=== PATIENT | female | born 1930 | race Caucasian/White ===

== ENCOUNTER 2016-07-25 21:00 | Inpatient (IN) | payer MEDICARE, OTHER ==
[~2016-07-25] VITALS: Ht 162.6 cm; Wt 75.0 kg
[2016-07-25 21:03] VITALS: BP 197/84; PULSE 87; RESP 16; TEMP 98; O2SAT 94
--- NOTE | 2016-07-25 21:21 | PD ---
Physical Exam Time Seen by Provider: 21:18 Narrative 86 y/o female here with slurred speech, R arm weakness, for two days. Symptoms seem to be coming and going. Saw Dr. Moffett today, told that she is likely suffering "mini-strokes" and sent here for further evaluation. Vital signs reviewed. seen at triage desk. Awaiting bed placement. Data Data Last Documented VS Vital Signs Date Time Temp Pulse Resp B/P Pulse Ox O2 Delivery O2 Flow Rate FiO2 07/25/16 21:03 98.0 87 16 197/84 94 MDM Medical Record Reviewed: Yes Supervised Visit with OMAR: Yes Omar Em Jul 25, 2016 21:21
[2016-07-25 23:00] VITALS: BP 173/81; PULSE 84; RESP 16; O2SAT 98
[2016-07-25] MEDS ORDERED: VALS1TAB65 PO (23:15)
[2016-07-25] MEDS ORDERED: METO50TA PO (23:15)
[2016-07-25] MEDS ORDERED: ASPI325T PO (23:15)
[2016-07-25] MEDS ORDERED: SODIUM CHLORIDE 0.9% FLUSH 10 ML FLUSH IVF PRN (23:15)
[2016-07-25] MEDS ORDERED: MECL-62 PO (23:19)
[2016-07-25 23:31] LABS: AUTOMATED NEUTROPHIL # 4.6 TH/MM3 (1.8-7.7); BASOPHIL # 0.2 TH/MM3 (0-0.2); BASOPHIL % 2.2 % (0.0-2.0); EOSINOPHIL # 0.8 TH/MM3 (0-0.4); EOSINOPHIL % 9.2 % (0.0-4.0); HEMATOCRIT 36.7 % (35.0-46.0); HEMO FLAGS DIFF FINAL; LYMPH % 23.2 % (9.0-44.0); LYMPHOCYTE # 2.1 TH/MM3 (1.0-4.8); MEAN CELL VOLUME 95.3 FL (80.0-100.0); MEAN CORPUSCULAR HEMOGLOBIN 31.8 PG (27.0-34.0); MEAN CORPUSCULAR HGB CONC 33.3 % (32.0-36.0); MONO % 14.6 % (0.0-8.0); NEUT % 50.8 % (16.0-70.0); PLATELET COUNT 177 TH/MM3 (150-450); RED BLOOD COUNT 3.85 MIL/MM3 (4.00-5.30); RED CELL DISTRIBUTION WIDTH 12.5 % (11.6-17.2)
[2016-07-25 23:45] LABS: ANION GAP 8 MEQ/L (5-15); AST (GOT) 18 U/L (15-37); BICARBONATE 25.3 MEQ/L (21.0-32.0); BLOOD UREA NITROGEN 15 MG/DL (7-18); CHLORIDE 101 MEQ/L (98-107); GLOMERULAR FILTRATION RATE 71 ML/MIN (>89); SODIUM (NA) 134 MEQ/L (136-145)
--- NOTE | 2016-07-25 23:48 | RADRPT ---
EXAM DATE/TIME: 07/25/2016 23:12 [facility] COMPARISON: No previous studies available for comparison. INDICATIONS : Right arm numbness. MEDICAL HISTORY : None. SURGICAL HISTORY : None. ENCOUNTER: Initial ACUITY: 2 days PAIN SCORE: 2/10 LOCATION: Right chest FINDINGS: A single view of the chest demonstrates cardiomegaly left basal atelectasis. Right lung is clear. The cardiomediastinal contours are unremarkable. Osseous structures are intact. CONCLUSION: Cardiomegaly left basilar atelectasis. Sergey Sage MD on July 25, 2016 at 23:46 Board Certified Radiologist. This report was verified electronically.
[2016-07-25 23:50] LABS: ALKALINE PHOSPHATASE 79 U/L (45-117); ALT (GPT) 17 U/L (10-53); TOTAL BILIRUBIN ADULT 0.3 MG/DL (0.2-1.0)
[2016-07-25 23:51] LABS: CREATINE KINASE 43 U/L (26-192)
--- NOTE | 2016-07-25 23:56 | RADRPT ---
EXAM DATE/TIME: 07/25/2016 23:39 [facility] COMPARISON: No previous studies available for comparison. INDICATIONS : Slurred speech and right arm weakness for two days. RADIATION DOSE: 49.11 CTDIvol (mGy) MEDICAL HISTORY : Hypertension. SURGICAL HISTORY : None. ENCOUNTER: Initial ACUITY: 2 days PAIN SCALE: 4/10 LOCATION: cranial TECHNIQUE: Multiple contiguous axial images were obtained of the head. Using automated exposure control and adj ustment of the mA and/or kV according to patient size, radiation dose was kept as low as reasonably a chievable to obtain optimal diagnostic quality images. FINDINGS: CEREBRUM: The ventricles are normal for age. No evidence of midline shift, mass lesion, hemorrhage or acute in farction. No extra-axial fluid collections are seen. POSTERIOR FOSSA: The cerebellum and brainstem are intact. The 4th ventricle is midline. The cerebellopontine angle i s unremarkable. EXTRACRANIAL: The visualized portion of the orbits is intact. SKULL: The calvaria is intact. No evidence of skull fracture. CONCLUSION: No acute intracranial disease. Sergey Sage MD on July 25, 2016 at 23:53 Board Certified Radiologist. This report was verified electronically.
[2016-07-26] VITALS (8 sets, daily range): BP systolic 160–199; BP diastolic 79–98; PULSE 78–103; RESP 16–20; TEMP 97.8–98.3; O2SAT 92–98
[2016-07-26 00:11] LABS: APTT (PATIENT) 26.4 SEC (24.3-30.1); PROTHROMBIN TIME - PATIENT 11.4 SEC (9.8-11.6)
--- NOTE | 2016-07-26 01:12 | PD ---
HPI Chief Complaint: Neuro Symptoms/ Deficits Time Seen by Provider: 23:38 Travel History International Travel<30 days: No Contact w/Intl Traveler<30days: No Traveled to known affect area: No History of Present Illness HPI Patient is an 86-year-old female with history of hypertension and Mnire's disease who presents to emergency room with complaints of episodes of speech difficulties. Patient reports that yesterday afternoon, she had problems with her speech, reports that "cannot get my words out." Patient reports that she decided to take a nap and when she woke up, she felt better. Patient reports that this has been intermittent since yesterday, reports that this happened again today, reports that symptoms lasted for an hour resolve on its own. Patient reports that she was concerned that today her right arm felt numb. Patient is from out of town, she did see a primary care doctor, Dr. Moffett, who was concerned as patient may be having mini strokes. Patient reports no concerns at this time. She did take an aspirin prior to coming to emergency room. PFSH Past Medical History Diminished Hearing: No Hypertension: Yes Tetanus Vaccination: Unknown Menopausal: Yes : 3 Para: 3 Miscarriage: 0 Past Surgical History Appendectomy: Yes Thoracic Surgery: Yes (LT LUNG SURG) Other Surgery: Yes Social History Alcohol Use: No Tobacco Use: No Substance Use: No Allergies-Medications (Allergen,Severity, Reaction): Coded Allergies: Codeine (Verified Allergy, Intermediate, "VIOLENTLY SICK", 07/25/16) Reported Meds & Prescriptions Reported Meds & Active Scripts Active Reported Meclizine (Meclizine HCl) 25 Mg Tab 25 Mg PO DIRECTED PRN Aspirin 325 Mg Tab 325 Mg PO DAILY Valsartan 160 Mg Tab 160 Mg PO DAILY Metoprolol Tartrate 50 Mg Tab 50 Mg PO BID Review of Systems General / Constitutional: No: Fever Eyes: No: Visual changes HENT: No: Headaches Cardiovascular: No: Chest Pain or Discomfort Respiratory: No: Shortness of Breath Gastrointestinal: No: Abdominal Pain Genitourinary: No: Dysuria Musculoskeletal: No: Pain Skin: No Rash Neurologic: Positive: Slurred Speech, Paresthesia, No: Weakness, Syncope Psychiatric: No: Depression Endocrine: No: Polydipsia Hematologic/Lymphatic: No: Easy Bruising Physical Exam Narrative GENERAL: No acute distress, nontoxic SKIN: Focused skin assessment warm/dry. HEAD: Atraumatic. Normocephalic. EYES: Pupils equal and round. No scleral icterus. No injection or drainage. ENT: No nasal bleeding or discharge. Mucous membranes pink and moist. NECK: Trachea midline. No JVD. CARDIOVASCULAR: Regular rate and rhythm. No murmur appreciated. RESPIRATORY: No accessory muscle use. Clear to auscultation. Breath sounds equal bilaterally. GASTROINTESTINAL: Abdomen soft, non-tender, nondistended. Hepatic and splenic margins not palpable. MUSCULOSKELETAL: No obvious deformities. No clubbing. No cyanosis. No edema. NEUROLOGICAL: Awake and alert. No obvious cranial nerve deficits. Motor grossly within normal limits. Normal speech. Cranial nerves 2- 12 grossly intact with no neurological deficits, NIH 0 PSYCHIATRIC: Appropriate mood and affect; insight and judgment normal. Data Data Last Documented VS Vital Signs Date Time Temp Pulse Resp B/P Pulse Ox O2 Delivery O2 Flow Rate FiO2 07/25/16 23:00 84 16 173/81 98 Room Air 07/25/16 21:03 98.0 Orders Electrocardiogram (07/25/16 23:14) Prothrombin Time / Inr (Pt) (07/25/16 23:14) Act Partial Throm Time (Ptt) (07/25/16 23:14) Complete Blood Count With Diff (07/25/16 23:14) Comprehensive Metabolic Panel (07/25/16 23:14) Creatine Kinase (Cpk) (07/25/16 23:14) Troponin I (07/25/16 23:14) Urinalysis - C+S If Indicated (07/25/16 23:14) Ct Brain W/O Iv Contrast(Rout) (07/25/16 23:14) Chest, Single Ap (07/25/16 23:14) Ecg Monitoring (07/25/16 23:14) Iv Access Insert/Monitor (07/25/16 23:14) Oximetry (07/25/16 23:14) Blood Glucose (07/25/16 23:14) Sodium Chloride 0.9% Flush (Ns Flush) (07/25/16 23:15) Place In Observation (07/26/16 ) Vital Signs (Adult) Q4H (07/26/16 01:01) Activity Bed Rest With Brp (07/26/16 01:01) Diet Npo (07/26/16 Breakfast) Sodium Chlor 0.9% 1000 Ml Inj (Ns 1000 M (07/26/16 01:01) Sodium Chloride 0.9% Flush (Ns Flush) (07/26/16 01:15) Sodium Chloride 0.9% Flush (Ns Flush) (07/26/16 09:00) Ondansetron Inj (Zofran Inj) (07/26/16 01:15) Bisacodyl Supp (Dulcolax Supp) (07/26/16 01:15) Basic Metabolic Panel (Bmp) (07/27/16 06:00) Complete Blood Count With Diff (07/27/16 06:00) Resp Oxygen Evelio C Titrat 1-4 L (07/26/16 ) Pt Request For Service (07/26/16 01:01) Ot Request For Service (07/26/16 01:01) Scd Bilateral/Knee High CLARICE.BID (07/26/16 01:01) Naloxone Inj (Narcan Inj) (07/26/16 01:15) Lipid Profile (07/26/16 06:00) Us Carotid Arteries Comp Bilat (07/26/16 ) Echo 2d Comp W/Dopp(Routine) (07/26/16 ) Aspirin (Aspirin) (07/26/16 09:00) Consult Neurology (07/26/16 ) Nursing Bedside Swallow Assess .ONCE (07/26/16 01:01) Hemoglobin (Hgb) A1c (07/26/16 06:00) Labs Laboratory Tests Test 07/25/16 23:20 White Blood Count 9.0 TH/MM3 Red Blood Count 3.85 MIL/MM3 Hemoglobin 12.2 GM/DL Hematocrit 36.7 % Mean Corpuscular Volume 95.3 FL Mean Corpuscular Hemoglobin 31.8 PG Mean Corpuscular Hemoglobin 33.3 % Concent Red Cell Distribution Width 12.5 % Platelet Count 177 TH/MM3 Mean Platelet Volume 8.9 FL Neutrophils (%) (Auto) 50.8 % Lymphocytes (%) (Auto) 23.2 % Monocytes (%) (Auto) 14.6 % Eosinophils (%) (Auto) 9.2 % Basophils (%) (Auto) 2.2 % Neutrophils # (Auto) 4.6 TH/MM3 Lymphocytes # (Auto) 2.1 TH/MM3 Monocytes # (Auto) 1.3 TH/MM3 Eosinophils # (Auto) 0.8 TH/MM3 Basophils # (Auto) 0.2 TH/MM3 CBC Comment DIFF FINAL Differential Comment Sodium Level 134 MEQ/L Potassium Level 4.0 MEQ/L Chloride Level 101 MEQ/L Carbon Dioxide Level 25.3 MEQ/L Anion Gap 8 MEQ/L Blood Urea Nitrogen 15 MG/DL Creatinine 0.77 MG/DL Estimat Glomerular Filtration 71 ML/MIN Rate Random Glucose 108 MG/DL Calcium Level 8.9 MG/DL Total Bilirubin 0.3 MG/DL Aspartate Amino Transf 18 U/L (AST/SGOT) Alanine Aminotransferase 17 U/L (ALT/SGPT) Alkaline Phosphatase 79 U/L Total Creatine Kinase 43 U/L Troponin I LESS THAN 0.02 NG/ML Total Protein 7.1 GM/DL Albumin 3.3 GM/DL Prothrombin Time 11.4 SEC Prothromb Time International 1.0 RATIO Ratio Activated Partial 26.4 SEC Thromboplast Time MDM Medical Decision Making Medical Screen Exam Complete: Yes Emergency Medical Condition: Yes Interpretation(s) EKG at 2329: NSR at 81bpm, qt/qtc: 372/409, no acute ST or T-wave changes Vital Signs Date Time Temp Pulse Resp B/P Pulse Ox O2 Delivery O2 Flow Rate FiO2 07/25/16 23:00 84 16 173/81 98 Room Air 07/25/16 22:50 82 97 Room Air 07/25/16 21:03 98.0 87 16 197/84 94 Laboratory Tests Test 07/25/16 23:20 White Blood Count 9.0 TH/MM3 (4.0-11.0) Red Blood Count 3.85 MIL/MM3 (4.00-5.30) Hemoglobin 12.2 GM/DL (11.6-15.3) Hematocrit 36.7 % (35.0-46.0) Mean Corpuscular Volume 95.3 FL (80.0-100.0) Mean Corpuscular Hemoglobin 31.8 PG (27.0-34.0) Mean Corpuscular Hemoglobin 33.3 % Concent (32.0-36.0) Red Cell Distribution Width 12.5 % (11.6-17.2) Platelet Count 177 TH/MM3 (150-450) Mean Platelet Volume 8.9 FL (7.0-11.0) Neutrophils (%) (Auto) 50.8 % (16.0-70.0) Lymphocytes (%) (Auto) 23.2 % (9.0-44.0) Monocytes (%) (Auto) 14.6 % (0.0-8.0) Eosinophils (%) (Auto) 9.2 % (0.0-4.0) Basophils (%) (Auto) 2.2 % (0.0-2.0) Neutrophils # (Auto) 4.6 TH/MM3 (1.8-7.7) Lymphocytes # (Auto) 2.1 TH/MM3 (1.0-4.8) Monocytes # (Auto) 1.3 TH/MM3 (0-0.9) Eosinophils # (Auto) 0.8 TH/MM3 (0-0.4) Basophils # (Auto) 0.2 TH/MM3 (0-0.2) CBC Comment DIFF FINAL Differential Comment Sodium Level 134 MEQ/L (136-145) Potassium Level 4.0 MEQ/L (3.5-5.1) Chloride Level 101 MEQ/L (98-107) Carbon Dioxide Level 25.3 MEQ/L (21.0-32.0) Anion Gap 8 MEQ/L (5-15) Blood Urea Nitrogen 15 MG/DL (7-18) Creatinine 0.77 MG/DL (0.50-1.00) Estimat Glomerular Filtration 71 ML/MIN (>89) Rate Random Glucose 108 MG/DL (74-106) Calcium Level 8.9 MG/DL (8.5-10.1) Total Bilirubin 0.3 MG/DL (0.2-1.0) Aspartate Amino Transf 18 U/L (15-37) (AST/SGOT) Alanine Aminotransferase 17 U/L (10-53) (ALT/SGPT) Alkaline Phosphatase 79 U/L (45-117) Total Creatine Kinase 43 U/L (26-192) Troponin I LESS THAN 0.02 NG/ML (0.02-0.05) Total Protein 7.1 GM/DL (6.4-8.2) Albumin 3.3 GM/DL (3.4-5.0) Prothrombin Time 11.4 SEC (9.8-11.6) Prothromb Time International 1.0 RATIO Ratio Activated Partial 26.4 SEC Thromboplast Time (24.3-30.1) Last Impressions Head CT 07/25/162313 Signed Impressions: Service Date/Time: Monday, July 25, 2016 23:39 - CONCLUSION: No acute intracranial disease. Sergey Sage MD Chest X-Ray 07/25/162313 Signed Impressions: Service Date/Time: Monday, July 25, 2016 23:12 - CONCLUSION: Cardiomegaly left basilar atelectasis. Sergey Sage MD Differential Diagnosis TIA, CVA, intracranial hemorrhage, arrhythmia, electrolyte abnormality Narrative Course Patient is an 86-year-old female who presents to emergency room with her daughters for evaluation of TIA. Over the past 2 days, patient has been having episodes of slurring of speech, dysarthria, weakness and numbness to her right upper extremities. She did see her primary care doctor today who informed her that she should go to the emergency room for a TIA workup. Patient reports that symptoms are intermittent in nature and lasts for hours at a time, patient currently symptomatic free at this time. NIH scale is 0 All labs and all studies reviewed with patient and her daughters in detail. Plan to obs for TIA. Case reviewed with DR. Flores who accepts pt to service Diagnosis Primary Impression: TIA (transient ischemic attack) Qualified Code: G45.9 - Transient cerebral ischemia, unspecified type Admitting Information Admitting Physician Requests: Mae Nicholson DO Jul 26, 2016 01:12
[2016-07-26] MEDS ORDERED: BISACODYL 10 MG SUPP RECTAL PRN (01:15)
[2016-07-26] MEDS ORDERED: NALOXONE HCL 0.4 MG/ML AMP IV PRN (01:15)
[2016-07-26] MEDS ORDERED: ONDANSETRON HCL 4 MG/2 ML VIAL IVP PRN (01:15)
[2016-07-26] MEDS: SODIUM CHLORIDE 0.9% FLUSH 10 ML FLUSH IV FLUSH PRN (03:23)
[2016-07-26] MEDS: SODIUM CHLOR 0.9% 1000 ML INJ 1,000 ML IV SCH ×2 (03:24→20:19)
--- NOTE | 2016-07-26 04:19 | HHI.HP ---
HPI Service [facility] Primary Care Physician Gera Yoo M.D. Admission Diagnosis TIA Diagnoses: Chief Complaint: Right upper extremity numbness tingling and weakness along with expressive aphasia Travel History International Travel<30 Days: No Contact w/Intl Traveler <30 Da: No Traveled to Known Affected Are: No History of Present Illness This 86-year-old female patient with past medical history which includes: HTN, R carotid artery stenosis. Patient recently traveled here from [place] to [place] on a train then from [place] to [place] by car. Patient reports that starting Sunday she had numbness, tingling and weakness in R arm as well as difficulty speaking. Patient reports these symptoms last most of the day Sunday, then seemed to resolve. Symptoms then presented again today therefore she proceeded to ER for further evaluation. At this time patient reports symptoms have nearly resolved. Patient has known R carotid artery disease last US 5 years ago. Patient denies chest pain shortness of breath nausea vomiting diarrhea constipation fevers or chills Review of Systems Except as stated in HPI: all other systems reviewed are Neg Past Family Social History Past Surgical History appendectomy as a child hysterectomy lung Sx secondary to fungal infection Reported Medications Meclizine (Meclizine HCl) 25 Mg Tab 25 Mg PO DIRECTED PRN Aspirin 325 Mg Tab 325 Mg PO DAILY Valsartan 160 Mg Tab 160 Mg PO DAILY Metoprolol Tartrate 50 Mg Tab 50 Mg PO BID Allergies: Coded Allergies: Codeine (Verified Allergy, Intermediate, "VIOLENTLY SICK", 07/25/16) Active Ordered Medications Current Medications Medications (Trade) Dose Ordered Sig/Ton Route Start Time Stop Time Status Last Admin (NS 1000 ml Inj) 1,000 ml @ 50 mls/hr Q20H IV 07/26/16 01:01 07/26/16 03:24 (NS Flush) 2 ml UNSCH PRN IV FLUSH 07/26/16 01:15 07/26/16 03:23 (NS Flush) 2 ml BID IV FLUSH 07/26/16 09:00 (Zofran Inj) 4 mg Q6H PRN IVP 07/26/16 01:15 (Dulcolax Supp) 10 mg DAILY PRN RECTAL 07/26/16 01:15 (Narcan Inj) 0.4 mg UNSCH PRN IV 07/26/16 01:15 (Aspirin) 325 mg DAILY PO 07/26/16 09:00 Family History Family: mother and sister both had brain aneurysm Social History Patient has remote tobacco use history reports she quit smoking 30+ years ago Reports occasional EtOH use Patient lives in [place] is here on vacation to visit her daughter Physical Exam Vital Signs Vital Signs Date Time Temp Pulse Resp B/P Pulse Ox O2 Delivery O2 Flow Rate FiO2 07/26/16 03:13 98.3 93 18 160/98 98 07/26/16 02:00 80 16 169/79 98 Room Air 07/26/16 01:07 97 07/25/16 23:00 84 16 173/81 98 Room Air 07/25/16 22:50 82 97 Room Air 07/25/16 21:03 98.0 87 16 197/84 94 Physical Exam GENERAL: This is a well-nourished, well-developed patient, in no apparent distress. SKIN: No rashes, ecchymoses or lesions. Cool and dry. HEAD: Atraumatic. Normocephalic. No temporal or scalp tenderness. EYES: Extraocular motions intact. No scleral icterus. No injection or drainage. NECK: Trachea midline. No JVD or lymphadenopathy. Supple, nontender, no meningeal signs. CARDIOVASCULAR: Regular rate and rhythm without murmurs, gallops, or rubs. Left carotid bruit audible RESPIRATORY: Clear to auscultation. Breath sounds equal bilaterally. No wheezes , rales, or rhonchi. GASTROINTESTINAL: Abdomen soft, non-tender, nondistended. No guarding. MUSCULOSKELETAL: Extremities without clubbing, cyanosis, or edema. No joint tenderness, effusion, or edema noted. No calf tenderness. Negative Homans sign bilaterally. NEUROLOGICAL: Awake and alert. Motor and sensory grossly within normal limits. Five out of 5 muscle strength in all muscle groups, with the exception of right upper extremity slightly weaker than left. slightly slow speech- dose not appear slurred. Laboratory Laboratory Tests Test 07/25/16 23:20 White Blood Count 9.0 Red Blood Count 3.85 Hemoglobin 12.2 Hematocrit 36.7 Mean Corpuscular Volume 95.3 Mean Corpuscular Hemoglobin 31.8 Mean Corpuscular Hemoglobin 33.3 Concent Red Cell Distribution Width 12.5 Platelet Count 177 Mean Platelet Volume 8.9 Neutrophils (%) (Auto) 50.8 Lymphocytes (%) (Auto) 23.2 Monocytes (%) (Auto) 14.6 Eosinophils (%) (Auto) 9.2 Basophils (%) (Auto) 2.2 Neutrophils # (Auto) 4.6 Lymphocytes # (Auto) 2.1 Monocytes # (Auto) 1.3 Eosinophils # (Auto) 0.8 Basophils # (Auto) 0.2 CBC Comment DIFF FINAL Differential Comment Sodium Level 134 Potassium Level 4.0 Chloride Level 101 Carbon Dioxide Level 25.3 Anion Gap 8 Blood Urea Nitrogen 15 Creatinine 0.77 Estimat Glomerular Filtration 71 Rate Random Glucose 108 Calcium Level 8.9 Total Bilirubin 0.3 Aspartate Amino Transf 18 (AST/SGOT) Alanine Aminotransferase 17 (ALT/SGPT) Alkaline Phosphatase 79 Total Creatine Kinase 43 Troponin I LESS THAN 0.02 Total Protein 7.1 Albumin 3.3 Prothrombin Time 11.4 Prothromb Time International 1.0 Ratio Activated Partial 26.4 Thromboplast Time Result Diagram: 07/25/16231907/25/162319 Imaging Last Impressions Head CT 07/25/162313 Signed Impressions: Service Date/Time: Monday, July 25, 2016 23:39 - CONCLUSION: No acute intracranial disease. Sergey Sage MD Chest X-Ray 07/25/162313 Signed Impressions: Service Date/Time: Monday, July 25, 2016 23:12 - CONCLUSION: Cardiomegaly left basilar atelectasis. Sergey Sage MD Assessment and Plan Assessment and Plan This 86-year-old female patient with past medical history which includes: HTN, R carotid artery stenosis. Patient recently traveled here from [place] to [place] on a train then from [place] to [place] by car. Patient reports that starting Sunday she had numbness, tingling and weakness in R arm as well as difficulty speaking. Patient reports these symptoms last most of the day Sunday, then seemed to resolve. Symptoms then presented again today therefore she proceeded to ER for further evaluation. At this time patient reports symptoms have nearly resolved. R upper extremity weakness and expressive aphagia TIS vs CVA neurology consult US carotid arteries Lipid profile echocardiogram bedrest, permissive hypertension HTN Hold BP medication at this time allow permissive HTN Left basilar atelectasis chest x-ray reviewed by myself as well as Dr. Flores reveals cardiomegaly with left basilar atelectasis IS Q1H while awake Monitor closely for signs and symptoms of infection DVT prophylaxis Lovenox Discussed with the care provider, nursing, patient and daughter at bedside Written by Conchita Haile, acting as scribe for Dr. Flores on 07/26/16 at 05: 07. This note was transcribed by scribe [Conchita Haile]. I, Dr. Keyshawn Flores personally performed the history, physical exam, and medical decision making; and confirmed the accuracy of the information in the transcribed note. Authenticated by Dr. Keyshawn Flores on 07/26/16 at 05:07. Conchita Haile Jul 26, 2016 04:19 Keyshawn Flores MD August 14, 2016 05:00
[2016-07-26] MEDS: ENOXAPARIN SODIUM 40 MG/0.4 ML SYRINGE SQ SCH (06:09)
[2016-07-26 06:16] LABS: HDL CHOLESTEROL 50.7 MG/DL (40.0-60.0); LDL CHOLESTEROL 94 MG/DL (0-99)
[2016-07-26] MEDS: SODIUM CHLORIDE 0.9% FLUSH 10 ML FLUSH IV FLUSH SCH ×2 (09:00→20:19)
[2016-07-26] MEDS ORDERED: ASPIRIN 325 MG TAB PO SCH (09:00)
[2016-07-26] MEDS: ASPIRIN 325 MG TAB PO SCH (09:16)
--- NOTE | 2016-07-26 10:08 | RADRPT ---
EXAM DATE/TIME: 07/26/2016 08:05 [facility] COMPARISON: No previous studies available for comparison. INDICATIONS : Transient ischemic attack. MEDICAL HISTORY : Hypertension. Skin cancer. SURGICAL HISTORY : Appendectomy. Left lung surgery. ENCOUNTER: Initial ACUITY: 1 day PAIN SCORE: 10 LOCATION: Bilateral neck PEAK SYSTOLIC VELOCITIES (cm/sec): ICA/CCA RATIO: Right: 1.0 Left: 1.7 ICA: Right: 106 Left: 178 CCA: Right: 107 Left: 103 ECA: Right: 124 Left: 143 VERTEBRAL: Right: 38 antegrade Left: 60 antegrade Elevated flow velocities and ICA/CCA ratios have been found to correlate with increased degrees of vessel stenosis, calculated as percentage of diameter relative to a normal segment of distal ICA/CCA FINDINGS: There is antegrade flow in the bilateral vertebral arteries. Moderate atherosclerotic plaquing of the right carotid bifurcation identified. Mild atherosclerotic plaquing of the left distal common caroti d and proximal internal carotid arteries. There is mild elevated velocity of the left internal caroti d artery, not hemodynamically significant at this time. CONCLUSION: 1. No evidence for hemodynamically significant stenosis. Aristides Auguste MD on July 26, 2016 at 10:04 Board Certified Radiologist. This report was verified electronically.
--- NOTE | 2016-07-26 11:54 | EKG ---
Date Performed: 07/25/2016 Time Performed: 23:29:30 PTAGE: 86 years EKG: Sinus rhythm WITH OCCASIONAL VENTRICULAR PREMATURE COMPLEXES PATTERN CONSISTENT WITH PULMONARY DISEASE INFERIOR M YOCARDIAL INFARCTION ABNORMAL ECG NO PREVIOUS TRACING DOCTOR: Dawit Hutchinson Interpretating Date/Time 07/26/2016 11:50:54
--- NOTE | 2016-07-26 14:31 | RADRPT ---
EXAM DATE/TIME: 07/26/2016 14:01 [facility] COMPARISON: CT BRAIN W/O CONTRAST, July 25, 2016, 23:39. INDICATIONS : Right sided weakness that started 4 days ago. MEDICAL HISTORY : Hypertension. SURGICAL HISTORY : Appendectomy. Hysterectomy. lung surgery ENCOUNTER: Subsequent ACUITY: 4-6 days PAIN SCORE: 0/10 LOCATION: cranial TECHNIQUE: Multiplanar, multisequence MRI of the brain was performed without contrast. FINDINGS: Diffusion weighted images demonstrate multiple foci of restricted diffusion involving the left fronta l, parietal, temporal and occipital regions. There is corresponding mild increased flair signal are p eriods cyst in foci of acute infarction. There is no hemorrhage. No midline shift. There is mild volu me loss. Fluid in the left maxillary sinus is noted. 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 The re is no hemorrhage or mass effect. Aristides Auguste MD on July 26, 2016 at 14:27 Board Certified Radiologist. This report was verified electronically.
[2016-07-26] MEDS ORDERED: ENALAPRILAT 1.25 MG/ML VIAL IV PRN (14:45)
[2016-07-26] MEDS ORDERED: IOHEXOL 350 MG/ML 10 ML VIAL (for RAD DIAG) IV ONE (17:32)
[2016-07-26 18:39] LABS: HEMOGLOBIN A1a 1.6 %; HEMOGLOBIN A1b 0.9 %; HEMOGLOBIN Ao 85.7 %; HEMOGLOBIN LA1C 1.7 %; HEMOGLOBIN P3 3.4 %
--- NOTE | 2016-07-26 19:10 | RADRPT ---
EXAM DATE/TIME: 07/26/2016 17:28 [facility] COMPARISON: No previous studies available for comparison. INDICATIONS : Recent TIA; evaluate for occlusion. IV CONTRAST: 99 cc Omnipaque 350 (iohexol) IV ; Cumulative dose for multiple exams. RADIATION DOSE: 26.82 CTDIvol (mGy) ; Combined studies - Thorax/Abdomen/Pelvis MEDICAL HISTORY : Cardiovascular disease. Hypertension. SURGICAL HISTORY : None. ENCOUNTER: Initial ACUITY: 1 day PAIN SCALE: 0/10 LOCATION: cranial TECHNIQUE: Volumetric scanning was performed using a multi-row detector CT scanner. The data was post processed with a variety of visualization algorithms including full volume maximum intensity projection, multi -planar sliding thin slab reformation, curved planar reformation, and surface rendering techniques. Using automated exposure control and adjustment of the mA and/or kV according to patient size, radiat ion dose was kept as low as reasonably achievable to obtain optimal diagnostic quality images. FINDINGS: There is excellent visualization of the major intracranial arteries out to the second-order branch ve ssels. There is no evidence for aneurysm, vessel truncation or stenosis, and no evidence for vascula r malformation. CONCLUSION: Intracranial arteries are within normal limits. Gagandeep Riley MD on July 26, 2016 at 19:08 Board Certified Radiologist. This report was verified electronically.
--- NOTE | 2016-07-26 19:16 | RADRPT ---
EXAM DATE/TIME: 07/26/2016 17:28 [place] COMPARISON: US CAROTID ARTERIES, July 26, 2016, 8:05. INDICATIONS : Recent TIA; evaluate for occlusion. IV CONTRAST: 99 cc Omnipaque 350 (iohexol) IV ; Cumulative dose for multiple exams. RADIATION DOSE: 26.82 CTDIvol (mGy) ; Combined studies MEDICAL HISTORY : Cardiovascular disease. Hypertension. SURGICAL HISTORY : None. ENCOUNTER: Initial ACUITY: 1 day PAIN SCALE: 0/10 LOCATION: neck Elevated flow velocities and ICA/CCA ratios have been found to correlate with increased degrees of vessel stenosis, calculated as percentage of diameter relative to a normal segment of distal ICA/CCA. TECHNIQUE: Volumetric scanning was performed using a multirow detector CT scanner. The data was post processed with a variety of visualization algorithms including full-volume maximum intensity projection, multip lanar sliding thin-slab reformation, curved-planar reformation, and surface-rendering techniques. Us ing automated exposure control and adjustment of the mA and/or kV according to patient size, radiatio n dose was kept as low as reasonably achievable to obtain optimal diagnostic quality images. FINDINGS: AORTIC ARCH: Mild atherosclerosis of the arch and origins without significant narrowing. RIGHT CAROTID: There is mild plaque of the bulb and proximal internal carotid artery with no significant stenosis. LEFT CAROTID: There is bulky plaque of the left internal carotid artery. An approximately 6 mm long greater than 70 % stenosis is seen approximately 1 cm distal to the bifurcation.VERTEBRALS: Left vertebral artery is dominant. It has a low grade narrowing at its origin and diffuse tortuosity. CONCLUSION: * Atherosclerotic plaque of both carotid bifurcations. Despite the ultrasound, the CT suggests hemody namically significant stenosis of the left internal carotid artery about 1 cm distal to the bifurcati on. No evidence of hemodynamically significant narrowing of the right carotid system. * Dominant left vertebral artery with a low grade narrowing at its origin and diffuse tortuosity. Gagandeep Riley MD on July 26, 2016 at 19:11 Board Certified Radiologist. This report was verified electronically.
--- NOTE | 2016-07-26 20:02 | EC ---
Study Study Date:07/26/2016 STUDY CONCLUSIONS SUMMARY - Left ventricle: The cavity size was normal. Systolic function was probably normal. The estimated ejection fraction was in the range of 55% to 60%. Although no diagnostic regional wall motion abnormality was identified, this possibility cannot be completely excluded on the basis of this study. The study is not technically sufficient to allow evaluation of LV diastolic function. - Mitral valve: Mildly to moderately calcified annulus. Mild regurgitation. If LV function is below 40, please consider prescribing an ACEI or ARB or document rationale for non-use. PROCEDURE DATA STUDY STATUS: Elective. Procedure: Transthoracic echocardiography. Image quality was good. Scanning was performed from the parasternal, apical, and subcostal acoustic windows. Study completion: The patient tolerated the procedure well. Transthoracic echocardiography. M-mode, complete 2D, complete spectral Doppler, and color Doppler. Patient status: Inpatient. CARDIAC ANATOMY LEFT VENTRICLE: The cavity size was normal. Systolic function was probably normal. The estimated ejection fraction was in the range of 55% to 60%. Although no diagnostic regional wall motion abnormality was identified, this possibility cannot be completely excluded on the basis of this study. The study is not technically sufficient to allow evaluation of LV diastolic function. AORTIC VALVE: Trileaflet; mildly thickened leaflets. Doppler: There was no stenosis. No significant regurgitation. MITRAL VALVE: Mildly to moderately calcified annulus. Doppler: There was no evidence for stenosis. Mild regurgitation. Valve area by pressure half-time: 2.65cm^2. Mean gradient: 3mm Hg (D). Peak gradient: 13mm Hg (D). LEFT ATRIUM: The atrium was normal in size. RIGHT VENTRICLE: The cavity size was normal. PULMONIC VALVE: Not well visualized. Doppler: There was no evidence for stenosis. No significant regurgitation. TRICUSPID VALVE: The valve appears to be grossly normal. Doppler: There was no evidence for stenosis. Trace regurgitation. PERICARDIUM: A trivial pericardial effusion was identified. BASIC MEASUREMENTS ADULT Normal Left ventricle LV internal dimension, ED, chordal level, *34.3 mm 43-52 PLAX LV internal dimension, ES, chordal level, 25.9 mm 23-38 PLAX Fractional shortening, chordal level, PLAX *24 % >29 LV posterior wall thickness, ED 7.51 mm IVS/LVPW ratio, ED *1.33 <1.3 Ventricular septum Septal thickness, ED 10 mm Aortic valve Leaflet separation 18 mm 15-26 Left atrium Anterior-posterior dimension 35 mm Right ventricle RV internal dimension, ED, PLAX 20.3 mm 19-38 BASIC MEASUREMENTS ADULT Normal Aortic valve Leaflet separation 18 mm 15-26 Aorta Root diameter, ED 31 mm 20-37 DOPPLER MEASUREMENTS ADULT Normal Main pulmonary artery Pressure, S 27 mm Hg =30 Aortic valve VTI, S 34.9 cm Mitral valve Peak E-wave velocity 80.2 cm/s Peak A-wave velocity 147 cm/s Mean velocity, D 72.5 cm/s Pressure half-time 83 ms Mean gradient, D 3 mm Hg Peak gradient, D 13 mm Hg Peak E/A ratio 0.5 Valve area, pressure half-time 2.65 cm^2 Tricuspid valve Regurgitant peak velocity 232 cm/s Peak RV-RA gradient, S 22 mm Hg Maximal regurgitant velocity 232 cm/s Systemic veins Estimated CVP 5 mm Hg Right ventricle RV pressure, S 27 mm Hg <30 LEGEND: Mean values are shown as u=mean value. Asterisk (*) ortiz values outside specified normal range. Prepared and signed by Blayne Moore [id number]
[2016-07-27] VITALS (10 sets, daily range): BP systolic 139–209; BP diastolic 69–95; PULSE 67–101; RESP 18–20; TEMP 96.1–98.8; O2SAT 93–99
[2016-07-27 04:36] LABS: AUTOMATED NEUTROPHIL # 4.7 TH/MM3 (1.8-7.7); BASOPHIL # 0.1 TH/MM3 (0-0.2); BASOPHIL % 1.3 % (0.0-2.0); EOSINOPHIL # 0.8 TH/MM3 (0-0.4); EOSINOPHIL % 9.6 % (0.0-4.0); HEMATOCRIT 32.8 % (35.0-46.0); HEMO FLAGS DIFF FINAL; LYMPH % 19.3 % (9.0-44.0); LYMPHOCYTE # 1.6 TH/MM3 (1.0-4.8); MEAN CELL VOLUME 94.3 FL (80.0-100.0); MEAN CORPUSCULAR HEMOGLOBIN 32.5 PG (27.0-34.0); MEAN CORPUSCULAR HGB CONC 34.5 % (32.0-36.0); MONO % 12.8 % (0.0-8.0); PLATELET COUNT 165 TH/MM3 (150-450); RED BLOOD COUNT 3.47 MIL/MM3 (4.00-5.30); RED CELL DISTRIBUTION WIDTH 12.5 % (11.6-17.2); WHITE BLOOD COUNT 8.3 TH/MM3 (4.0-11.0)
[2016-07-27 04:51] LABS: POTASSIUM 3.6 MEQ/L (3.5-5.1)
[2016-07-27] MEDS: ENOXAPARIN SODIUM 40 MG/0.4 ML SYRINGE SQ SCH (06:05)
--- NOTE | 2016-07-27 06:36 | MB ---
cc: KVNG ACEVEDO DATE OF CONSULTATION 07/26/2016 REASON FOR CONSULTATION Possible TIA. HISTORY OF PRESENT ILLNESS Ms. Christopher is an 86-year-old female with past medical history of hypertension. Right carotid stenosis. She reports that three days ago she started to have numbness, tingling and weakness in her right arm when she was not able to use the right arm properly and this was in association with difficulty in speaking. The patient states that these symptoms persisted, did not resolve, so she presented today for further evaluation. The patient is not on blood thinners and she was diagnosed with right carotid artery disease by an ultrasound five years ago. The patient denies any headache, double vision, weakness. No convulsions or loss of consciousness. REVIEW OF SYSTEMS A 12-point review of systems is negative except for what is stated in the HPI. PAST MEDICAL HISTORY Hypertension. Right carotid stenosis. Skin cancer. PAST SURGICAL HISTORY 1. Appendectomy. 2. Hysterectomy. 3. Lung surgery secondary to fungal infection. 4. Skin cancer removal. MEDICATIONS 1. Meclizine. 1. Valsartan. 2. Metoprolol. ALLERGIES CODEINE. FAMILY HISTORY Mother and sister both had brain aneurysms. SOCIAL HISTORY Used to smoke. Quit 30 years ago. Occasional ethanol use. No illicit drug abuse. PHYSICAL EXAMINATION GENERAL: Awake, alert, anxious. Good historian. Not in apparent distress HEENT: Normocephalic, atraumatic. Intact hearing and intact vision. Right facial droop. CARDIOVASCULAR: Regular rate and rhythm with no murmurs. RESPIRATORY: Clear to auscultation. No wheezes. ABDOMEN: Soft. No tenderness. MUSCULOSKELETAL: Extremities without clubbing, cyanosis or edema. Moves all extremities with more pronounced weakness on the right side. NEUROLOGIC: Awake, alert, oriented to time, person and place. Intact memory. Slurred speech. Abnormal speech content. Abnormal naming pen/pencil, clock/watch, tie/tie. Normal repetition. Normal comprehension. Normal calculation. No finger agnosia. Pupils are equal, reacting to light, bilateral and symmetrical. No gaze paresis. No diplopia. No nystagmus. Right facial droop. Intermittent right upper extremity tremulous movements. No visual field defect. No frontal release reflexes. Motor examination 5-/5 right shoulder abduction, 4+ right elbow extension, 5- right wrist extension. Right lower extremity 5-/5 right hip flexion, right foot extension. Left upper and lower extremity 5/5. Intact sensation bilateral and symmetrical. Plantar right Babinski, left downgoing. PSYCHOLOGICAL: Intact mood and behavior. No hallucinations, LABORATORY DATA WBC 9, hemoglobin 12.2, platelet 177. Sodium 134, potassium 4, anion gap 8, A1c 5.5, BUN 15, creatinine 0.77, albumin 3.3, triglycerides 68, cholesterol 158, LDL 94, HDL 50.7.INR 1. DIAGNOSTICS IMAGING - Head CT scan with no acute intracranial disease. - MRI brain without contrast revealed multiple infarcts involving the left frontal, parietal, temporal and occipital regions. There is no hemorrhage or mass effect. DIAGNOSTIC IMPRESSION 1. Known acute/subacute ischemic stroke. 2. Dysnomia. Right facial weakness, dysphagia, right upper and lower extremity weakness, likely a left MCA ischemic stroke. 3. Hypertension. 4. Carotid disease. PLAN 1. Neuro checks q. 4 hourly. 2. This is the fourth day post-stroke.There is no need to allow for permissive hypertension at this time. 3. Manage blood pressure, start home medications. 4. CTA neck. 5. CTA head. 6. Carotid ultrasound. 7. Telemetry. 8. cardiac echo. 9. Aspirin 325 mg daily. 10. PT/OT recommendations are appreciated. 11. Speech therapy. 12. Prophylaxis with SCDs. 13. GI prophylaxis. Thank you for the opportunity to participate in the care of your patient. MD DOUG Marquez/BOB /11:35 PM /6:16 AM ROBERT
[2016-07-27] MEDS: ASPIRIN 325 MG TAB PO SCH (08:20)
[2016-07-27] MEDS: SODIUM CHLORIDE 0.9% FLUSH 10 ML FLUSH IV FLUSH SCH ×2 (08:24→21:00)
--- NOTE | 2016-07-27 08:24 | HHI.PR ---
Subjective Remarks Follow up for CVA with RUE deficit, Left carotid stenosis. The patient reports feeling generally weak again today, mostly in the right upper extremity, although she does feel much improved compared to her arrival. Denies any other medical complaints including no headache, blurred vision, lightheadedness, dizziness, chest pain, or shortness of breath. She understands she will be going for left CEA tomorrow, multiple family members at bedside. Objective Vitals Vital Signs Date Time Temp Pulse Resp B/P Pulse Ox O2 Delivery O2 Flow Rate FiO2 07/27/16 07:15 98.8 101 20 191/95 98 07/27/16 05:34 98.2 89 20 191/81 97 07/27/16 01:25 98.6 92 18 139/69 93 07/26/16 19:43 98.0 103 20 195/90 97 07/26/16 16:20 88 07/26/16 15:50 97.8 85 18 199/88 95 07/26/16 11:12 97.9 78 18 190/79 95 07/26/16 08:55 98.3 85 16 196/79 92 Result Diagram: 07/27/16 0352 07/27/16 0352 Imaging Last Impressions Neck CTA 07/26/16 0000 Signed Impressions: Service Date/Time: Tuesday, July 26, 2016 17:28 - CONCLUSION: * Atherosclerotic plaque of both carotid bifurcations. Despite the ultrasound, the CT suggests hemodynamically significant stenosis of the left internal carotid artery about 1 cm distal to the bifurcation. No evidence of hemodynamically significant narrowing of the right carotid system. * Dominant left vertebral artery with a low grade narrowing at its origin and diffuse tortuosity. Gagandeep Riley MD Head CTA 07/26/16 0000 Signed Impressions: Service Date/Time: Tuesday, July 26, 2016 17:28 - CONCLUSION: Intracranial arteries are within normal limits. Gagandeep Riley MD Carotid Artery Ultrasound 07/26/16 0000 Signed Impressions: Service Date/Time: Tuesday, July 26, 2016 08:05 - CONCLUSION: 1. No evidence for hemodynamically significant stenosis. Aristides Auguste MD Brain MRI 07/26/16 0000 Signed Impressions: Service Date/Time: Tuesday, July 26, 2016 14:01 - CONCLUSION: Multiple infarcts are noted involving the left frontal, parietal, temporal and occipital regions. There is no hemorrhage or mass effect. Aristides Auguste MD Head CT 07/25/162313 Signed Impressions: Service Date/Time: Monday, July 25, 2016 23:39 - CONCLUSION: No acute intracranial disease. Sergey Sage MD Chest X-Ray 07/25/162313 Signed Impressions: Service Date/Time: Monday, July 25, 2016 23:12 - CONCLUSION: Cardiomegaly left basilar atelectasis. Sergey Sage MD Objective Remarks GENERAL: Well-nourished, well-developed elderly female patient in [facility]. SKIN: Warm and dry. No rash. HEENT: Normocephalic. Atraumatic.Pupils equal and round. Mucous membranes pink and moist. NECK: Supple. Trachea midline. CARDIOVASCULAR: Regular rate and rhythm. S1, S2 noted. No murmur appreciated. RESPIRATORY: No accessory muscle use. Clear to auscultation. Breath sounds equal bilaterally. GASTROINTESTINAL: Abdomen soft, non-tender, nondistended. Normoactive bowel sounds x4. MUSCULOSKELETAL: No obvious deformities. Extremities without clubbing, cyanosis , or edema. NEUROLOGICAL: Awake and alert. No obvious cranial nerve deficits. Motor grossly within normal limits. 4/5 muscle strength of RUE with some slight neglect and slightly diminished RUE sensation, 5/5 muscle strength in LUE/LLE/ RLE with sensation intact. Normal speech. No facial droop, lid lag, tongue deviation. PSYCHIATRIC: Appropriate mood and affect; insight and judgment normal. Medications and IVs Current Medications Medications (Trade) Dose Ordered Sig/Ton Route Start Time Stop Time Status Last Admin (NS 1000 ml Inj) 1,000 ml @ 50 mls/hr Q20H IV 07/26/16 01:01 07/26/16 20:19 (NS Flush) 2 ml UNSCH PRN IV FLUSH 07/26/16 01:15 07/26/16 03:23 (NS Flush) 2 ml BID IV FLUSH 07/26/16 09:00 (Zofran Inj) 4 mg Q6H PRN IVP 07/26/16 01:15 (Dulcolax Supp) 10 mg DAILY PRN RECTAL 07/26/16 01:15 (Narcan Inj) 0.4 mg UNSCH PRN IV 4/12/17 01:15 (Aspirin) 325 mg DAILY PO 07/26/16 09:00 07/26/16 09:16 (Lovenox Inj) 40 mg Q24H SQ 07/26/16 06:00 07/27/16 06:05 (Vasotec Inj) 1.25 mg Q4H PRN IV 07/26/16 14:45 A/P Assessment and Plan 86-year-old female patient with past medical history which includes: HTN, carotid artery stenosis. Patient recently traveled here from [place] to [place] on a train then from [place] to [place] by car. Patient reports that starting Sunday 07/23 she had numbness, tingling and weakness in R arm as well as difficulty speaking. Patient reports these symptoms last most of the day Sunday, then seemed to resolve. Symptoms then presented again today therefore she proceeded to ER for further evaluation. At this time patient reports symptoms have nearly resolved. Acute Ischemic CVA: presented with R upper extremity weakness and expressive aphasia. -Brain MRI images reviewed, shows multiple infarcts involving the left frontal, parietal, temporal, and occipital regions. -Head CTA intracranial arteries wnl. Neck CTA atherosclerotic plaque bilateral carotid, hemodynamically significant stenosis of left ICA; no significant stenosis on the right -Neurology consulted -Lipid profile with LDL 94, start statin -Continue aspirin 325mg daily -echocardiogram with normal systolic function, EF 55-60%, mild MR -S/p HOB flat & bedrest, allowed permissive hypertension however now 4 days post stroke, restart antihypertensives -NIHSS, neuro checks -consult stroke navigator & rehab medicine -consult PT/OT/ST Left Internal Carotid Artery Stenosis: Neck CTA images reviewed, showed hemodynamically significant stenosis of left ICA. -continue on aspirin/statin -consult vascular surgery, Dr. Kidd plans for left CEA tomorrow 07/28 -NPO after midnight HTN: S/p permissive hypertension as above with CVA. -Restarted patient's Valsartan 160mg daily and Metoprolol 50mg bid -IV Vasotec prn SBP > 180, DBP >100 -monitor BP, adjust antihypertensives as needed -BP still significantly elevated, will give Nifedipine XL 30mg x1 now, and start on 30mg qd, adjust dose as needed Left basilar atelectasis: CXR reviewed by myself, reveals cardiomegaly with left basilar atelectasis -Incentive Spirometry Q1H while awake -Monitor closely for signs and symptoms of infection DVT prophylaxis: Lovenox Discussed with the patient, multiple family members, RN. Written by Sylwia Wood, acting as scribe for Dr. Cowan on 07/27/16 at 15: 08. Discharge Planning Admitted to inpatient with acute CVA. Going for Left CEA tomorrow. Attending Statement This note was transcribed by scribe Sylwia Wood. I, Dr. Sully Cowan personally performed the history, physical exam, and medical decision making; and confirmed the accuracy of the information in the transcribed note. Authenticated by Dr. Sully Cowan on 07/27/16 at 20:14. Sylwia Wood PA-C Jul 27, 2016 08:24 Sully Cowan MD Jul 27, 2016 20:15
[2016-07-27] MEDS: METOPROLOL TARTRATE 50 MG TAB PO SCH ×2 (09:55→21:20)
[2016-07-27] MEDS: VALSARTAN 160 MG TAB PO SCH (09:55)
--- NOTE | 2016-07-27 12:47 | PD.VS.CON ---
History of Present Illness Chief Complaint: Ms. Christopher is a pleasant 86/F who recently arrived to [place] from [place] where she is currently staying with her daughter. She has reported she developed 4 days ago a new onset right arm weakness with difficulty speaking that was witnessed by her daughter. She stated this has never happened before and said she had another episode this morning where she was unable to speak lasting a few minutes. Symptoms have resolved since this last episode this am Consult Requested by: Dr. Wood History of Present Illness As written his 86-year-old female patient with past medical history which includes: HTN, R carotid artery stenosis. Patient recently traveled here from [place] to [place] on a train then from [place] to [place] by car. Patient reports that starting Sunday she had numbness, tingling and weakness in R arm as well as difficulty speaking. Patient reports these symptoms last most of the day Sunday, then seemed to resolve. Symptoms then presented again today therefore she proceeded to ER for further evaluation. At this time patient reports symptoms have nearly resolved. Patient has known R carotid artery disease last US 5 years ago. (Cleo Carney) Past/Family/Social History Past Medical History HTN Carotid artery disease Past Surgical History Appendectomy- age 1 Hysterectomy-age 25 Lung Sx secondary to fungal infection Social History Patient has remote tobacco use history reports she quit smoking 30+ years ago Reports occasional EtOH use Patient lives in [place] is here on vacation to visit her daughter Family History mother and sister both had brain aneurysm (Cleo Carney) Home Medications Reported Medications Meclizine 25 Mg Tab25 Mg PO DIRECTED PRN (VERTIGO) Ref 0 07/25/16 Aspirin 325 Mg [id number] Mg PO DAILY #30 TAB Ref 0 07/25/16 Valsartan 160 Mg Das610 Mg PO DAILY #30 TAB Ref 0 07/25/16 Metoprolol Tartrate 50 Mg Tab50 Mg PO BID #60 TAB Ref 0 07/25/16 Coded Allergies: Codeine (Verified Allergy, Intermediate, "VIOLENTLY SICK", 07/25/16) Physical Exam Vitals/I&O Date Time Temp Pulse Resp B/P Pulse Ox O2 Delivery O2 Flow Rate FiO2 07/27/16 11:10 97.9 67 20 209/79 99 07/27/16 08:47 96 07/27/16 07:15 98.8 101 20 191/95 98 07/27/16 05:34 98.2 89 20 191/81 97 07/27/16 01:25 98.6 92 18 139/69 93 07/26/16 19:43 98.0 103 20 195/90 97 07/26/16 16:20 88 07/26/16 15:50 97.8 85 18 199/88 95 Neuro: CN 2-12 intact GCS 15 HEENT: pupils equal Neck: supple Heart: RRR +S1,S2 Lungs: CTA Bilat Vascular: L carotid bruit noted palpable radial pulses strong bilat Extremities: r arm weaker than left 4/5 Left arm 5/5 Pt able to move all 4 ext (Cleo Carney) Laboratory Tests Test 07/27/16 03:52 White Blood Count 8.3 Red Blood Count 3.47 Hemoglobin 11.3 Hematocrit 32.8 Mean Corpuscular Volume 94.3 Mean Corpuscular Hemoglobin 32.5 Mean Corpuscular Hemoglobin 34.5 Concent Red Cell Distribution Width 12.5 Platelet Count 165 Mean Platelet Volume 8.7 Neutrophils (%) (Auto) 57.0 Lymphocytes (%) (Auto) 19.3 Monocytes (%) (Auto) 12.8 Eosinophils (%) (Auto) 9.6 Basophils (%) (Auto) 1.3 Neutrophils # (Auto) 4.7 Lymphocytes # (Auto) 1.6 Monocytes # (Auto) 1.1 Eosinophils # (Auto) 0.8 Basophils # (Auto) 0.1 CBC Comment DIFF FINAL Differential Comment Sodium Level 138 Potassium Level 3.6 Chloride Level 105 Carbon Dioxide Level 24.0 Anion Gap 9 Blood Urea Nitrogen 11 Creatinine 0.63 Estimat Glomerular Filtration 89 Rate Random Glucose 94 Calcium Level 8.3 Last 48 hours Impressions Neck CTA 07/26/16 0000 Signed Impressions: Service Date/Time: Tuesday, July 26, 2016 17:28 - CONCLUSION: * Atherosclerotic plaque of both carotid bifurcations. Despite the ultrasound, the CT suggests hemodynamically significant stenosis of the left internal carotid artery about 1 cm distal to the bifurcation. No evidence of hemodynamically significant narrowing of the right carotid system. * Dominant left vertebral artery with a low grade narrowing at its origin and diffuse tortuosity. Gagandeep Riley MD Head CTA 07/26/16 0000 Signed Impressions: Service Date/Time: Tuesday, July 26, 2016 17:28 - CONCLUSION: Intracranial arteries are within normal limits. Gagandeep Riley MD Carotid Artery Ultrasound 07/26/16 0000 Signed Impressions: Service Date/Time: Tuesday, July 26, 2016 08:05 - CONCLUSION: 1. No evidence for hemodynamically significant stenosis. Aristides Auguste MD Brain MRI 07/26/16 0000 Signed Impressions: Service Date/Time: Tuesday, July 26, 2016 14:01 - CONCLUSION: Multiple infarcts are noted involving the left frontal, parietal, temporal and occipital regions. There is no hemorrhage or mass effect. Aristides Auguste MD Head CT 07/25/162313 Signed Impressions: Service Date/Time: Monday, July 25, 2016 23:39 - CONCLUSION: No acute intracranial disease. Sergey Sage MD Chest X-Ray 07/25/162313 Signed Impressions: Service Date/Time: Monday, July 25, 2016 23:12 - CONCLUSION: Cardiomegaly left basilar atelectasis. Sergey Sage MD (Cleo Carney) Assessment and Plan Assessment: (1) Carotid artery disease Status: Acute Plan Plan Pt scheduled for a Left Caroid Endarterectomy tomorrow with Dr. Kidd Reviewed with patient surgical procedure, pt with no questions at this time Consent signed and placed in the chart Cleo EDWARDS [facility] [phone] (Cleo Carney) Plan Ms. Christopher is a very healthy-appearing 86 yo with symptomatic L carotid stenosis. Pt had R UE paralysis transiently and aphasia. She also had aphasia this morning. I think she has a high risk of a recurrent CVA. Despite chronological age, she is in good health. I talked with her about the NASCET data and offered a LEFT CAROTID ENDARTERECTOMY. Discussed specifically the risks of intra- and kolby-operative stroke. To OR tomorrow. Manuel Kidd MD FACS direct sales consultant [facility] at [facility] [phone] (Manuel Kidd MD) Problem Qualifiers (1) Carotid artery disease: Qualified Code: I77.9 - Left-sided carotid artery disease Cleo Carney Jul 27, 2016 12:47 Manuel Kidd MD Jul 27, 2016 13:16
[2016-07-27] MEDS: SODIUM CHLORIDE 0.9% FLUSH 10 ML FLUSH IV FLUSH PRN (13:34)
--- NOTE | 2016-07-27 16:03 | PD.CONS ---
[facility] Service Rehabilitation Medicine Consult Requested By MALKA Cary/Sully Cowan MD Reason for Consult Comprehensive rehabilitation evaluation. Primary Care Physician Gera Yoo M.D. History of Present Illness Hannah Christopher is an 86-year-old right-hand dominant female mid [facility] ER 07/26/16 with history of right arm numbness/tingling and weakness which initially occurred 07/23/16. This subsequently resolved but recurred the day of admission. Head CT was negative for acute intracranial abnormality. MRI 07/26/16 showed multiple infarcts in the left frontal, parietal, temporal and occipital areas. No hemorrhage was noted. She was seen by neurology and started on aspirin. Carotid ultrasound showed no significant stenosis. Head and neck CTA showed intracranial arteries to be within normal limits. Review of Systems ROS Limitations: Clinical Condition Constitutional: COMPLAINS OF: Fatigue Eyes: DENIES: Diplopia Ears, nose, mouth, throat: DENIES: Throat pain Respiratory: DENIES: Shortness of breath Cardiovascular: DENIES: Chest pain Gastrointestinal: DENIES: Abdominal pain Genitourinary: DENIES: Urinary incontinence Neurologic: COMPLAINS OF: Localized weakness, Speech Problems, DENIES: Headache Psychiatric: DENIES: Confusion Past Family Social History Allergies: Coded Allergies: Codeine (Verified Allergy, Intermediate, "VIOLENTLY SICK", 07/25/16) Past Medical History Hypertension Right carotid artery stenosis Skin cancer Past Surgical History Lung surgery for fungal infection Hysterectomy Appendectomy Current Medications Current Medications Medications (Trade) Dose Ordered Sig/Ton Route Start Time Stop Time Status Last Admin (NS Flush) 2 ml UNSCH PRN IV FLUSH 07/26/16 01:15 07/27/16 13:34 (NS Flush) 2 ml BID IV FLUSH 07/26/16 09:00 (Zofran Inj) 4 mg Q6H PRN IVP 07/26/16 01:15 (Dulcolax Supp) 10 mg DAILY PRN RECTAL 07/26/16 01:15 (Narcan Inj) 0.4 mg UNSCH PRN IV 07/26/16 01:15 (Aspirin) 325 mg DAILY PO 07/26/16 09:00 07/27/16 08:20 (Lovenox Inj) 40 mg Q24H SQ 07/26/16 06:00 07/27/16 06:05 (Vasotec Inj) 1.25 mg Q4H PRN IV 07/26/16 14:45 07/27/16 13:34 (Lipitor) 40 mg HS PO 07/27/16 21:00 (Lopressor) 50 mg BID PO 07/27/16 09:00 07/27/16 09:55 (Diovan) 160 mg DAILY PO 07/27/16 09:00 07/27/16 09:55 Family History Mother and sister: Brain aneurysm Social History Prior to admission patient lived in [place], [place] in an assisted living facility. She is visiting her daughter who lives here locally. Prior to admission she used a walker to ambulate. Quit tobacco 30 years ago. Occasional alcohol use Exam I&O / VS Vital Signs Date Time Temp Pulse Resp B/P Pulse Ox O2 Delivery O2 Flow Rate FiO2 07/27/16 14:00 98.0 78 18 191/78 95 07/27/16 13:21 201/93 07/27/16 11:10 97.9 67 20 209/79 99 07/27/16 08:47 96 07/27/16 07:15 98.8 101 20 191/95 98 07/27/16 05:34 98.2 89 20 191/81 97 07/27/16 01:25 98.6 92 18 139/69 93 07/26/16 19:43 98.0 103 20 195/90 97 07/26/16 16:20 88 General: No acute distress Respiratory: Lungs CTA, Non-labored respirations, BS equal Gastrointestinal: Positive Bowel Sounds, Non-Distended Cardiovascular: Regular Rhythm Musculoskeletal: ROM (within functional limits), Swelling (none in the distal lower extremities) Psychiatric: Cooperative, Appropriate mood & affect Orientation: oriented to Self, oriented to Place, oriented to Time Neurologic: Cranial Nerves (intact 2 through 12), Speech (occasional word finding difficulty) Motor: Right Upper Extremity (4/5), Left Upper Extremity (5/5), Right Lower Extremity, Left Lower Extremity (5/5) Sensory Decreased by approximately 75% in the right upper and lower extremity Babinski: Negative (equivocal right) Clonus: Negative Balance: Sitting (balance is fair plus) Assessment and Plan Diagnosis: (1) Cerebrovascular accident Assessment 1. Left frontoparietal temporal occipital multiple infarcts with right hemiparesis and mild expressive aphasia 2. Impaired mobility and ADLs 3. Hypertension 4. History of skin cancer 5. History of lung surgery for fungal infection 6. Remote history of tobacco use Plan 1. Speech therapy has evaluated swallow and tolerating regular diet with thin liquids. Communication is being addressed 2. Occupational therapy for ADLs and now moderate assistance 3. Physical therapy is mobilizing and would progress to gait with walker as medical neurological status allows 4. Anticipate that patient will require ongoing rehabilitation at discharge. Will follow in conjunction with case management for level of care. Anticipate that she should be able to return home with the assistance of her daughter and home health 5. Monitor carefully for fall prevention 6. Will follow while hospitalized and appropriate at discharge Rosy Sorenson MD Jul 27, 2016 16:03
[2016-07-27] MEDS ORDERED: NIFEdipine 30 MG SUSTAINED RELEASE TAB PO ONE (17:00)
[2016-07-27] MEDS ORDERED: ATORVASTATIN 40 MG TAB PO SCH (21:00)
--- NOTE | 2016-07-27 21:08 | HHI.PR ---
Review/Management Diagnosis - Acute/subacute ischemic stroke. - Hypertension. - Left carotid stenotic disease. Plan - Neuro checks q. 4 hourly. -Manage blood pressure, start home medications. - Telemetry. -Aspirin 325 mg daily. - PT/OT recommendations are appreciated. - Speech therapy. - Prophylaxis with SCDs. - GI prophylaxis. Diagnosis/Plan: Subjective Subjective Comments No acute events reported Improved neurologic exam, very subtle dysphasia, and better movement of the right UE Scheduled for left Carotid endarterectomy tomorrow am, given the left carotid artery stenosis/symptomatic Active Medications Current Medications Medications (Trade) Dose Ordered Sig/Ton Route Start Time Stop Time Status Last Admin (NS Flush) 2 ml UNSCH PRN IV FLUSH 07/26/16 01:15 07/27/16 13:34 (NS Flush) 2 ml BID IV FLUSH 07/26/16 09:00 (Zofran Inj) 4 mg Q6H PRN IVP 07/26/16 01:15 (Dulcolax Supp) 10 mg DAILY PRN RECTAL 07/26/16 01:15 (Narcan Inj) 0.4 mg UNSCH PRN IV 07/26/16 01:15 (Aspirin) 325 mg DAILY PO 07/26/16 09:00 07/27/16 08:20 (Lovenox Inj) 40 mg Q24H SQ 07/26/16 06:00 07/27/16 06:05 (Vasotec Inj) 1.25 mg Q4H PRN IV 07/26/16 14:45 07/27/16 13:34 (Lipitor) 40 mg HS PO 07/27/16 21:00 (Lopressor) 50 mg BID PO 07/27/16 09:00 07/27/16 09:55 (Diovan) 160 mg DAILY PO 07/27/16 09:00 07/27/16 09:55 (Procardia Xl) 30 mg DAILY PO 07/28/16 09:00 Allergies Allergies Coded Allergies Codeine (Verified Allergy, Intermediate, "VIOLENTLY SICK", 07/25/16) Exam I&O / VS Vital Signs Date Time Temp Pulse Resp B/P Pulse Ox O2 Delivery O2 Flow Rate FiO2 07/27/16 19:16 98.3 83 18 179/81 98 07/27/16 18:42 96.1 82 19 173/82 98 07/27/16 15:57 86 07/27/16 14:00 98.0 78 18 191/78 95 07/27/16 13:21 201/93 07/27/16 11:10 97.9 67 20 209/79 99 07/27/16 08:47 96 07/27/16 07:15 98.8 101 20 191/95 98 07/27/16 05:34 98.2 89 20 191/81 97 07/27/16 01:25 98.6 92 18 139/69 93 Respiratory: Lungs CTA, Non-labored respirations, BS equal Cardiology: Regular Rhythm Musculoskeletal: ROM (within functional limits), Swelling (none in the distal lower extremities) Exam Comments GENERAL: Awake, alert, anxious. Good historian. Not in apparent distress HEENT: Normocephalic, atraumatic. Intact hearing and intact vision. Right facial droop. CARDIOVASCULAR: Regular rate and rhythm with no murmurs. RESPIRATORY: Clear to auscultation. No wheezes. ABDOMEN: Soft. No tenderness. MUSCULOSKELETAL: Extremities without clubbing, cyanosis or edema. Moves all extremities with more pronounced weakness on the right side. NEUROLOGIC: Awake, alert, oriented to time, person and place. Intact memory. no slurred speech, Normal naming , as opposed to abnormal on the initial assessment yesterday, Normal repetition. Normal comprehension. Normal calculation. No finger agnosia. Pupils are equal, reacting to light, bilateral and symmetrical. No gaze paresis. No diplopia. No nystagmus. Right facial droop. Intermittent right upper extremity tremulous movements. No visual field defect. No frontal release reflexes. Motor examination 5-/5 right shoulder abduction, 5- right elbow extension, 5- right wrist extension. Right lower extremity 5-/5 right hip flexion, right foot extension. Left upper and lower extremity 5/5. Intact sensation bilateral and symmetrical. Plantar right Babinski, left downgoing. PSYCHOLOGICAL: Intact mood and behavior. No hallucinations Objective Radiology Results Last 72 hours Impressions Neck CTA 07/26/16 0000 Signed Impressions: Service Date/Time: Tuesday, July 26, 2016 17:28 - CONCLUSION: * Atherosclerotic plaque of both carotid bifurcations. Despite the ultrasound, the CT suggests hemodynamically significant stenosis of the left internal carotid artery about 1 cm distal to the bifurcation. No evidence of hemodynamically significant narrowing of the right carotid system. * Dominant left vertebral artery with a low grade narrowing at its origin and diffuse tortuosity. Gagandeep Riley MD Head CTA 07/26/16 0000 Signed Impressions: Service Date/Time: Tuesday, July 26, 2016 17:28 - CONCLUSION: Intracranial arteries are within normal limits. Gagandeep Riley MD Carotid Artery Ultrasound 07/26/16 0000 Signed Impressions: Service Date/Time: Tuesday, July 26, 2016 08:05 - CONCLUSION: 1. No evidence for hemodynamically significant stenosis. Aristides Auguste MD Brain MRI 07/26/16 Signed Impressions: Service Date/Time: Tuesday, July 26, 2016 14:01 - CONCLUSION: Multiple infarcts are noted involving the left frontal, parietal, temporal and occipital regions. There is no hemorrhage or mass effect. Aristides Auguste MD Head CT 07/25/162313 Signed Impressions: Service Date/Time: Monday, July 25, 2016 23:39 - CONCLUSION: No acute intracranial disease. Sergey Sage MD Chest X-Ray 07/25/162313 Signed Impressions: Service Date/Time: Monday, July 25, 2016 23:12 - CONCLUSION: Cardiomegaly left basilar atelectasis. Sergey Sage MD Micro and Labs Laboratory Tests Test 07/27/16 03:52 White Blood Count 8.3 Red Blood Count 3.47 Hemoglobin 11.3 Hematocrit 32.8 Mean Corpuscular Volume 94.3 Mean Corpuscular Hemoglobin 32.5 Mean Corpuscular Hemoglobin 34.5 Concent Red Cell Distribution Width 12.5 Platelet Count 165 Mean Platelet Volume 8.7 Neutrophils (%) (Auto) 57.0 Lymphocytes (%) (Auto) 19.3 Monocytes (%) (Auto) 12.8 Eosinophils (%) (Auto) 9.6 Basophils (%) (Auto) 1.3 Neutrophils # (Auto) 4.7 Lymphocytes # (Auto) 1.6 Monocytes # (Auto) 1.1 Eosinophils # (Auto) 0.8 Basophils # (Auto) 0.1 CBC Comment DIFF FINAL Differential Comment Sodium Level 138 Potassium Level 3.6 Chloride Level 105 Carbon Dioxide Level 24.0 Anion Gap 9 Blood Urea Nitrogen 11 Creatinine 0.63 Estimat Glomerular Filtration 89 Rate Random Glucose 94 Calcium Level 8.3 Ossi,Raid G. MD Jul 27, 2016 21:08
[2016-07-28] VITALS (11 sets, daily range): BP systolic 128–179; BP diastolic 57–83; PULSE 72–89; RESP 18–20; TEMP 96.1–98.6; O2SAT 92–98
[2016-07-28] MEDS: ENOXAPARIN SODIUM 40 MG/0.4 ML SYRINGE SQ SCH (05:40)
--- NOTE | 2016-07-28 08:11 | HHI.PR ---
Subjective Remarks Follow up for CVA with RUE deficit. Patient alert and oriented today. Complaint of feeling like it takes her a while to process her words and "a while to get going". Denies any fever, chills, or vomiting. Still complains of weakness in right upper arm, but is improving. Denies any dizziness, sob, lightheadedness or chest pain. Has been OOB, able to walk the halls independently with standby assist, denies weakness or difficulty. OR today with Dr. Pedraza for left CEA. Objective Vitals Vital Signs Date Time Temp Pulse Resp B/P Pulse Ox O2 Delivery O2 Flow Rate FiO2 07/28/16 05:06 98.6 75 18 149/71 92 07/28/16 00:56 72 07/28/16 00:29 98.6 72 20 179/83 95 07/27/16 19:16 98.3 83 18 179/81 98 07/27/16 18:42 96.1 82 19 173/82 98 07/27/16 15:57 86 07/27/16 14:00 98.0 78 18 191/78 95 07/27/16 13:21 201/93 07/27/16 11:10 97.9 67 20 209/79 99 07/27/16 08:47 96 Result Diagram: 07/27/16 0352 07/27/16 0352 Imaging Last Impressions Neck CTA 07/26/16 0000 Signed Impressions: Service Date/Time: Tuesday, July 26, 2016 17:28 - CONCLUSION: * Atherosclerotic plaque of both carotid bifurcations. Despite the ultrasound, the CT suggests hemodynamically significant stenosis of the left internal carotid artery about 1 cm distal to the bifurcation. No evidence of hemodynamically significant narrowing of the right carotid system. * Dominant left vertebral artery with a low grade narrowing at its origin and diffuse tortuosity. Gagandeep Riley MD Head CTA 07/26/16 0000 Signed Impressions: Service Date/Time: Tuesday, July 26, 2016 17:28 - CONCLUSION: Intracranial arteries are within normal limits. Gagandeep Riley MD Carotid Artery Ultrasound 07/26/16 0000 Signed Impressions: Service Date/Time: Tuesday, July 26, 2016 08:05 - CONCLUSION: 1. No evidence for hemodynamically significant stenosis. Aristides Auguste MD Brain MRI 07/26/16 0000 Signed Impressions: Service Date/Time: Tuesday, July 26, 2016 14:01 - CONCLUSION: Multiple infarcts are noted involving the left frontal, parietal, temporal and occipital regions. There is no hemorrhage or mass effect. Aristides Auguste MD Head CT 07/25/164 Signed Impressions: Service Date/Time: Monday, July 25, 2016 23:39 - CONCLUSION: No acute intracranial disease. Sergey Sage MD Chest X-Ray 07/25/162313 Signed Impressions: Service Date/Time: Monday, July 25, 2016 23:12 - CONCLUSION: Cardiomegaly left basilar atelectasis. Sergey Sage MD Objective Remarks GENERAL: Well-nourished, well-developed patient in NAD. SKIN: Warm and dry. No rash. HEENT: Normocephalic. Atraumatic. Pupils equal and round. No scleral icterus. No injection or drainage. Mucous membranes pink and moist. NECK: Supple. Trachea midline. CARDIOVASCULAR: Regular rate and rhythm. S1, S2 noted. No murmur appreciated. RESPIRATORY: No accessory muscle use. Clear to auscultation. Breath sounds equal bilaterally. GASTROINTESTINAL: Abdomen soft, non-tender, nondistended. Normoactive bowel sounds x4. MUSCULOSKELETAL: No obvious deformities. Extremities without clubbing, cyanosis , or edema. NEUROLOGICAL: Awake and alert. No obvious cranial nerve deficits. Motor grossly within normal limits. 4/5 muscle strength in right upper extremity, sensation intact with 5/5 in left upper and bilateral lower extremities. Normal speech. PSYCHIATRIC: Appropriate mood and affect; insight and judgment normal. Urinary Catheter: No Vascular Central Line Catheter: No A/P Assessment and Plan 86-year-old female patient with past medical history which includes: HTN, carotid artery stenosis. Patient recently traveled here from [place] to [place] on a train then from [place] to [place] by car. Patient reports that starting Sunday 07/23 she had numbness, tingling and weakness in R arm as well as difficulty speaking. Patient reports these symptoms last most of the day Sunday, then seemed to resolve. Symptoms then presented again today therefore she proceeded to ER for further evaluation. Symptoms have significantly improved, with slight residual weakness in right upper extremity. Acute Ischemic CVA: presented with R upper extremity weakness and expressive aphasia. -Brain MRI images reviewed, shows multiple infarcts involving the left frontal, parietal, temporal, and occipital regions. -Head CTA intracranial arteries wnl. Neck CTA atherosclerotic plaque bilateral carotid, hemodynamically significant stenosis of left ICA; no significant stenosis on the right -Neurology following. -Lipid profile with LDL 94. Continue Lipitor 40 mg PO daily. -Continue aspirin 325mg daily. -echocardiogram with normal systolic function, EF 55-60%, mild MR -S/p HOB flat & bedrest, allowed permissive hypertension however now 4 days post stroke, restart antihypertensives -NIHSS, neuro checks -Stroke navigator & rehab medicine following -PT/OT/ST consulted Left Internal Carotid Artery Stenosis: Neck CTA images reviewed, showed hemodynamically significant stenosis of left ICA. -continue on aspirin/statin -Vascular surgery, Dr. Kidd plans for left CEA today 07/28 -NPO until after surgery. HTN: S/p permissive hypertension as above with CVA. -Continue patient's Valsartan 160mg daily and Metoprolol 50mg bid -IV Vasotec prn SBP > 180, DBP >100 -monitor BP, adjust antihypertensives as needed -BP still elevated, appears to be trending down continue Nifedipine XL 30mg qd, adjust dose as needed Left basilar atelectasis: CXR reveals cardiomegaly with left basilar atelectasis -Incentive Spirometry Q1H while awake -Monitor closely for signs and symptoms of infection DVT prophylaxis: SCDs and Lovenox Erum Vazquez Jul 28, 2016 08:11
[2016-07-28] MEDS: VALSARTAN 160 MG TAB PO SCH (08:36)
[2016-07-28] MEDS: METOPROLOL TARTRATE 50 MG TAB PO SCH ×2 (08:36→21:15)
[2016-07-28] MEDS: NIFEdipine 30 MG SUSTAINED RELEASE TAB PO SCH (08:36)
[2016-07-28] MEDS: SODIUM CHLORIDE 0.9% FLUSH 10 ML FLUSH IV FLUSH SCH ×2 (08:36→21:15)
[2016-07-28] MEDS: ASPIRIN 325 MG TAB PO SCH (08:36)
--- NOTE | 2016-07-28 10:49 | PD.VS.PN ---
Subjective Subjective/Hospital Course Pt laying on st A&OX3 and in NAD No new events reported since previous assessment Pt has been NPO since midnight Objective Vitals/I&O Date Time Temp Pulse Resp B/P Pulse Ox O2 Delivery O2 Flow Rate FiO2 07/28/16 08:28 96.1 80 18 146/67 94 07/28/16 08:00 74 07/28/16 05:06 98.6 75 18 149/71 92 07/28/16 00:56 72 07/28/16 00:29 98.6 72 20 179/83 95 07/27/16 19:16 98.3 83 18 179/81 98 07/27/16 18:42 96.1 82 19 173/82 98 07/27/16 15:57 86 07/27/16 14:00 98.0 78 18 191/78 95 07/27/16 13:21 201/93 07/27/16 11:10 97.9 67 20 209/79 99 Physical Exam GENERAL: A&OX3, NAD, GCS15 SKIN: Warm and dry. NECK: Supple, No JVD CARDIOVASCULAR: RRR, +S1,S2 RESPIRATORY: Breath sounds equal and clear bilaterally. No accessory muscle use. GASTROINTESTINAL: Abdomen soft, non-tender, nondistended. MUSCULOSKELETAL: No cyanosis, or edema. R arm 4/5, L arm 5/5 grill attendant strength, Pt' s right arm remains slightly weaker than the left but with NO change since previous assessment. Assessment and Plan Assessment: (1) Carotid artery disease Status: Acute Plan Plan Pt scheduled for L CEA this afternoon Consent was placed in the chart Cleo EDWARDS [facility] [phone] Ms. Christopher is a very healthy-appearing 86 yo with symptomatic L carotid stenosis. Pt had R UE paralysis transiently and aphasia. She also had aphasia this morning. I think she has a high risk of a recurrent CVA. Despite chronological age, she is in good health. I talked with her about the NASCET data and offered a LEFT CAROTID ENDARTERECTOMY. Discussed specifically the risks of intra- and kolby-operative stroke. To OR tomorrow. Manuel Kidd MD FACS active directory systems administrator [facility] [phone] Problem Qualifiers (1) Carotid artery disease: Qualified Code: I77.9 - Left-sided carotid artery disease Cleo Carney Jul 28, 2016 10:49
[2016-07-28] MEDS ORDERED: ONDANSETRON HCL 4 MG/2 ML VIAL IV PUSH ONE (12:00)
[2016-07-28] MEDS ORDERED: NITROGLYCERIN 1000 MCG/5 ML VIAL IV ONE (12:00)
[2016-07-28] MEDS ORDERED: PROPOFOL 200 MG/20 ML AMP IV ONE (12:00)
[2016-07-28] MEDS ORDERED: LACTATED RINGER'S 1000 ML INJ 1,000 ML IV ONE (12:00)
[2016-07-28] MEDS ORDERED: PROTAMINE SULFATE 50 MG/5 ML VIAL IV ONE (12:00)
[2016-07-28] MEDS ORDERED: PHENYLEPH/NS 1000 MCG/10 ML SYR IV ONE (12:00)
[2016-07-28] MEDS ORDERED: SUGAMMADEX SODIUM 200 MG/2 ML VIAL IV PUSH ONE ×2 (12:09)
[2016-07-28] MEDS ORDERED: HEPARIN SODIUM - IV 10,000 UNITS/10 ML VIAL ONE (12:13)
[2016-07-28] MEDS ORDERED: BUPIVACAINE/EPINEPHRINE 0.5% PF 30 ML VIAL ONE (12:14)
[2016-07-28] MEDS ORDERED: THROMBIN (TOPICAL) 20,000 UNIT SPRAY KIT OTHER ONE (14:34)
[2016-07-28] MEDS ORDERED: LACTATED RINGER'S 1000 ML INJ 1,000 ML IV SCH (15:18)
--- NOTE | 2016-07-28 15:18 | HHI.PR ---
Immediate Post Op Note Procedure Date: Jul 28, 2016 Pre Op Diagnosis: symptomatic L carotid stenosis, crescendo TIA Post Op Diagnosis: symptomatic L carotid stenosis, crescendo TIA Surgeon: Manuel Kidd Boot And Shoe Laborer(s): none Procedure: L CEA Findings: high grade stenosis just above carotid bifurcation Complications: none - awoke neuro intact Specimen(s) removed: plaque - not for pathology Estimated blood loss: 150 mL Anesthesia: General Drains: None Fluids: 1200 mL x'oid; 375 mL UOP IVF Patient to: Other ([facility]ICU) Patient Condition: Good Implant/Devices: SEE IMPLANT LOG (if applicable) Date/Time of Procedure: SEE SURGICAL CARE RECORD Manuel Kidd MD Jul 28, 2016 15:18
[2016-07-28] MEDS ORDERED: hydrALAZINE HCL 20 MG/ML VIAL IV PUSH PRN (15:30)
[2016-07-28] MEDS ORDERED: HYDROmorphone HCL 2 MG TAB PO PRN (15:30)
[2016-07-28] MEDS ORDERED: MECLIZINE HCL 25 MG TAB PO PRN (15:30)
--- NOTE | 2016-07-28 16:04 | MP ---
cc: MANUEL KIDD MD DATE OF SURGERY: 07/28/2016 PREOPERATIVE DIAGNOSIS: Symptomatic left carotid stenosis. POSTOPERATIVE DIAGNOSIS: Symptomatic left carotid stenosis. OPERATION: Left carotid endarterectomy with intraoperative shunting. ATTENDING SURGEON Manuel Kidd MD ANESTHESIA General. INDICATIONS Ms. Christopher is an 86 lady with symptomatic transient ischemic attacks. She had a transient ischemic attack Sunday and then another one on and so because these are potentially escalating, they are crescendo TIA's and she was taken urgently for carotid endarterectomy. DESCRIPTION OF PROCEDURE Informed consent was obtained from the patient and she was taken to the operating room, placed supine on the operating room table and appropriate time-out was taken to insure the patient's identity, operative site and the planned procedure. 2 grams of Ancef was administered prior to the skin incision and will be discontinued after a single preoperative dose. The patient was placed on general anesthesia, Her left neck was prepped and draped. An incision was made along the anterior border of the sternocleidomastoid, was carried down in the subcutaneous tissue with electrocautery. The facial vein as divided with 3-0 silk and the carotid artery was identified. The carotid bulb and superior thyroid artery were dissected free. The internal carotid artery was dissected free, quite high, the hypoglossal nerve was easily identified and protected, the gastric muscles were divided. The <<1:31>> dissected distal ICA, ECA and common carotid arteries. The patient was heparinized throughout the remainder of the case. The Aspartate aminotransferase is greater than 250, distal and then proximal control of the internal ad common carotid arteries, they were obtained with profunda clamps and a external artery was controlled with a Profunda clamp as well. The superior thyroid artery was temporarily clipped with a large hemoclip. A longitudinal arteriotomy was made with an 11 blade and extended with Dante scissors. The shunt was then attempted to be passed but the proximal aspect did not go smoothly and so the shunt pressures appeared adequate and the neuromonitoring has no changes, may need to proceed without a shunt. The carotid artery was then endarterectomized without difficulty a nice end point was obtained. A bovine pericardial patch was brought up on the field and used, sewn on using running 5-0 Prolene suture. At the conclusion it was flushed and was hemostatic. The clamps were then released in sequence, there was no neurological changes. Hemostasis was achieved, heparin reversed with protamine. The wound was irrigated, made hemostatic and closed with 2-0 Polysorb, 3-0 Polysorb, and 4-0 Monocryl. Sponge and needle counts were correct at the end of the case. There was no neurological change at the end of the case and the patient was awoken, neurologically normal and taken to the Intensive Care Unit in stable condition. MD RAVINDER Dawson/souleymane /3:28 PM /3:40 PM MTDD
--- NOTE | 2016-07-28 16:52 | PD.CONS ---
HPI Service Critical Care Medicine Consult Requested By Marti You Reason for Consult TIA S/P left CEA Primary Care Physician Gera Yoo M.D. History of Present Illness This 86-year-old female patient that is S/P a left CEA.Her PMH is significant for HTN. The patient had recently traveled from [place] to [place] by car.and reported that approximately on Sunday she had experienced parathesias and weakness in R arm as well as difficulty speaking. She presented to the ED and underwent imaging studies, US of carotids which revealed atherosclerotic plaque. Critical care medicine is consulted. Upon entering the patient is lethargic but appropriately answering questions, vital signs are stable. She currently complains of pain 10/23 the surgical site. Review of Systems ROS Limitations: Clinical Condition Past Family Social History Allergies: Coded Allergies: Codeine (Verified Allergy, Intermediate, "VIOLENTLY SICK", 07/25/16) Reported Medications see MAR Active Ordered Medications see MAR Social History Occasional ETOH use, denies smoking or illicit drug use. Physical Exam Vital Signs Vital Signs Date Time Temp Pulse Resp B/P Pulse Ox O2 Delivery O2 Flow Rate FiO2 07/28/16 15:54 97 Nasal Cannula 2.00 07/28/16 11:57 96.8 76 18 148/71 94 07/28/16 08:28 96.1 80 18 146/67 94 07/28/16 08:00 74 07/28/16 05:06 98.6 75 18 149/71 92 07/28/16 00:56 72 07/28/16 00:29 98.6 72 20 179/83 95 07/27/16 19:16 98.3 83 18 179/81 98 07/27/16 18:42 96.1 82 19 173/82 98 Physical Exam GENERAL: Well-developed well-nourished elderly female sleeping, but easily arousable with complaints of pain. SKIN: Warm and dry. HEAD: Atraumatic. Normocephalic. EYES: Pupils equal and round, 3mm and reactive. No scleral icterus. No injection or drainage. ENT: No nasal bleeding or discharge. Mucous membranes pink and moist. NECK: Trachea midline. No JVD. Left surgical site without erythema or bleeding , Dermabond intact. CARDIOVASCULAR: Normal rate, regular rhythm. RESPIRATORY: No accessory muscle use. Clear to auscultation. Breath sounds equal bilaterally. O2 at 2 L via nasal cannula GASTROINTESTINAL: Abdomen soft, non-tender, nondistended. No guarding. MUSCULOSKELETAL: Extremities without clubbing, cyanosis, or edema. No obvious deformities.Right leg Cuauhtemoc wrap secondary to neuromonitoring apparatus ,small skin tear right lower leg. NEUROLOGICAL: Awake and alert. RASS 0. No gross focal/sensory deficits. Follows commands in all 4 extremities. Motor strength 5/5 bilateral upper extremities and RLE.LLE 3/5. Laboratory Last Impressions Neck CTA 07/26/16 0000 Signed Impressions: Service Date/Time: Tuesday, July 26, 2016 17:28 - CONCLUSION: * Atherosclerotic plaque of both carotid bifurcations. Despite the ultrasound, the CT suggests hemodynamically significant stenosis of the left internal carotid artery about 1 cm distal to the bifurcation. No evidence of hemodynamically significant narrowing of the right carotid system. * Dominant left vertebral artery with a low grade narrowing at its origin and diffuse tortuosity. Gagandeep Riley MD Head CTA 07/26/16 Signed Impressions: Service Date/Time: Tuesday, July 26, 2016 17:28 - CONCLUSION: Intracranial arteries are within normal limits. Gagandeep Riley MD Carotid Artery Ultrasound 07/26/16 Signed Impressions: Service Date/Time: Tuesday, July 26, 2016 08:05 - CONCLUSION: 1. No evidence for hemodynamically significant stenosis. Aristides Auguste MD Brain MRI 07/26/16 Signed Impressions: Service Date/Time: Tuesday, July 26, 2016 14:01 - CONCLUSION: Multiple infarcts are noted involving the left frontal, parietal, temporal and occipital regions. There is no hemorrhage or mass effect. Aristides Auguste MD Head CT 07/25/162313 Signed Impressions: Service Date/Time: Monday, July 25, 2016 23:39 - CONCLUSION: No acute intracranial disease. Sergey Sgae MD Chest X-Ray 07/25/162313 Signed Impressions: Service Date/Time: Monday, July 25, 2016 23:12 - CONCLUSION: Cardiomegaly left basilar atelectasis. Sergey Sage MD Result Diagram: 07/27/16 0352 07/27/16 035 Assessment and Plan Assessment and Plan Neurologic: TIA Carotid stenosis right carotid bifurcation Postoperative pain Neurochecks per ICU protocol Pain scale currently 7/10 on VAS Utilize Multimodal pain regimen-Ofirmev 1 g every 6 hours 24 hours, in addition to Dilaudid. Fentanyl 25 mcgs IV now may repeat 1 07/26 CT brain multiple infarcts left frontal, parietal, temporal and occipital regions Respiratory: Maintain O2 sat greater than 92%. Patient currently on O2 2 L wean as tolerated Encourage incentive spirometry Cardiovascular: HTN Resume antihypertensive meds as scheduled Renal: Monitor BMP -- Strict I/Os FEN/GI: Obtain formal swallow before initiating diet Begin with clear liquids advance to heart healthy diet Bowel regimen Heme/ID: Monitor CBC Endocrine: Glucose monitoring per ICU protocol -- SSI Prophylaxis: GI Prophylaxis Protonix DVT Prophylaxis -- SCDs Lovenox to be reinitiated per Vasc. surgery 07/29. Lines: Peripheral IV's. Left radial A-line (07/28) Dispo: This patient remains critically ill with one or more organ systems which are or may become a threat to life. I have spent in excess of 45 minutes discontinuously in the care and management of this patient. This time is exclusive of procedures, and includes, but is not limited to, evaluation of the patient, review of the medical record, discussions with family, consultants, nursing staff, or respiratory therapy, and documentation in the medical record. Code Status Full Discussed Condition With Dr. Kidd, JAVA APPLICATION DEVELOPER and daughters at bedside. Yessenia Esparza MD Jul 28, 2016 16:52
--- NOTE | 2016-07-28 16:56 | PD.VS.PN ---
Subjective POD #: 0 Procedure(s): L CEA Subjective/Hospital Course Looks good, neuro intact. No pain. Objective Vitals/I&O Date Time Temp Pulse Resp B/P Pulse Ox O2 Delivery O2 Flow Rate FiO2 07/28/16 15:54 97 Nasal Cannula 2.00 07/28/16 15:30 89 07/28/16 11:57 96.8 76 18 148/71 94 07/28/16 08:28 96.1 80 18 146/67 94 07/28/16 08:00 74 07/28/16 05:06 98.6 75 18 149/71 92 07/28/16 00:56 72 07/28/16 00:29 98.6 72 20 179/83 95 07/27/16 19:16 98.3 83 18 179/81 98 07/27/16 18:42 96.1 82 19 173/82 98 Exam: Neuro intact. incision ok. good strength x 4 extremities Incisions: intact Assessment and Plan Assessment: (1) Carotid artery disease Status: Acute Plan doing well s/p L CEA goal SBP 140-160 May have clears and ADAT when more awake Antiplatelet therapy (ASA) Manuel Kidd MD FACS savings counselor [facility] - Heart and Vascular Surgery at [facility] [phone] Problem Qualifiers (1) Carotid artery disease: Qualified Code: I77.9 - Left-sided carotid artery disease Manuel Kidd MD Jul 28, 2016 16:56
[2016-07-28] MEDS: ATORVASTATIN 40 MG TAB PO SCH (21:14)
[2016-07-28] MEDS: ACETAMINOPHEN 1000 MG/100 ML VIAL IV SCH (23:41)
[2016-07-29] VITALS (16 sets, daily range): BP systolic 116–159; BP diastolic 52–86; PULSE 66–90; RESP 16–18; TEMP 97.6–98.2; O2SAT 95–98
[2016-07-29] MEDS: ACETAMINOPHEN 1000 MG/100 ML VIAL IV SCH ×2 (04:35→12:12)
[2016-07-29] MEDS: ENOXAPARIN SODIUM 30 MG/0.3 ML SYRINGE SQ SCH (06:02)
[2016-07-29] MEDS: VALSARTAN 160 MG TAB PO SCH (09:00)
[2016-07-29] MEDS: NIFEdipine 30 MG SUSTAINED RELEASE TAB PO SCH (09:00)
[2016-07-29] MEDS ORDERED: PANTOPRAZOLE SOD 40 MG DELAYED RELEASE TAB PO SCH (09:00)
[2016-07-29] MEDS: SODIUM CHLORIDE 0.9% FLUSH 10 ML FLUSH IV FLUSH SCH ×2 (09:00→20:23)
--- NOTE | 2016-07-29 09:38 | PD.VS.PN ---
Subjective POD #: 1 Procedure(s): L CEA Subjective/Hospital Course Looks good, neuro intact. No pain except "sore throat" Objective Vitals/I&O Date Time Temp Pulse Resp B/P Pulse Ox O2 Delivery O2 Flow Rate FiO2 07/29/16 08:00 97 Nasal Cannula 2.00 07/29/16 07:51 97.7 83 18 98 138/52 07/29/16 07:00 66 07/29/16 05:05 16 07/29/16 04:00 98.2 70 16 96 131/68 07/29/16 04:00 97 Nasal Cannula 2.00 07/29/16 04:00 70 07/29/16 00:00 90 07/29/16 00:00 96 Nasal Cannula 2.00 07/29/16 00:00 97.6 85 16 96 139/73 07/28/16 20:00 98 Nasal Cannula 2.00 07/28/16 20:00 97.7 83 18 98 152/64 07/28/16 19:35 83 07/28/16 16:00 97 Nasal Cannula 2.00 07/28/16 16:00 97.3 78 18 128/71 94 139/60 07/28/16 15:54 97 Nasal Cannula 2.00 07/28/16 15:30 89 07/28/16 15:30 97 Nasal Cannula 2.00 07/28/16 15:30 97.3 81 18 128/71 97 141/57 07/28/16 11:57 96.8 76 18 148/71 94 Exam: Neuro intact L neck incison ok no CN deficit Assessment and Plan Assessment: (1) Carotid artery disease Status: Acute Plan doing well s/p L CEA goal SBP 140-160 cardiac diet only needs ASA and statin for medical regiment Ok to transfer from ICU and could be d/c later today/tomorrow from vascular surgical standpoint. Manuel Kidd MD FACS fuel cell engineer [facility] - Heart and Vascular Surgery at [facility] [phone] Problem Qualifiers (1) Carotid artery disease: Qualified Code: I77.9 - Left-sided carotid artery disease Manuel Kidd MD Jul 29, 2016 09:38
[2016-07-29] MEDS: METOPROLOL TARTRATE 50 MG TAB PO SCH ×2 (09:46→20:23)
[2016-07-29] MEDS: ASPIRIN 325 MG TAB PO SCH (09:46)
[2016-07-29 10:38] LABS: HEMATOCRIT 38.7 % (35.0-46.0); MEAN CELL VOLUME 95.2 FL (80.0-100.0); MEAN CORPUSCULAR HEMOGLOBIN 32.1 PG (27.0-34.0); MEAN CORPUSCULAR HGB CONC 33.7 % (32.0-36.0); PLATELET COUNT 184 TH/MM3 (150-450); RED BLOOD COUNT 4.06 MIL/MM3 (4.00-5.30); RED CELL DISTRIBUTION WIDTH 12.4 % (11.6-17.2); REVIEW FLAG FINAL; WHITE BLOOD COUNT 11.2 TH/MM3 (4.0-11.0)
--- NOTE | 2016-07-29 10:53 | HHI.CCPN ---
Subjective Remarks/Hospital Course This 86-year-old female patient that is S/P a left CEA.Her PMH is significant for HTN. The patient had recently traveled from [place] to [place] by car.and reported that approximately on Sunday she had experienced parathesias and weakness in R arm as well as difficulty speaking. She presented to the ED and underwent imaging studies, US of carotids which revealed atherosclerotic plaque. Critical care medicine is consulted. Upon entering the patient is lethargic but appropriately answering questions, vital signs are stable. She currently complains of pain 10/23 the surgical site. Subjective 07/29 Afebrile. The patient complains of sore throat from endotracheal tube will provide Chloraseptic lozenges. Patient alert and orientedx 3 tolerating liquid diet will advance to heart healthy diet. The patient is up out of bed into a chair O2 has been weaned from nasal cannula. Surgical site clean dry and intact. Objective Vital Signs Date Time Temp Pulse Resp B/P Pulse Ox O2 Delivery O2 Flow Rate FiO2 07/29/16 08:00 97 Nasal Cannula 2.00 07/29/16 07:51 97.7 83 18 138/52 Intake and Output 07/28/16 07/28/16 07/29/16 08:00 16:00 00:00 Intake Total 150 ml Output Total 250 ml Balance -100 ml Result Diagram: 07/29/16 1021 07/27/16 0352 Imaging Last Impressions Neck CTA 07/26/16 0000 Signed Impressions: Service Date/Time: Tuesday, July 26, 2016 17:28 - CONCLUSION: * Atherosclerotic plaque of both carotid bifurcations. Despite the ultrasound, the CT suggests hemodynamically significant stenosis of the left internal carotid artery about 1 cm distal to the bifurcation. No evidence of hemodynamically significant narrowing of the right carotid system. * Dominant left vertebral artery with a low grade narrowing at its origin and diffuse tortuosity. Gagandeep Riley MD Head CTA 07/26/16 0000 Signed Impressions: Service Date/Time: Tuesday, July 26, 2016 17:28 - CONCLUSION: Intracranial arteries are within normal limits. Gagandeep Riley MD Carotid Artery Ultrasound 07/26/16 0000 Signed Impressions: Service Date/Time: Tuesday, July 26, 2016 08:05 - CONCLUSION: 1. No evidence for hemodynamically significant stenosis. Aristides Auguste MD Brain MRI 07/26/16 0000 Signed Impressions: Service Date/Time: Tuesday, July 26, 2016 14:01 - CONCLUSION: Multiple infarcts are noted involving the left frontal, parietal, temporal and occipital regions. There is no hemorrhage or mass effect. Aristides Auguste MD Head CT 07/25/164 Signed Impressions: Service Date/Time: Monday, July 25, 2016 23:39 - CONCLUSION: No acute intracranial disease. Sergey Sage MD Chest X-Ray 07/25/162313 Signed Impressions: Service Date/Time: Monday, July 25, 2016 23:12 - CONCLUSION: Cardiomegaly left basilar atelectasis. Sergey Sage MD Objective Remarks GENERAL: Well-developed well-nourished elderly female sitting up in chair pleasantly conversant SKIN: Warm and dry. HEAD: Atraumatic. Normocephalic. EYES: Pupils equal and round, 3mm and reactive. No scleral icterus. No injection or drainage. ENT: No nasal bleeding or discharge. Mucous membranes pink and moist. NECK: Trachea midline. No JVD. Left surgical site without erythema or bleeding , Dermabond intact. CARDIOVASCULAR: Normal rate, regular rhythm. RESPIRATORY: No accessory muscle use. Clear to auscultation. Breath sounds equal bilaterally. O2 at 2 L via nasal cannula GASTROINTESTINAL: Abdomen soft, non-tender, nondistended. No guarding. MUSCULOSKELETAL: Extremities without clubbing, cyanosis, or edema. No obvious deformities.Right leg Cuauhtemoc wrap secondary to neuromonitoring apparatus ,small skin tear right lower leg. NEUROLOGICAL: Awake and alert. RASS 0. No gross focal/sensory deficits. Follows commands in all 4 extremities. Motor strength 5/5 bilateral upper extremities. Urinary Catheter: Yes Assessment to: Remove Date of Insertion: Jul 28, 2016 Date of Removal: Jul 29, 2016 A/P Assessment and Plan Neurologic: TIA Carotid stenosis right carotid bifurcation Postoperative pain Neurochecks per ICU protocol Pain scale currently 4/10 on VAS Multimodal pain regimen 07/26 CT brain multiple infarcts left frontal, parietal, temporal and occipital regions Respiratory: Maintain O2 sat greater than 97% on room air Encourage incentive spirometry Cardiovascular: HTN Resume antihypertensive meds as scheduled Renal: Monitor BMP -- Strict I/Os FEN/GI: Heart healthy diet Bowel regimen Heme/ID: Monitor CBC Endocrine: Glucose monitoring per ICU protocol -- SSI Prophylaxis: GI Prophylaxis Protonix DVT Prophylaxis -- SCDs Lovenox to be reinitiated per Vasc. surgery 07/29. Lines: Peripheral IV's. Left radial A-line (07/28) discontinued Dispo: Patient out of bed to chair, tolerating diet doing well. Plan for transfer from CVICU. Local care management will sign off. Thank you for the consult Level 3. Physician Yessenia Jain MD Jul 29, 2016 10:53
[2016-07-29 10:58] LABS: BICARBONATE 23.4 MEQ/L (21.0-32.0); POTASSIUM 3.7 MEQ/L (3.5-5.1)
[2016-07-29] MEDS ORDERED: BENZOCAINE 6 MG/MENTHOL 10 MG LOZENGE BUCCAL PRN (11:15)
--- NOTE | 2016-07-29 14:10 | HHI.PR ---
Review/Management Diagnosis - Acute/subacute ischemic stroke. doing well s/p left cea Plan ok for floor -Aspirin 325 mg daily. - PT iv zofran for nausea Diagnosis/Plan: Subjective Subjective Comments No acute events reported c/o nausea, poor appetite No headache No chest pain No dyspnea Active Medications Current Medications Medications (Trade) Dose Ordered Sig/Ton Route Start Time Stop Time Status Last Admin (NS Flush) 2 ml UNSCH PRN IV FLUSH 07/26/16 01:15 07/27/16 13:34 (NS Flush) 2 ml BID IV FLUSH 07/26/16 09:00 07/29/16 09:00 (Zofran Inj) 4 mg Q6H PRN IVP 07/26/16 01:15 07/29/16 14:03 (Dulcolax Supp) 10 mg DAILY PRN RECTAL 07/26/16 01:15 (Narcan Inj) 0.4 mg UNSCH PRN IV 07/26/16 01:15 (Vasotec Inj) 1.25 mg Q4H PRN IV 07/26/16 14:45 07/27/16 13:34 (Lopressor) 50 mg BID PO 07/27/16 09:00 07/29/16 09:46 (Diovan) 160 mg DAILY PO 07/27/16 09:00 07/28/16 08:36 (Procardia Xl) 30 mg DAILY PO 07/28/16 09:00 07/28/16 08:36 (Aspirin) 325 mg DAILY PO 07/29/16 09:00 07/29/16 09:46 (Lipitor) 40 mg HS PO 07/28/16 21:00 07/28/16 21:14 (Dilaudid) 1 mg Q4H PRN PO 07/28/16 15:30 (Lovenox Inj) 30 mg Q24H SQ 07/29/16 06:00 07/29/16 06:02 (Apresoline Inj) 10 mg Q2H PRN IV PUSH 07/28/16 15:30 (Antivert) 25 mg DAILY PRN PO 07/28/16 15:30 (Chloraseptic [place]) 1 lozenge UNSCH PRN BUCCAL 07/29/16 11:15 07/30/16 11:15 Allergies Allergies Coded Allergies Codeine (Verified Allergy, Intermediate, "VIOLENTLY SICK", 07/25/16) Review of Systems All other ROS: ROS reviewed as documented in chart Exam I&O / VS 07/28/16 07/28/16 07/29/16 15:00 23:00 07:00 Intake Total 150 ml 898 ml Output Total 250 ml 1025 ml Balance -100 ml -127 ml Intake Oral 240 ml IV Total 150 ml 658 ml Output Urine Total 250 ml 1025 ml # Bowel Movements 0 0 Vital Signs Date Time Temp Pulse Resp B/P Pulse Ox O2 Delivery O2 Flow Rate FiO2 07/29/16 12:02 95 21 07/29/16 11:42 95 Room Air 07/29/16 11:40 98.0 83 18 118/65 98 Arterial Line 07/29/16 11:00 79 07/29/16 08:00 97 Nasal Cannula 2.00 07/29/16 07:51 97.7 83 18 98 138/52 07/29/16 07:30 97 2.00 07/29/16 07:00 66 07/29/16 05:05 16 07/29/16 04:00 98.2 70 16 96 131/68 07/29/16 04:00 97 Nasal Cannula 2.00 07/29/16 04:00 70 07/29/16 00:00 90 07/29/16 00:00 96 Nasal Cannula 2.00 07/29/16 00:00 97.6 85 16 96 139/73 07/28/16 20:00 98 Nasal Cannula 2.00 07/28/16 20:00 97.7 83 18 98 152/64 07/28/16 19:35 83 07/28/16 16:00 97 Nasal Cannula 2.00 07/28/16 16:00 97.3 78 18 128/71 94 139/60 07/28/16 15:54 97 Nasal Cannula 2.00 07/28/16 15:30 89 07/28/16 15:30 97 Nasal Cannula 2.00 07/28/16 15:30 97.3 81 18 128/71 97 141/57 General: Alert and Oriented, No acute distress Eye: EOMI Respiratory: Non-labored respirations Cardiology: Regular Rhythm Musculoskeletal: ROM (within functional limits) Neurologic: Alert, Oriented Psychiatric: Cooperative, Appropriate mood & affect, Normal judgement Exam Comments ox 3, dysphonic speech, follows, mild rt side paresis u>l 4+/5 Objective Micro and Labs Laboratory Tests Test 07/29/16 10:21 White Blood Count 11.2 Red Blood Count 4.06 Hemoglobin 13.0 Hematocrit 38.7 Mean Corpuscular Volume 95.2 Mean Corpuscular Hemoglobin 32.1 Mean Corpuscular Hemoglobin 33.7 Concent Red Cell Distribution Width 12.4 Platelet Count 184 Mean Platelet Volume 8.6 Sodium Level 131 Potassium Level 3.7 Chloride Level 96 Carbon Dioxide Level 23.4 Anion Gap 12 Blood Urea Nitrogen 9 Creatinine 0.88 Estimat Glomerular Filtration 61 Rate Random Glucose 136 Calcium Level 8.3 Kasi Leyva MD Jul 29, 2016 14:10
--- NOTE | 2016-07-29 16:12 | HM ---
Date Performed: 07/26/2016 Time Performed: 22:30:00 HOOKUP DATE: 07/26/16 10:30:00 PM Wed ANALYSIS START TIME: 07/26/2016 10:35:00 PM ANALYSIS END TIME: 07/27/2016 10:38:59 PM PATIENT AGE: 86 PATIENT HEIGHT PATIENT WEIGHT DRUG LIST PATIENT DIAGNOSIS: TIA TEST NARRATIVE: The patient's average heart rate was 85 BPM. Heart rates greater than 120 B PM were noted 1% of the time. No episodes of bradycardia were noted. No pauses exceeding 2.0 sec onds were noted. 256 ventricular ectopics, which represented < 1% of the total beat count, were n oted. The highest ventricular ectopic frequency occurred from 08:00 AM to 09:00 AM [place]. During this time 93 VE(s) occurred. Ventricular ectopics were observed as 256 isolated beat(s) only. No couple ts or runs were noted. 943 supraventricular ectopics, which represented 1% of the total beat coun t, were noted. The highest supraventricular ectopic frequency occurred from 08:00 AM to 09:00 AM [place]a . During this time 173 SVE(s) occurred. No episodes of ST depression (defined as -1.0 mm or more ) were noted in channel 1. No episodes of ST depression (defined as -1.0 mm or more) were noted in c hannel 2. No episodes of ST depression (defined as -1.0 mm or more) were noted in channel 3. No diary entries were made by the patient. TEST INTERPRETATION: Patient has rare episodes where there are 3 PACs in a row, followed by a no rmal beat, followed by a ventricular ectopic beat, followed by a PAC. None of these seem to lead to r uns of atrial fibrillation. There are no episodes where there is longer runs of PACs. No coupling of ventricular ectopy is seen. There is no patient diary included. The occasional atrial ectopy is abnor mal, but no atrial fibrillation or heart block, or other atrial arrythmias are present. The PACs coul d be a harbinger of atrial fibrillation, but no atrial fibrillation is present. Clinical correlation recommended. Signed by : Scott tineo
[2016-07-29] MEDS: ATORVASTATIN 40 MG TAB PO SCH (20:23)
[2016-07-30] VITALS (23 sets, daily range): BP systolic 132–156; BP diastolic 70–83; PULSE 72–90; RESP 16–18; TEMP 98–98.8; O2SAT 92–96
[2016-07-30] MEDS: ENOXAPARIN SODIUM 30 MG/0.3 ML SYRINGE SQ SCH (05:25)
[2016-07-30] MEDS: NIFEdipine 30 MG SUSTAINED RELEASE TAB PO SCH (08:38)
[2016-07-30] MEDS: VALSARTAN 160 MG TAB PO SCH (08:38)
[2016-07-30] MEDS: ASPIRIN 325 MG TAB PO SCH (08:38)
[2016-07-30] MEDS: SODIUM CHLORIDE 0.9% FLUSH 10 ML FLUSH IV FLUSH SCH ×2 (08:39→20:16)
[2016-07-30] MEDS: METOPROLOL TARTRATE 50 MG TAB PO SCH ×2 (08:39→20:13)
[2016-07-30 09:06] LABS: HEMATOCRIT 34.5 % (35.0-46.0); MEAN CELL VOLUME 95.4 FL (80.0-100.0); MEAN CORPUSCULAR HEMOGLOBIN 32.5 PG (27.0-34.0); MEAN CORPUSCULAR HGB CONC 34.1 % (32.0-36.0); PLATELET COUNT 189 TH/MM3 (150-450); RED BLOOD COUNT 3.62 MIL/MM3 (4.00-5.30); RED CELL DISTRIBUTION WIDTH 12.8 % (11.6-17.2); REVIEW FLAG FINAL; WHITE BLOOD COUNT 12.6 TH/MM3 (4.0-11.0)
[2016-07-30 09:20] LABS: BICARBONATE 23.8 MEQ/L (21.0-32.0); POTASSIUM 3.9 MEQ/L (3.5-5.1)
--- NOTE | 2016-07-30 10:57 | PD.VS.PN ---
Subjective POD #: 2 Procedure(s): L CEA Subjective/Hospital Course Looks good, neuro intact. No pain except "sore throat" and incisional pain Objective Vitals/I&O Date Time Temp Pulse Resp B/P Pulse Ox O2 Delivery O2 Flow Rate FiO2 07/30/16 08:00 Room Air 07/30/16 08:00 98.6 84 16 156/83 95 07/30/16 08:00 80 07/30/16 06:36 72 07/30/16 05:14 80 07/30/16 04:38 75 07/30/16 04:37 98.6 82 142/78 92 07/30/16 03:44 Room Air 07/30/16 03:00 74 07/30/16 02:00 72 07/30/16 01:00 74 07/30/16 00:43 98.0 79 156/79 95 07/30/16 00:43 Room Air 07/30/16 00:00 78 07/29/16 23:00 76 07/29/16 22:00 80 07/29/16 21:00 84 07/29/16 20:00 80 07/29/16 19:00 Room Air 2.00 21 07/29/16 19:00 84 07/29/16 19:00 98.1 88 159/86 95 07/29/16 15:51 95 Room Air 07/29/16 15:49 98.1 76 18 116/64 98 07/29/16 15:00 77 07/29/16 12:42 18 07/29/16 12:02 95 21 07/29/16 11:42 95 Room Air 07/29/16 11:40 98.0 83 18 118/65 98 Arterial Line 07/29/16 11:00 79 07/30/16 07/30/16 07/30/16 07:00 15:00 23:00 Intake Total 240 ml Output Total 100 ml Balance 140 ml Exam: L neck with soft fullness CN intact Neuro intact voice ok Incisions: c/d/i Laboratory Laboratory Tests Test 07/30/16 07:30 White Blood Count 12.6 Red Blood Count 3.62 Hemoglobin 11.8 Hematocrit 34.5 Mean Corpuscular Volume 95.4 Mean Corpuscular Hemoglobin 32.5 Mean Corpuscular Hemoglobin 34.1 Concent Red Cell Distribution Width 12.8 Platelet Count 189 Mean Platelet Volume 9.0 Sodium Level 126 Potassium Level 3.9 Chloride Level 94 Carbon Dioxide Level 23.8 Anion Gap 8 Blood Urea Nitrogen 11 Creatinine 0.67 Estimat Glomerular Filtration 83 Rate Random Glucose 95 Calcium Level 8.3 Assessment and Plan Assessment: (1) Carotid artery disease Status: Acute Plan Warm compresses to neck for comfort po pain meds Reg diet D/C anytime Manuel Kidd MD FACS insulation manager [facility] - Heart and Vascular Surgery at [facility] [phone] Discharge Planning when cleared from medical service Problem Qualifiers (1) Carotid artery disease: Qualified Code: I77.9 - Left-sided carotid artery disease Manuel Kidd MD Jul 30, 2016 10:57
[2016-07-30] MEDS ORDERED: HYDROmorphone HCL 2 MG TAB PO PRN (11:30)
--- NOTE | 2016-07-30 11:41 | HHI.PR ---
Review/Management Diagnosis - Acute/subacute ischemic stroke. doing well s/p left cea Plan ok for floor -Aspirin 325 mg daily. - PT bp control doing well d/c planning Diagnosis/Plan: (1) Acute ischemic left MCA stroke Plan: doing well on aspirin (2) Left carotid artery stenosis Plan: s/p cea (3) HTN (hypertension) Plan: goal <140/90 Subjective Subjective Comments No acute events reported No headache No chest pain No dyspnea Active Medications Current Medications Medications (Trade) Dose Ordered Sig/Ton Route Start Time Stop Time Status Last Admin (NS Flush) 2 ml UNSCH PRN IV FLUSH 07/26/16 01:15 07/27/16 13:34 (NS Flush) 2 ml BID IV FLUSH 07/26/16 09:00 07/30/16 08:39 (Zofran Inj) 4 mg Q6H PRN IVP 07/26/16 01:15 07/29/16 14:03 (Dulcolax Supp) 10 mg DAILY PRN RECTAL 07/26/16 01:15 (Narcan Inj) 0.4 mg UNSCH PRN IV 07/26/16 01:15 (Vasotec Inj) 1.25 mg Q4H PRN IV 07/26/16 14:45 07/27/16 13:34 (Lopressor) 50 mg BID PO 07/27/16 09:00 07/30/16 08:39 (Diovan) 160 mg DAILY PO 07/27/16 09:00 07/30/16 08:38 (Procardia Xl) 30 mg DAILY PO 07/28/16 09:00 07/30/16 08:38 (Aspirin) 325 mg DAILY PO 07/29/16 09:00 07/30/16 08:38 (Lipitor) 40 mg HS PO 07/28/16 21:00 07/29/16 20:23 (Lovenox Inj) 30 mg Q24H SQ 07/29/16 06:00 07/30/16 05:25 (Apresoline Inj) 10 mg Q2H PRN IV PUSH 07/28/16 15:30 (Antivert) 25 mg DAILY PRN PO 07/28/16 15:30 07/29/16 16:10 (Dilaudid) 0.5 mg Q4H PRN PO 07/30/16 11:30 Allergies Allergies Coded Allergies Codeine (Verified Allergy, Intermediate, "VIOLENTLY SICK", 07/25/16) Review of Systems All other ROS: ROS reviewed as documented in chart Exam I&O / VS 07/29/16 07/29/16 07/30/16 15:00 23:00 07:00 Intake Total 1024 ml 240 ml Output Total 525 ml 100 ml Balance 499 ml 140 ml Intake Oral 840 ml 240 ml IV Total 184 ml Output Urine Total 525 ml 100 ml Stool Total 0 ml # Voids 2 Vital Signs Date Time Temp Pulse Resp B/P Pulse Ox O2 Delivery O2 Flow Rate FiO2 07/30/16 08:00 Room Air 07/30/16 08:00 98.6 84 16 156/83 95 07/30/16 08:00 80 07/30/16 06:36 72 07/30/16 05:14 80 07/30/16 04:38 75 07/30/16 04:37 98.6 82 142/78 92 07/30/16 03:44 Room Air 07/30/16 03:00 74 07/30/16 02:00 72 07/30/16 01:00 74 07/30/16 00:43 98.0 79 156/79 95 07/30/16 00:43 Room Air 07/30/16 00:00 78 07/29/16 23:00 76 07/29/16 22:00 80 07/29/16 21:00 84 07/29/16 20:00 80 07/29/16 19:00 Room Air 2.00 21 07/29/16 19:00 84 07/29/16 19:00 98.1 88 159/86 95 07/29/16 15:51 95 Room Air 07/29/16 15:49 98.1 76 18 116/64 98 07/29/16 15:00 77 07/29/16 12:42 18 07/29/16 12:02 95 21 07/29/16 11:42 95 Room Air 07/29/16 11:40 98.0 83 18 118/65 98 Arterial Line General: Alert and Oriented, No acute distress Eye: EOMI Respiratory: Non-labored respirations Cardiology: Regular Rhythm Musculoskeletal: ROM (within functional limits) Neurologic: Alert, Oriented Psychiatric: Cooperative, Appropriate mood & affect, Normal judgement Exam Comments ox 3, mild dysphonic speech, sitting up eating breakfast, follows, mild rt side paresis u>l 5-/5 Objective Micro and Labs Laboratory Tests Test 07/30/16 07:30 White Blood Count 12.6 Red Blood Count 3.62 Hemoglobin 11.8 Hematocrit 34.5 Mean Corpuscular Volume 95.4 Mean Corpuscular Hemoglobin 32.5 Mean Corpuscular Hemoglobin 34.1 Concent Red Cell Distribution Width 12.8 Platelet Count 189 Mean Platelet Volume 9.0 Sodium Level 126 Potassium Level 3.9 Chloride Level 94 Carbon Dioxide Level 23.8 Anion Gap 8 Blood Urea Nitrogen 11 Creatinine 0.67 Estimat Glomerular Filtration 83 Rate Random Glucose 95 Calcium Level 8.3 Problem Qualifiers (1) HTN (hypertension): Qualified Code: I10 - Essential hypertension Kasi Leyva MD Jul 30, 2016 11:41
--- NOTE | 2016-07-30 17:49 | HHI.PR ---
Subjective Remarks patient awake and alert states voice is not at her baseline tolerating current diet consistency up and ambulated with a walker no neck pain voiding spontaneously Objective Vitals Vital Signs Date Time Temp Pulse Resp B/P Pulse Ox O2 Delivery O2 Flow Rate FiO2 07/30/16 16:00 80 07/30/16 16:00 Room Air 07/30/16 16:00 98.2 84 16 140/70 94 07/30/16 15:00 80 07/30/16 14:00 80 07/30/16 13:00 80 07/30/16 12:00 Room Air 07/30/16 12:00 98.6 73 18 132/72 95 07/30/16 12:00 76 07/30/16 11:00 76 07/30/16 10:00 74 07/30/16 09:00 82 07/30/16 08:00 Room Air 07/30/16 08:00 98.6 84 16 156/83 95 07/30/16 08:00 80 07/30/16 07:00 72 07/30/16 06:36 72 07/30/16 05:14 80 07/30/16 04:38 75 07/30/16 04:37 98.6 82 142/78 92 07/30/16 03:44 Room Air 07/30/16 03:00 74 07/30/16 02:00 72 07/30/16 01:00 74 07/30/16 00:43 98.0 79 156/79 95 07/30/16 00:43 Room Air 07/30/16 00:00 78 07/29/16 23:00 76 07/29/16 22:00 80 07/29/16 21:00 84 07/29/16 20:00 80 07/29/16 19:00 Room Air 2.00 21 07/29/16 19:00 84 07/29/16 19:00 98.1 88 159/86 95 I/O 07/29/16 07/29/16 07/29/16 07/30/16 07/30/16 07/30/16 07:00 15:00 23:00 07:00 15:00 23:00 Intake Total 898 ml 1024 ml 240 ml 600 ml Output Total 1025 ml 525 ml 100 ml Balance -127 ml 499 ml 140 ml 600 ml Intake Oral 240 ml 840 ml 240 ml 600 ml IV Total 658 ml 184 ml Output Urine Total 1025 ml 525 ml 100 ml Stool Total 0 ml # Voids 2 4 # Bowel Movements 0 1 Result Diagram: 07/30/16 0730 07/30/16 0730 Imaging Last Impressions Neck CTA 07/26/16 0000 Signed Impressions: Service Date/Time: Tuesday, July 26, 2016 17:28 - CONCLUSION: * Atherosclerotic plaque of both carotid bifurcations. Despite the ultrasound, the CT suggests hemodynamically significant stenosis of the left internal carotid artery about 1 cm distal to the bifurcation. No evidence of hemodynamically significant narrowing of the right carotid system. * Dominant left vertebral artery with a low grade narrowing at its origin and diffuse tortuosity. Gagandeep Riley MD Head CTA 07/26/16 0000 Signed Impressions: Service Date/Time: Tuesday, July 26, 2016 17:28 - CONCLUSION: Intracranial arteries are within normal limits. Gagandeep Riley MD Carotid Artery Ultrasound 07/26/16 0000 Signed Impressions: Service Date/Time: Tuesday, July 26, 2016 08:05 - CONCLUSION: 1. No evidence for hemodynamically significant stenosis. Aristides Auguste MD Brain MRI 07/26/16 0000 Signed Impressions: Service Date/Time: Tuesday, July 26, 2016 14:01 - CONCLUSION: Multiple infarcts are noted involving the left frontal, parietal, temporal and occipital regions. There is no hemorrhage or mass effect. Aristides Auguste MD Head CT 07/25/162313 Signed Impressions: Service Date/Time: Monday, July 25, 2016 23:39 - CONCLUSION: No acute intracranial disease. Sergey Sage MD Chest X-Ray 07/25/162313 Signed Impressions: Service Date/Time: Monday, July 25, 2016 23:12 - CONCLUSION: Cardiomegaly left basilar atelectasis. Sergey Sage MD Objective Remarks awake and alert,oriented x 3 anicteric, pupils equally RTL no facial asymmetry neck =- left side- incision dry, no erythema lungs clear regular rhythm abdomen soft, nontender good bowel sounds extremities no edema motor- equal 5/5 both upper and lower extremities grossly no sensory deficits Procedures left CEA 07/28 Date of Insertion: Jul 28, 2016 Date of Removal: Jul 29, 2016 A/P Assessment and Plan Acute multiple infarcts left MCA CVA infarction Left carotid stenosis S/P Left CEA neuro check stable. PT/OT/speech tehrapy ASA daily prn pain meds Multimodal pain regimen 07/26 CT brain multiple infarcts left frontal, parietal, temporal and occipital regions Encourage incentive spirometry HTN Resume antihypertensive meds as scheduled good readings on Cozaar 160 mg daily, Procardia 30 mg XL daily, Lopressor 50 mg bid FEN/GI: Hyponatremia- asymptomatic in today s lab. recheck in am Heart healthy diet Bowel regimen Lovenox Patient out of bed to chair, tolerating diet doing well. PT daily CM for DC planning Jul 29, 2016 10:53 Natasha Pemberton MD Jul 30, 2016 17:49
[2016-07-30] MEDS: ATORVASTATIN 40 MG TAB PO SCH (20:13)
[2016-07-31] VITALS (22 sets, daily range): BP systolic 103–129; BP diastolic 49–65; PULSE 66–95; RESP 16–18; TEMP 97.8–98.5; O2SAT 84–98
[2016-07-31] MEDS: ENOXAPARIN SODIUM 30 MG/0.3 ML SYRINGE SQ SCH (06:20)
[2016-07-31] MEDS: SODIUM CHLORIDE 0.9% FLUSH 10 ML FLUSH IV FLUSH SCH ×2 (08:26→21:00)
[2016-07-31] MEDS: VALSARTAN 160 MG TAB PO SCH (08:26)
[2016-07-31] MEDS: NIFEdipine 30 MG SUSTAINED RELEASE TAB PO SCH (08:26)
[2016-07-31] MEDS: ASPIRIN 325 MG TAB PO SCH (08:26)
[2016-07-31] MEDS: METOPROLOL TARTRATE 50 MG TAB PO SCH ×2 (08:26→21:00)
--- NOTE | 2016-07-31 10:19 | PD.VS.PN ---
Subjective POD #: 3 Procedure(s): L CEA Subjective/Hospital Course Pt sitting in a chair eating breakfast without difficulty Pt reported she feels well with the exception of having some discomfort while swallowing Neuro intact Objective Vitals/I&O Date Time Temp Pulse Resp B/P Pulse Ox O2 Delivery O2 Flow Rate FiO2 07/31/16 10:03 69 07/31/16 09:09 77 07/31/16 08:15 97.9 84 18 129/65 84 07/31/16 08:15 74 07/31/16 08:15 93 Room Air 07/31/16 06:00 79 07/31/16 05:00 79 07/31/16 04:00 98.0 69 16 109/55 94 07/31/16 04:00 72 07/31/16 03:10 96 Room Air 07/31/16 03:00 72 07/31/16 02:00 80 07/31/16 01:00 72 07/31/16 00:00 98.0 85 16 114/60 94 07/31/16 00:00 72 07/30/16 23:35 96 Room Air 07/30/16 23:35 78 07/30/16 20:00 98.8 87 16 143/78 96 07/30/16 20:00 96 Room Air 07/30/16 20:00 87 07/30/16 18:00 90 07/30/16 17:00 82 07/30/16 16:00 80 07/30/16 16:00 Room Air 07/30/16 16:00 98.2 84 16 140/70 94 07/30/16 15:00 80 07/30/16 14:00 80 07/30/16 13:00 80 07/30/16 12:00 Room Air 07/30/16 12:00 98.6 73 18 132/72 95 07/30/16 12:00 76 07/30/16 11:00 76 Exam: GENERAL: A&OX3, GCS15, NAD SKIN: Warm and dry. NECK: Supple,No JVD CARDIOVASCULAR: Regular rate and rhythm without murmurs, gallops, or rubs. RESPIRATORY: Breath sounds equal bilaterally. No accessory muscle use. MUSCULOSKELETAL: No cyanosis, or edema. Pulses: Bilat Radial pulses palpable No carotid bruits noted Incisions: Left sided incision intact with surgical glue NO R/D/S C/D Assessment and Plan Assessment: (1) Carotid artery disease Status: Acute Plan Plan Pt doing well post operatively Will have pt follow up in our OPC in 3W Appointment time given to pt Cleo EDWARDS [facility] [phone] Discharge Planning Pt ok for D/C from a vascular standpoint Problem Qualifiers (1) Carotid artery disease: Qualified Code: I77.9 - Left-sided carotid artery disease Cleo Carney Jul 31, 2016 10:18
--- NOTE | 2016-07-31 11:57 | HHI.FF ---
Face to Face Verification Diagnosis: (1) Carotid artery disease (2) Left carotid artery stenosis Physical Therapy Order: Evaluate and Treat, Improve ambulation, Strength and gait training Occupational Therapy Order: Evaluate and Treat, Improve ADL Speech Therapy Order: To Improve: Speech and communication skills Home Health Nursing Order: Medical education Signs/symptoms of disease process Medication education-adverse effect Wound care and dressing changes Nursing assessment with vital signs I have seen patient Hannah Christopher on 07/31/16. My clinical findings support the need for the requested home health care services because: Patient has SOB Deconditioned w/ increased weakness Need for psychosocial assistance I certify that my clinical findings support that this patient is homebound because: Need for psychosocial assistance Natasha Pemberton MD Jul 31, 2016 11:57
--- NOTE | 2016-07-31 12:00 | HHI.PR ---
Subjective Remarks awake and alert, oriented x 3 no dizziness or shortness of breath no leg pain or neck pain Objective Vitals Vital Signs Date Time Temp Pulse Resp B/P Pulse Ox O2 Delivery O2 Flow Rate FiO2 07/31/16 11:06 67 07/31/16 11:06 97 Room Air 07/31/16 11:06 97.8 71 16 103/49 97 07/31/16 10:03 69 07/31/16 09:09 77 07/31/16 08:15 97.9 84 18 129/65 93 07/31/16 08:15 74 07/31/16 08:15 93 Room Air 07/31/16 06:00 79 07/31/16 05:00 79 07/31/16 04:00 98.0 69 16 109/55 94 07/31/16 04:00 72 07/31/16 03:10 96 Room Air 07/31/16 03:00 72 07/31/16 02:00 80 07/31/16 01:00 72 07/31/16 00:00 98.0 85 16 114/60 94 07/31/16 00:00 72 07/30/16 23:35 96 Room Air 07/30/16 23:35 78 07/30/16 20:00 98.8 87 16 143/78 96 07/30/16 20:00 96 Room Air 07/30/16 20:00 87 07/30/16 18:00 90 07/30/16 17:00 82 07/30/16 16:00 80 07/30/16 16:00 Room Air 07/30/16 16:00 98.2 84 16 140/70 94 07/30/16 15:00 80 07/30/16 14:00 80 07/30/16 13:00 80 07/30/16 12:00 Room Air 07/30/16 12:00 98.6 73 18 132/72 95 07/30/16 12:00 76 I/O 07/30/16 07/30/16 07/30/16 07/31/16 07/31/16 07/31/16 07:00 15:00 23:00 07:00 15:00 23:00 Intake Total 240 ml 600 ml 240 ml Output Total 100 ml 250 ml Balance 140 ml 600 ml -10 ml Intake Oral 240 ml 600 ml 240 ml Output Urine Total 100 ml 250 ml # Voids 2 4 # Bowel Movements 1 Result Diagram: 07/30/16 0730 07/30/16 0730 Imaging Last Impressions Neck CTA 07/26/16 Signed Impressions: Service Date/Time: Tuesday, July 26, 2016 17:28 - CONCLUSION: * Atherosclerotic plaque of both carotid bifurcations. Despite the ultrasound, the CT suggests hemodynamically significant stenosis of the left internal carotid artery about 1 cm distal to the bifurcation. No evidence of hemodynamically significant narrowing of the right carotid system. * Dominant left vertebral artery with a low grade narrowing at its origin and diffuse tortuosity. Gagandeep Riley MD Head CTA 07/26/16 Signed Impressions: Service Date/Time: Tuesday, July 26, 2016 17:28 - CONCLUSION: Intracranial arteries are within normal limits. Gagandeep Riley MD Carotid Artery Ultrasound 07/26/16 Signed Impressions: Service Date/Time: Tuesday, July 26, 2016 08:05 - CONCLUSION: 1. No evidence for hemodynamically significant stenosis. Aristides Auguste MD Brain MRI 07/26/16 Signed Impressions: Service Date/Time: Tuesday, July 26, 2016 14:01 - CONCLUSION: Multiple infarcts are noted involving the left frontal, parietal, temporal and occipital regions. There is no hemorrhage or mass effect. Aristides Auguste MD Head CT 07/25/162313 Signed Impressions: Service Date/Time: Monday, July 25, 2016 23:39 - CONCLUSION: No acute intracranial disease. Sergey Sage MD Chest X-Ray 07/25/162313 Signed Impressions: Service Date/Time: Monday, July 25, 2016 23:12 - CONCLUSION: Cardiomegaly left basilar atelectasis. Sergey Sage MD Objective Remarks awake and alert,oriented x 3 anicteric, pupils equally RTL no facial asymmetry neck =- left side- incision dry, no erythema lungs clear regular rhythm abdomen soft, nontender good bowel sounds extremities no edema motor- equal 5/5 both upper and lower extremities, superficial skin tear left lower leg, good peripheral pulses grossly no sensory deficits Procedures left CEA 07/28 Date of Insertion: Jul 28, 2016 Date of Removal: Jul 29, 2016 A/P Assessment and Plan Acute multiple infarcts left MCA CVA infarction Left carotid stenosis S/P Left CEA neuro check stable. PT/OT/speech therapy daily ASA daily 07/26 CT brain multiple infarcts left frontal, parietal, temporal and occipital regions Encourage incentive spirometry HTN Resume antihypertensive meds as scheduled good readings on Cozaar 160 mg daily, Procardia 30 mg XL daily, Lopressor 50 mg bid FEN/GI: Hyponatremia- asymptomatic irecheck pending Heart healthy diet Bowel regimen Lovenox Patient out of bed to chair, tolerating diet doing well. PT daily DC today with home health xcare PT/OT/nursing FF up with PCP in2 days OP ff up with vascular surgery in 3 weeks Jul 29, 2016 10:53 Natasha Pemberton MD Jul 31, 2016 12:00
[2016-07-31] MEDS ORDERED: NIFE30TA8 PO (12:07)
[2016-07-31] MEDS ORDERED: ATOR40TA16 PO (12:07)
[2016-07-31 12:19] LABS: BICARBONATE 26.6 MEQ/L (21.0-32.0); POTASSIUM 3.5 MEQ/L (3.5-5.1)
[2016-07-31] MEDS ORDERED: SODIUM CHLOR 0.9% 1000 ML INJ 1,000 ML IV SCH (12:45)
[2016-07-31] MEDS: ATORVASTATIN 40 MG TAB PO SCH (21:00)
[2016-08-01] VITALS (14 sets, daily range): BP systolic 109–141; BP diastolic 54–69; PULSE 68–91; RESP 16–17; TEMP 97.9–98.2; O2SAT 94–98
[2016-08-01] MEDS: ENOXAPARIN SODIUM 30 MG/0.3 ML SYRINGE SQ SCH (06:00)
[2016-08-01] MEDS: SODIUM CHLORIDE 0.9% FLUSH 10 ML FLUSH IV FLUSH SCH (08:22)
[2016-08-01] MEDS: METOPROLOL TARTRATE 50 MG TAB PO SCH (08:23)
[2016-08-01] MEDS: ASPIRIN 325 MG TAB PO SCH (08:23)
[2016-08-01] MEDS: NIFEdipine 30 MG SUSTAINED RELEASE TAB PO SCH (08:23)
[2016-08-01] MEDS: VALSARTAN 160 MG TAB PO SCH (08:24)
[2016-08-01 10:05] LABS: BICARBONATE 24.1 MEQ/L (21.0-32.0); POTASSIUM 3.9 MEQ/L (3.5-5.1)
--- NOTE | 2016-08-01 10:28 | HHI.PR ---
Subjective Remarks no complains of headache, nausea or vomiting or dizziness Objective Vitals Vital Signs Date Time Temp Pulse Resp B/P Pulse Ox O2 Delivery O2 Flow Rate FiO2 08/01/16 10:00 74 08/01/16 09:00 80 08/01/16 08:00 72 08/01/16 07:25 79 08/01/16 07:00 97.9 91 17 141/69 97 08/01/16 07:00 97 Room Air 08/01/16 06:00 72 08/01/16 05:00 68 08/01/16 04:00 72 08/01/16 03:00 74 08/01/16 03:00 94 Room Air 08/01/16 03:00 98.2 74 16 113/54 94 08/01/16 02:00 70 08/01/16 01:00 69 08/01/16 00:00 74 07/31/16 23:00 77 07/31/16 23:00 98 Room Air 07/31/16 23:00 98.5 77 18 127/64 98 07/31/16 22:00 78 07/31/16 21:00 85 07/31/16 19:00 98.4 88 18 125/60 96 07/31/16 19:00 96 Room Air 07/31/16 19:00 88 07/31/16 18:02 85 07/31/16 17:09 95 07/31/16 16:02 86 07/31/16 15:15 78 07/31/16 15:15 98.0 80 16 123/60 95 07/31/16 15:15 95 Room Air 07/31/16 14:14 79 07/31/16 13:03 66 07/31/16 12:01 76 07/31/16 11:06 67 07/31/16 11:06 97 Room Air 07/31/16 11:06 97.8 71 16 103/49 97 I/O 07/31/16 07/31/16 07/31/16 08/01/16 08/01/16 08/01/16 07:00 15:00 23:00 07:00 15:00 23:00 Intake Total 240 ml 616 ml 1180 ml Output Total 250 ml 750 ml Balance -10 ml 616 ml 430 ml Intake Oral 240 ml 476 ml 480 ml IV Total 140 ml 700 ml Output Urine Total 250 ml 750 ml # Voids 1 # Bowel Movements 0 Result Diagram: 07/30/16 0730 08/01/16 0846 Imaging Last Impressions Neck CTA 07/26/16 Signed Impressions: Service Date/Time: Tuesday, July 26, 2016 17:28 - CONCLUSION: * Atherosclerotic plaque of both carotid bifurcations. Despite the ultrasound, the CT suggests hemodynamically significant stenosis of the left internal carotid artery about 1 cm distal to the bifurcation. No evidence of hemodynamically significant narrowing of the right carotid system. * Dominant left vertebral artery with a low grade narrowing at its origin and diffuse tortuosity. Gagandeep Riley MD Head CTA 07/26/16 Signed Impressions: Service Date/Time: Tuesday, July 26, 2016 17:28 - CONCLUSION: Intracranial arteries are within normal limits. Gagandeep Riley MD Carotid Artery Ultrasound 07/26/16 Signed Impressions: Service Date/Time: Tuesday, July 26, 2016 08:05 - CONCLUSION: 1. No evidence for hemodynamically significant stenosis. Aristides Auguste MD Brain MRI 07/26/16 Signed Impressions: Service Date/Time: Tuesday, July 26, 2016 14:01 - CONCLUSION: Multiple infarcts are noted involving the left frontal, parietal, temporal and occipital regions. There is no hemorrhage or mass effect. Aristides Auguste MD Head CT 07/25/162313 Signed Impressions: Service Date/Time: Monday, July 25, 2016 23:39 - CONCLUSION: No acute intracranial disease. Sergey Sage MD Chest X-Ray 07/25/162313 Signed Impressions: Service Date/Time: Monday, July 25, 2016 23:12 - CONCLUSION: Cardiomegaly left basilar atelectasis. Sergey Sage MD Objective Remarks awake and alert,oriented x 3 anicteric, pupils equally RTL no facial asymmetry neck =- left side- incision dry, no erythema lungs clear regular rhythm abdomen soft, nontender good bowel sounds extremities no edema motor- equal 5/5 both upper and lower extremities, superficial skin tear left lower leg, minimal bleeding good peripheral pulses grossly no sensory deficits Procedures left CEA 07/28 Date of Insertion: Jul 28, 2016 Date of Removal: Jul 29, 2016 A/P Assessment and Plan Acute multiple infarcts left MCA CVA infarction Left carotid stenosis S/P Left CEA neuro check stable. PT/OT/speech therapy daily ASA daily 07/26 CT brain multiple infarcts left frontal, parietal, temporal and occipital regions Encourage incentive spirometry HTN good readings on Cozaar 160 mg daily, Procardia 30 mg XL daily, Lopressor 50 mg bid FEN/GI: Hyponatremia- asymptomatic improved LEft LE skin tear- wound care team consult Heart healthy diet Bowel regimen CM assisting with DC planning- home health care nursing- wound, PT Patient out of bed to chair, tolerating diet doing well. PT daily DC today with home health nursing care PT/OT/nursing/wound FF up with PCP in2 days OP ff up with vascular surgery in 3 weeks Jul 29, 2016 10:53 Natasha Pemberton MD Aug 01, 2016 10:28
--- NOTE | 2016-08-29 15:18 | HHI.DS ---
Discharge Summary Admission Date Jul 26, 2016 at 16:36 Discharge Date: Aug 01, 2016 Admitting Diagnosis TIA (1) Acute ischemic left MCA stroke ICD Code: I63.512 Procedures left CEA 07/28 Brief History - From Admission This 86-year-old female patient with past medical history which includes: HTN, R carotid artery stenosis. Patient recently traveled here from [place] to [place] on a train then from [place] to [place] by car. Patient reports that starting Sunday she had numbness, tingling and weakness in R arm as well as difficulty speaking. Patient reports these symptoms last most of the day Sunday, then seemed to resolve. Symptoms then presented again today therefore she proceeded to ER for further evaluation. At this time patient reports symptoms have nearly resolved. Patient has known R carotid artery disease last US 5 years ago. Patient denies chest pain shortness of breath nausea vomiting diarrhea constipation fevers or chills Imaging Last Impressions Neck CTA 07/26/16 0000 Signed Impressions: Service Date/Time: Tuesday, July 26, 2016 17:28 - CONCLUSION: * Atherosclerotic plaque of both carotid bifurcations. Despite the ultrasound, the CT suggests hemodynamically significant stenosis of the left internal carotid artery about 1 cm distal to the bifurcation. No evidence of hemodynamically significant narrowing of the right carotid system. * Dominant left vertebral artery with a low grade narrowing at its origin and diffuse tortuosity. Gagandeep Riley MD Head CTA 07/26/16 0000 Signed Impressions: Service Date/Time: Tuesday, July 26, 2016 17:28 - CONCLUSION: Intracranial arteries are within normal limits. Gagandeep Riley MD Carotid Artery Ultrasound 07/26/16 0000 Signed Impressions: Service Date/Time: Tuesday, July 26, 2016 08:05 - CONCLUSION: 1. No evidence for hemodynamically significant stenosis. Aristides Auguste MD Brain MRI 07/26/16 0000 Signed Impressions: Service Date/Time: Tuesday, July 26, 2016 14:01 - CONCLUSION: Multiple infarcts are noted involving the left frontal, parietal, temporal and occipital regions. There is no hemorrhage or mass effect. Aristides Auguste MD Head CT 07/25/162313 Signed Impressions: Service Date/Time: Monday, July 25, 2016 23:39 - CONCLUSION: No acute intracranial disease. Sergey Sage MD Chest X-Ray 07/25/162313 Signed Impressions: Service Date/Time: Monday, July 25, 2016 23:12 - CONCLUSION: Cardiomegaly left basilar atelectasis. Sergey Sage MD PE at Discharge awake and alert,oriented x 3 anicteric, pupils equally RTL no facial asymmetry neck =- left side- incision dry, no erythema lungs clear regular rhythm abdomen soft, nontender good bowel sounds extremities no edema motor- equal 5/5 both upper and lower extremities, superficial skin tear left lower leg, minimal bleeding good peripheral pulses grossly no sensory deficits Hospital Course Acute multiple infarcts left MCA CVA infarction Left carotid stenosis S/P Left CEA neuro check stable. PT/OT/speech therapy daily ASA daily 07/26 CT brain multiple infarcts left frontal, parietal, temporal and occipital regions Encourage incentive spirometry HTN good readings on Cozaar 160 mg daily, Procardia 30 mg XL daily, Lopressor 50 mg bid FEN/GI: Hyponatremia- asymptomatic improved LEft LE skin tear- wound care team consult Heart healthy diet Bowel regimen CM assisting with DC planning- home health care nursing- wound, PT Patient out of bed to chair, tolerating diet doing well. PT daily DC today with home health nursing care PT/OT/nursing/wound FF up with PCP in2 days OP ff up with vascular surgery in 3 weeks Pt Condition on Discharge: Stable Discharge Disposition: Disch w/ Home Health Serv Discharge Time: > 30 minutes Discharge Instructions DIET: Follow Instructions for: Heart Healthy Diet Speech Therapy-Diet Recommends: Regular Activities you can perform: Weight Bearing as Hue Follow up Referrals: Neurology - 1 Week with Kasi Leyva MD PCP Follow-up - 3-5 Days with ladonna Physical Medicine & Rehab - 2 Weeks with Rosy Sorenson MD SNF/[facility]/ with [facility] [place] Vascular Surgery - 3 Weeks with Manuel Kidd MD New Orders: BASIC METABOLIC PROF - 08/02/16 New Medications: Atorvastatin (Atorvastatin) 40 Mg Tab 40 MG PO HS CEA Days 30 TAB Nifedipine ER 24 HR (Nifedipine ER 24 HR) 30 Mg Tab 30 MG PO DAILY HTN Days 30 TAB Continued Medications: Aspirin (Aspirin) 325 Mg Tab 325 MG PO DAILY #30 Ref 0 TAB Metoprolol Tartrate (Metoprolol Tartrate) 50 Mg Tab 50 MG PO BID #60 Ref 0 TAB Valsartan (Valsartan) 160 Mg Tab 160 MG PO DAILY #30 Ref 0 TAB Discontinued Medications: Meclizine (Meclizine) 25 Mg Tab 25 MG PO DIRECTED PRN VERTIGO Ref 0 TAB Natasha Pemberton MD August 29, 2016 15:18
[2016-08-31] MEDS ORDERED: WHEEMIS3 (11:57)
[2016-09-04] MEDS ORDERED: IBUP-232 PO (10:06)
[2016-09-18] MEDS ORDERED: ULTR50TA5 PO (15:50)
== END 2016-08-01 14:20 | disposition home health service (06) | DRG 38 ==
LOC: NEPC 21:00 → NEDA 07-26 01:13 → NEPFCDU 07-26 02:46 → OBSVTOIN 07-26 16:36 → HCVR 07-28 15:33 → HCIN 07-29 18:10 → HCIS 07-31 15:25 → HCIN 07-31 15:26
PROVIDERS: ADMIT Internal Medicine; ATTEND Internal Medicine
PROC: 03UL0KZ Supplement Left Internal Carotid Artery with Nonautologous Tissue Substitute, Open Approach (ICD-10-PCS; 2016-07-28)
PROC: 03CL0ZZ Extirpation of Matter from Left Internal Carotid Artery, Open Approach (ICD-10-PCS; principal; 2016-07-28 13:01)
DX: I63.512 Cerebral infarction due to unspecified occlusion or stenosis of left middle cerebral artery (principal); E87.1 Hypo-osmolality and hyponatremia; G81.91 Hemiplegia, unspecified affecting right dominant side; I11.9 Hypertensive heart disease without heart failure; R47.01 Aphasia; R13.10 Dysphagia, unspecified; J98.11 Atelectasis; I65.23 Occlusion and stenosis of bilateral carotid arteries; Z79.82 Long term (current) use of aspirin; Z79.899 Other long term (current) drug therapy; Z85.828 Personal history of other malignant neoplasm of skin; Z87.891 Personal history of nicotine dependence
CPT/HCPCS: 70450; 70496; 70498; 70551; 71010; 80048; 80053; 80061; 82550; 83036; 84443; 84484; 85025; 85027; 85610; 85730; 93005; 93225; 93226; 93306; 93880; 94150; C1768; G8987-GO; G8987-GP; G8988-GO; G8988-GP; J0131; J1644; J1650; J2370; J2405; J2720; J3010; J7030; J7120; Q9967

== ENCOUNTER 2017-07-08 16:30 | Inpatient (IN) | payer MEDICARE, OTHER ==
[~2017-07-08] VITALS: Ht 162.6 cm; Wt 69.0 kg
[~2017-07-08 16:30] MED LIST: ASPI-183 PO; ATOR40TA16 PO; IBUP-232 PO; METO50TA PO; NIFE30TA8 PO; TRAM50 PO; VALS1TAB65 PO; WHEEMIS3
[2017-07-08] MEDS ORDERED: ONDANSETRON HCL 4 MG/2 ML VIAL IV PUSH ONE (17:00)
--- NOTE | 2017-07-08 17:12 | PD ---
HPI Chief Complaint: General Weakness Time Seen by Provider: 16:42 Travel History International Travel<30 days: No Contact w/Intl Traveler<30days: No History of Present Illness HPI 87 YO F presents to the ED via EMS for evaluation of dizziness, weakness, N/V, diarrhea x 2 days. Gradual onset. Patient states that she was treated at an outside hospital for UTI last week, discharged to rehabilitation. She states that she left AMA from rehabilitation because " those people were horrible." She denies headache, vision changes, chest pain, palpitations, shortness of breath, abdominal pain, melena, hematochezia, dysuria, hematuria, back pain. She endorses compliance with her daily medications. She endorses history of panendoscopy "so long ago, I don't remember." PFSH Past Medical History Blood Disorders: No Heart Rhythm Problems: No Cancer: Yes (Skin CA R-forehead.) Cardiovascular Problems: Yes High Cholesterol: No Chemotherapy: No Chest Pain: No Congestive Heart Failure: No Diminished Hearing: No Endocrine: No Genitourinary: No Hypertension: Yes Immune Disorder: No Musculoskeletal: No Neurologic: No Psychiatric: No Respiratory: No Radiation Therapy: No Menopausal: Yes : 3 Para: 3 Miscarriage: 0 Past Surgical History Appendectomy: Yes Thoracic Surgery: Yes (LT LUNG SURG) Other Surgery: Yes Social History Alcohol Use: No Tobacco Use: No Substance Use: No Allergies-Medications (Allergen,Severity, Reaction): Coded Allergies: codeine (Unverified Allergy, Intermediate, "VIOLENTLY SICK", 11/28/16) Reported Meds & Prescriptions Reported Meds & Active Scripts Active Wheelchair (Device) 1 Mis Mis 1 Ea .ROUTE DIRECTED Nifedipine ER 24 HR (Nifedipine) 30 Mg Tab 30 Mg PO DAILY 30 Days Atorvastatin (Atorvastatin Calcium) 40 Mg Tab 40 Mg PO HS 30 Days Reported Gabapentin 300 Mg Cap 300 Mg PO HS Diclofenac Topical 1% Gel 1 Applic TOPICAL QID Carbidopa-Levodopa 25-100 Mg Tab 1 Tab PO Q8HR Ibuprofen 600 Mg Tab 600 Mg PO Q8HR PRN Aspirin 325 Mg Tab 325 Mg PO DAILY Metoprolol Tartrate 50 Mg Tab 50 Mg PO BID Review of Systems Except as stated in HPI: all other systems reviewed are Neg Physical Exam Narrative GENERAL: Well-nourished, well-developed white female in NAD. SKIN: Focused skin assessment warm/dry. HEAD: Normocephalic. EYES: No scleral icterus. No injection or drainage. NECK: Supple, trachea midline. No JVD or lymphadenopathy. CARDIOVASCULAR: Regular rate and rhythm without murmurs, gallops, or rubs. RESPIRATORY: Breath sounds clear and equal bilaterally. No accessory muscle use. GASTROINTESTINAL: Abdomen soft, non-tender, nondistended. Active bowel sounds. RECTAL EXAM: No masses or tenderness, stool is brown. Guaiac positive. MUSCULOSKELETAL: No cyanosis, or edema. Moves extremities spontaneously. NEUROLOGICAL: Awake and alert. Cranial nerves II through XII intact. Motor and sensory grossly within normal limits. Five out of 5 muscle strength in all muscle groups. Normal speech. BACK: Nontender without obvious deformity. No CVA tenderness. Data Data Last Documented VS Vital Signs Date Time Temp Pulse Resp B/P (MAP) Pulse Ox O2 Delivery O2 Flow Rate FiO2 07/08/17 17:26 17 95 Room Air 07/08/17 17:23 98.1 98 125/60 (81) Orders Orders Complete Blood Count With Diff (07/08/17 16:42) Comprehensive Metabolic Panel (07/08/17 16:42) Prothrombin Time / Inr (Pt) (07/08/17 16:42) Act Partial Throm Time (Ptt) (07/08/17 16:42) Urinalysis - C+S If Indicated (07/08/17 16:42) Blood Glucose (07/08/17 16:42) Ecg Monitoring (07/08/17 16:42) Iv Access Insert/Monitor (07/08/17 16:42) Oximetry (07/08/17 16:42) Ct Brain W/O Iv Contrast(Rout) (07/08/17 ) ^ Straight Catheter (07/08/17 16:57) Chest, Single Ap (07/08/17 ) Type And Screen (07/08/17 16:57) Ondansetron Inj (Zofran Inj) (07/08/17 17:00) Electrocardiogram (07/08/17 ) Troponin I (07/08/17 16:55) Calcium Carbonate Chew (Tums Chew) (07/08/17 19:15) Sodium Chlorid 0.9% 500 Ml Inj (Ns 500 M (07/08/17 19:15) Meclizine (Antivert) (07/08/17 19:15) Admit Order (Ed Use Only) (07/08/17 19:15) Labs Laboratory Tests Test 07/08/17 16:55 07/08/17 17:00 White Blood Count 10.4 TH/MM3 Red Blood Count 3.51 MIL/MM3 Hemoglobin 11.3 GM/DL Hematocrit 33.8 % Mean Corpuscular Volume 96.4 FL Mean Corpuscular Hemoglobin 32.1 PG Mean Corpuscular Hemoglobin Concent 33.3 % Red Cell Distribution Width 13.6 % Platelet Count 399 TH/MM3 Mean Platelet Volume 8.7 FL Neutrophils (%) (Auto) 66.6 % Lymphocytes (%) (Auto) 13.2 % Monocytes (%) (Auto) 18.4 % Eosinophils (%) (Auto) 1.2 % Basophils (%) (Auto) 0.6 % Neutrophils # (Auto) 6.9 TH/MM3 Lymphocytes # (Auto) 1.4 TH/MM3 Monocytes # (Auto) 1.9 TH/MM3 Eosinophils # (Auto) 0.1 TH/MM3 Basophils # (Auto) 0.1 TH/MM3 CBC Comment DIFF FINAL Differential Comment Prothrombin Time 11.4 SEC Prothromb Time International Ratio 1.1 RATIO Activated Partial Thromboplast Time 22.6 SEC Blood Urea Nitrogen 9 MG/DL Creatinine 0.92 MG/DL Random Glucose 90 MG/DL Total Protein 6.9 GM/DL Albumin 2.5 GM/DL Calcium Level 7.9 MG/DL Alkaline Phosphatase 105 U/L Aspartate Amino Transf (AST/SGOT) 15 U/L Alanine Aminotransferase (ALT/SGPT) LESS THAN 6 U/L Total Bilirubin 0.3 MG/DL Sodium Level 129 MEQ/L Potassium Level 4.5 MEQ/L Chloride Level 95 MEQ/L Carbon Dioxide Level 25.4 MEQ/L Anion Gap 9 MEQ/L Estimat Glomerular Filtration Rate 58 ML/MIN Troponin I LESS THAN 0.02 NG/ML Urine Color YELLOW Urine Turbidity CLEAR Urine pH 7.0 Urine Specific [place] 1.008 Urine Protein NEG mg/dL Urine Glucose (UA) NEG mg/dL Urine Ketones TRACE mg/dL Urine Occult Blood NEG Urine Nitrite NEG Urine Bilirubin NEG Urine Urobilinogen LESS THAN 2.0 MG/DL Urine Leukocyte Esterase NEG Urine RBC LESS THAN 1 /hpf Urine WBC LESS THAN 1 /hpf Microscopic Urinalysis Comment CATH-CULT NOT IND MDM Medical Decision Making Medical Screen Exam Complete: Yes Emergency Medical Condition: Yes Differential Diagnosis UTI versus PNA versus GI bleed versus anemia versus dehydration versus metabolic derangement versus deconditioning versus other Narrative Course 87 YO F presents to the ED via EMS for evaluation of dizziness, weakness, N/V, diarrhea x 2 days. Patient states that she was treated at an outside hospital for UTI last week, discharged to rehabilitation. She states that she left AMA from rehabilitation because " those people were horrible." The patient is afebrile, pulse 98, BP 125/60, O2 2 sats 95% on room air and presentation. On exam this is a pleasant white female in no acute distress. No focal neuro deficits. Chest CTA B. Abdomen soft and nontender. No lower extremity edema. Guaiac positive on rectal exam. IV was established. She was administered 4 mg Zofran. EKG rate 76, sinus rhythm. NM interval 191, QRS 77, QTC [address] Hoffmann CXR: No acute disease. Troponin: Negative 1. CT brain no acute disease per radiology read. CBC: WBC 10.4, hemoglobin 11.3. Coags: INR 1.1. CMP: Sodium 129, chloride 95. BUN 9., Creatinine 0.92. Calcium 7.9. Albumin 2.5. UA: No culture indicated. Patient was administered 1 g calcium chew, 500 mg normal saline IV. I discussed the patient with Dr. Arreaga. She recommends observation with GI consult. Patient will likely need home health/ PT. I spoke with Dr. Chawla who agrees to accept the patient to the medicine service. Please see medicine notes for disposition. [facility] Point of Care Internal Pos. & Neg. Controls: Passed Fecal Specimen Occult Blood: Positive Ana Rosa Jul 08, 2017 17:12
--- NOTE | 2017-07-08 17:20 | RADRPT ---
EXAM DATE/TIME: 07/08/2017 17:05 [facility] COMPARISON: CHEST SINGLE AP, July 25, 2016, 23:12. INDICATIONS : General weakness. Light headed. MEDICAL HISTORY : Cardiovascular disease. Hypertension. SURGICAL HISTORY : None. ENCOUNTER: Initial ACUITY: 1 day PAIN SCORE: 0/10 LOCATION: Bilateral chest FINDINGS: The patient is mildly rotated towards the left. The heart size is normal. The lungs are grossly clear . Lung ant are seen over the left upper lung. CONCLUSION: No acute disease. Gagandeep Kennedy MD on July 08, 2017 at 17:15 Board Certified Radiologist. This report was verified electronically.
[2017-07-08 17:23] VITALS: BP 125/60; PULSE 98; RESP 17; TEMP 98.1; O2SAT 95
[2017-07-08 17:26] VITALS: RESP 17; O2SAT 95
[2017-07-08 17:42] LABS: AUTOMATED NEUTROPHIL # 6.9 TH/MM3 (1.8-7.7); BASOPHIL # 0.1 TH/MM3 (0-0.2); BASOPHIL % 0.6 % (0.0-2.0); EOSINOPHIL # 0.1 TH/MM3 (0-0.4); EOSINOPHIL % 1.2 % (0.0-4.0); HEMATOCRIT 33.8 % (35.0-46.0); HEMOGLOBIN 11.3 GM/DL (11.6-15.3); LYMPH % 13.2 % (9.0-44.0); LYMPHOCYTE # 1.4 TH/MM3 (1.0-4.8); MEAN CELL VOLUME 96.4 FL (80.0-100.0); MEAN CORPUSCULAR HEMOGLOBIN 32.1 PG (27.0-34.0); MEAN CORPUSCULAR HGB CONC 33.3 % (32.0-36.0); MEAN PLATELET VOLUME 8.7 FL (7.0-11.0); MONO % 18.4 % (0.0-8.0); MONOCYTE # 1.9 TH/MM3 (0-0.9); NEUT % 66.6 % (16.0-70.0); PLATELET COUNT 399 TH/MM3 (150-450); RED BLOOD COUNT 3.51 MIL/MM3 (4.00-5.30); RED CELL DISTRIBUTION WIDTH 13.6 % (11.6-17.2); WHITE BLOOD COUNT 10.4 TH/MM3 (4.0-11.0)
[2017-07-08 17:46] LABS: BILIRUBIN, URINE NEG (NEG); BLOOD, URINE NEG (NEG); GLUCOSE,URINE NEG (NEG); KETONE, URINE TRACE mg/dL (NEG); NITRITE,URINE NEG (NEG); URINE COLOR YELLOW (YELLW/STRAW); URINE LEUKOCYTE ESTERASE NEG (NEG)
[2017-07-08 17:53] LABS: ALBUMIN 2.5 GM/DL (3.4-5.0); ALT (GPT) LESS THAN 6 U/L (10-53); AST (GOT) 15 U/L (15-37); BICARBONATE 25.4 MEQ/L (21.0-32.0); BLOOD UREA NITROGEN 9 MG/DL (7-18); CALCIUM 7.9 MG/DL (8.5-10.1); CHLORIDE 95 MEQ/L (98-107); CREATININE 0.92 MG/DL (0.50-1.00); GLOMERULAR FILTRATION RATE 58 ML/MIN (>89); GLUCOSE,RANDOM 90 MG/DL (74-106); SODIUM (NA) 129 MEQ/L (136-145)
[2017-07-08 17:55] LABS: ALKALINE PHOSPHATASE 105 U/L (45-117); TOTAL BILIRUBIN ADULT 0.3 MG/DL (0.2-1.0); TOTAL PROTEIN 6.9 GM/DL (6.4-8.2)
[2017-07-08 17:58] LABS: INTERNATIONAL NORMALIZED RATIO 1.1 RATIO; PROTHROMBIN TIME - PATIENT 11.4 SEC (9.8-11.6)
--- NOTE | 2017-07-08 18:23 | RADRPT ---
EXAM DATE/TIME: 07/08/2017 18:13 [facility] COMPARISON: CT BRAIN W/O CONTRAST, July 25, 2016, 23:39. INDICATIONS : Weakness, nausea,vomiting for 2 days.Dizziness. RADIATION DOSE: 34.69 CTDIvol (mGy) MEDICAL HISTORY : Cerebrovascular disease. Cardiovascular disease Hypertension.Skin ca , maniers, shingles SURGICAL HISTORY : Hysterectomy. Appendectomy.L Lung surgery ENCOUNTER: Initial ACUITY: 2 days PAIN SCALE: 0/10 LOCATION: cranial TECHNIQUE: Multiple contiguous axial images were obtained of the head. Using automated exposure control and adj ustment of the mA and/or kV according to patient size, radiation dose was kept as low as reasonably a chievable to obtain optimal diagnostic quality images. DICOM format image data is available electro nically for review and comparison. FINDINGS: CEREBRUM: The ventricles are normal for age. No evidence of midline shift, mass lesion, hemorrhage or acute in farction. No extra-axial fluid collections are seen. POSTERIOR FOSSA: The cerebellum and brainstem are intact. The 4th ventricle is midline. The cerebellopontine angle i s unremarkable. EXTRACRANIAL: The visualized portion of the orbits is intact. SKULL: The calvaria is intact. No evidence of skull fracture. CONCLUSION: No acute disease. Aldo Kearney MD FACR on July 08, 2017 at 18:19 Board Certified Radiologist. This report was verified electronically.
[2017-07-08 18:35] LABS: TROPONIN I LESS THAN 0.02 NG/ML (0.02-0.05)
[2017-07-08] MEDS ORDERED: GABA300C5 PO (18:35)
[2017-07-08] MEDS ORDERED: DICL1GEL7 TOPICAL (18:35)
[2017-07-08] MEDS ORDERED: CARB25TA9 PO (18:35)
[2017-07-08] MEDS ORDERED: CALCIUM CARBONATE 500 MG CHEWABLE TAB CHEW ONE (19:15)
[2017-07-08] MEDS ORDERED: SODIUM CHLORID 0.9% 500 ML INJ 500 ML IV ONE (19:15)
[2017-07-08] MEDS ORDERED: MECLIZINE HCL 25 MG TAB PO ONE (19:15)
--- NOTE | 2017-07-08 19:24 | HHI.HP ---
[facility] Unknown Admission Diagnosis hyponatremia, GI bleed Diagnoses: Travel History International Travel<30 Days: No Contact w/Intl Traveler <30 Da: No Traveled to Known Affected Are: No Past Family Social History Allergies: Coded Allergies: codeine (Unverified Allergy, Intermediate, "VIOLENTLY SICK", 11/28/16) Physical Exam Vital Signs Vital Signs Date Time Temp Pulse Resp B/P (MAP) Pulse Ox O2 Delivery O2 Flow Rate FiO2 07/08/17 17:26 17 95 Room Air 07/08/17 17:23 98.1 98 17 125/60 (81) 95 Physical Exam GENERAL: This is a well-nourished, well-developed patient, in no apparent distress. SKIN: No rashes, ecchymoses or lesions. Cool and dry. HEAD: Atraumatic. Normocephalic. No temporal or scalp tenderness. EYES: Pupils equal round and reactive. Extraocular motions intact. No scleral icterus. No injection or drainage. ENT: Nose without bleeding, purulent drainage or septal hematoma. Throat without erythema, tonsillar hypertrophy or exudate. Uvula midline. Airway patent. NECK: Trachea midline. No JVD or lymphadenopathy. Supple, nontender, no meningeal signs. CARDIOVASCULAR: Regular rate and rhythm without murmurs, gallops, or rubs. RESPIRATORY: Clear to auscultation. Breath sounds equal bilaterally. No wheezes , rales, or rhonchi. GASTROINTESTINAL: Abdomen soft, non-tender, nondistended. No hepato-splenomegaly , or palpable masses. No guarding. MUSCULOSKELETAL: Extremities without clubbing, cyanosis, or edema. No joint tenderness, effusion, or edema noted. No calf tenderness. Negative Homans sign bilaterally. NEUROLOGICAL: Awake and alert. Cranial nerves II through XII intact. Motor and sensory grossly within normal limits. Five out of 5 muscle strength in all muscle groups. Normal speech. Laboratory Laboratory Tests Test 07/08/17 16:55 07/08/17 17:00 White Blood Count 10.4 Red Blood Count 3.51 Hemoglobin 11.3 Hematocrit 33.8 Mean Corpuscular Volume 96.4 Mean Corpuscular Hemoglobin 32.1 Mean Corpuscular Hemoglobin Concent 33.3 Red Cell Distribution Width 13.6 Platelet Count 399 Mean Platelet Volume 8.7 Neutrophils (%) (Auto) 66.6 Lymphocytes (%) (Auto) 13.2 Monocytes (%) (Auto) 18.4 Eosinophils (%) (Auto) 1.2 Basophils (%) (Auto) 0.6 Neutrophils # (Auto) 6.9 Lymphocytes # (Auto) 1.4 Monocytes # (Auto) 1.9 Eosinophils # (Auto) 0.1 Basophils # (Auto) 0.1 CBC Comment DIFF FINAL Differential Comment Prothrombin Time 11.4 Prothromb Time International Ratio 1.1 Activated Partial Thromboplast Time 22.6 Blood Urea Nitrogen 9 Creatinine 0.92 Random Glucose 90 Total Protein 6.9 Albumin 2.5 Calcium Level 7.9 Alkaline Phosphatase 105 Aspartate Amino Transf (AST/SGOT) 15 Alanine Aminotransferase (ALT/SGPT) LESS THAN 6 Total Bilirubin 0.3 Sodium Level 129 Potassium Level 4.5 Chloride Level 95 Carbon Dioxide Level 25.4 Anion Gap 9 Estimat Glomerular Filtration Rate 58 Troponin I LESS THAN 0.02 Urine Color YELLOW Urine Turbidity CLEAR Urine pH 7.0 Urine Specific [place] 1.008 Urine Protein NEG Urine Glucose (UA) NEG Urine Ketones TRACE Urine Occult Blood NEG Urine Nitrite NEG Urine Bilirubin NEG Urine Urobilinogen LESS THAN 2.0 Urine Leukocyte Esterase NEG Urine RBC LESS THAN 1 Urine WBC LESS THAN 1 Microscopic Urinalysis Comment CATH-CULT NOT IND Result Diagram: 07/08/17 1655 07/08/17 165 Caprini VTE Risk Assessment Caprini Risk Assessment Model Point Value = 1 Point Value = 2 Point Value = 3 Point Value = 5 Age 41-60 Minor surgery BMI > 25 kg/m2 Swollen legs Varicose veins or History of unexplained or recurrent spontaneous Oral contraceptives or hormone replacement Sepsis (< 1 month) Serious lung disease, including pneumonia (< 1 month) Abnormal pulmonary function Acute myocardial infarction Congestive heart failure (< 1 month) History of inflammatory bowel disease Medical patient at bed rest Age 61-74 Arthroscopic surgery Major open surgery (> 45 min) Laparoscopic surgery (> 45 min) Malignancy Confined to bed (> 72 hours) Immobilizing plaster cast Central venous access Age >= 75 History of VTE Family history of VTE Factor V Leiden Prothrombin [id number] Lupus anticoagulant Anticardiolipin antibodies Elevated serum homocysteine Heparin-induced thrombocytopenia Other congenital or acquired thrombophilia Stroke (< 1 month) Elective arthroplasty Hip, pelvis, or leg fracture Acute spinal cord injury (< 1 month) Prophylaxis Regimen Total Risk Factor Score Risk Level Prophylaxis Regimen 0-1 Low Early ambulation 2 Moderate Order ONE of the following: *Sequential Compression Device (SCD) *Heparin 5000 units SQ BID 3-4 Higher Order ONE of the following medications: *Heparin 5000 units SQ TID *Enoxaparin/Lovenox 40 mg SQ daily (WT < 150 kg, CrCl > 30 mL/min) *Enoxaparin/Lovenox 30 mg SQ daily (WT < 150 kg, CrCl > 10-29 mL/min) *Enoxaparin/Lovenox 30 mg SQ BID (WT < 150 kg, CrCl > 30 mL/min) AND/OR *Sequential Compression Device (SCD) 5 or more Highest Order ONE of the following medications: *Heparin 5000 units SQ TID (Preferred with Epidurals) *Enoxaparin/Lovenox 40 mg SQ daily (WT < 150 kg, CrCl > 30 mL/min) *Enoxaparin/Lovenox 30 mg SQ daily (WT < 150 kg, CrCl > 10-29 mL/min) *Enoxaparin/Lovenox 30 mg SQ BID (WT < 150 kg, CrCl > 30 mL/min) AND *Sequential Compression Device (SCD) Mis Chawla MD Jul 08, 2017 19:24
--- NOTE | 2017-07-08 19:25 | PD ---
Physical Exam Date Seen by Provider: Jul 08, 2017 Time Seen by Provider: 18:00 Narrative I, Dr. Muhammad, have reviewed the advance practice practitioner's documentation and am in agreement, met with the patient face to face, made the diagnosis, and the medical decision making was done by me. *My assessment and Findings: Patient seen and evaluated with PA, please see PA notes for further details. She came in for because worsening weakness after getting out of the rehab facility. EKG shows NSR, no ST elevation or depression, and no arrhythmias. No significant T-wave inversions. Laboratory Tests Test 07/08/17 16:55 07/08/17 17:00 Red Blood Count 3.51 MIL/MM3 (4.00-5.30) Hemoglobin 11.3 GM/DL (11.6-15.3) Hematocrit 33.8 % (35.0-46.0) Monocytes (%) (Auto) 18.4 % (0.0-8.0) Monocytes # (Auto) 1.9 TH/MM3 (0-0.9) Activated Partial Thromboplast Time 22.6 SEC (24.3-30.1) Albumin 2.5 GM/DL (3.4-5.0) Calcium Level 7.9 MG/DL (8.5-10.1) Alanine Aminotransferase (ALT/SGPT) LESS THAN 6 U/L (10-53) Sodium Level 129 MEQ/L (136-145) Chloride Level 95 MEQ/L (98-107) Estimat Glomerular Filtration Rate 58 ML/MIN (>89) Troponin I LESS THAN 0.02 NG/ML Urine Ketones TRACE mg/dL (NEG) CAT scans and x-rays did not show any signs of acute processes. She does have low sodium and IV fluids were given in the ER. Patient also has a positive Hemoccult test. She has a stable H&H currently. Plan would be to admit her for further observation and evaluation. Case is discussed with hospitalist service for admission. Data Data Last Documented VS Vital Signs Date Time Temp Pulse Resp B/P (MAP) Pulse Ox O2 Delivery O2 Flow Rate FiO2 07/08/17 17:26 17 95 Room Air 07/08/17 17:23 98.1 98 125/60 (81) Orders Orders Complete Blood Count With Diff (07/08/17 16:42) Comprehensive Metabolic Panel (07/08/17 16:42) Prothrombin Time / Inr (Pt) (07/08/17 16:42) Act Partial Throm Time (Ptt) (07/08/17 16:42) Urinalysis - C+S If Indicated (07/08/17 16:42) Blood Glucose (07/08/17 16:42) Ecg Monitoring (07/08/17 16:42) Iv Access Insert/Monitor (07/08/17 16:42) Oximetry (07/08/17 16:42) Ct Brain W/O Iv Contrast(Rout) (07/08/17 ) ^ Straight Catheter (07/08/17 16:57) Chest, Single Ap (07/08/17 ) Type And Screen (07/08/17 16:57) Ondansetron Inj (Zofran Inj) (07/08/17 17:00) Electrocardiogram (07/08/17 ) Troponin I (07/08/17 16:55) Calcium Carbonate Chew (Tums Chew) (07/08/17 19:15) Sodium Chlorid 0.9% 500 Ml Inj (Ns 500 M (07/08/17 19:15) Meclizine (Antivert) (07/08/17 19:15) Admit Order (Ed Use Only) (07/08/17 19:15) Labs Laboratory Tests Test 07/08/17 16:55 07/08/17 17:00 White Blood Count 10.4 TH/MM3 Red Blood Count 3.51 MIL/MM3 Hemoglobin 11.3 GM/DL Hematocrit 33.8 % Mean Corpuscular Volume 96.4 FL Mean Corpuscular Hemoglobin 32.1 PG Mean Corpuscular Hemoglobin Concent 33.3 % Red Cell Distribution Width 13.6 % Platelet Count 399 TH/MM3 Mean Platelet Volume 8.7 FL Neutrophils (%) (Auto) 66.6 % Lymphocytes (%) (Auto) 13.2 % Monocytes (%) (Auto) 18.4 % Eosinophils (%) (Auto) 1.2 % Basophils (%) (Auto) 0.6 % Neutrophils # (Auto) 6.9 TH/MM3 Lymphocytes # (Auto) 1.4 TH/MM3 Monocytes # (Auto) 1.9 TH/MM3 Eosinophils # (Auto) 0.1 TH/MM3 Basophils # (Auto) 0.1 TH/MM3 CBC Comment DIFF FINAL Differential Comment Prothrombin Time 11.4 SEC Prothromb Time International Ratio 1.1 RATIO Activated Partial Thromboplast Time 22.6 SEC Blood Urea Nitrogen 9 MG/DL Creatinine 0.92 MG/DL Random Glucose 90 MG/DL Total Protein 6.9 GM/DL Albumin 2.5 GM/DL Calcium Level 7.9 MG/DL Alkaline Phosphatase 105 U/L Aspartate Amino Transf (AST/SGOT) 15 U/L Alanine Aminotransferase (ALT/SGPT) LESS THAN 6 U/L Total Bilirubin 0.3 MG/DL Sodium Level 129 MEQ/L Potassium Level 4.5 MEQ/L Chloride Level 95 MEQ/L Carbon Dioxide Level 25.4 MEQ/L Anion Gap 9 MEQ/L Estimat Glomerular Filtration Rate 58 ML/MIN Troponin I LESS THAN 0.02 NG/ML Urine Color YELLOW Urine Turbidity CLEAR Urine pH 7.0 Urine Specific [place] 1.008 Urine Protein NEG mg/dL Urine Glucose (UA) NEG mg/dL Urine Ketones TRACE mg/dL Urine Occult Blood NEG Urine Nitrite NEG Urine Bilirubin NEG Urine Urobilinogen LESS THAN 2.0 MG/DL Urine Leukocyte Esterase NEG Urine RBC LESS THAN 1 /hpf Urine WBC LESS THAN 1 /hpf Microscopic Urinalysis Comment CATH-CULT NOT IND MDM Medical Record Reviewed: Yes Supervised Visit with OMAR: Yes Diagnosis Primary Impression: Hyponatremia Additional Impression: Impaired mobility and activities of daily living Admitting Information Admitting Physician Requests: Admit Maxwell Muhammad MD Jul 08, 2017 19:25
[2017-07-08] MEDS ORDERED: BISACODYL 10 MG SUPP RECTAL PRN (19:30)
[2017-07-08] MEDS ORDERED: SODIUM CHLORIDE 0.9% FLUSH 10 ML FLUSH IV FLUSH PRN (19:30)
[2017-07-08] MEDS ORDERED: ONDANSETRON HCL 4 MG/2 ML VIAL IVP PRN (19:30)
[2017-07-08] MEDS ORDERED: MORPHINE SULFATE 2 MG/ML INJ IV PUSH PRN (19:30)
[2017-07-08] MEDS ORDERED: ACETAMINOPHEN 325 MG TAB PO PRN (19:30)
[2017-07-08] MEDS ORDERED: MAGNESIUM HYDROXIDE SUSP 30 ML CUP PO PRN (19:30)
[2017-07-08] MEDS ORDERED: LACTULOSE SYRUP 20 GM/30 ML CUP PO PRN (19:30)
[2017-07-08] MEDS ORDERED: SENNOSIDES 8.6 MG TAB PO PRN (19:30)
[2017-07-08] MEDS: SODIUM CHLOR 0.9% 1000 ML INJ 1,000 ML IV SCH ×2 (19:43→21:30)
--- NOTE | 2017-07-08 20:04 | HHI.HP ---
[facility] Primary [facility] Physician Unknown Admission Diagnosis hyponatremia, GI bleed Diagnoses: (1) Generalized weakness Diagnosis: Principal (2) Gastroenteritis Diagnosis: Principal (3) GI bleed Diagnosis: Principal (4) Hyponatremia Diagnosis: Principal Travel History International Travel<30 Days: No Contact w/Intl Traveler <30 Da: No Traveled to Known Affected Are: No History of Present Illness This is an 87-year-old female with a PMH of HTN and Parkinson's who presented to the ER with complaints of generalized weakness addition to nausea, vomiting and diarrhea x2 days. Denies abdominal pain or fever/chills. Reports several episodes of watery diarrhea w/ intermittent black stools. Does admit to taking Pepto Bismol, but states dark stool started prior to that. Recently on antibiotics as outpatient for UTI, now off. Denies dysuria or frequency. On arrival, BP 125/60, HR 98, O2 sat 95% on RA, Afebrile. CBC unremarkable. Hemoglobin 11.3, previously 11.8 on 07/30/2016. Chemistry unremarkable except for Na 129. GFR 58. Troponin negative. INR 1.1. UA negative for UTI. CXR with no acute findings. CT Head negative. Hemoccult + on exam. Review of Systems Except as stated in HPI: all other systems reviewed are Neg ROS: 14 point review of systems otherwise negative. Past Family Social History Past Medical History PMH: HTN and Parkinson's Past Surgical History PAST SURGICAL HISTORY: Appendectomy, Lung Surgery Allergies: Coded Allergies: codeine (Unverified Allergy, Intermediate, "VIOLENTLY SICK", 11/28/16) Family History PAST FAMILY HISTORY: Reviewed. No h/o DM or CAD Social History PAST SOCIAL HISTORY: Negative for alcohol, tobacco or drugs Physical Exam Vital Signs Vital Signs Date Time Temp Pulse Resp B/P (MAP) Pulse Ox O2 Delivery O2 Flow Rate FiO2 07/08/17 17:26 17 95 Room Air 07/08/17 17:23 98.1 98 17 125/60 (81) 95 Physical Exam PE: GENERAL: Pleasant elderly white female in no acute distress. Mild parkinsonian tremor. HEENT: PERRLA, EOMI. No scleral icterus or conjunctival pallor. No lid lag or facial droop. CARDIOVASCULAR: Regular rate and rhythm. No obvious murmurs to auscultation. No chest tenderness to palpation. RESPIRATORY: No obvious rhonchi or wheezing. Clear to auscultation. Breath sounds equal bilaterally. GASTROINTESTINAL: Abdomen soft, non-tender, nondistended. BS normal. MUSCULOSKELETAL: Extremities without clubbing, cyanosis, or edema. No obvious deformities. NEUROLOGICAL: Awake, alert and oriented x4. No focal neurologic deficits. Moving both upper and lower extremities spontaneously. Laboratory Laboratory Tests Test 07/08/17 16:55 07/08/17 17:00 White Blood Count 10.4 Red Blood Count 3.51 Hemoglobin 11.3 Hematocrit 33.8 Mean Corpuscular Volume 96.4 Mean Corpuscular Hemoglobin 32.1 Mean Corpuscular Hemoglobin Concent 33.3 Red Cell Distribution Width 13.6 Platelet Count 399 Mean Platelet Volume 8.7 Neutrophils (%) (Auto) 66.6 Lymphocytes (%) (Auto) 13.2 Monocytes (%) (Auto) 18.4 Eosinophils (%) (Auto) 1.2 Basophils (%) (Auto) 0.6 Neutrophils # (Auto) 6.9 Lymphocytes # (Auto) 1.4 Monocytes # (Auto) 1.9 Eosinophils # (Auto) 0.1 Basophils # (Auto) 0.1 CBC Comment DIFF FINAL Differential Comment Prothrombin Time 11.4 Prothromb Time International Ratio 1.1 Activated Partial Thromboplast Time 22.6 Blood Urea Nitrogen 9 Creatinine 0.92 Random Glucose 90 Total Protein 6.9 Albumin 2.5 Calcium Level 7.9 Alkaline Phosphatase 105 Aspartate Amino Transf (AST/SGOT) 15 Alanine Aminotransferase (ALT/SGPT) LESS THAN 6 Total Bilirubin 0.3 Sodium Level 129 Potassium Level 4.5 Chloride Level 95 Carbon Dioxide Level 25.4 Anion Gap 9 Estimat Glomerular Filtration Rate 58 Troponin I LESS THAN 0.02 Urine Color YELLOW Urine Turbidity CLEAR Urine pH 7.0 Urine Specific [place] 1.008 Urine Protein NEG Urine Glucose (UA) NEG Urine Ketones TRACE Urine Occult Blood NEG Urine Nitrite NEG Urine Bilirubin NEG Urine Urobilinogen LESS THAN 2.0 Urine Leukocyte Esterase NEG Urine RBC LESS THAN 1 Urine WBC LESS THAN 1 Microscopic Urinalysis Comment CATH-CULT NOT IND Result Diagram: 07/08/17165407/08/171654 Caprini VTE Risk Assessment Caprini VTE Risk Assessment: No/Low Risk (score <= 1) VTE Pharm Contraindication: Active bleeding Caprini Risk Assessment Model Point Value = 1 Point Value = 2 Point Value = 3 Point Value = 5 Age 41-60 Minor surgery BMI > 25 kg/m2 Swollen legs Varicose veins or History of unexplained or recurrent spontaneous Oral contraceptives or hormone replacement Sepsis (< 1 month) Serious lung disease, including pneumonia (< 1 month) Abnormal pulmonary function Acute myocardial infarction Congestive heart failure (< 1 month) History of inflammatory bowel disease Medical patient at bed rest Age 61-74 Arthroscopic surgery Major open surgery (> 45 min) Laparoscopic surgery (> 45 min) Malignancy Confined to bed (> 72 hours) Immobilizing plaster cast Central venous access Age >= 75 History of VTE Family history of VTE Factor V Leiden Prothrombin [id number] Lupus anticoagulant Anticardiolipin antibodies Elevated serum homocysteine Heparin-induced thrombocytopenia Other congenital or acquired thrombophilia Stroke (< 1 month) Elective arthroplasty Hip, pelvis, or leg fracture Acute spinal cord injury (< 1 month) Prophylaxis Regimen Total Risk Factor Score Risk Level Prophylaxis Regimen 0-1 Low Early ambulation 2 Moderate Order ONE of the following: *Sequential Compression Device (SCD) *Heparin 5000 units SQ BID 3-4 Higher Order ONE of the following medications: *Heparin 5000 units SQ TID *Enoxaparin/Lovenox 40 mg SQ daily (WT < 150 kg, CrCl > 30 mL/min) *Enoxaparin/Lovenox 30 mg SQ daily (WT < 150 kg, CrCl > 10-29 mL/min) *Enoxaparin/Lovenox 30 mg SQ BID (WT < 150 kg, CrCl > 30 mL/min) AND/OR *Sequential Compression Device (SCD) 5 or more Highest Order ONE of the following medications: *Heparin 5000 units SQ TID (Preferred with Epidurals) *Enoxaparin/Lovenox 40 mg SQ daily (WT < 150 kg, CrCl > 30 mL/min) *Enoxaparin/Lovenox 30 mg SQ daily (WT < 150 kg, CrCl > 10-29 mL/min) *Enoxaparin/Lovenox 30 mg SQ BID (WT < 150 kg, CrCl > 30 mL/min) AND *Sequential Compression Device (SCD) Assessment and Plan Problem List: (1) Generalized weakness ICD Code: R53.1 - Weakness (2) Gastroenteritis ICD Code: K52.9 - Noninfective gastroenteritis and colitis, unspecified (3) GI bleed ICD Code: K92.2 - Gastrointestinal hemorrhage, unspecified (4) Hyponatremia ICD Code: E87.1 - Hypo-osmolality and hyponatremia Status: Acute Assessment and Plan A/P: 1. Generalized Weakness: progressive over several weeks, likely combination of physical deconditioning w/ acute gastroenteritis/GI bleed. PT for eval/tx. Case Management for assistance w/ possible placement, recently LEFT AMA from Rehab bc she was unhappy w/ facility. Family local. 2. Gastroenteritis: c/o nausea, vomiting, diarrhea x2 days, likely viral gastroenteritis. Afebrile, no leukocytosis. IVF, monitor I/O. Check stool for C diff and culture. 3. GI Bleed: c/o intermittent melena, took Pepto Bismol however reports melena started prior. Hemoccult + in ER. Hgb stable at 11.3. Protonix IV, Consult GI for further evaluation, likely intervention. Hold ASA. 4. Hyponatremia: Na 129, likely secondary to dehydration from nausea/vomiting/ diarrhea. U/a negative for UTI. IVF for hydration, repeat labs in am. 5. DVT Prophylaxis: SCDs/teds. 6. Social work for DC planning as needed. 7. Case discussed at length with the ER physician. Physician Certification 2 Midnight Certification Type: Admission for Inpatient Services Order for Inpatient Services The services are ordered in accordance with Medicare regulations or non- Medicare payer requirements, as applicable. In the case of services not specified as inpatient-only, they are appropriately provided as inpatient services in accordance with the 2-midnight benchmark. Estimated LOS (days): 2 days is the estimated time the patient will need to remain in the hospital, assuming treatment plan goals are met and no additional complications. Post-Hospital Plan: Not yet determined Mis Chawla MD Jul 08, 2017 20:04
[2017-07-08 20:55] VITALS: BP 163/72; PULSE 82; RESP 17; TEMP 98.1; O2SAT 97
[2017-07-08] MEDS: DOCUSATE SODIUM 50 MG/SENNA 8.6 MG TAB PO SCH ×2 (21:00→21:39)
[2017-07-08] MEDS: SODIUM CHLORIDE 0.9% FLUSH 10 ML FLUSH IV FLUSH SCH (21:31)
[2017-07-08] MEDS: CARBIDOPA/LEVODOPA 25 MG/100 MG TAB PO SCH (21:39)
[2017-07-08] MEDS: METOPROLOL TARTRATE 50 MG TAB PO SCH (21:39)
[2017-07-08] MEDS: PANTOPRAZOLE SODIUM 40 MG VIAL IV PUSH SCH (21:39)
[2017-07-08] MEDS: ATORVASTATIN 40 MG TAB PO SCH (21:39)
[2017-07-08] MEDS: GABAPENTIN 300 MG CAP PO SCH (21:39)
[2017-07-09] VITALS: BP 111/56; PULSE 66; RESP 16; TEMP 96.3; O2SAT 94
[2017-07-09 04:00] VITALS: BP 140/63; PULSE 79; RESP 16; TEMP 96.3; TEMP 98.3; O2SAT 94; O2SAT 98
[2017-07-09] MEDS: CARBIDOPA/LEVODOPA 25 MG/100 MG TAB PO SCH ×3 (05:38→21:40)
[2017-07-09] MEDS: DOCUSATE SODIUM 50 MG/SENNA 8.6 MG TAB PO SCH ×2 (07:33→20:02)
[2017-07-09 08:00] VITALS: BP 119/52; PULSE 81; RESP 20; TEMP 96.8; O2SAT 95
[2017-07-09] MEDS: PANTOPRAZOLE SODIUM 40 MG VIAL IV PUSH SCH ×2 (08:24→21:40)
[2017-07-09] MEDS: SODIUM CHLORIDE 0.9% FLUSH 10 ML FLUSH IV FLUSH SCH ×2 (08:25→21:00)
[2017-07-09] MEDS: METOPROLOL TARTRATE 50 MG TAB PO SCH ×2 (08:25→21:40)
[2017-07-09] MEDS: SODIUM CHLOR 0.9% 1000 ML INJ 1,000 ML IV SCH ×2 (08:25→17:58)
[2017-07-09 08:32] LABS: ALT (GPT) LESS THAN 6 U/L (10-53); AST (GOT) 14 U/L (15-37); BICARBONATE 21.1 MEQ/L (21.0-32.0); BLOOD UREA NITROGEN 10 MG/DL (7-18); CALCIUM 7.7 MG/DL (8.5-10.1); CHLORIDE 100 MEQ/L (98-107); CREATININE 0.85 MG/DL (0.50-1.00); GLOMERULAR FILTRATION RATE 63 ML/MIN (>89); GLUCOSE,RANDOM 64 MG/DL (74-106); SODIUM (NA) 130 MEQ/L (136-145)
[2017-07-09 08:33] LABS: ALKALINE PHOSPHATASE 89 U/L (45-117); TOTAL BILIRUBIN ADULT 0.3 MG/DL (0.2-1.0); TOTAL PROTEIN 5.9 GM/DL (6.4-8.2)
--- NOTE | 2017-07-09 08:53 | PD.CONS ---
HPI History of Present Illness This is a 87 year old F with PMH significant for HTN, Parkinsons, and previous CVA in 2017 S/P left carotid endarterectomy. History obtained from pt is different than H&P from admitting, pt is poor historian. Pt presented to [place] after leaving rehab AMA yesterday with complaints of increasing weakness over the past month. States this month was seen by her PCP who did labs which were reported to be normal. Pt was also seen at [facility] approx 3 weeks ago and started on multiple antibiotics for what she states was an intestinal infection. Denies diverticulitis. Pt reports she has been having diarrhea for the past two weeks, approx 2 episodes a day. States also been having incontinence which she has never had in the past, woke up in the middle of the night last night and had to have a BM so bad she was unable to make it to the toilet. Denies hematochezia. Reports black stool, she is unsure how long she has been having it for. Also complaining of an isolated event of nausea and vomiting, in the ambulance on the way to the hospital. Denies hematemesis and coffee ground emesis. Complaining of acid reflux which has been very bad for the past couple days, normally takes Papaya enzymes at home but has not taken this for the past couple days. States has been having intermittent epigastric pain described as a burning sensation. States an 8 lb weight loss during her admission earlier this month at [facility], has also not been able to eat since being home so thinks she has probably lost more weight. Last EGD was when she was 39 years old and states normal exam. Last colonoscopy she thinks was around 20 years ago and also believes this to be normal. Denies ETOH, smoking. Denies history of GIB. Does not think she is on blood thinners, home medication has not been documented. Reports Ibuprofen use daily for generalized pain. (Nica Potter) PFSH Past Medical History HTN Parkinsons CVA Past Surgical History Appendectomy Lung Surgery Left carotid endarterectomy (Nica Potter) Coded Allergies: codeine (Unverified Allergy, Intermediate, "VIOLENTLY SICK", 11/28/16) Family History PAST FAMILY HISTORY: Reviewed. No h/o DM or CAD Social History PAST SOCIAL HISTORY: Negative for alcohol, tobacco or drugs (Nica Potter) Review of Systems Gastrointestinal: COMPLAINS OF: Black stools, Diarrhea, Nausea, Vomiting, Heartburn, DENIES: Abdominal pain, Bloody stools, Constipation, Difficulty Swallowing, Odynophagia, Swelling of Abdomen, Hematemesis (Nica Potter) GI Exam Vitals I&O Vital Signs Date Time Temp Pulse Resp B/P (MAP) Pulse Ox O2 Delivery O2 Flow Rate FiO2 07/09/17 08:00 96.8 81 20 119/52 (74) 95 07/09/17 04:00 96.3 79 16 140/63 (88) 94 07/09/17 04:00 98.3 79 16 140/63 (88) 98 07/09/17 00:00 96.3 66 16 111/56 (74) 94 07/08/17 20:55 98.1 82 17 163/72 (102) 97 07/08/17 17:26 17 95 Room Air 07/08/17 17:23 98.1 98 17 125/60 (81) 95 I/O 07/08/17 07/08/17 07/08/17 07/09/17 07/09/17 07/09/17 07:00 15:00 23:00 07:00 15:00 23:00 Intake Total 500 ml 120 ml Balance 500 ml 120 ml Intake Oral 120 ml IV Total 500 ml # Voids 1 # Bowel Movements 2 Laboratory Test 07/08/17 16:55 07/08/17 17:00 07/09/17 06:55 07/09/17 07:19 White Blood Count 10.4 TH/MM3 Red Blood Count 3.51 MIL/MM3 Hemoglobin 11.3 GM/DL Hematocrit 33.8 % Mean Corpuscular Volume 96.4 FL Mean Corpuscular Hemoglobin 32.1 PG Mean Corpuscular Hemoglobin Concent 33.3 % Red Cell Distribution Width 13.6 % Platelet Count 399 TH/MM3 Mean Platelet Volume 8.7 FL Neutrophils (%) (Auto) 66.6 % Lymphocytes (%) (Auto) 13.2 % Monocytes (%) (Auto) 18.4 % Eosinophils (%) (Auto) 1.2 % Basophils (%) (Auto) 0.6 % Neutrophils # (Auto) 6.9 TH/MM3 Lymphocytes # (Auto) 1.4 TH/MM3 Monocytes # (Auto) 1.9 TH/MM3 Eosinophils # (Auto) 0.1 TH/MM3 Basophils # (Auto) 0.1 TH/MM3 CBC Comment DIFF FINAL Differential Comment Prothrombin Time 11.4 SEC Prothromb Time International Ratio 1.1 RATIO Activated Partial Thromboplast Time 22.6 SEC Blood Urea Nitrogen 9 MG/DL 10 MG/DL Creatinine 0.92 MG/DL 0.85 MG/DL Random Glucose 90 MG/DL 64 MG/DL Total Protein 6.9 GM/DL 5.9 GM/DL Albumin 2.5 GM/DL 2.0 GM/DL Calcium Level 7.9 MG/DL 7.7 MG/DL Alkaline Phosphatase 105 U/L 89 U/L Aspartate Amino Transf (AST/SGOT) 15 U/L 14 U/L Alanine Aminotransferase (ALT/SGPT) LESS THAN 6 U/L LESS THAN 6 U/L Total Bilirubin 0.3 MG/DL 0.3 MG/DL Sodium Level 129 MEQ/L 130 MEQ/L Potassium Level 4.5 MEQ/L 4.2 MEQ/L Chloride Level 95 MEQ/L 100 MEQ/L Carbon Dioxide Level 25.4 MEQ/L 21.1 MEQ/L Anion Gap 9 MEQ/L 9 MEQ/L Estimat Glomerular Filtration Rate 58 ML/MIN 63 ML/MIN Troponin I LESS THAN 0.02 NG/ML Urine Color YELLOW Urine Turbidity CLEAR Urine pH 7.0 Urine Specific [place] 1.008 Urine Protein NEG mg/dL Urine Glucose (UA) NEG mg/dL Urine Ketones TRACE mg/dL Urine Occult Blood NEG Urine Nitrite NEG Urine Bilirubin NEG Urine Urobilinogen LESS THAN 2.0 MG/DL Urine Leukocyte Esterase NEG Urine RBC LESS THAN 1 /hpf Urine WBC LESS THAN 1 /hpf Microscopic Urinalysis Comment CATH-CULT NOT IND Stool C. difficile Toxin (PCR) NEGATIVE Stl C. difficile Toxin Epiderm 027 PRESUMPTIVE NEGATIVE Date/Time Source Procedure Growth Status 07/09/17 06:55 Stool Stool Pending Received Physical Examination HEENT: Normocephalic; atraumatic CHEST: Even/unlabored CARDIAC: RRR ABDOMEN: Soft, nondistended, nontender; bowel sounds active EXTREMITIES: No clubbing, cyanosis, or edema. SKIN: Normal; no rash; no jaundice. HIV PREVENTION SPECIALIST: No focal deficits; alert and oriented times three. (Nica Potter) Assessment and Plan Plan Assessment: - Possible GIB- pt reports black stools, unsure of how long. According to attending HPI pt has been taking Pepto Bismol and that black stool began prior to this, pt denies taking Pepto Bismol to me. She is unsure if she is on blood thinners at home, no home meds have been documented INR 1.1. Denies history of GIB. Of note reports frequent Ibuprofen use for generalized pain. Associated acid reflux and epigastric pain. H/H stable, repeat from today pending. - Diarrhea- began two weeks ago, approx 2 episodes a day, reports has also been having incontinence which is a new symptoms for her. Associate fecal urgency- Woke up in the middle of the night and had the urgency to have BM and was unable to make it to the toilet States recent admission at [facility] were she was diagnosed with "intestinal infection" and placed on abx. She is unsure which abx, Denies being told she had diverticulitis. Denies hematochezia. C. Diff negative. - Nausea and vomiting- states only on the way to the hospital in the ambulance. Denies nausea or emesis since, although has not eaten - Weight loss- States 8 lbs while at rehab- likely multifactorial - Weakness- also multifactorial, pt does have Parkinsons - History of CVA and left carotid endarterectomy in 2017 Last EGD- states at 39 years old, normal exam Last colonoscopy approx 20 years ago states normal Plan: EGD/colonoscopy tomorrow Obtain consent Clear liquids today Magnesium Citrate prep NPO after MN Protonix Monitor H/H Notify GI if actively bleeding CT abdomen/pelvis to evaluate weight loss Stool studies (ova and parasites and enteric pathogens) pending Further recommendations based on findings of above Pt has been seen and examined by myself and Dr. Delgadillo and this note is written on his behalf (Nica Potter) Physician Comments Patient seen and examined Agree with above Continue with current supportive care Monitor labs Plan for an EGD and a colonoscopy tomorrow (Zhou Delgadillo MD) Nica Potter Jul 09, 2017 08:53 Zhou Delgadillo MD Jul 09, 2017 20:42
[2017-07-09] MEDS: NIFEdipine 30 MG SUSTAINED RELEASE TAB PO SCH (10:34)
[2017-07-09 10:54] LABS: AUTOMATED NEUTROPHIL # 6.1 TH/MM3 (1.8-7.7); BASOPHIL % 0.4 % (0.0-2.0); EOSINOPHIL # 0.2 TH/MM3 (0-0.4); EOSINOPHIL % 1.7 % (0.0-4.0); HEMATOCRIT 31.9 % (35.0-46.0); HEMOGLOBIN 10.7 GM/DL (11.6-15.3); LYMPH % 15.5 % (9.0-44.0); LYMPHOCYTE # 1.5 TH/MM3 (1.0-4.8); MEAN CELL VOLUME 97.7 FL (80.0-100.0); MEAN CORPUSCULAR HEMOGLOBIN 32.8 PG (27.0-34.0); MEAN CORPUSCULAR HGB CONC 33.6 % (32.0-36.0); MEAN PLATELET VOLUME 8.5 FL (7.0-11.0); MONOCYTE # 1.8 TH/MM3 (0-0.9); NEUT % 63.4 % (16.0-70.0); PLATELET COUNT 363 TH/MM3 (150-450); RED BLOOD COUNT 3.26 MIL/MM3 (4.00-5.30); RED CELL DISTRIBUTION WIDTH 14.1 % (11.6-17.2); WHITE BLOOD COUNT 9.7 TH/MM3 (4.0-11.0)
[2017-07-09 12:00] VITALS: BP 141/57; PULSE 88; RESP 17; TEMP 97.3; O2SAT 97
[2017-07-09] MEDS ORDERED: DIATRIZOATE MEGLUM/DIATRIZOATE SOD 9 ML CUP PO ONE (12:45)
--- NOTE | 2017-07-09 13:35 | HHI.PR ---
Subjective Remarks Nursing denies any deterioration since last night. Patient herself says that her energy level is somewhat improved since yesterday but her abdominal pain is unchanged since admission. Says that she feels sick to her stomach when she tries to eat. Objective Vital Signs Date Time Temp Pulse Resp B/P (MAP) Pulse Ox O2 Delivery O2 Flow Rate FiO2 07/09/17 12:00 97.3 88 17 141/57 (85) 97 07/09/17 08:00 96.8 81 20 119/52 (74) 95 07/09/17 08:00 96.8 81 20 119/52 (74) 95 07/09/17 04:00 96.3 79 16 140/63 (88) 94 07/09/17 04:00 98.3 79 16 140/63 (88) 98 07/09/17 00:00 96.3 66 16 111/56 (74) 94 07/08/17 20:55 98.1 82 17 163/72 (102) 97 07/08/17 17:26 17 95 Room Air 07/08/17 17:23 98.1 98 17 125/60 (81) 95 I/O 07/08/17 07/08/17 07/08/17 07/09/17 07/09/17 07/09/17 07:00 15:00 23:00 07:00 15:00 23:00 Intake Total 500 ml 120 ml Balance 500 ml 120 ml Intake Oral 120 ml IV Total 500 ml # Voids 1 # Bowel Movements 2 Result Diagram: 07/09/17 0952 07/09/17 0719 Objective Remarks Abdomen is mildly tender to palpation in the epigastrium area, otherwise is soft , nondistended Sitting up, awake, alert, no acute distress A/P Assessment and Plan 1. Generalized Weakness: Ordering CK, magnesium, phosphorus levels. Likely combination of physical deconditioning w/ acute gastroenteritis/GI bleed. PT for eval/tx. Case Management for assistance w/ possible placement, recently LEFT AMA from Rehab bc she was unhappy w/ facility. Family local. 2. Gastroenteritis: c/o nausea, vomiting, diarrhea x2 days, likely viral gastroenteritis. Afebrile, no leukocytosis. IVF, monitor I/O. C. difficile is negative 3. GI Bleed: On Protonix, pending EGD and colonoscopy in a.m. 4. Hyponatremia: Stabilized at 130 with IV fluids 5. DVT Prophylaxis: SCDs/teds. 6. Social work for DC planning as needed. 7. Case discussed at length with the ER physician. Rigoberto Dubois MD Jul 09, 2017 13:34
[2017-07-09 16:00] VITALS: BP 130/70; PULSE 94; RESP 18; TEMP 97.9; O2SAT 96
[2017-07-09] MEDS ORDERED: MAGNESIUM CITRATE SOLN 300 ML BTL PO ONE ×2 (16:00→18:00)
--- NOTE | 2017-07-09 17:59 | RADRPT ---
EXAM DATE/TIME: 07/09/2017 17:15 [place] COMPARISON: No previous studies available for comparison. INDICATIONS : Weight loss. ORAL CONTRAST: Prescribed oral contrast ingested. RADIATION DOSE: 7.81 CTDIvol (mGy) MEDICAL HISTORY : Cerebrovascular disease. Hypertension. SURGICAL HISTORY : Appendectomy. Hysterectomy.Carotid endarterectomy.Left lung surgery. ENCOUNTER: Initial ACUITY: 3 weeks PAIN SCALE: 0/10 LOCATION: Abdomen. TECHNIQUE: Volumetric scanning of the abdomen and pelvis was performed. Using automated exposure control and ad justment of the mA and/or kV according to patient size, radiation dose was kept as low as reasonably achievable to obtain optimal diagnostic quality images. DICOM format image data is available electro nically for review and comparison. FINDINGS: LOWER LUNGS: Tiny bilateral pleural effusions and mild lung base atelectasis. LIVER: Homogeneous density without lesion. There is no dilation of the biliary tree. No calcified gallston es. SPLEEN: Normal size without lesion. PANCREAS: Within normal limits. KIDNEYS: Normal in size and shape. There is no mass, stone, or hydronephrosis. ADRENAL GLANDS: Within normal limits. VASCULAR: There is no aortic aneurysm. BOWEL/MESENTERY: Possible mild subjective concentric colonic wall thickening. Slight prominence of mesenteric root lym ph nodes which is nonspecific. The appearance may reflect colitis. No evidence of abnormal dilatation of small bowel. ABDOMINAL WALL: Within normal limits. RETROPERITONEUM: There is no lymphadenopathy. BLADDER: No wall thickening or mass. REPRODUCTIVE: Uterus is surgically absent. No evidence of pelvic mass or free fluid. INGUINAL: There is no lymphadenopathy or hernia. MUSCULOSKELETAL: Within normal limits for patient age. CONCLUSION: Possible mild diffuse colonic wall thickening and slight prominence of mesenteric lymph nodes which i s nonspecific. Gagandeep James MD on July 09, 2017 at 17:54 Board Certified Radiologist. This report was verified electronically.
[2017-07-09 21:32] VITALS: BP 109/58; PULSE 101; RESP 17; TEMP 97.5; O2SAT 97
[2017-07-09] MEDS: ATORVASTATIN 40 MG TAB PO SCH (21:40)
[2017-07-09] MEDS: GABAPENTIN 300 MG CAP PO SCH (21:40)
--- NOTE | 2017-07-10 00:26 | EKG ---
Date Performed: 07/08/2017 Time Performed: 17:47:03 PTAGE: 87 years EKG: Sinus rhythm MARKED ST ELEVATION, CONSIDER INFERIOR INJURY ACUTE [place] PREVIOUS TRACING : 07/25/2016 23.29 DOCTOR: Arlyn Brown Interpretating Date/Time 07/10/2017 00:13:01
[2017-07-10 00:27] VITALS: BP 109/53; PULSE 86; RESP 17; TEMP 98.4; O2SAT 97
[2017-07-10] MEDS: SODIUM CHLOR 0.9% 1000 ML INJ 1,000 ML IV SCH ×2 (04:26→12:00)
[2017-07-10 05:42] VITALS: BP 96/44; PULSE 78; RESP 17; TEMP 98.4; O2SAT 97
[2017-07-10] MEDS: CARBIDOPA/LEVODOPA 25 MG/100 MG TAB PO SCH ×2 (05:52→14:00)
[2017-07-10 08:00] VITALS: BP 116/58; PULSE 83; RESP 16; TEMP 96.8; O2SAT 92
[2017-07-10] MEDS: PANTOPRAZOLE SODIUM 40 MG VIAL IV PUSH SCH (09:00)
[2017-07-10] MEDS: METOPROLOL TARTRATE 50 MG TAB PO SCH (09:00)
[2017-07-10] MEDS: SODIUM CHLORIDE 0.9% FLUSH 10 ML FLUSH IV FLUSH SCH (09:00)
[2017-07-10] MEDS: DOCUSATE SODIUM 50 MG/SENNA 8.6 MG TAB PO SCH (09:00)
[2017-07-10] MEDS: NIFEdipine 30 MG SUSTAINED RELEASE TAB PO SCH (09:00)
[2017-07-10 09:54] LABS: MAGNESIUM 2.8 MG/DL (1.5-2.5)
[2017-07-10] MEDS ORDERED: PROPOFOL 200 MG/20 ML AMP IV ONE (12:00)
[2017-07-10] MEDS ORDERED: LIDOCAINE HCL 1% PF 5 ML SYRINGE OTHER ONE (12:00)
--- NOTE | 2017-07-10 12:12 | PD.PROCEDR ---
GI Procedure PROCEDURE PERFORMED EGD with biopsy followed by colonoscopy with biopsy INDICATION FOR PROCEDURE Melena, diarrhea, nausea vomiting, weight loss PROCEDURE: The procedure, risks and benefits were discussed with Ms. Barber and informed consent was obtained. Anesthesia sedated her with Diprivan. She was placed in the left lateral decubitus position. EGD: The Pentax videoscope was introduced through the oropharynx and advanced to the second portion of the duodenum under direct visualization. Retroflexion was performed in the stomach. FINDINGS: The esophagus this appeared to be unremarkable and within normal limits The stomach there were some patchy erythema with superficial erosions noted in the antrum no blood or bleeding the antrum was biopsied the rest of the gastric mucosa was unremarkable The duodenum there were 2 ulcers in the duodenal bulb and the duodenal sweep one was small in size the other was medium in size both had clean base no visible vessel these were biopsied in addition to biopsies from the descending duodenum to further evaluate for the diarrhea Colonoscopy: The Pentax videoscope was introduced through the rectum and advanced to cecum where the ileocecal valve and appendiceal orifice were identified. Retroflexion was performed in the rectum. Colonic prep was good FINDINGS: Colonic withdrawal time greater than 6 minutes. As the scope was slowly withdrawn colonic mucosa was carefully inspected the mucosa of the colon was erythemic and friable throughout suggestive of pancolitis multiple biopsies were taken from the ascending transverse descending and rectal region no obvious erosions or ulcerations were seen and no other lesions or changes were noted retroflexion was unremarkable so his rectal examination ESTIMATED BLOOD LOSS: None SPECIMENS REMOVED: Gastric, duodenal, colonic biopsies COMPLICATIONS: None IMPRESSION: Erosive gastritis Duodenal ulcers Pancolitis PLAN: Await biopsies Avoid NSAIDs and aspirin Recommend PPI Protonix 40 mg twice daily EGD in 2 months Monitor labs Continue with current supportive care Follow-up with GI post discharge Zhou Delgadillo MD Jul 10, 2017 12:12 pm
[2017-07-10 12:20] VITALS: BP 145/65; PULSE 90; RESP 18; TEMP 96.6; O2SAT 93
[2017-07-10 14:02] LABS: HEMATOCRIT 33.1 % (35.0-46.0); HEMOGLOBIN 10.9 GM/DL (11.6-15.3); MEAN CELL VOLUME 95.6 FL (80.0-100.0); MEAN CORPUSCULAR HEMOGLOBIN 31.6 PG (27.0-34.0); PLATELET COUNT 362 TH/MM3 (150-450); RED BLOOD COUNT 3.46 MIL/MM3 (4.00-5.30); RED CELL DISTRIBUTION WIDTH 14.2 % (11.6-17.2); WHITE BLOOD COUNT 11.1 TH/MM3 (4.0-11.0)
--- NOTE | 2017-07-10 14:12 | HHI.DCPOC ---
Discharge Care Plan Diagnosis: (1) Duodenal ulcer (2) Gastritis (3) Acute colitis Additional Problems Stay away from NSAIDs including but not limited to aspirin, Advil, ibuprofen, naproxen, Aleve, diclofenac, Voltaren gel, Goody powders, BC powders. Goals to Promote Your Health * To prevent worsening of your condition and complications * To maintain your health at the optimal level Directions to Meet Your Goals Take your medications as prescribed Follow your dietary instruction Follow activity as directed Keep your appointments as scheduled Take your immunizations and boosters as scheduled If your symptoms worsen call your PCP, if no PCP go to Urgent Care Center or Emergency Room Smoking is Dangerous to Your Health. Avoid second hand smoke Call the 24-hour hour crisis hotline for domestic abuse at Rigoberto Dubois MD Jul 10, 2017 14:12
[2017-07-10] MEDS ORDERED: PANT40TA3 PO (14:14)
--- NOTE | 2017-07-10 14:17 | HHI.FF ---
Face to Face Verification Diagnosis: (1) Right hip pain (2) Duodenal ulcer (3) Gastritis Physical Therapy Order: Evaluate and Treat Home Health Nursing Order: Medical education Signs/symptoms of disease process Nursing assessment with vital signs I have seen patient Hannah Christopher on 07/10/17. My clinical findings support the need for the requested home health care services because: Deconditioned w/ increased weakness Med compliance is questionable Limited ability to care for self I certify that my clinical findings support that this patient is homebound because: Unsafe to leave home unassisted Rigoberto Dubois MD Jul 10, 2017 14:17
--- NOTE | 2017-07-10 14:22 | HHI.PR ---
Subjective Remarks Nursing denies any deterioration since last night. Patient herself says that her energy level is somewhat improved since yesterday but her abdominal pain is unchanged since admission. Says that she feels sick to her stomach when she tries to eat. Objective Vital Signs Date Time Temp Pulse Resp B/P (MAP) Pulse Ox O2 Delivery O2 Flow Rate FiO2 07/10/17 12:20 96.6 90 18 145/65 (91) 93 07/10/17 12:00 97.3 83 18 125/55 (78) 94 07/10/17 11:45 97.3 84 18 123/60 (81) 94 07/10/17 08:00 96.8 83 16 116/58 (77) 92 07/10/17 05:42 98.4 78 17 96/44 (61) 97 07/10/17 00:27 98.4 86 17 109/53 (71) 97 07/09/17 21:32 97.5 101 17 109/58 (75) 97 07/09/17 16:00 97.9 94 18 130/70 (90) 96 I/O 07/09/17 07/09/17 07/09/17 07/10/17 07/10/17 07/10/17 07:00 15:00 23:00 07:00 15:00 23:00 Intake Total 120 ml 1360 ml 250 ml Output Total 300 ml Balance 120 ml 1060 ml 250 ml Intake Oral 120 ml 1360 ml Other 250 ml Output Urine Total 300 ml # Voids 1 2 5 # Bowel Movements 2 4 4 Result Diagram: 07/10/17 1328 07/09/17 0719 Objective Remarks Abdomen is mildly tender to palpation in the epigastrium area, otherwise is soft , nondistended Sitting up, awake, alert, no acute distress A/P Assessment and Plan The patient's generalized weakness had significantly improved. Her GI symptoms including her abdominal pain with no further nausea vomiting or diarrhea. EGD showed a duodenal ulcer whereas colonoscopy showed pancolitis. Patient was counseled to avoid NSAIDs and aspirin and to take Protonix daily as prescribed by GI. Her hyponatremia remained stable. Patient was tolerating p.o. intake well and is clinically stable for discharge. Rigoberto Dubois MD Jul 10, 2017 14:21
[2017-07-10 16:00] VITALS: BP 120/58; PULSE 95; RESP 18; TEMP 98.2; O2SAT 96
== END 2017-07-10 17:05 | disposition home or self-care (01) | DRG 391 ==
LOC: NEPE 16:30 → NEDA 19:16 → OBSVTOIN 20:04 → HOCA 21:15
PROVIDERS: ADMIT Hospitalist; ATTEND Hospitalist
PROC: 0DBK8ZX Excision of Ascending Colon, Via Natural or Artificial Opening Endoscopic, Diagnostic (ICD-10-PCS; 2017-07-10)
PROC: 0DBL8ZX Excision of Transverse Colon, Via Natural or Artificial Opening Endoscopic, Diagnostic (ICD-10-PCS; 2017-07-10)
PROC: 0DBP8ZX Excision of Rectum, Via Natural or Artificial Opening Endoscopic, Diagnostic (ICD-10-PCS; 2017-07-10)
PROC: 0DBM8ZX Excision of Descending Colon, Via Natural or Artificial Opening Endoscopic, Diagnostic (ICD-10-PCS; 2017-07-10)
PROC: 0DB98ZX Excision of Duodenum, Via Natural or Artificial Opening Endoscopic, Diagnostic (ICD-10-PCS; principal; 2017-07-10 10:45)
PROC: 0DB78ZX Excision of Stomach, Pylorus, Via Natural or Artificial Opening Endoscopic, Diagnostic (ICD-10-PCS; 2017-07-10 10:45)
DX: K52.9 Noninfective gastroenteritis and colitis, unspecified (principal); K29.01 Acute gastritis with bleeding; G20 Parkinson's disease; K26.4 Chronic or unspecified duodenal ulcer with hemorrhage; E87.1 Hypo-osmolality and hyponatremia; E86.0 Dehydration; I10 Essential (primary) hypertension; A08.4 Viral intestinal infection, unspecified; K21.9 Gastro-esophageal reflux disease without esophagitis; R63.4 Abnormal weight loss; Z85.828 Personal history of other malignant neoplasm of skin; Z86.73 Personal history of transient ischemic attack (TIA), and cerebral infarction without residual deficits; Z88.5 Allergy status to narcotic agent
CPT/HCPCS: 70450; 71045; 74176; 80053; 81001; 82550; 83735; 84100; 84484; 85025; 85027; 85610; 85730; 86850; 86900; 86901; 87328; 87329; 87493; 87506; 88305; 88312; 93005; 96374; C9113; J2405; J7030; J7040; Q9963

== ENCOUNTER 2017-07-18 13:18 | Inpatient (IN) | payer OTHER, MEDICARE ==
[~2017-07-18] VITALS: Ht 154.9 cm; Wt 53.0 kg
[~2017-07-18 13:18] MED LIST changes: -ASPI-183 PO; +CARB25TA9 PO; +GABA300C5 PO; -IBUP-232 PO; +PANT40TA3 PO; -TRAM50 PO; -VALS1TAB65 PO
[2017-07-18 13:26] VITALS: BP 186/111; PULSE 122; RESP 17; TEMP 97.6; O2SAT 98
[2017-07-18 13:51] VITALS: BP 160/100; PULSE 124; RESP 13; O2SAT 98
[2017-07-18] MEDS ORDERED: ONDANSETRON HCL 4 MG/2 ML VIAL IV PUSH ONE (14:00)
[2017-07-18] MEDS ORDERED: SODIUM CHLOR 0.9% 1000 ML INJ 1,000 ML IV ONE (14:00)
[2017-07-18] MEDS ORDERED: SODIUM CHLORIDE 0.9% FLUSH 10 ML FLUSH IVF PRN (14:00)
--- NOTE | 2017-07-18 14:00 | PD ---
HPI Chief Complaint: GI Complaint Time Seen by Provider: 13:36 Travel History International Travel<30 days: No Contact w/Intl Traveler<30days: No Traveled to known affect area: No History of Present Illness HPI The patient was seen and examined in the presence of the nurse. This patient complains of having nausea vomiting diarrhea for 6 weeks. She was hospitalized 6 weeks ago for the same thing. She had CT of abdomen and pelvis as well as multiple colonic biopsies revealing nonspecific colitis. She has not followed up with any physician in the last 6 weeks. She saw her primary physician today who just told her to come here. She complains of generalized weakness. Symptoms are moderate to severe. Denies fever. Occasionally has abdominal cramps. Appetite is diminished. No exacerbating factors. no Alleviating factors. PFSH Past Medical History Hx Anticoagulant Therapy: No Autoimmune Disease: Yes (RA) Blood Disorders: No Heart Rhythm Problems: No Cancer: Yes (Skin CA R-forehead.) Cardiovascular Problems: Yes High Cholesterol: No Chemotherapy: No Chest Pain: No Congestive Heart Failure: No Cerebrovascular Accident: Yes Diminished Hearing: No Endocrine: No Genitourinary: No Hypertension: Yes Immune Disorder: Yes Musculoskeletal: Yes Neurologic: Yes Psychiatric: No Respiratory: No Radiation Therapy: No Menopausal: Yes : 3 Para: 3 Miscarriage: 0 Past Surgical History Abdominal Surgery: Yes (appendectomy) Appendectomy: Yes Cardiac Surgery: Yes (carotidectomy) Gynecologic Surgery: Yes (hysterectomy) Thoracic Surgery: Yes (LT LUNG SURG) Other Surgery: Yes Social History Alcohol Use: No Tobacco Use: No Substance Use: No Allergies-Medications (Allergen,Severity, Reaction): Coded Allergies: codeine (Unverified Allergy, Intermediate, "VIOLENTLY SICK", 07/18/17) Reported Meds & Prescriptions Reported Meds & Active Scripts Active Pantoprazole (Pantoprazole Sodium) 40 Mg Tab 40 Mg PO BID Nifedipine ER 24 HR (Nifedipine) 30 Mg Tab 30 Mg PO DAILY 30 Days Atorvastatin (Atorvastatin Calcium) 40 Mg Tab 40 Mg PO HS 30 Days Reported Ibuprofen 800 Mg Tab 800 Mg PO Q8H Vitamin D3 (Cholecalciferol) Unknown Strength Tab 1 Tab PO DAILY Meclizine (Meclizine HCl) 25 Mg Tab 25 Mg PO DAILY PRN Gabapentin 300 Mg Cap 300 Mg PO HS Carbidopa-Levodopa 25-100 Mg Tab 1 Tab PO Q8HR Metoprolol Tartrate 50 Mg Tab 50 Mg PO DAILY Review of Systems General / Constitutional: No: Fever Eyes: No: Visual changes HENT: No: Headaches Cardiovascular: No: Chest Pain or Discomfort Respiratory: No: Shortness of Breath Gastrointestinal: Positive: Nausea, Vomiting, Diarrhea, Abdominal Pain Genitourinary: No: Dysuria Musculoskeletal: Positive: Weakness, No: Pain Skin: No Rash Neurologic: Positive: Weakness Psychiatric: No: Depression Endocrine: No: Polydipsia Hematologic/Lymphatic: No: Easy Bruising Physical Exam Narrative GENERAL: Thin elderly well-developed patient with nausea and diarrhea and weakness SKIN: Focused skin assessment reveals no rash and nodules. Skin is Warm and dry. HEAD: Atraumatic. Normocephalic. EYES: Pupils equal and round. No scleral icterus. No injection or drainage. ENT: No nasal bleeding or discharge. Mucous membranes pink and moist. NECK: Trachea midline. No JVD. CARDIOVASCULAR: Regular rate and rhythm. No murmur appreciated. RESPIRATORY: No accessory muscle use. Clear to auscultation. Breath sounds equal bilaterally. GASTROINTESTINAL: Abdomen soft, mild diffuse tenderness without rebound or guarding , nondistended. Hepatic and splenic margins not palpable. MUSCULOSKELETAL: No obvious deformities. No clubbing. No cyanosis. No edema. NEUROLOGICAL: Awake and alert. No obvious cranial nerve deficits. Motor grossly within normal limits. Normal speech. PSYCHIATRIC: Appropriate mood and affect; insight and judgment normal. Data Data Last Documented VS Vital Signs Date Time Temp Pulse Resp B/P (MAP) Pulse Ox O2 Delivery O2 Flow Rate FiO2 07/18/17 17:35 118 16 141/70 (93) 98 Room Air 07/18/17 13:26 97.6 Orders Orders Complete Blood Count With Diff (07/18/17 13:54) Comprehensive Metabolic Panel (07/18/17 13:54) Lipase (07/18/17 13:54) Iv Access Insert/Monitor (07/18/17 13:54) Ecg Monitoring (07/18/17 13:54) Oximetry (07/18/17 13:54) Ondansetron Inj (Zofran Inj) (07/18/17 14:00) Sodium Chloride 0.9% Flush (Ns Flush) (07/18/17 14:00) Sodium Chlor 0.9% 1000 Ml Inj (Ns 1000 M (07/18/17 14:00) Place In Observation (07/18/17 ) Vital Signs (Adult) Q4H (07/18/17 17:36) Activity Oob With Assistance (07/18/17 17:36) Senior Mechanical Design Engineer / Telemetry .CONTINUOUS (07/18/17 17:36) Diet Clear Liquid (07/18/17 Dinner) Sodium Chloride 0.9% Flush (Ns Flush) (07/18/17 17:45) Sodium Chloride 0.9% Flush (Ns Flush) (07/18/17 21:00) Basic Metabolic Panel (Bmp) (07/19/17 06:00) Complete Blood Count With Diff (07/19/17 06:00) Pt Request For Service (07/18/17 17:36) Case Management Consult (07/18/17 17:36) Naloxone Inj (Narcan Inj) (07/18/17 17:45) Ciprofloxacin 400 Mg Premix (Cipro 400 M (07/18/17 17:45) Metronidazole 500 Mg Inj (Flagyl 500 Mg (07/18/17 18:00) Lactobacillus Acidophilus (Lactinex) (07/18/17 18:00) Enteric Path (Stool) (07/18/17 17:44) Stool Ova And Parasite Screen (07/18/17 17:44) Occult Blood (Hemoccult) Stool (07/18/17 17:44) C Diff Toxin Pcr (07/18/17 17:45) Physician Name Changes (07/18/17 ) Admit To Inpatient (07/18/17 ) Inpatient Certification (07/18/17 ) Consult Gastroenterology (07/18/17 ) Lactic Acid (07/18/17 18:10) Blood Culture (07/18/17 18:10) Occult Blood (Hemoccult) Stool (07/18/17 18:10) Ns + Kcl 20 Meq Inj (Ns + Kcl 20 Meq Inj (07/18/17 18:30) Ct Abdomen W/O Iv Contrast (07/18/17 ) Atorvastatin (Lipitor) (07/18/17 21:00) Carbidopa-Levodopa 25-100 Mg (Sinemet 25 (07/18/17 22:00) Gabapentin (Neurontin) (07/18/17 21:00) Ibuprofen (Motrin) (07/18/17 19:00) Meclizine (Antivert) (07/18/17 18:30) Metoprolol Tartrate (Lopressor) (07/19/17 09:00) Nifedipine Sr (Procardia Xl) (07/19/17 09:00) Pantoprazole (Protonix) (07/18/17 21:00) (Nf) Cholecalciferol (Vitamin D3) (07/19/17 09:00) (Hub Use Only)Inp Phy Cons/Ref (07/18/17 ) Admit Order (Ed Use Only) (07/18/17 18:42) Labs Laboratory Tests Test 07/18/17 13:52 White Blood Count 15.1 TH/MM3 Red Blood Count 4.08 MIL/MM3 Hemoglobin 12.9 GM/DL Hematocrit 39.2 % Mean Corpuscular Volume 96.0 FL Mean Corpuscular Hemoglobin 31.5 PG Mean Corpuscular Hemoglobin Concent 32.9 % Red Cell Distribution Width 14.6 % Platelet Count 275 TH/MM3 Mean Platelet Volume 8.5 FL Neutrophils (%) (Auto) 77.9 % Lymphocytes (%) (Auto) 10.5 % Monocytes (%) (Auto) 8.4 % Eosinophils (%) (Auto) 2.9 % Basophils (%) (Auto) 0.3 % Neutrophils # (Auto) 11.8 TH/MM3 Lymphocytes # (Auto) 1.6 TH/MM3 Monocytes # (Auto) 1.3 TH/MM3 Eosinophils # (Auto) 0.4 TH/MM3 Basophils # (Auto) 0.0 TH/MM3 CBC Comment DIFF FINAL Differential Comment Blood Urea Nitrogen 13 MG/DL Creatinine 0.71 MG/DL Random Glucose 77 MG/DL Total Protein 7.6 GM/DL Albumin 2.7 GM/DL Calcium Level 8.3 MG/DL Alkaline Phosphatase 152 U/L Aspartate Amino Transf (AST/SGOT) 23 U/L Alanine Aminotransferase (ALT/SGPT) 12 U/L Total Bilirubin 0.5 MG/DL Sodium Level 132 MEQ/L Potassium Level 3.9 MEQ/L Chloride Level 98 MEQ/L Carbon Dioxide Level 22.6 MEQ/L Anion Gap 11 MEQ/L Estimat Glomerular Filtration Rate 78 ML/MIN Lipase 360 U/L MDM Medical Decision Making Medical Screen Exam Complete: Yes Emergency Medical Condition: Yes Medical Record Reviewed: Yes Differential Diagnosis Colitis, dehydration, electrolyte abnormality, ileus Narrative Course I have reviewed the patient's electronic medical record. Reviewed her pathology from biopsies and CT scan from her last admission in June 2017 IV placed. I gave her a liter of normal saline IV bolus and IV Zofran Labs sent CBC and metabolic's are reviewed. After liter of saline she is still tachycardic at 125 She has not recovered from her colitis and likely still having that. She had CT imaging within the last week and I do not feel that would be helpful emergently Discussed with hospitalist who will admit She has generalized weakness and persistent tachycardia and colitis and dehydration Diagnosis Primary Impression: Acute colitis Additional Impressions: Generalized weakness Dehydration Sinus tachycardia Admitting Information Admitting Physician Requests: Admit Jorge Dos Santos MD Jul 18, 2017 14:00
[2017-07-18 14:33] VITALS: O2SAT 99
[2017-07-18 15:05] LABS: AUTOMATED NEUTROPHIL # 11.8 TH/MM3 (1.8-7.7); BASOPHIL % 0.3 % (0.0-2.0); EOSINOPHIL # 0.4 TH/MM3 (0-0.4); EOSINOPHIL % 2.9 % (0.0-4.0); HEMATOCRIT 39.2 % (35.0-46.0); HEMOGLOBIN 12.9 GM/DL (11.6-15.3); LYMPH % 10.5 % (9.0-44.0); LYMPHOCYTE # 1.6 TH/MM3 (1.0-4.8); MEAN CORPUSCULAR HEMOGLOBIN 31.5 PG (27.0-34.0); MEAN CORPUSCULAR HGB CONC 32.9 % (32.0-36.0); MEAN PLATELET VOLUME 8.5 FL (7.0-11.0); MONO % 8.4 % (0.0-8.0); MONOCYTE # 1.3 TH/MM3 (0-0.9); NEUT % 77.9 % (16.0-70.0); PLATELET COUNT 275 TH/MM3 (150-450); RED BLOOD COUNT 4.08 MIL/MM3 (4.00-5.30); RED CELL DISTRIBUTION WIDTH 14.6 % (11.6-17.2); WHITE BLOOD COUNT 15.1 TH/MM3 (4.0-11.0)
[2017-07-18] MEDS ORDERED: MECL-62 PO (15:11)
[2017-07-18] MEDS ORDERED: VITA100064 PO (15:11)
[2017-07-18] MEDS ORDERED: IBUP1TAB7 PO (15:12)
[2017-07-18 15:37] LABS: CALCIUM 8.3 MG/DL (8.5-10.1); CHLORIDE 98 MEQ/L (98-107); SODIUM (NA) 132 MEQ/L (136-145)
[2017-07-18 15:54] LABS: ALBUMIN 2.7 GM/DL (3.4-5.0); ALKALINE PHOSPHATASE 152 U/L (45-117); ALT (GPT) 12 U/L (10-53); AST (GOT) 23 U/L (15-37); BICARBONATE 22.6 MEQ/L (21.0-32.0); BLOOD UREA NITROGEN 13 MG/DL (7-18); CREATININE 0.71 MG/DL (0.50-1.00); GLOMERULAR FILTRATION RATE 78 ML/MIN (>89); GLUCOSE,RANDOM 77 MG/DL (74-106); TOTAL PROTEIN 7.6 GM/DL (6.4-8.2)
[2017-07-18 16:32] LABS: TOTAL BILIRUBIN ADULT 0.5 MG/DL (0.2-1.0)
[2017-07-18 17:35] VITALS: BP 141/70; PULSE 118; RESP 16; O2SAT 98
[2017-07-18] MEDS ORDERED: NALOXONE HCL 0.4 MG/ML AMP IV PUSH PRN (17:45)
[2017-07-18] MEDS ORDERED: SODIUM CHLORIDE 0.9% FLUSH 10 ML FLUSH IV FLUSH PRN (17:45)
[2017-07-18] MEDS ORDERED: MECLIZINE HCL 25 MG TAB PO PRN (18:30)
--- NOTE | 2017-07-18 18:31 | HHI.HP ---
[facility] Service [facility] Primary Care Physician Unknown Admission Diagnosis Sepsis, colitis Diagnoses: (1) Dehydration (2) Sepsis (3) Hypertension Chief Complaint: Abdominal pain, nausea, vomiting, diarrhea Travel History International Travel<30 Days: No Contact w/Intl Traveler <30 Da: No Traveled to Known Affected Are: No Sepsis Criteria SIRS Criteria (2 or more): Heart rate over 90, WBC > 31933, < 4000 or > 10% bands Sepsis Criteria (SIRS+source): Infect source susp/known Criteria Outcome: Meets sepsis criteria History of Present Illness The patient is an 87-year-old female who presented to the emergency department with complaint of nausea, vomiting, and diarrhea for the past few days. She was discharged from the hospital on 07/10/17 with a diagnosis of colitis. Biopsies taken during colonoscopy at that time showed nonspecific colitis. Patient states that she has not been able to keep any food or drink down in the last 4 days. She reports decreased appetite as well. She states that her stool is dark, but has not seen any bright red blood. She was seen by her PCP today and referred to the ER. She has not followed up with GI since her last hospitalization. She states that she was on "a lot of antibiotics" in the weeks preceding her prior hospitalization. Review of Systems Constitutional: DENIES: Fever, Chills, Night Sweats Eyes: DENIES: Blurred vision, Vision loss Ears, nose, mouth, throat: DENIES: Hearing loss Respiratory: DENIES: Cough, Wheezing, Sputum production, Shortness of breath Cardiovascular: DENIES: Chest pain, Palpitations, Dyspnea on Exertion, Lower Extremity Edema Gastrointestinal: COMPLAINS OF: Abdominal pain, Diarrhea, Nausea, Vomiting, DENIES: Constipation Genitourinary: DENIES: Urinary frequency, Urinary incontinence, Urgency, Hematuria, Dysuria, Nocturia Musculoskeletal: DENIES: Joint pain, Muscle aches Integumentary: DENIES: Pruritus, Rash Hematologic/lymphatic: DENIES: Bruising Neurologic: DENIES: Headache Past Family Social History Past Medical History Rheumatoid arthritis Hypertension History of CVA Past Surgical History Appendectomy Hysterectomy Left lung surgery Carotid surgery Reported Medications Pantoprazole (Pantoprazole Sodium) 40 Mg Tab 40 Mg PO BID Nifedipine ER 24 HR (Nifedipine) 30 Mg Tab 30 Mg PO DAILY 30 Days Atorvastatin (Atorvastatin Calcium) 40 Mg Tab 40 Mg PO HS 30 Days Gabapentin 300 Mg Cap 300 Mg PO HS Carbidopa-Levodopa 25-100 Mg Tab 1 Tab PO Q8HR Metoprolol Tartrate 50 Mg Tab 50 Mg PO BID Allergies: Coded Allergies: codeine (Unverified Allergy, Intermediate, "VIOLENTLY SICK", 07/18/17) Family History Cancer Social History Quit smoking 50 years ago. Denies alcohol or illicit drug use. Physical Exam Vital Signs Vital Signs Date Time Temp Pulse Resp B/P (MAP) Pulse Ox O2 Delivery O2 Flow Rate FiO2 07/18/17 17:35 118 16 141/70 (93) 98 Room Air 07/18/17 14:33 99 Room Air 07/18/17 13:51 124 13 160/100 (120) 98 07/18/17 13:26 97.6 122 17 186/111 (136) 98 Physical Exam GENERAL: Elderly female in no acute distress. HEENT: Normocephalic, atraumatic. Pupils equal, round and reactive. Extraocular movements intact. No scleral icterus. No injection or drainage. Oropharynx is clear. Mucous membranes are dry. CARDIOVASCULAR: Tachycardic. RESPIRATORY: Clear to auscultation. No wheezes, rales, or rhonchi. Breathing is non-labored. GASTROINTESTINAL: Abdomen soft, mild diffuse tenderness to palpation without rebound or guarding, nondistended. EXTREMITIES: No lower extremity edema. No calf tenderness. PSYCH: Alert and oriented x 3. Laboratory Laboratory Tests Test 07/18/17 13:52 White Blood Count 15.1 Red Blood Count 4.08 Hemoglobin 12.9 Hematocrit 39.2 Mean Corpuscular Volume 96.0 Mean Corpuscular Hemoglobin 31.5 Mean Corpuscular Hemoglobin Concent 32.9 Red Cell Distribution Width 14.6 Platelet Count 275 Mean Platelet Volume 8.5 Neutrophils (%) (Auto) 77.9 Lymphocytes (%) (Auto) 10.5 Monocytes (%) (Auto) 8.4 Eosinophils (%) (Auto) 2.9 Basophils (%) (Auto) 0.3 Neutrophils # (Auto) 11.8 Lymphocytes # (Auto) 1.6 Monocytes # (Auto) 1.3 Eosinophils # (Auto) 0.4 Basophils # (Auto) 0.0 CBC Comment DIFF FINAL Differential Comment Blood Urea Nitrogen 13 Creatinine 0.71 Random Glucose 77 Total Protein 7.6 Albumin 2.7 Calcium Level 8.3 Alkaline Phosphatase 152 Aspartate Amino Transf (AST/SGOT) 23 Alanine Aminotransferase (ALT/SGPT) 12 Total Bilirubin 0.5 Sodium Level 132 Potassium Level 3.9 Chloride Level 98 Carbon Dioxide Level 22.6 Anion Gap 11 Estimat Glomerular Filtration Rate 78 Lipase 360 Result Diagram: 07/18/17 1352 07/18/17 1352 Caprini VTE Risk Assessment Caprini VTE Risk Assessment: Mod/High Risk (score >= 2) Caprini Risk Assessment Model Point Value = 1 Point Value = 2 Point Value = 3 Point Value = 5 Age 41-60 Minor surgery BMI > 25 kg/m2 Swollen legs Varicose veins or History of unexplained or recurrent spontaneous Oral contraceptives or hormone replacement Sepsis (< 1 month) Serious lung disease, including pneumonia (< 1 month) Abnormal pulmonary function Acute myocardial infarction Congestive heart failure (< 1 month) History of inflammatory bowel disease Medical patient at bed rest Age 61-74 Arthroscopic surgery Major open surgery (> 45 min) Laparoscopic surgery (> 45 min) Malignancy Confined to bed (> 72 hours) Immobilizing plaster cast Central venous access Age >= 75 History of VTE Family history of VTE Factor V Leiden Prothrombin [id number] Lupus anticoagulant Anticardiolipin antibodies Elevated serum homocysteine Heparin-induced thrombocytopenia Other congenital or acquired thrombophilia Stroke (< 1 month) Elective arthroplasty Hip, pelvis, or leg fracture Acute spinal cord injury (< 1 month) Prophylaxis Regimen Total Risk Factor Score Risk Level Prophylaxis Regimen 0-1 Low Early ambulation 2 Moderate Order ONE of the following: *Sequential Compression Device (SCD) *Heparin 5000 units SQ BID 3-4 Higher Order ONE of the following medications: *Heparin 5000 units SQ TID *Enoxaparin/Lovenox 40 mg SQ daily (WT < 150 kg, CrCl > 30 mL/min) *Enoxaparin/Lovenox 30 mg SQ daily (WT < 150 kg, CrCl > 10-29 mL/min) *Enoxaparin/Lovenox 30 mg SQ BID (WT < 150 kg, CrCl > 30 mL/min) AND/OR *Sequential Compression Device (SCD) 5 or more Highest Order ONE of the following medications: *Heparin 5000 units SQ TID (Preferred with Epidurals) *Enoxaparin/Lovenox 40 mg SQ daily (WT < 150 kg, CrCl > 30 mL/min) *Enoxaparin/Lovenox 30 mg SQ daily (WT < 150 kg, CrCl > 10-29 mL/min) *Enoxaparin/Lovenox 30 mg SQ BID (WT < 150 kg, CrCl > 30 mL/min) AND *Sequential Compression Device (SCD) Assessment and Plan Assessment and Plan 1. Abdominal pain, nausea, vomiting, diarrhea: Patient recently diagnosed with colitis. Uncertain what type of colitis patient has. Consult gastroenterology. Continue IV fluids. Continue Cipro and Flagyl. Continue PPI. 2. Hypertension: Continue nifedipine, metoprolol. 3. Dehydration, hyponatremia: Continue IV fluids. 4. Sepsis: Secondary to colitis. Patient presented with tachycardia, leukocytosis. Continue antibiotics. Check blood cultures. Check serum lactic acid level. 5. Questionable GI bleed: Patient reports dark stools. Check stool Hemoccult. Hemoglobin is stable, although may be falsely elevated secondary to hemoconcentration. 6. DVT prophylaxis: KIN Payne. Avoid chemical prophylaxis due to possible GI bleed. Jorge Joseph MD Jul 18, 2017 18:31
[2017-07-18] MEDS: IBUPROFEN 800 MG TAB PO SCH (19:00)
[2017-07-18] MEDS: metroNIDAZOLE 500 MG INJ 100 ML IV SCH ×2 (19:07→23:53)
[2017-07-18 19:28] VITALS: BP 142/87; PULSE 114; RESP 16; TEMP 98; O2SAT 95
[2017-07-18] MEDS: CIPROFLOXACIN 400 MG PREMIX 200 ML IV SCH (19:30)
[2017-07-18] MEDS: NS + KCL 20 MEQ INJ 1,000 ML IV SCH (19:30)
[2017-07-18] MEDS ORDERED: diphenhydrAMINE HCL 50 MG/ML VIAL IV PUSH PRN (20:30)
[2017-07-18] MEDS: LACTOBACILLUS ACIDOPHILUS TAB PO SCH (20:46)
[2017-07-18] MEDS: PANTOPRAZOLE SOD 40 MG DELAYED RELEASE TAB PO SCH (21:06)
[2017-07-18] MEDS: GABAPENTIN 300 MG CAP PO SCH (21:06)
[2017-07-18] MEDS: SODIUM CHLORIDE 0.9% FLUSH 10 ML FLUSH IV FLUSH SCH (21:06)
[2017-07-18] MEDS: ATORVASTATIN 40 MG TAB PO SCH (21:06)
[2017-07-18] MEDS: CARBIDOPA/LEVODOPA 25 MG/100 MG TAB PO SCH (22:00)
--- NOTE | 2017-07-18 23:43 | RADRPT ---
EXAM DATE/TIME: 07/18/2017 22:58 [facility] COMPARISON: No previous studies available for comparison. INDICATIONS : Abdomen pain. ORAL CONTRAST: Prescribed oral contrast ingested. RADIATION DOSE: 5.1 CTDIvol (mGy) MEDICAL HISTORY : Stroke. Cardiovascular disease Hypertension. SURGICAL HISTORY : Appendectomy. Hysterectomy. ENCOUNTER: Initial ACUITY: 1 day PAIN SCALE: 5/10 LOCATION: Bilateral abdomen TECHNIQUE: Volumetric scanning of the abdomen and pelvis was performed. Using automated exposure control and ad justment of the mA and/or kV according to patient size, radiation dose was kept as low as reasonably achievable to obtain optimal diagnostic quality images. DICOM format image data is available electro nically for review and comparison. FINDINGS: LOWER LUNGS: Slight scarring or atelectasis in the left lung base. Minimal effusion. LIVER: Homogeneous density without lesion. There is no dilation of the biliary tree. Gallbladder mild diste nded.. SPLEEN: Normal size without lesion. PANCREAS: Within normal limits. KIDNEYS: Normal in size and shape. There is no mass, stone, or hydronephrosis. ADRENAL GLANDS: Within normal limits. VASCULAR: There is no aortic aneurysm. BOWEL/MESENTERY: Appears to be mild concentric wall thickening involving portions of the proximal colon. There is slig ht prominence of mesenteric lymph nodes in the ileocolic region and mesenteric root. The small bowel is normal in caliber and appearance throughout. There is no evidence of extraluminal gas or fluid. ABDOMINAL WALL: Within normal limits. RETROPERITONEUM: There is no lymphadenopathy. BLADDER: No wall thickening or mass. REPRODUCTIVE: Uterus surgically absent. No evidence of pelvic mass or free fluid. INGUINAL: There is no lymphadenopathy or hernia. MUSCULOSKELETAL: Within normal limits for patient age. CONCLUSION: The concentric wall thickening involving portions of the proximal colon and mild prominence of mesent kristopher lymph nodes. The appearance may reflect regional colitis. Followup would be recommended. Gagandeep James MD on July 18, 2017 at 23:31 Board Certified Radiologist. This report was verified electronically.
[2017-07-18 23:47] VITALS: BP 158/82; PULSE 111; RESP 18; TEMP 98.1; O2SAT 95
[2017-07-19] VITALS (11 sets, daily range): BP systolic 112–148; BP diastolic 52–74; PULSE 77–113; RESP 16–20; TEMP 97.4–98.2; O2SAT 95–98
[2017-07-19] MEDS: IBUPROFEN 800 MG TAB PO SCH ×3 (02:14→18:21)
[2017-07-19] MEDS: CARBIDOPA/LEVODOPA 25 MG/100 MG TAB PO SCH ×3 (05:55→21:20)
[2017-07-19] MEDS: metroNIDAZOLE 500 MG INJ 100 ML IV SCH (05:55)
[2017-07-19] MEDS: CIPROFLOXACIN 400 MG PREMIX 200 ML IV SCH (07:14)
[2017-07-19 07:30] LABS: AUTOMATED NEUTROPHIL # 14.1 TH/MM3 (1.8-7.7); BASOPHIL # 0.1 TH/MM3 (0-0.2); BASOPHIL % 0.3 % (0.0-2.0); EOSINOPHIL # 0.5 TH/MM3 (0-0.4); EOSINOPHIL % 2.8 % (0.0-4.0); HEMATOCRIT 30.2 % (35.0-46.0); HEMOGLOBIN 10.2 GM/DL (11.6-15.3); LYMPH % 9.4 % (9.0-44.0); LYMPHOCYTE # 1.7 TH/MM3 (1.0-4.8); MEAN CELL VOLUME 95.5 FL (80.0-100.0); MEAN CORPUSCULAR HEMOGLOBIN 32.2 PG (27.0-34.0); MEAN CORPUSCULAR HGB CONC 33.8 % (32.0-36.0); MEAN PLATELET VOLUME 7.9 FL (7.0-11.0); MONOCYTE # 1.4 TH/MM3 (0-0.9); NEUT % 79.5 % (16.0-70.0); PLATELET COUNT 226 TH/MM3 (150-450); RED BLOOD COUNT 3.17 MIL/MM3 (4.00-5.30); RED CELL DISTRIBUTION WIDTH 14.3 % (11.6-17.2); WHITE BLOOD COUNT 17.7 TH/MM3 (4.0-11.0)
[2017-07-19 07:31] LABS: BICARBONATE 20.2 MEQ/L (21.0-32.0); CALCIUM 7.3 MG/DL (8.5-10.1); CREATININE 0.56 MG/DL (0.50-1.00)
[2017-07-19 08:10] LABS: TOTAL PROTEIN 5.8 GM/DL (6.4-8.2)
[2017-07-19] MEDS: METOPROLOL TARTRATE 50 MG TAB PO SCH (08:26)
[2017-07-19] MEDS: PANTOPRAZOLE SOD 40 MG DELAYED RELEASE TAB PO SCH ×2 (08:26→21:20)
[2017-07-19] MEDS: NIFEdipine 30 MG SUSTAINED RELEASE TAB PO SCH (08:26)
[2017-07-19] MEDS: LACTOBACILLUS ACIDOPHILUS TAB PO SCH ×3 (08:26→18:10)
--- NOTE | 2017-07-19 08:26 | HHI.PR ---
Subjective Remarks Follow-up abdominal pain, diarrhea. Patient still having loose stools. She reports itching in her arm where the ciprofloxacin is being infused. She also reports some shortness of breath. Objective Vitals Vital Signs Date Time Temp Pulse Resp B/P (MAP) Pulse Ox O2 Delivery O2 Flow Rate FiO2 07/19/17 07:39 Room Air 07/19/17 07:39 97.7 110 18 147/67 (93) 95 07/19/17 04:53 109 07/19/17 03:52 98.2 113 16 132/74 (93) 97 07/19/17 03:16 97 07/18/17 23:47 98.1 111 18 158/82 (107) 95 07/18/17 23:33 07/18/17 19:28 98.0 114 16 142/87 (105) 95 Room Air 07/18/17 17:35 118 16 141/70 (93) 98 Room Air 07/18/17 14:33 99 Room Air 07/18/17 13:51 124 13 160/100 (120) 98 07/18/17 13:26 97.6 122 17 186/111 (136) 98 I/O 07/18/17 07/18/17 07/18/17 07/19/17 07/19/17 07/19/17 07:00 15:00 23:00 07:00 15:00 23:00 Intake Total 1076.9 ml Balance 1076.9 ml Intake IV Total 1076.9 ml Result Diagram: 07/19/17 0624 07/19/17 0624 Imaging Last Impressions Abdomen/Pelvis CT 07/18/17 0000 Signed Impressions: Service Date/Time: Tuesday, July 18, 2017 22:58 - CONCLUSION: The concentric wall thickening involving portions of the proximal colon and mild prominence of mesenteric lymph nodes. The appearance may reflect regional colitis. Followup would be recommended. Gagandeep James MD Objective Remarks General: Elderly female in no acute distress. Heart: Tachycardic. No murmur. Lungs: Clear to auscultation bilaterally. No wheezes noted. Breathing is nonlabored. Abdomen: Soft, moderately tender to palpation diffusely without rebound or guarding, nondistended. Extremities: No lower extremity edema. Psych: Alert and oriented. Procedures None Urinary Catheter: No Vascular Central Line Catheter: No A/P Problem List: (1) Dehydration ICD Code: E86.0 - Dehydration (2) Sepsis ICD Code: A41.9 - Sepsis, unspecified organism (3) Hypertension ICD Code: I10 - Essential (primary) hypertension (4) C. difficile colitis ICD Code: A04.72 - Enterocolitis due to Clostridium difficile, not specified as recurrent Assessment and Plan 1. C. difficile colitis: Add oral vancomycin. Discontinue IV antibiotics. GI consultation is pending. Continue IV fluids. 2. Hypertension: Continue nifedipine, metoprolol. 3. Dehydration, hyponatremia: Continue IV fluids. Sodium slightly improved today. 4. Sepsis: Secondary to C. difficile colitis. Patient presented with tachycardia, leukocytosis. WBCs are trending up. Blood cultures are pending. 5. Questionable GI bleed: Patient reports dark stools. Stool Hemoccult is negative. Hemoglobin is trending down, although this may be secondary to dilutional effect and initial hemoconcentration at presentation. Monitor H&H. 6. DVT prophylaxis: SCDs, KIN watkins. Avoid chemical prophylaxis due to possible GI bleed. Discussed with GI. Jorge Joseph MD Jul 19, 2017 08:26
[2017-07-19] MEDS: SODIUM CHLORIDE 0.9% FLUSH 10 ML FLUSH IV FLUSH SCH ×2 (08:27→21:00)
[2017-07-19] MEDS: NS + KCL 20 MEQ INJ 1,000 ML IV SCH ×2 (08:27→21:19)
[2017-07-19] MEDS ORDERED: diphenhydrAMINE HCL 50 MG/ML VIAL IV PUSH ONE (08:30)
[2017-07-19] MEDS ORDERED: diphenhydrAMINE HCL 50 MG/ML VIAL IV PUSH PRN (08:30)
[2017-07-19] MEDS ORDERED: CHOLECALCIFEROL PO SCH (09:00)
--- NOTE | 2017-07-19 09:12 | PD.CONS ---
HPI History of Present Illness This is a 87 year old female with Parkinson's and hx colitis who presented to ER for n/v, diarrhea after being advised to come in by her PCP. ONset 1 month ago. Admits dark stools but denies floresita blood. Admits abd discomfort just prior to BM. NO blood in vomit. SHe was at [facility] 1 month ago for diarrhea and received multiple antibiotics. She is pos for c diff, on PO vanc. She was evaluated by our service on a prior admission 1 week ago and found to have colitis. She had EGD and colonoscopy 07/10/[address] Delgadillo with findings duodenal ulcers, erosive gastritis, pancolitis; pathology was acute severe non specific colitis, peptic duodenitis, and gastritis. (Yesenia Mejia) PFSH Past Medical History Rheumatoid arthritis Hypertension History of CVA Past Surgical History Appendectomy Hysterectomy Left lung surgery Carotid surgery (Yesenia Mejia) Coded Allergies: ciprofloxacin (Verified Allergy, Intermediate, RASH, ITCHING, 07/19/17) codeine (Unverified Allergy, Intermediate, "VIOLENTLY SICK", 07/18/17) Family History Cancer Social History Quit smoking 50 years ago. Denies alcohol or illicit drug use. (Yesenia Mejia) Review of Systems Constitutional: COMPLAINS OF: Weight loss, DENIES: Fever Endocrine: DENIES: Polydipsia Eyes: DENIES: Blurred vision Ears, nose, mouth, throat: DENIES: Hearing loss Respiratory: DENIES: Cough Cardiovascular: DENIES: Chest pain Gastrointestinal: COMPLAINS OF: Diarrhea, Nausea, Vomiting, DENIES: Abdominal pain, Black stools, Bloody stools, Hematemesis Genitourinary: DENIES: Hematuria Musculoskeletal: DENIES: Joint Swelling Integumentary: DENIES: Abnormal pigmentation Hematologic/lymphatic: DENIES: Bruising Immunologic/allergic: DENIES: Eczema Neurologic: DENIES: Headache Psychiatric: DENIES: Confusion (Yesenia Mejia) GI Exam Vitals I&O Vital Signs Date Time Temp Pulse Resp B/P (MAP) Pulse Ox O2 Delivery O2 Flow Rate FiO2 07/19/17 07:39 Room Air 07/19/17 07:39 97.7 110 18 147/67 (93) 95 07/19/17 04:53 109 07/19/17 03:52 98.2 113 16 132/74 (93) 97 07/19/17 03:16 97 07/18/17 23:47 98.1 111 18 158/82 (107) 95 07/18/17 23:33 07/18/17 19:28 98.0 114 16 142/87 (105) 95 Room Air 07/18/17 17:35 118 16 141/70 (93) 98 Room Air 07/18/17 14:33 99 Room Air 07/18/17 13:51 124 13 160/100 (120) 98 07/18/17 13:26 97.6 122 17 186/111 (136) 98 I/O 07/18/17 07/18/17 07/18/17 07/19/17 07/19/17 07/19/17 07:00 15:00 23:00 07:00 15:00 23:00 Intake Total 1076.9 ml Balance 1076.9 ml Intake IV Total 1076.9 ml Imaging Last Impressions Abdomen/Pelvis CT 07/18/17 0000 Signed Impressions: Service Date/Time: Tuesday, July 18, 2017 22:58 - CONCLUSION: The concentric wall thickening involving portions of the proximal colon and mild prominence of mesenteric lymph nodes. The appearance may reflect regional colitis. Followup would be recommended. Gagandeep James MD Laboratory Test 07/18/17 13:52 07/18/17 19:05 07/19/17 00:13 07/19/17 06:24 White Blood Count 15.1 TH/MM3 17.7 TH/MM3 Red Blood Count 4.08 MIL/MM3 3.17 MIL/MM3 Hemoglobin 12.9 GM/DL 10.2 GM/DL Hematocrit 39.2 % 30.2 % Mean Corpuscular Volume 96.0 FL 95.5 FL Mean Corpuscular Hemoglobin 31.5 PG 32.2 PG Mean Corpuscular Hemoglobin Concent 32.9 % 33.8 % Red Cell Distribution Width 14.6 % 14.3 % Platelet Count 275 TH/MM3 226 TH/MM3 Mean Platelet Volume 8.5 FL 7.9 FL Neutrophils (%) (Auto) 77.9 % 79.5 % Lymphocytes (%) (Auto) 10.5 % 9.4 % Monocytes (%) (Auto) 8.4 % 8.0 % Eosinophils (%) (Auto) 2.9 % 2.8 % Basophils (%) (Auto) 0.3 % 0.3 % Neutrophils # (Auto) 11.8 TH/MM3 14.1 TH/MM3 Lymphocytes # (Auto) 1.6 TH/MM3 1.7 TH/MM3 Monocytes # (Auto) 1.3 TH/MM3 1.4 TH/MM3 Eosinophils # (Auto) 0.4 TH/MM3 0.5 TH/MM3 Basophils # (Auto) 0.0 TH/MM3 0.1 TH/MM3 CBC Comment DIFF FINAL DIFF FINAL Differential Comment Blood Urea Nitrogen 13 MG/DL 11 MG/DL Creatinine 0.71 MG/DL 0.56 MG/DL Random Glucose 77 MG/DL 74 MG/DL Total Protein 7.6 GM/DL 5.8 GM/DL Albumin 2.7 GM/DL Calcium Level 8.3 MG/DL 7.3 MG/DL Alkaline Phosphatase 152 U/L Aspartate Amino Transf (AST/SGOT) 23 U/L Alanine Aminotransferase (ALT/SGPT) 12 U/L Total Bilirubin 0.5 MG/DL Sodium Level 132 MEQ/L 134 MEQ/L Potassium Level 3.9 MEQ/L 3.7 MEQ/L Chloride Level 98 MEQ/L 103 MEQ/L Carbon Dioxide Level 22.6 MEQ/L 20.2 MEQ/L Anion Gap 11 MEQ/L 11 MEQ/L Estimat Glomerular Filtration Rate 78 ML/MIN 102 ML/MIN Lipase 360 U/L Lactic Acid Level 0.8 mmol/L Stool C. difficile Toxin (PCR) POSITIVE Stl C. difficile Toxin Epiderm 027 PRESUMPTIVE NEGATIVE Hematology Comments Protein Corrected Calcium 8.0 MG/DL Date/Time Source Procedure Growth Status 07/18/17 19:05 Blood Peripheral Aerobic Blood Culture Pending Received 07/18/17 19:05 Blood Peripheral Anaerobic Blood Culture Pending Received 07/19/17 00:13 Stool Stool Cryptosporidium Exam Pending Resulted 07/19/17 00:13 Stool Stool Giardia Antigen (ANUPAMA) Pending Resulted 07/19/17 00:13 Stool Stool Stool Occult Blood (ANUPAMA) - Final HEMOCCULT NEGATIVE Resulted Physical Examination HEENT: PERRL; normocephalic; atraumatic; no jaundice. CHEST: CTA CARDIAC: RRR ABDOMEN: Soft, nondistended, nontender; no hepatosplenomegaly; bowel sounds are present in all four quadrants. EXTREMITIES: No clubbing, cyanosis, or edema. SKIN: Normal; no rash; no jaundice. FOOD SCIENCE TECHNICIAN: No focal deficits; alert and oriented times three. weak. (Yesenia Mejia) Assessment and Plan Plan ASSESSMENT - nausea, vomiting, diarrhea - 2/2 c diff. stool heme neg. on PO vanc She had EGD and colonoscopy 07/10/17 with findings duodenal ulcers, erosive gastritis, pancolitis; pathology was acute severe non specific colitis, peptic duodenitis, and gastritis. - anemia - could be 2/2 dilution, ALEKSANDRA stool heme neg - leukocytosis - 2/2 c diff PLAN - PO vanc - consider ensure - supportive care pt seen by myself and Dr Wyatt and this note is on his behalf (Yesenia Mejia) Physician Comments Seen and examined with JERRY, C. Diff +ve. Recent egd/colonoscopy findings noted. Started on vancomicin po. Advance diet as tolerated. Thank you (Bertha Wyatt MD) Yesenia Mejia Jul 19, 2017 09:12 Bertha Wyatt MD Jul 19, 2017 13:09
[2017-07-19] MEDS: VANCOMYCIN 500 MG VIAL (FOR ORAL USE ONLY) PO SCH ×3 (13:06→21:19)
[2017-07-19] MEDS: GABAPENTIN 300 MG CAP PO SCH (21:19)
[2017-07-19] MEDS: ATORVASTATIN 40 MG TAB PO SCH (21:20)
[2017-07-20] VITALS (10 sets, daily range): BP systolic 116–136; BP diastolic 56–71; PULSE 77–89; RESP 15–18; TEMP 97.1–98; O2SAT 94–98
[2017-07-20] MEDS: IBUPROFEN 800 MG TAB PO SCH ×3 (02:44→16:47)
[2017-07-20 04:53] LABS: AUTOMATED NEUTROPHIL # 9.7 TH/MM3 (1.8-7.7); BASOPHIL # 0.1 TH/MM3 (0-0.2); BASOPHIL % 0.4 % (0.0-2.0); EOSINOPHIL # 0.5 TH/MM3 (0-0.4); HEMATOCRIT 30.1 % (35.0-46.0); HEMOGLOBIN 10.1 GM/DL (11.6-15.3); LYMPH % 12.8 % (9.0-44.0); LYMPHOCYTE # 1.7 TH/MM3 (1.0-4.8); MEAN CELL VOLUME 96.2 FL (80.0-100.0); MEAN CORPUSCULAR HEMOGLOBIN 32.1 PG (27.0-34.0); MEAN CORPUSCULAR HGB CONC 33.3 % (32.0-36.0); MONOCYTE # 1.2 TH/MM3 (0-0.9); NEUT % 73.8 % (16.0-70.0); PLATELET COUNT 220 TH/MM3 (150-450); RED BLOOD COUNT 3.13 MIL/MM3 (4.00-5.30); RED CELL DISTRIBUTION WIDTH 14.4 % (11.6-17.2); WHITE BLOOD COUNT 13.2 TH/MM3 (4.0-11.0)
[2017-07-20 05:01] LABS: BICARBONATE 20.6 MEQ/L (21.0-32.0); CALCIUM 7.4 MG/DL (8.5-10.1); CREATININE 0.55 MG/DL (0.50-1.00)
[2017-07-20 05:21] LABS: CALCIUM-PROTEIN CORRECTED 8.2 MG/DL (8.5-10.1); TOTAL PROTEIN 5.6 GM/DL (6.4-8.2)
[2017-07-20] MEDS: CARBIDOPA/LEVODOPA 25 MG/100 MG TAB PO SCH ×3 (05:59→22:46)
[2017-07-20] MEDS: VANCOMYCIN 500 MG VIAL (FOR ORAL USE ONLY) PO SCH ×4 (08:17→22:42)
[2017-07-20] MEDS: SODIUM CHLORIDE 0.9% FLUSH 10 ML FLUSH IV FLUSH SCH ×2 (08:18→22:50)
[2017-07-20] MEDS: LACTOBACILLUS ACIDOPHILUS TAB PO SCH ×3 (08:18→16:10)
[2017-07-20] MEDS: PANTOPRAZOLE SOD 40 MG DELAYED RELEASE TAB PO SCH ×2 (08:18→22:47)
[2017-07-20] MEDS: CHOLECALCIFEROL (VIT D3) 400 UNIT TAB PO SCH (08:18)
[2017-07-20] MEDS: NIFEdipine 30 MG SUSTAINED RELEASE TAB PO SCH (08:53)
[2017-07-20] MEDS: METOPROLOL TARTRATE 50 MG TAB PO SCH (08:53)
--- NOTE | 2017-07-20 12:46 | HHI.GIFU ---
Subjective Remarks Pt resting in bed Reports improvement in abdominal pain today, now mild Continued diarrhea, no longer black stools Was able eat half her dinner last night and keep it down States she feels weak Objective Vitals I&O Vital Signs Date Time Temp Pulse Resp B/P (MAP) Pulse Ox O2 Delivery O2 Flow Rate FiO2 07/20/17 12:00 97.4 83 17 124/60 (81) 98 07/20/17 10:00 97.7 77 17 126/60 (82) 96 07/20/17 08:53 136/71 (92) 07/20/17 08:16 97.9 89 18 116/56 (76) 96 07/20/17 08:16 Room Air 07/20/17 07:11 87 07/20/17 05:06 98.0 86 15 119/59 (79) 96 07/20/17 04:35 77 07/20/17 00:53 97.5 89 17 117/57 (77) 96 07/19/17 23:16 78 07/19/17 21:33 97.9 91 16 130/62 (84) 97 07/19/17 20:24 Room Air 07/19/17 17:20 97.6 79 20 112/52 (72) 98 07/19/17 16:15 79 07/19/17 13:05 77 I/O 07/19/17 07/19/17 07/19/17 07/20/17 07/20/17 07/20/17 07:00 15:00 23:00 07:00 15:00 23:00 # Bowel Movements 2 Laboratory Laboratory Tests Test 07/20/17 04:22 White Blood Count 13.2 Red Blood Count 3.13 Hemoglobin 10.1 Hematocrit 30.1 Mean Corpuscular Volume 96.2 Mean Corpuscular Hemoglobin 32.1 Mean Corpuscular Hemoglobin Concent 33.3 Red Cell Distribution Width 14.4 Platelet Count 220 Mean Platelet Volume 8.0 Neutrophils (%) (Auto) 73.8 Lymphocytes (%) (Auto) 12.8 Monocytes (%) (Auto) 9.0 Eosinophils (%) (Auto) 4.0 Basophils (%) (Auto) 0.4 Neutrophils # (Auto) 9.7 Lymphocytes # (Auto) 1.7 Monocytes # (Auto) 1.2 Eosinophils # (Auto) 0.5 Basophils # (Auto) 0.1 CBC Comment DIFF FINAL Differential Comment Blood Urea Nitrogen 7 Creatinine 0.55 Random Glucose 66 Total Protein 5.6 Calcium Level 7.4 Sodium Level 135 Potassium Level 4.3 Chloride Level 104 Carbon Dioxide Level 20.6 Anion Gap 10 Estimat Glomerular Filtration Rate 104 Protein Corrected Calcium 8.2 Date/Time Source Procedure Growth Status 07/18/17 19:05 Blood Peripheral Aerobic Blood Culture - Preliminary NO GROWTH IN 2 DAYS Resulted 07/18/17 19:05 Blood Peripheral Anaerobic Blood Culture - Preliminary NO GROWTH IN 2 DAYS Resulted 07/19/17 00:13 Stool Stool Cryptosporidium Exam - Final NEGATIVE - NO CRYPTOSPORIDIUM ANTIGEN... Complete 07/19/17 00:13 Stool Stool Giardia Antigen (ANUPAMA) - Final NEGATIVE - NO GIARDIA ANTIGEN DETECTE... Complete 07/19/17 00:13 Stool Stool Stool Occult Blood (ANUPAMA) - Final HEMOCCULT NEGATIVE Complete Imaging Last Impressions Abdomen/Pelvis CT 07/18/17 0000 Signed Impressions: Service Date/Time: Tuesday, July 18, 2017 22:58 - CONCLUSION: The concentric wall thickening involving portions of the proximal colon and mild prominence of mesenteric lymph nodes. The appearance may reflect regional colitis. Followup would be recommended. Gagandeep James MD Physical Exam HEENT: Normocephalic; atraumatic CHEST: Even/unlabored CARDIAC: RRR ABDOMEN: Soft, nondistended, mild diffuse abdominal TTP, bowel sounds active SKIN: Pale VEGETABLE PACKER: No focal deficits; alert and oriented times three. Assessment and Plan Plan ASSESSMENT - Nausea, vomiting, diarrhea- C. Diff stool positive. Epid negative. Denies history of C. Diff. Previously seen by our service on July 09 for complaints of black stools, diarrhea, nausea, vomiting, and weight loss. At that time stool was negative for C. Diff. Stool cultures were also done which were negative for enteric pathogens and ova and parasites. EGD (07/10) --> Erosive gastritis. 2 ulcers in the duodenal bulb, no visible vessel. Pathology (duodenum) Duodenal mucosal biopsies with telangiectasia and vascular congestions negative for duodenitis, villus atrophy, and parasitic infestation, small intestinal mucosal biopsy with acute suppurative inflammatory changes consistent with peptic duodenitis , (gastric antrum) moderate to severe acute and chronic non-specific gastritis Colonoscopy (07/10) Pancolitis. Pathology Ulcerated colonic mucosal biopsies with severe acute non-specific colitis. - Anemia - Hemoccult stool negative. H/H stable from previous visit in June. - Leukocytosis - Secondary to C. Diff CT abdomen and pelvis W/O IV contrast (07/18) --> The concentric wall thickening involving portions of the proximal colon and mild prominence of mesenteric lymph nodes. The appearance may reflect regional colitis. (07/20) Pt reports improvement in her abdominal pain today. Continued diarrhea but states no longer black. Nausea seems to be improving she was able to eat half her dinner and keep it down last night. Leukocytosis improving. Afebrile. Abdomen is nondistended and soft. H/H stable over night. PLAN - Heart healthy diet - PO Vanco - Cholestyramine - Monitor H/H - Monitor for worsening infection (Distended abdomen, febrile, leukocytosis) - Further recommendations based on clinical course Pt has been seen and examined by myself and Dr. Wyatt and this note is written on his behalf Nica Potter Jul 20, 2017 12:46
[2017-07-20] MEDS: NS + KCL 20 MEQ INJ 1,000 ML IV SCH ×2 (13:24→22:53)
--- NOTE | 2017-07-20 15:32 | HHI.PR ---
Subjective Remarks Follow up C difficile colitis. The patient states that she is still having significant diarrhea, but overall feels much better today. She states that she feels stronger today. She has an appetite again. No nausea or vomiting. Objective Vitals Vital Signs Date Time Temp Pulse Resp B/P (MAP) Pulse Ox O2 Delivery O2 Flow Rate FiO2 07/20/17 12:00 97.4 83 17 124/60 (81) 98 07/20/17 10:00 97.7 77 17 126/60 (82) 96 07/20/17 08:53 136/71 (92) 07/20/17 08:16 97.9 89 18 116/56 (76) 96 07/20/17 08:16 Room Air 07/20/17 07:11 87 07/20/17 05:06 98.0 86 15 119/59 (79) 96 07/20/17 04:35 77 07/20/17 00:53 97.5 89 17 117/57 (77) 96 07/19/17 23:16 78 07/19/17 21:33 97.9 91 16 130/62 (84) 97 07/19/17 20:24 Room Air 07/19/17 17:20 97.6 79 20 112/52 (72) 98 07/19/17 16:15 79 I/O 07/19/17 07/19/17 07/19/17 07/20/17 07/20/17 07/20/17 07:00 15:00 23:00 07:00 15:00 23:00 # Bowel Movements 2 Result Diagram: 07/20/17 0422 07/20/17 0422 Imaging Last Impressions Abdomen/Pelvis CT 07/18/17 0000 Signed Impressions: Service Date/Time: Tuesday, July 18, 2017 22:58 - CONCLUSION: The concentric wall thickening involving portions of the proximal colon and mild prominence of mesenteric lymph nodes. The appearance may reflect regional colitis. Followup would be recommended. Gagandeep James MD Objective Remarks General: Elderly female in no acute distress. Heart: Regular rate and rhythm. No murmur. Lungs: Clear to auscultation bilaterally. No wheezes noted. Breathing is nonlabored. Abdomen: Soft, mild diffuse tenderness to palpation, nondistended. Extremities: No lower extremity edema. Psych: Alert and oriented. Procedures None Urinary Catheter: No Vascular Central Line Catheter: No A/P Problem List: (1) Dehydration ICD Code: E86.0 - Dehydration (2) Sepsis ICD Code: A41.9 - Sepsis, unspecified organism (3) Hypertension ICD Code: I10 - Essential (primary) hypertension (4) C. difficile colitis ICD Code: A04.72 - Enterocolitis due to Clostridium difficile, not specified as recurrent Assessment and Plan 1. C. difficile colitis: Improving clinically. Continue oral vancomycin. Appreciate GI recommendations. Continue IV fluids. 2. Hypertension: Continue nifedipine, metoprolol. 3. Dehydration, hyponatremia: Continue IV fluids. Sodium improving. 4. Sepsis: Secondary to C. difficile colitis. Patient presented with tachycardia, leukocytosis. WBCs are improved today. Blood cultures are negative so far. 5. Questionable GI bleed: Patient reports dark stools. Stool Hemoccult is negative. Hemoglobin is stable. 6. DVT prophylaxis: SCDs, KIN hose. Avoid chemical prophylaxis due to possible GI bleed. Discharge Planning Pending further clinical improvement. Jorge Joseph MD Jul 20, 2017 15:32
[2017-07-20] MEDS: CHOLESTYRAMINE 4 GM PACKET PO SCH (22:45)
[2017-07-20] MEDS: ATORVASTATIN 40 MG TAB PO SCH (22:46)
[2017-07-20] MEDS: GABAPENTIN 300 MG CAP PO SCH (22:46)
[2017-07-21] VITALS (10 sets, daily range): BP systolic 113–158; BP diastolic 56–82; PULSE 76–99; RESP 15–18; TEMP 97.3–97.9; O2SAT 92–99
--- NOTE | 2017-07-21 01:26 | RADRPT ---
EXAM DATE/TIME: 07/21/2017 00:44 [facility] COMPARISON: CHEST SINGLE AP, July 08, 2017, 17:05. INDICATIONS : Trauma due to fall. MEDICAL HISTORY : Stroke. Cardiovascular disease Hypertension. SURGICAL HISTORY : Appendectomy. Hysterectomy. ENCOUNTER: Initial ACUITY: 1 day PAIN SCORE: 10/10 LOCATION: Left chest FINDINGS: Single AP view of the chest. Scarring at lateral left lung base unchanged. Postsurgical findings left upper lung unchanged. The lungs are otherwise clear. Cardiomediastinal silhouette within normal limi ts. No evidence of pleural effusion or pneumothorax. CONCLUSION: No acute cardiopulmonary disease identified. Dewayne Franks MD on July 21, 2017 at 1:24 Board Certified Radiologist. This report was verified electronically.
--- NOTE | 2017-07-21 02:01 | RADRPT ---
EXAM DATE/TIME: 07/21/2017 01:35 [facility] COMPARISON: MRI BRAIN W/O CONTRAST, July 26, 2016, 14:01. CT BRAIN W/O CONTRAST, July 08, 2017, 18:13. INDICATIONS : Trauma, fall. RADIATION DOSE: 56.35 CTDIvol (mGy) MEDICAL HISTORY : Stroke. Cardiovascular disease Hypertension. SURGICAL HISTORY : Appendectomy. Hysterectomy. ENCOUNTER: Initial ACUITY: 1 day PAIN SCALE: 6/10 LOCATION: cranial TECHNIQUE: Multiple contiguous axial images were obtained of the head. Using automated exposure control and adj ustment of the mA and/or kV according to patient size, radiation dose was kept as low as reasonably a chievable to obtain optimal diagnostic quality images. DICOM format image data is available electro nically for review and comparison. FINDINGS: CEREBRUM: Focal encephalomalacia of the posterior left occipital lobe an area of known prior infarct. The ventr icles are normal for age. No evidence of midline shift, mass lesion, hemorrhage or acute infarction. No extra-axial fluid collections are seen. POSTERIOR FOSSA: The cerebellum and brainstem are intact. The 4th ventricle is midline. The cerebellopontine angle i s unremarkable. EXTRACRANIAL: The visualized portion of the orbits is intact. SKULL: The calvaria is intact. No evidence of skull fracture. CONCLUSION: Old left occipital infarct. No acute intracranial findings. Dewayne Franks MD on July 21, 2017 at 1:57 Board Certified Radiologist. This report was verified electronically.
[2017-07-21 06:50] LABS: AUTOMATED NEUTROPHIL # 8.3 TH/MM3 (1.8-7.7); BASOPHIL % 0.4 % (0.0-2.0); EOSINOPHIL # 0.4 TH/MM3 (0-0.4); EOSINOPHIL % 3.3 % (0.0-4.0); HEMATOCRIT 31.5 % (35.0-46.0); HEMOGLOBIN 10.6 GM/DL (11.6-15.3); LYMPH % 12.6 % (9.0-44.0); LYMPHOCYTE # 1.4 TH/MM3 (1.0-4.8); MEAN CELL VOLUME 94.9 FL (80.0-100.0); MEAN CORPUSCULAR HEMOGLOBIN 31.9 PG (27.0-34.0); MEAN CORPUSCULAR HGB CONC 33.7 % (32.0-36.0); MONO % 10.5 % (0.0-8.0); MONOCYTE # 1.2 TH/MM3 (0-0.9); NEUT % 73.2 % (16.0-70.0); PLATELET COUNT 268 TH/MM3 (150-450); RED BLOOD COUNT 3.32 MIL/MM3 (4.00-5.30); RED CELL DISTRIBUTION WIDTH 14.4 % (11.6-17.2); WHITE BLOOD COUNT 11.4 TH/MM3 (4.0-11.0)
[2017-07-21] MEDS: CARBIDOPA/LEVODOPA 25 MG/100 MG TAB PO SCH ×3 (06:53→21:04)
[2017-07-21] MEDS: IBUPROFEN 800 MG TAB PO SCH ×3 (06:54→17:56)
[2017-07-21 07:10] LABS: BICARBONATE 22.9 MEQ/L (21.0-32.0); CALCIUM 7.4 MG/DL (8.5-10.1); CREATININE 0.48 MG/DL (0.50-1.00)
[2017-07-21 07:54] LABS: CALCIUM-PROTEIN CORRECTED 7.8 MG/DL (8.5-10.1); TOTAL PROTEIN 6.3 GM/DL (6.4-8.2)
[2017-07-21] MEDS: LACTOBACILLUS ACIDOPHILUS TAB PO SCH ×3 (09:17→17:55)
[2017-07-21] MEDS: VANCOMYCIN 500 MG VIAL (FOR ORAL USE ONLY) PO SCH ×4 (09:18→21:04)
[2017-07-21] MEDS: METOPROLOL TARTRATE 50 MG TAB PO SCH (09:18)
[2017-07-21] MEDS: PANTOPRAZOLE SOD 40 MG DELAYED RELEASE TAB PO SCH ×2 (09:18→21:04)
[2017-07-21] MEDS: NIFEdipine 30 MG SUSTAINED RELEASE TAB PO SCH (09:18)
[2017-07-21] MEDS: SODIUM CHLORIDE 0.9% FLUSH 10 ML FLUSH IV FLUSH SCH ×2 (09:18→21:00)
[2017-07-21] MEDS: CHOLESTYRAMINE 4 GM PACKET PO SCH ×2 (09:18→21:04)
[2017-07-21] MEDS: CHOLECALCIFEROL (VIT D3) 400 UNIT TAB PO SCH (09:27)
[2017-07-21] MEDS: NS + KCL 20 MEQ INJ 1,000 ML IV SCH (17:56)
[2017-07-21] MEDS: GABAPENTIN 300 MG CAP PO SCH (21:04)
[2017-07-21] MEDS: ATORVASTATIN 40 MG TAB PO SCH (21:04)
[2017-07-22] VITALS: BP 118/62; PULSE 76; RESP 17; TEMP 97; O2SAT 95
[2017-07-22] MEDS: IBUPROFEN 800 MG TAB PO SCH ×2 (03:00→08:04)
[2017-07-22] MEDS: CARBIDOPA/LEVODOPA 25 MG/100 MG TAB PO SCH ×2 (05:08→11:52)
[2017-07-22 08:00] VITALS: BP 111/54; PULSE 84; RESP 18; TEMP 97.9; O2SAT 93
[2017-07-22] MEDS: NIFEdipine 30 MG SUSTAINED RELEASE TAB PO SCH (08:02)
[2017-07-22] MEDS: PANTOPRAZOLE SOD 40 MG DELAYED RELEASE TAB PO SCH (08:02)
[2017-07-22] MEDS: METOPROLOL TARTRATE 50 MG TAB PO SCH (08:02)
[2017-07-22] MEDS: CHOLECALCIFEROL (VIT D3) 400 UNIT TAB PO SCH (08:02)
[2017-07-22] MEDS: CHOLESTYRAMINE 4 GM PACKET PO SCH (08:02)
[2017-07-22] MEDS: LACTOBACILLUS ACIDOPHILUS TAB PO SCH ×2 (08:02→11:52)
[2017-07-22] MEDS: VANCOMYCIN 500 MG VIAL (FOR ORAL USE ONLY) PO SCH ×2 (08:02→11:52)
[2017-07-22] MEDS: NS + KCL 20 MEQ INJ 1,000 ML IV SCH (08:04)
[2017-07-22] MEDS: SODIUM CHLORIDE 0.9% FLUSH 10 ML FLUSH IV FLUSH SCH (08:04)
--- NOTE | 2017-07-22 08:19 | HHI.PR ---
Subjective Remarks Late entry for 07/21/2017 Follow up for C. Diff colitis. Patient is sitting in her chair. No acute concerns. No fever, chills. Her stool is still very watery and diarrhea 3 times a day or so. Objective Vitals Vital Signs Date Time Temp Pulse Resp B/P (MAP) Pulse Ox O2 Delivery O2 Flow Rate FiO2 07/22/17 00:00 97.0 76 17 118/62 (80) 95 07/21/17 20:00 97.3 87 17 113/56 (75) 95 07/21/17 16:00 97.8 78 18 158/72 (100) 96 07/21/17 12:00 97.3 76 18 141/60 (87) 98 I/O 07/21/17 07/21/17 07/21/17 07/22/17 07/22/17 07/22/17 07:00 15:00 23:00 07:00 15:00 23:00 Intake Total 240 ml 1720 ml 800 ml Output Total 600 ml Balance 240 ml 1720 ml 200 ml Intake Oral 240 ml 720 ml 240 ml IV Total 1000 ml 560 ml Output Urine Total 600 ml # Voids 5 3 # Bowel Movements 2 1 Result Diagram: 07/21/17 0535 07/21/17 0535 Imaging Last Impressions Head CT 07/21/17 0000 Signed Impressions: Service Date/Time: Friday, July 21, 2017 01:35 - CONCLUSION: Old left occipital infarct. No acute intracranial findings. Dewayne Franks MD Chest X-Ray 07/21/17 0000 Signed Impressions: Service Date/Time: Friday, July 21, 2017 00:44 - CONCLUSION: No acute cardiopulmonary disease identified. Dewayne Franks MD Abdomen/Pelvis CT 07/18/17 0000 Signed Impressions: Service Date/Time: Tuesday, July 18, 2017 22:58 - CONCLUSION: The concentric wall thickening involving portions of the proximal colon and mild prominence of mesenteric lymph nodes. The appearance may reflect regional colitis. Followup would be recommended. Gagandeep James MD Objective Remarks GENERAL: AOX3, NAD. SKIN: Warm and dry. HEAD: Normocephalic. EYES: No scleral icterus. No injection or drainage. NECK: Supple, trachea midline. No JVD or lymphadenopathy. CARDIOVASCULAR: Regular rate and rhythm without murmurs, gallops, or rubs. RESPIRATORY: Breath sounds equal bilaterally. No accessory muscle use. GASTROINTESTINAL: Abdomen soft, non-tender, nondistended. MUSCULOSKELETAL: No cyanosis, or edema. BACK: Nontender without obvious deformity. No CVA tenderness. Procedures None A/P Problem List: (1) Dehydration ICD Code: E86.0 - Dehydration (2) Sepsis ICD Code: A41.9 - Sepsis, unspecified organism (3) Hypertension ICD Code: I10 - Essential (primary) hypertension (4) C. difficile colitis ICD Code: A04.72 - Enterocolitis due to Clostridium difficile, not specified as recurrent Assessment and Plan 1. C. difficile colitis: Improving clinically. Continue oral vancomycin. Appreciate GI recommendations. Continue IV fluids. If bowel movement improves and stool becomes more formed, patient should be able to go home. 2. Hypertension: Continue nifedipine, metoprolol. 3. Dehydration, hyponatremia: Continue IV fluids. Sodium improving. 4. Sepsis: Secondary to C. difficile colitis. Patient presented with tachycardia, leukocytosis. WBCs are improved. Blood cultures are negative so far. 5. Questionable GI bleed: Patient reports dark stools. Stool Hemoccult is negative. Hemoglobin is stable. 6. DVT prophylaxis: SCDs, KIN hose. Avoid chemical prophylaxis due to possible GI bleed. Discharge plan: Potential discharge on 07/22/2017. Demi Handy DO Jul 22, 2017 8:19 am
--- NOTE | 2017-07-22 08:20 | HHI.FF ---
Face to Face Verification Diagnosis: (1) C. difficile colitis Physical Therapy Order: Evaluate and Treat, Improve ambulation, Strength and gait training Home Health Nursing Order: Medical education Signs/symptoms of disease process Nursing assessment with vital signs I have seen patient Hannah Christopher on 07/22/17. My clinical findings support the need for the requested home health care services because: Ltd mobility - disease progression Deconditioned w/ increased weakness Limited ability to care for self Need for psychosocial assistance Impaired cognition/judgement High risk of falls Infection w/ risk of complications I certify that my clinical findings support that this patient is homebound because: Unsteady gait/balance Unsafe to leave home unassisted Need for psychosocial assistance Unable to use public transportation Demi Handy DO Jul 22, 2017 8:20 am
[2017-07-22] MEDS ORDERED: VANC125C3 PO (11:07)
--- NOTE | 2017-07-22 11:09 | HHI.DS ---
Discharge Summary Admission Date Jul 18, 2017 at 18:44 Discharge Date: Jul 22, 2017 Admitting Diagnosis Sepsis, colitis (1) Dehydration ICD Code: E86.0 - Dehydration (2) Sepsis ICD Code: A41.9 - Sepsis, unspecified organism (3) Hypertension ICD Code: I10 - Essential (primary) hypertension (4) C. difficile colitis ICD Code: A04.72 - Enterocolitis due to Clostridium difficile, not specified as recurrent Procedures None Brief History - From Admission The patient is an 87-year-old female who presented to the emergency department with complaint of nausea, vomiting, and diarrhea for the past few days. She was discharged from the hospital on 07/10/17 with a diagnosis of colitis. Biopsies taken during colonoscopy at that time showed nonspecific colitis. Patient states that she has not been able to keep any food or drink down in the last 4 days. She reports decreased appetite as well. She states that her stool is dark, but has not seen any bright red blood. She was seen by her PCP today and referred to the ER. She has not followed up with GI since her last hospitalization. She states that she was on "a lot of antibiotics" in the weeks preceding her prior hospitalization. CBC/BMP: 07/21/17 0535 07/21/17 0535 Significant Findings Laboratory Tests Test 07/20/17 04:22 07/21/17 05:35 White Blood Count 13.2 TH/MM3 (4.0-11.0) 11.4 TH/MM3 (4.0-11.0) Red Blood Count 3.13 MIL/MM3 (4.00-5.30) 3.32 MIL/MM3 (4.00-5.30) Hemoglobin 10.1 GM/DL (11.6-15.3) 10.6 GM/DL (11.6-15.3) Hematocrit 30.1 % (35.0-46.0) 31.5 % (35.0-46.0) Neutrophils (%) (Auto) 73.8 % (16.0-70.0) 73.2 % (16.0-70.0) Monocytes (%) (Auto) 9.0 % (0.0-8.0) 10.5 % (0.0-8.0) Neutrophils # (Auto) 9.7 TH/MM3 (1.8-7.7) 8.3 TH/MM3 (1.8-7.7) Monocytes # (Auto) 1.2 TH/MM3 (0-0.9) 1.2 TH/MM3 (0-0.9) Eosinophils # (Auto) 0.5 TH/MM3 (0-0.4) Random Glucose 66 MG/DL (74-106) Total Protein 5.6 GM/DL (6.4-8.2) 6.3 GM/DL (6.4-8.2) Calcium Level 7.4 MG/DL (8.5-10.1) 7.4 MG/DL (8.5-10.1) Sodium Level 135 MEQ/L (136-145) Carbon Dioxide Level 20.6 MEQ/L (21.0-32.0) Protein Corrected Calcium 8.2 MG/DL (8.5-10.1) 7.8 MG/DL (8.5-10.1) Blood Urea Nitrogen 3 MG/DL (7-18) Creatinine 0.48 MG/DL (0.50-1.00) Imaging Last Impressions Head CT 07/21/17 Signed Impressions: Service Date/Time: Friday, July 21, 2017 01:35 - CONCLUSION: Old left occipital infarct. No acute intracranial findings. Dewayne Franks MD Chest X-Ray 07/21/17 Signed Impressions: Service Date/Time: Friday, July 21, 2017 00:44 - CONCLUSION: No acute cardiopulmonary disease identified. Dewayne Franks MD Abdomen/Pelvis CT 07/18/17 Signed Impressions: Service Date/Time: Tuesday, July 18, 2017 22:58 - CONCLUSION: The concentric wall thickening involving portions of the proximal colon and mild prominence of mesenteric lymph nodes. The appearance may reflect regional colitis. Followup would be recommended. Gagandeep aJmes MD PE at Discharge GENERAL: AOX3, NAD. SKIN: Warm and dry. HEAD: Normocephalic. EYES: No scleral icterus. No injection or drainage. NECK: Supple, trachea midline. No JVD or lymphadenopathy. CARDIOVASCULAR: Regular rate and rhythm without murmurs, gallops, or rubs. RESPIRATORY: Breath sounds equal bilaterally. No accessory muscle use. GASTROINTESTINAL: Abdomen soft, non-tender, nondistended. MUSCULOSKELETAL: No cyanosis, or edema. BACK: Nontender without obvious deformity. No CVA tenderness. Pt update on day of discharge Patient is doing well. no acute concerns. Still having loose stools but diarrheal episodes have decreased. No fever, chills. Hospital Course Ms. Christopher is a pleasant 87 year old female who was admitted to the hospital due to nausea, vomiting, diarrhea on 07/18/2017. She recently has taken multiple antibiotics. Her C. Diff PCR was positive and patient was started on Vancomycin. Patient was also evaluated by GI. She continued to improve on Vancomycin. Her diarrhea improved. She was able to tolerate oral diet. Remained afebrile. Pt was subsequently discharged home with home health. Pt Condition on Discharge: Good Discharge Disposition: Disch w/ Home Health Serv Discharge Time: <= 30 minutes Discharge Instructions DIET: Follow Instructions for: Heart Healthy Diet Activities you can perform: Regular-No Restrictions Follow up Referrals: PCP Follow-up - 1 Week New Medications: Vancomycin (Vancomycin) 125 Mg Cap 125 MG PO QID for Infection, #40 CAP 0 Refills Continued Medications: Atorvastatin (Atorvastatin) 40 Mg Tab 40 MG PO HS for CEA for 30 Days, TAB Carbidopa-Levodopa (Carbidopa-Levodopa) 25-100 Mg Tab 1 TAB PO Q8HR for Parkinson Disease Mgmt, #90 TAB 0 Refills Cholecalciferol (Vitamin D3) Unknown Strength Tab 1 TAB PO DAILY for Nutritional Supplement, #1 BOTTLE 0 Refills Gabapentin (Gabapentin) 300 Mg Cap 300 MG PO HS, #30 CAP 0 Refills Ibuprofen (Ibuprofen) 800 Mg Tab 800 MG PO Q8H for Pain, #60 TAB 0 Refills Meclizine (Meclizine) 25 Mg Tab 25 MG PO DAILY PRN for DIZZINESS, TAB 0 Refills Metoprolol Tartrate (Metoprolol Tartrate) 50 Mg Tab 50 MG PO DAILY, #60 TAB 0 Refills Nifedipine ER 24 HR (Nifedipine ER 24 HR) 30 Mg Tab 30 MG PO DAILY for HTN for 30 Days, TAB Pantoprazole (Pantoprazole) 40 Mg Tab 40 MG PO BID for Reflux, #60 TAB 0 Refills Demi Handy DO Jul 22, 2017 11:09
[2017-07-22 12:00] VITALS: BP 132/92; PULSE 78; RESP 18; TEMP 97.9; O2SAT 98
== END 2017-07-22 13:25 | disposition home health service (06) | DRG 872 ==
LOC: NEPC 13:18 → NEDA 18:44 → OBSVTOIN 18:44 → NEDA 18:50 → UNDOADMIN 18:50 → NEPGCP 23:35 → N07B 07-20 08:58
PROVIDERS: ADMIT Hospitalist; ATTEND Hospitalist
DX: A41.9 Sepsis, unspecified organism (principal); A04.72 Enterocolitis due to Clostridium difficile, not specified as recurrent; G20 Parkinson's disease; E87.1 Hypo-osmolality and hyponatremia; E86.0 Dehydration; M06.9 Rheumatoid arthritis, unspecified; I10 Essential (primary) hypertension; L27.1 Localized skin eruption due to drugs and medicaments taken internally; T36.8X5A Adverse effect of other systemic antibiotics, initial encounter; Y92.239 Unspecified place in hospital as the place of occurrence of the external cause; D64.9 Anemia, unspecified; Z87.891 Personal history of nicotine dependence; Z86.73 Personal history of transient ischemic attack (TIA), and cerebral infarction without residual deficits
CPT/HCPCS: 70450; 71045; 74176; 80048; 80053; 82272; 83605; 83690; 84155; 85025; 87040; 87328; 87329; 87493; 87506; J0744; J1200; J2405; J3480; J7030

== ENCOUNTER 2017-08-13 17:13 | Inpatient (IN) | payer OTHER, MEDICARE ==
[~2017-08-13] VITALS: Ht 160 cm; Wt 55.7 kg
[~2017-08-13 17:13] MED LIST changes: +IBUP1TAB7 PO; +MECL-62 PO; +VANC125C3 PO; +VITA100064 PO; -WHEEMIS3
[2017-08-13] MEDS ORDERED: IOHEXOL 350 MG/ML 10 ML VIAL (for RAD DIAG) IVCONTRAST ONE (17:14)
[2017-08-13 17:26] VITALS: BP 130/62; PULSE 92; RESP 17; TEMP 98.5; O2SAT 99
[2017-08-13] MEDS ORDERED: SODIUM CHLOR 0.9% 1000 ML INJ 1,000 ML IV SCH (17:34)
[2017-08-13] MEDS ORDERED: DICYCLOMINE HCL 20 MG/2 ML VIAL IM ONE (17:45)
[2017-08-13] MEDS ORDERED: SODIUM CHLORIDE 0.9% FLUSH 10 ML FLUSH IV FLUSH PRN (17:45)
--- NOTE | 2017-08-13 17:59 | PD ---
HPI Chief Complaint: GI Complaint Time Seen by Provider: 17:34 Travel History International Travel<30 days: No Contact w/Intl Traveler<30days: No Traveled to known affect area: No History of Present Illness HPI 87-year-old female who was diagnosed with C. difficile colitis earlier this month, presents today with persistent diarrhea. The patient states that since she has been discharged, she still has a watery bowel movement every time she eats or drinks anything. She denies any fevers, chills. She reports worsening weakness because of all the diarrhea. There is no vomiting. She reports her urine is darker than normal. When she was here, she was discharged with oral vancomycin. She reports that PFSH Past Medical History Hx Anticoagulant Therapy: No Arthritis: Yes Autoimmune Disease: Yes (RA) Blood Disorders: No Heart Rhythm Problems: No Cancer: Yes (SKIN) Cardiovascular Problems: Yes High Cholesterol: Yes Chemotherapy: No Chest Pain: No Congestive Heart Failure: No Cerebrovascular Accident: Yes (2016) Diminished Hearing: No Endocrine: No Gastrointestinal Disorders: Yes (diarhea, vomitting) Genitourinary: No Hypertension: Yes Immune Disorder: Yes (RA) Musculoskeletal: Yes (back problems, arthritis) Neurologic: Yes Psychiatric: No Reproductive: Yes (hysterectomy) Respiratory: No Radiation Therapy: No Menopausal: Yes : 3 Para: 3 Miscarriage: 0 Past Surgical History Abdominal Surgery: Yes (appy) Appendectomy: Yes Cardiac Surgery: Yes (carotidectomy) Gynecologic Surgery: Yes (hysterectomy) Thoracic Surgery: Yes (LT LUNG SURG) Other Surgery: Yes Social History Alcohol Use: No Tobacco Use: No Substance Use: No Allergies-Medications (Allergen,Severity, Reaction): Coded Allergies: ciprofloxacin (Verified Allergy, Intermediate, RASH, ITCHING, 07/19/17) codeine (Unverified Allergy, Intermediate, "VIOLENTLY SICK", 07/18/17) Reported Meds & Prescriptions Reported Meds & Active Scripts Active Vancomycin (Vancomycin HCl) 125 Mg Cap 125 Mg PO QID Pantoprazole (Pantoprazole Sodium) 40 Mg Tab 40 Mg PO BID Nifedipine ER 24 HR (Nifedipine) 30 Mg Tab 30 Mg PO DAILY 30 Days Atorvastatin (Atorvastatin Calcium) 40 Mg Tab 40 Mg PO HS 30 Days Reported Ibuprofen 800 Mg Tab 800 Mg PO Q8H Vitamin D3 (Cholecalciferol) Unknown Strength Tab 1 Tab PO DAILY Meclizine (Meclizine HCl) 25 Mg Tab 25 Mg PO DAILY PRN Gabapentin 300 Mg Cap 300 Mg PO HS Carbidopa-Levodopa 25-100 Mg Tab 1 Tab PO Q8HR Metoprolol Tartrate 50 Mg Tab 50 Mg PO DAILY Review of Systems Except as stated in HPI: all other systems reviewed are Neg General / Constitutional: No: Fever, Chills HENT: No: Headaches, Lightheadedness, Neck Stiffness Cardiovascular: No: Chest Pain or Discomfort, Palpitations Respiratory: No: Cough, Shortness of Breath Gastrointestinal: Positive: Nausea, Diarrhea, Abdominal Pain, No: Vomiting Genitourinary: Positive: Other, No: Dysuria, Decreased Urinary Output Musculoskeletal: Positive: Weakness, No: Pain Neurologic: Positive: Weakness (Generalized), No: Headache ( generalized) Physical Exam Narrative GENERAL: Well-developed well-nourished female in no acute respiratory distress. SKIN: Focused skin assessment warm/dry. HEAD: Atraumatic. Normocephalic. EYES: No scleral icterus. No injection or drainage. ENT: Mucous membranes pink and moist. NECK: Trachea midline. No JVD. CARDIOVASCULAR: Regular rate and rhythm. No murmur appreciated. RESPIRATORY: No accessory muscle use. Clear to auscultation. Breath sounds equal bilaterally. GASTROINTESTINAL: Abdomen soft, nondistended. There is tenderness to palpation in her lower abdominal segment. No rebound or guarding. MUSCULOSKELETAL: No obvious deformities. No clubbing. No cyanosis. No edema. NEUROLOGICAL: Awake and alert. No obvious cranial nerve deficits. Motor grossly within normal limits. Normal speech. PSYCHIATRIC: Appropriate mood and affect; insight and judgment normal. Data Data Last Documented VS Vital Signs Date Time Temp Pulse Resp B/P (MAP) Pulse Ox O2 Delivery O2 Flow Rate FiO2 08/13/17 17:26 98.5 92 17 130/62 (84) 99 Orders Orders Complete Blood Count With Diff (08/13/17 17:34) Comprehensive Metabolic Panel (08/13/17 17:34) Lipase (08/13/17 17:34) Urinalysis - C+S If Indicated (08/13/17 17:34) Iv Access Insert/Monitor (08/13/17 17:34) Ecg Monitoring (08/13/17 17:34) Oximetry (08/13/17 17:34) Sodium Chlor 0.9% 1000 Ml Inj (Ns 1000 M (08/13/17 17:34) Sodium Chloride 0.9% Flush (Ns Flush) (08/13/17 17:45) Dicyclomine Inj (Bentyl Inj) (08/13/17 17:45) Ct Abd/Pel W Iv Contrast(Rout) (08/13/17 18:42) Oral Contrast - Adult (08/13/17 18:49) Labs Laboratory Tests Test 08/13/17 17:46 White Blood Count 10.8 TH/MM3 Red Blood Count 3.53 MIL/MM3 Hemoglobin 11.6 GM/DL Hematocrit 34.4 % Mean Corpuscular Volume 97.4 FL Mean Corpuscular Hemoglobin 32.7 PG Mean Corpuscular Hemoglobin Concent 33.6 % Red Cell Distribution Width 15.3 % Platelet Count 242 TH/MM3 Mean Platelet Volume 9.5 FL Neutrophils (%) (Auto) 75.0 % Lymphocytes (%) (Auto) 12.7 % Monocytes (%) (Auto) 11.1 % Eosinophils (%) (Auto) 0.8 % Basophils (%) (Auto) 0.4 % Neutrophils # (Auto) 8.1 TH/MM3 Lymphocytes # (Auto) 1.4 TH/MM3 Monocytes # (Auto) 1.2 TH/MM3 Eosinophils # (Auto) 0.1 TH/MM3 Basophils # (Auto) 0.0 TH/MM3 CBC Comment DIFF FINAL Differential Comment Blood Urea Nitrogen 14 MG/DL Creatinine 0.93 MG/DL Random Glucose 115 MG/DL Total Protein 7.1 GM/DL Albumin 2.8 GM/DL Calcium Level 8.2 MG/DL Alkaline Phosphatase 117 U/L Aspartate Amino Transf (AST/SGOT) 14 U/L Alanine Aminotransferase (ALT/SGPT) 9 U/L Total Bilirubin 0.3 MG/DL Sodium Level 133 MEQ/L Potassium Level 3.9 MEQ/L Chloride Level 100 MEQ/L Carbon Dioxide Level 24.1 MEQ/L Anion Gap 9 MEQ/L Estimat Glomerular Filtration Rate 57 ML/MIN Lipase 248 U/L [facility] Medical Decision Making Medical Screen Exam Complete: Yes Emergency Medical Condition: Yes Differential Diagnosis C. difficile versus recurrent colitis versus intra-abdominal abscess Narrative Course 87-year-old female who recently had C. difficile colitis, presents today with complaints of continued abdominal cramps with diarrhea. Patient denies any fevers, chills. The patient's labs are essentially unremarkable. Given the patient still has abdominal pain, a CT abdomen pelvis has been ordered to rule out pathology. Patient signed out to the oncoming physician at change of shift. Disposition will be per her. Diagnosis Primary Impression: Abdominal pain Additional Impressions: Persistent diarrhea History of Clostridium difficile colitis Hiro Bond MD Aug 13, 2017 17:59
[2017-08-13 18:23] LABS: AUTOMATED NEUTROPHIL # 8.1 TH/MM3 (1.8-7.7); BASOPHIL % 0.4 % (0.0-2.0); EOSINOPHIL # 0.1 TH/MM3 (0-0.4); EOSINOPHIL % 0.8 % (0.0-4.0); HEMATOCRIT 34.4 % (35.0-46.0); HEMOGLOBIN 11.6 GM/DL (11.6-15.3); LYMPH % 12.7 % (9.0-44.0); LYMPHOCYTE # 1.4 TH/MM3 (1.0-4.8); MEAN CELL VOLUME 97.4 FL (80.0-100.0); MEAN CORPUSCULAR HEMOGLOBIN 32.7 PG (27.0-34.0); MEAN CORPUSCULAR HGB CONC 33.6 % (32.0-36.0); MEAN PLATELET VOLUME 9.5 FL (7.0-11.0); MONO % 11.1 % (0.0-8.0); MONOCYTE # 1.2 TH/MM3 (0-0.9); PLATELET COUNT 242 TH/MM3 (150-450); RED BLOOD COUNT 3.53 MIL/MM3 (4.00-5.30); RED CELL DISTRIBUTION WIDTH 15.3 % (11.6-17.2); WHITE BLOOD COUNT 10.8 TH/MM3 (4.0-11.0)
[2017-08-13 18:39] LABS: ALBUMIN 2.8 GM/DL (3.4-5.0); ALT (GPT) 9 U/L (10-53); AST (GOT) 14 U/L (15-37); BICARBONATE 24.1 MEQ/L (21.0-32.0); BLOOD UREA NITROGEN 14 MG/DL (7-18); CALCIUM 8.2 MG/DL (8.5-10.1); CHLORIDE 100 MEQ/L (98-107); CREATININE 0.93 MG/DL (0.50-1.00); GLOMERULAR FILTRATION RATE 57 ML/MIN (>89); GLUCOSE,RANDOM 115 MG/DL (74-106); SODIUM (NA) 133 MEQ/L (136-145)
[2017-08-13 18:42] LABS: ALKALINE PHOSPHATASE 117 U/L (45-117); TOTAL BILIRUBIN ADULT 0.3 MG/DL (0.2-1.0); TOTAL PROTEIN 7.1 GM/DL (6.4-8.2)
[2017-08-13] MEDS ORDERED: DIATRIZOATE MEGLUM/DIATRIZOATE SOD 9 ML CUP ONE (20:35)
[2017-08-13 22:20] VITALS: BP 146/65; PULSE 90; RESP 16; O2SAT 98
[2017-08-13 22:56] LABS: BACTERIA, URINE RARE /hpf; BILIRUBIN, URINE NEG (NEG); BLOOD, URINE NEG (NEG); GLUCOSE,URINE NEG (NEG); HYALINE CAST, URINE 31 /lpf (RARE); KETONE, URINE NEG (NEG); MUCUS URINE MANY /lpf (OCC); NITRITE,URINE NEG (NEG); RENAL EPITHELIAL CELLS <1 /hpf; SQUAMOUS EPITHELIAL CELL URINE 7 /hpf (0-5); TRANSITIONAL EPI CELLS, URINE <1 /hpf; URINE COLOR LIGHT-YELLOW (YELLW/STRAW); URINE LEUKOCYTE ESTERASE LARGE (NEG)
--- NOTE | 2017-08-13 23:54 | RADRPT ---
EXAM DATE/TIME: 08/13/2017 23:09 [facility] COMPARISON: CT ABDOMEN & PELVIS W/O CONTRAST, July 18, 2017, 22:58. INDICATIONS : Abdomen pain. IV CONTRAST: 80 cc Omnipaque 350 (iohexol) IV ORAL CONTRAST: Prescribed oral contrast ingested. RADIATION DOSE: 7.52 CTDIvol (mGy) MEDICAL HISTORY : Cardiovascular disease. Hypertension. Colitis SURGICAL HISTORY : Appendectomy. Hysterectomy. ENCOUNTER: Initial ACUITY: 1 day PAIN SCALE: 6/10 LOCATION: Bilateral abdomen TECHNIQUE: Volumetric scanning of the abdomen and pelvis was performed. Using automated exposure control and ad justment of the mA and/or kV according to patient size, radiation dose was kept as low as reasonably achievable to obtain optimal diagnostic quality images. DICOM format image data is available electro nically for review and comparison. FINDINGS: LOWER LUNGS: Atelectasis/scarring in the left lingula. Lung bases are otherwise clear LIVER: Homogeneous density without lesion. There is no dilation of the biliary tree. No calcified gallston es. SPLEEN: Normal size without lesion. PANCREAS: Cystic structures in the head and neck of the pancreas measuring upwards of 1.5 cm in diameter. The C BD appears to pass through or adjacent to the pancreatic head lesion. No pancreatic ductal dilatation to. KIDNEYS: Normal in size and shape. There is no mass, stone or hydronephrosis. ADRENAL GLANDS: Within normal limits. VASCULAR: There is no aortic aneurysm. BOWEL/MESENTERY: On the prior study, there was thickening and pericolonic stranding from the cecum to the portion of t he ascending colon. A lot of this has resolved with only some minimal thickening in the mid ascending . However, bowel wall thickening in the mid and distal portions of the transverse colon persist. ABDOMINAL WALL: Within normal limits. RETROPERITONEUM: There is no lymphadenopathy. BLADDER: No wall thickening or mass. REPRODUCTIVE: Patient appears to be status post hysterectomy. INGUINAL: There is no lymphadenopathy or hernia. MUSCULOSKELETAL: Within normal limits for patient age. CONCLUSION: 1. Persistent bowel wall thickening in the mid and distal portions of the transverse colon suggesting a nonspecific colitis. Thickening in the cecum and ascending colon actually show some interval impro vement. 2. Cysts in the pancreatic head and neck without evidence of biliary or pancreatic duct obstruction. Findings are encouraging for benignity. I would recommend MR of the abdomen on a nonemergent basis fo r further characterization, however. 3. Linear scarring/atelectasis in the left lingula Samy Juarez MD on August 13, 2017 at 23:44 Board Certified Radiologist. This report was verified electronically.
--- NOTE | 2017-08-14 01:01 | PD ---
Physical Exam Date Seen by Provider: August 14, 2017 Time Seen by Provider: 19:00 Narrative Patient signed out to me at [address] Bond, has been having ongoing problems with C. difficile diarrhea and is currently on oral vancomycin, here with ongoing diarrhea, feeling tired, CAT scan pending. Laboratory Tests Test 08/13/17 17:46 08/13/17 22:30 Red Blood Count 3.53 MIL/MM3 (4.00-5.30) Hematocrit 34.4 % (35.0-46.0) Neutrophils (%) (Auto) 75.0 % (16.0-70.0) Monocytes (%) (Auto) 11.1 % (0.0-8.0) Neutrophils # (Auto) 8.1 TH/MM3 (1.8-7.7) Monocytes # (Auto) 1.2 TH/MM3 (0-0.9) Random Glucose 115 MG/DL (74-106) Albumin 2.8 GM/DL (3.4-5.0) Calcium Level 8.2 MG/DL (8.5-10.1) Aspartate Amino Transf (AST/SGOT) 14 U/L (15-37) Alanine Aminotransferase (ALT/SGPT) 9 U/L (10-53) Sodium Level 133 MEQ/L (136-145) Estimat Glomerular Filtration Rate 57 ML/MIN (>89) Urine Turbidity HAZY (CLEAR) Urine Leukocyte Esterase LARGE (NEG) Urine WBC 110 /hpf (0-5) Urine Bacteria RARE /hpf (NONE) Urine Mucus MANY /lpf (OCC) Last 24 hours Impressions Abdomen/Pelvis CT 08/13/17 1842 Signed Impressions: Service Date/Time: Sunday, August 13, 2017 23:09 - CONCLUSION: 1. Persistent bowel wall thickening in the mid and distal portions of the transverse colon suggesting a nonspecific colitis. Thickening in the cecum and ascending colon actually show some interval improvement. 2. Cysts in the pancreatic head and neck without evidence of biliary or pancreatic duct obstruction. Findings are encouraging for benignity. I would recommend MR of the abdomen on a nonemergent basis for further characterization, however. 3. Linear scarring/atelectasis in the left lingula Samy Juarez MD CAT scan is showing signs of colitis and likely ongoing C. difficile diarrhea that has been resistant to vancomycin orally. She also has UTI on lab work. At this point, patient will likely need further treatment for C. difficile diarrhea. My plan would be to admit the patient for further evaluation, ID consultation, and workup. Case is discussed with Dr. Washburn for admission. Data Data Last Documented VS Vital Signs Date Time Temp Pulse Resp B/P (MAP) Pulse Ox O2 Delivery O2 Flow Rate FiO2 08/13/17 22:20 90 16 146/65 (92) 98 Room Air 08/13/17 17:26 98.5 Orders Orders Complete Blood Count With Diff (08/13/17 17:34) Comprehensive Metabolic Panel (08/13/17 17:34) Lipase (08/13/17 17:34) Urinalysis - C+S If Indicated (08/13/17 17:34) Iv Access Insert/Monitor (08/13/17 17:34) Ecg Monitoring (08/13/17 17:34) Oximetry (08/13/17 17:34) Sodium Chlor 0.9% 1000 Ml Inj (Ns 1000 M (08/13/17 17:34) Sodium Chloride 0.9% Flush (Ns Flush) (08/13/17 17:45) Dicyclomine Inj (Bentyl Inj) (08/13/17 17:45) Ct Abd/Pel W Iv Contrast(Rout) (08/13/17 18:42) Oral Contrast - Adult (08/13/17 18:49) Diatrizoate Liq ( Gastro[place] Liq) (08/13/17 20:35) Urine Culture (08/13/17 22:30) Iohexol 350 Inj (Omnipaque 350 Inj) (08/13/17 17:14) Admit Order (Ed Use Only) (08/14/17 00:58) Labs Laboratory Tests Test 08/13/17 17:46 08/13/17 22:30 White Blood Count 10.8 TH/MM3 Red Blood Count 3.53 MIL/MM3 Hemoglobin 11.6 GM/DL Hematocrit 34.4 % Mean Corpuscular Volume 97.4 FL Mean Corpuscular Hemoglobin 32.7 PG Mean Corpuscular Hemoglobin Concent 33.6 % Red Cell Distribution Width 15.3 % Platelet Count 242 TH/MM3 Mean Platelet Volume 9.5 FL Neutrophils (%) (Auto) 75.0 % Lymphocytes (%) (Auto) 12.7 % Monocytes (%) (Auto) 11.1 % Eosinophils (%) (Auto) 0.8 % Basophils (%) (Auto) 0.4 % Neutrophils # (Auto) 8.1 TH/MM3 Lymphocytes # (Auto) 1.4 TH/MM3 Monocytes # (Auto) 1.2 TH/MM3 Eosinophils # (Auto) 0.1 TH/MM3 Basophils # (Auto) 0.0 TH/MM3 CBC Comment DIFF FINAL Differential Comment Blood Urea Nitrogen 14 MG/DL Creatinine 0.93 MG/DL Random Glucose 115 MG/DL Total Protein 7.1 GM/DL Albumin 2.8 GM/DL Calcium Level 8.2 MG/DL Alkaline Phosphatase 117 U/L Aspartate Amino Transf (AST/SGOT) 14 U/L Alanine Aminotransferase (ALT/SGPT) 9 U/L Total Bilirubin 0.3 MG/DL Sodium Level 133 MEQ/L Potassium Level 3.9 MEQ/L Chloride Level 100 MEQ/L Carbon Dioxide Level 24.1 MEQ/L Anion Gap 9 MEQ/L Estimat Glomerular Filtration Rate 57 ML/MIN Lipase 248 U/L Urine Color LIGHT-YELLOW Urine Turbidity HAZY Urine pH 6.0 Urine Specific [place] 1.009 Urine Protein TRACE mg/dL Urine Glucose (UA) NEG mg/dL Urine Ketones NEG mg/dL Urine Occult Blood NEG Urine Nitrite NEG Urine Bilirubin NEG Urine Urobilinogen LESS THAN 2.0 MG/DL Urine Leukocyte Esterase LARGE Urine RBC 1 /hpf Urine WBC 110 /hpf Urine Squamous Epithelial Cells 7 /hpf Urine Transitional Epithelial Cells <1 /hpf Urine Renal Epithelial Cells <1 /hpf Urine Bacteria RARE /hpf Urine Hyaline Casts 31 /lpf Urine Mucus MANY /lpf Microscopic Urinalysis Comment CULTURE INDICATED MDM Medical Record Reviewed: Yes Supervised Visit with OMAR: No Diagnosis Primary Impression: Abdominal pain Additional Impressions: History of Clostridium difficile colitis Persistent diarrhea Admitting Information Admitting Physician Requests: Admit Maxwell Muhammad MD August 14, 2017 01:01
[2017-08-14 03:00] VITALS: BP 122/65; PULSE 88; RESP 16; O2SAT 97
[2017-08-14] MEDS ORDERED: SODIUM CHLORIDE 0.9% FLUSH 10 ML FLUSH IV FLUSH PRN (03:00)
[2017-08-14] MEDS ORDERED: ACETAMINOPHEN 325 MG TAB PO PRN (03:00)
[2017-08-14 04:01] VITALS: BP 134/64; PULSE 87; RESP 16; TEMP 97.8; O2SAT 94
[2017-08-14] MEDS: metroNIDAZOLE 500 MG INJ 100 ML IV SCH ×2 (04:15→13:44)
[2017-08-14] MEDS: CARBIDOPA/LEVODOPA 25 MG/100 MG TAB PO SCH ×3 (04:16→21:40)
[2017-08-14] MEDS: ENOXAPARIN SODIUM 40 MG/0.4 ML SYRINGE SQ SCH (04:16)
[2017-08-14 08:01] VITALS: BP 108/56; PULSE 88; RESP 18; TEMP 97.6; O2SAT 94
--- NOTE | 2017-08-14 10:04 | HHI.HP ---
[facility]PI [facility] Primary Care Physician Unknown Admission Diagnosis C. difficile diarrhea/dehydration/UTI Diagnoses: Chief Complaint: Diarrhea. Travel History International Travel<30 Days: No Contact w/Intl Traveler <30 Da: No Traveled to Known Affected Are: No History of Present Illness Ms. Christopher is a pleasant 87-year-old female with history of C. difficile colitis who presented to the emergency department on 08/13/2017 due to persistent diarrhea. Patient was discharged from the hospital on oral vancomycin after being treated for C. difficile colitis. She has been experiencing watery bowel movement multiple times a day. Every time she eats or drinks, she ends up having bowel movements. She usually have some abdominal discomfort that goes away after bowel movement. She denies any blood in the stool. However she has noticed black stool. No fever or chills. She has not tried any antidiarrheal medications. She denies any chest pain, shortness of breath. She does report some weight loss and generalized weakness. Denies any changes in bladder habits. Review of Systems Except as stated in HPI: all other systems reviewed are Neg Past Family Social History Past Medical History Rheumatoid arthritis Hypertension History of CVA C. difficile colitis Past Surgical History Appendectomy Hysterectomy Left lung surgery Carotid surgery Reported Medications Vancomycin (Vancomycin HCl) 125 Mg Cap 125 Mg PO QID Pantoprazole (Pantoprazole Sodium) 40 Mg Tab 40 Mg PO BID Nifedipine ER 24 HR (Nifedipine) 30 Mg Tab 30 Mg PO DAILY 30 Days Atorvastatin (Atorvastatin Calcium) 40 Mg Tab 40 Mg PO HS 30 Days Reported Ibuprofen 800 Mg Tab 800 Mg PO Q8H Vitamin D3 (Cholecalciferol) Unknown Strength Tab 1 Tab PO DAILY Meclizine (Meclizine HCl) 25 Mg Tab 25 Mg PO DAILY PRN Gabapentin 300 Mg Cap 300 Mg PO HS Carbidopa-Levodopa 25-100 Mg Tab 1 Tab PO Q8HR Metoprolol Tartrate 50 Mg Tab 50 Mg PO DAILY Allergies: Coded Allergies: ciprofloxacin (Verified Allergy, Intermediate, RASH, ITCHING, 07/19/17) codeine (Unverified Allergy, Intermediate, "VIOLENTLY SICK", 07/18/17) Family History No family history of Alzheimer's or Parkinson's. Social History Denies using alcohol, illicit drugs or tobacco. Physical Exam Vital Signs Vital Signs Date Time Temp Pulse Resp B/P (MAP) Pulse Ox O2 Delivery O2 Flow Rate FiO2 08/14/17 08:01 97.6 88 18 108/56 (73) 94 08/14/17 04:01 97.8 87 16 134/64 (87) 94 08/14/17 03:51 08/14/17 03:00 88 16 122/65 (84) 97 Room Air 08/13/17 22:20 90 16 146/65 (92) 98 Room Air 08/13/17 17:26 98.5 92 17 130/62 (84) 99 Physical Exam GENERAL: This is a well-nourished, well-developed patient, in no apparent distress. SKIN: No rashes, ecchymoses or lesions. Warm and dry. HEAD: Atraumatic. Normocephalic. No temporal or scalp tenderness. EYES: Pupils equal round and reactive. No injection or drainage. ENT: Nose without bleeding, purulent drainage or septal hematoma. Airway patent. NECK: Trachea midline. No lymphadenopathy. Supple, nontender, no meningeal signs. CARDIOVASCULAR: Regular rate and rhythm without murmurs, gallops, or rubs. No JVD. RESPIRATORY: Clear to auscultation. Breath sounds equal bilaterally. No wheezes , rales, or rhonchi. GASTROINTESTINAL: Abdomen soft, non-tender except some tenderness over right lower quadrant, nondistended. No guarding. MUSCULOSKELETAL: Extremities without clubbing, cyanosis, or edema. NEUROLOGICAL: Awake and alert. Cranial nerves II through XII intact. No focal neurological deficits. Normal speech. Laboratory Laboratory Tests Test 08/13/17 17:46 08/13/17 22:30 08/14/17 04:10 White Blood Count 10.8 Red Blood Count 3.53 Hemoglobin 11.6 Hematocrit 34.4 Mean Corpuscular Volume 97.4 Mean Corpuscular Hemoglobin 32.7 Mean Corpuscular Hemoglobin Concent 33.6 Red Cell Distribution Width 15.3 Platelet Count 242 Mean Platelet Volume 9.5 Neutrophils (%) (Auto) 75.0 Lymphocytes (%) (Auto) 12.7 Monocytes (%) (Auto) 11.1 Eosinophils (%) (Auto) 0.8 Basophils (%) (Auto) 0.4 Neutrophils # (Auto) 8.1 Lymphocytes # (Auto) 1.4 Monocytes # (Auto) 1.2 Eosinophils # (Auto) 0.1 Basophils # (Auto) 0.0 CBC Comment DIFF FINAL Differential Comment Blood Urea Nitrogen 14 Creatinine 0.93 Random Glucose 115 Total Protein 7.1 Albumin 2.8 Calcium Level 8.2 Alkaline Phosphatase 117 Aspartate Amino Transf (AST/SGOT) 14 Alanine Aminotransferase (ALT/SGPT) 9 Total Bilirubin 0.3 Sodium Level 133 Potassium Level 3.9 Chloride Level 100 Carbon Dioxide Level 24.1 Anion Gap 9 Estimat Glomerular Filtration Rate 57 Lipase 248 Urine Color LIGHT-YELLOW Urine Turbidity HAZY Urine pH 6.0 Urine Specific [place] 1.009 Urine Protein TRACE Urine Glucose (UA) NEG Urine Ketones NEG Urine Occult Blood NEG Urine Nitrite NEG Urine Bilirubin NEG Urine Urobilinogen LESS THAN 2.0 Urine Leukocyte Esterase LARGE Urine RBC 1 Urine WBC 110 Urine Squamous Epithelial Cells 7 Urine Transitional Epithelial Cells <1 Urine Renal Epithelial Cells <1 Urine Bacteria RARE Urine Hyaline Casts 31 Urine Mucus MANY Microscopic Urinalysis Comment CULTURE INDICATED Stool C. difficile Toxin (PCR) NEGATIVE Stl C. difficile Toxin Epiderm 027 PRESUMPTIVE NEGATIVE Date/Time Source Procedure Growth Status 08/13/17 22:30 Urine Random Urine Urine Culture Pending Received Result Diagram: 08/13/17 1746 08/13/17 1746 Imaging Last Impressions Abdomen/Pelvis CT 08/13/17 1842 Signed Impressions: Service Date/Time: Sunday, August 13, 2017 23:09 - CONCLUSION: 1. Persistent bowel wall thickening in the mid and distal portions of the transverse colon suggesting a nonspecific colitis. Thickening in the cecum and ascending colon actually show some interval improvement. 2. Cysts in the pancreatic head and neck without evidence of biliary or pancreatic duct obstruction. Findings are encouraging for benignity. I would recommend MR of the abdomen on a nonemergent basis for further characterization, however. 3. Linear scarring/atelectasis in the left lingula MD Myra Morai VTE Risk Assessment Caprini VTE Risk Assessment: Mod/High Risk (score >= 2) Caprini Risk Assessment Model Point Value = 1 Point Value = 2 Point Value = 3 Point Value = 5 Age 41-60 Minor surgery BMI > 25 kg/m2 Swollen legs Varicose veins or History of unexplained or recurrent spontaneous Oral contraceptives or hormone replacement Sepsis (< 1 month) Serious lung disease, including pneumonia (< 1 month) Abnormal pulmonary function Acute myocardial infarction Congestive heart failure (< 1 month) History of inflammatory bowel disease Medical patient at bed rest Age 61-74 Arthroscopic surgery Major open surgery (> 45 min) Laparoscopic surgery (> 45 min) Malignancy Confined to bed (> 72 hours) Immobilizing plaster cast Central venous access Age >= 75 History of VTE Family history of VTE Factor V Leiden Prothrombin [id number] Lupus anticoagulant Anticardiolipin antibodies Elevated serum homocysteine Heparin-induced thrombocytopenia Other congenital or acquired thrombophilia Stroke (< 1 month) Elective arthroplasty Hip, pelvis, or leg fracture Acute spinal cord injury (< 1 month) Prophylaxis Regimen Total Risk Factor Score Risk Level Prophylaxis Regimen 0-1 Low Early ambulation 2 Moderate Order ONE of the following: *Sequential Compression Device (SCD) *Heparin 5000 units SQ BID 3-4 Higher Order ONE of the following medications: *Heparin 5000 units SQ TID *Enoxaparin/Lovenox 40 mg SQ daily (WT < 150 kg, CrCl > 30 mL/min) *Enoxaparin/Lovenox 30 mg SQ daily (WT < 150 kg, CrCl > 10-29 mL/min) *Enoxaparin/Lovenox 30 mg SQ BID (WT < 150 kg, CrCl > 30 mL/min) AND/OR *Sequential Compression Device (SCD) 5 or more Highest Order ONE of the following medications: *Heparin 5000 units SQ TID (Preferred with Epidurals) *Enoxaparin/Lovenox 40 mg SQ daily (WT < 150 kg, CrCl > 30 mL/min) *Enoxaparin/Lovenox 30 mg SQ daily (WT < 150 kg, CrCl > 10-29 mL/min) *Enoxaparin/Lovenox 30 mg SQ BID (WT < 150 kg, CrCl > 30 mL/min) AND *Sequential Compression Device (SCD) Assessment and Plan Problem List: (1) Chronic diarrhea ICD Code: K52.9 - Noninfective gastroenteritis and colitis, unspecified (2) History of Clostridium difficile colitis ICD Code: Z86.19 - Personal history of other infectious and parasitic diseases Status: Acute Assessment and Plan Ms. Christopher is a pleasant 87-year-old female with a history of C. difficile colitis who presented to the emergency department on 08/13/2017 due to persistent diarrhea. She was recently discharged from the hospital on 07/22/2017 after being treated for C. difficile colitis. She was discharged on oral vancomycin. Chronic diarrhea Possible microscopic colitis -Patient is currently on oral vancomycin and IV Flagyl. -Infectious disease and GI consulted for further evaluation. -C. difficile is negative during this admission. -We will obtain stool studies to evaluate for any other infectious causes of diarrhea. -Patient underwent colonoscopy in June 2017 which shows nonspecific colitis. -Patient's symptoms are concerning for microscopic colitis. -Per ID recs, Mesalamine started. GI started solu-medrol. History of C. difficile colitis -Discussed with infectious disease. We will d/c all abx. Parkinson's disease - continue Carbidopa/Levadopa Hypertension - continue Nifedipine 30mg Qday. Full code. Lovenox. Physician Certification 2 Midnight Certification Type: Admission for Inpatient Services Order for Inpatient Services The services are ordered in accordance with Medicare regulations or non- Medicare payer requirements, as applicable. In the case of services not specified as inpatient-only, they are appropriately provided as inpatient services in accordance with the 2-midnight benchmark. Estimated LOS (days): 2 days is the estimated time the patient will need to remain in the hospital, assuming treatment plan goals are met and no additional complications. Post-Hospital Plan: Demi Daley DO August 14, 2017 10:04
[2017-08-14] MEDS: SODIUM CHLORIDE 0.9% FLUSH 10 ML FLUSH IV FLUSH SCH ×2 (10:18→21:41)
[2017-08-14] MEDS: PANTOPRAZOLE SOD 40 MG DELAYED RELEASE TAB PO SCH ×2 (10:18→21:40)
[2017-08-14] MEDS: VANCOMYCIN 500 MG VIAL (FOR ORAL USE ONLY) PO SCH ×2 (10:19→13:44)
[2017-08-14 11:39] VITALS: BP 118/56; PULSE 86; RESP 18; TEMP 97.7; O2SAT 95
[2017-08-14] MEDS: NIFEdipine 30 MG SUSTAINED RELEASE TAB PO SCH (13:44)
[2017-08-14] MEDS: METOPROLOL TARTRATE 50 MG TAB PO SCH (13:44)
--- NOTE | 2017-08-14 14:03 | PD.CONS ---
HPI History of Present Illness This is a 87 year old female who came into the hospital on 08/13/2017 with persistent diarrhea anywhere from 2-5 times a day and weakness. Patient was recently discharged from the hospital on 07/22/2017 with treatment of her C. difficile colitis and was discharged on oral vancomycin. Patient also notes that she returned to the [facility] and was placed in the [facility] setting for brief period of time. She states then is when her diarrhea worsened again. Patient states initially her symptoms seemed to improve but the watery diarrhea has returned. Aggregating factors or food but states that she does fairly well on liquids. Patient denies any fever, but has noted some nausea and vomiting for the past 3 or 4 days before her admission. She states the vomiting has subsided. Currently denies any heartburn no obvious hematemesis and no dark tarry stools. Patient's abdominal pain appears to be in the mid abdominal area and radiates over to the right mid quadrant.. CT scan does show mid and distal transverse colitis. Current C. difficile stool study is negative other stool studies are pending. Patient denies any history of colon cancer current hemoglobin is 11.6, and WBC count 10 point. Patient is a fair historian for some information only. (Mechelle Lee) PFSH Past Medical History Per the records rheumatoid arthritis Hypertension History of CVA C. difficile colitis Past Surgical History Appendectomy Hysterectomy Left lung surgery Carotid surgery (Mechelle Lee) Coded Allergies: ciprofloxacin (Verified Allergy, Intermediate, RASH, ITCHING, 07/19/17) codeine (Unverified Allergy, Intermediate, "VIOLENTLY SICK", 07/18/17) Medications Administered Medications Medications (Trade) Dose Ordered Sig/Ton Route PRN Reason Start Time Stop Time Status Last Admin Dose Admin Vancomycin HCl (VANCOMYCIN for oral use only) 125 mg QID PO 08/14/17 09:00 08/14/17 13:44 Sodium Chloride (NS Flush) 2 ml BID IV FLUSH 08/14/17 09:00 08/14/17 10:18 Enoxaparin Sodium (Lovenox Inj) 40 mg Q24H SQ 08/14/17 06:00 08/14/17 04:16 Metronidazole 100 ml @ 100 mls/hr Q8H IV 08/14/17 04:00 08/14/17 13:44 Carbidopa/Levodopa (Sinemet 25-100 Mg) 1 tab Q8HR PO 08/14/17 06:00 08/14/17 13:44 Metoprolol Tartrate (Lopressor) 50 mg DAILY PO 08/14/17 09:00 08/14/17 13:44 Nifedipine (Procardia Xl) 30 mg DAILY PO 08/14/17 09:00 08/14/17 13:44 Pantoprazole Sodium (Protonix) 40 mg BID PO 08/14/17 09:00 08/14/17 10:18 Family History No family history of Alzheimer's or Parkinson's. No family history of colon cancer Social History Denies using alcohol, illicit drugs or tobacco. (Mechelle Lee) Review of Systems Constitutional: COMPLAINS OF: Fatigue Gastrointestinal: COMPLAINS OF: Abdominal pain, Diarrhea (Mechelle Lee ) GI Exam Vitals I&O Vital Signs Date Time Temp Pulse Resp B/P (MAP) Pulse Ox O2 Delivery O2 Flow Rate FiO2 08/14/17 11:39 97.7 86 18 118/56 (76) 95 08/14/17 08:01 97.6 88 18 108/56 (73) 94 08/14/17 04:01 97.8 87 16 134/64 (87) 94 08/14/17 03:51 08/14/17 03:00 88 16 122/65 (84) 97 Room Air 08/13/17 22:20 90 16 146/65 (92) 98 Room Air 08/13/17 17:26 98.5 92 17 130/62 (84) 99 I/O 08/13/17 08/13/17 08/13/17 08/14/17 08/14/17 08/14/17 07:00 15:00 23:00 07:00 15:00 23:00 Intake Total 100 ml Balance 100 ml Intake Oral 100 ml # Bowel Movements 2 Imaging Last Impressions Abdomen/Pelvis CT 08/13/17 3030 Signed Impressions: Service Date/Time: Sunday, August 13, 2017 23:09 - CONCLUSION: 1. Persistent bowel wall thickening in the mid and distal portions of the transverse colon suggesting a nonspecific colitis. Thickening in the cecum and ascending colon actually show some interval improvement. 2. Cysts in the pancreatic head and neck without evidence of biliary or pancreatic duct obstruction. Findings are encouraging for benignity. I would recommend MR of the abdomen on a nonemergent basis for further characterization, however. 3. Linear scarring/atelectasis in the left lingula Samy Juarez MD Laboratory Test 08/13/17 17:46 08/13/17 22:30 08/14/17 04:10 White Blood Count 10.8 TH/MM3 Red Blood Count 3.53 MIL/MM3 Hemoglobin 11.6 GM/DL Hematocrit 34.4 % Mean Corpuscular Volume 97.4 FL Mean Corpuscular Hemoglobin 32.7 PG Mean Corpuscular Hemoglobin Concent 33.6 % Red Cell Distribution Width 15.3 % Platelet Count 242 TH/MM3 Mean Platelet Volume 9.5 FL Neutrophils (%) (Auto) 75.0 % Lymphocytes (%) (Auto) 12.7 % Monocytes (%) (Auto) 11.1 % Eosinophils (%) (Auto) 0.8 % Basophils (%) (Auto) 0.4 % Neutrophils # (Auto) 8.1 TH/MM3 Lymphocytes # (Auto) 1.4 TH/MM3 Monocytes # (Auto) 1.2 TH/MM3 Eosinophils # (Auto) 0.1 TH/MM3 Basophils # (Auto) 0.0 TH/MM3 CBC Comment DIFF FINAL Differential Comment Blood Urea Nitrogen 14 MG/DL Creatinine 0.93 MG/DL Random Glucose 115 MG/DL Total Protein 7.1 GM/DL Albumin 2.8 GM/DL Calcium Level 8.2 MG/DL Alkaline Phosphatase 117 U/L Aspartate Amino Transf (AST/SGOT) 14 U/L Alanine Aminotransferase (ALT/SGPT) 9 U/L Total Bilirubin 0.3 MG/DL Sodium Level 133 MEQ/L Potassium Level 3.9 MEQ/L Chloride Level 100 MEQ/L Carbon Dioxide Level 24.1 MEQ/L Anion Gap 9 MEQ/L Estimat Glomerular Filtration Rate 57 ML/MIN Lipase 248 U/L Urine Color LIGHT-YELLOW Urine Turbidity HAZY Urine pH 6.0 Urine Specific [place] 1.009 Urine Protein TRACE mg/dL Urine Glucose (UA) NEG mg/dL Urine Ketones NEG mg/dL Urine Occult Blood NEG Urine Nitrite NEG Urine Bilirubin NEG Urine Urobilinogen LESS THAN 2.0 MG/DL Urine Leukocyte Esterase LARGE Urine RBC 1 /hpf Urine WBC 110 /hpf Urine Squamous Epithelial Cells 7 /hpf Urine Transitional Epithelial Cells <1 /hpf Urine Renal Epithelial Cells <1 /hpf Urine Bacteria RARE /hpf Urine Hyaline Casts 31 /lpf Urine Mucus MANY /lpf Microscopic Urinalysis Comment CULTURE INDICATED Stool C. difficile Toxin (PCR) NEGATIVE Stl C. difficile Toxin Epiderm 027 PRESUMPTIVE NEGATIVE Date/Time Source Procedure Growth Status 08/13/17 22:30 Urine Random Urine Urine Culture - Preliminary IMMATURE GROWTH - REINCUBATE Resulted Physical Examination HEENT: Pale, normocephalic, atraumatic NECK: Neck is supple CHEST: No obvious rhonchi or wheezing, mild diminished breath sounds in her bases CARDIAC: Distant,, S1-S2 ABDOMEN: Soft, does note some mild mid abdominal discomfort that radiates into the right mid quadrant, no hepatosplenomegaly; bowel sounds are present in all four quadrants. EXTREMITIES: No edema. Lower extremities SKIN: Normal; no rash; no jaundice., Pale PHYSICIAN SURGEON: Fair historian, repeats herself at times , speech understandable (Mechelle Lee) Assessment and Plan Plan Colitis, as noted on CT scan that was done on 08/13/2017 persistent bowel wall thickening in the mid and distal portions of the transverse colon suggesting a nonspecific colitis. Thickening in the cecum and ascending colon actually show interval improvement. Cyst in the pancreatic head and neck without evidence of biliary or pancreatic duct obstruction. Findings are encouraging for being benign. Recommend MR of the abdomen on a nonemergency basis for further characteristics. Patient does note continued incontinent loose diarrhea stools anywhere from 2-5 times a day. Today early afternoon she has had 2 bowel movements today, C. difficile is negative, other stool studies including enterovirus, leukocytes, enteric pathogens, Angel, are pending. Patient does have some generalized weakness and fatigue probably related to her diarrhea. Patient's currently being managed on Protonix and denies any heartburn, but did note some nausea and vomiting for 3 or 4 days which seems to be resolved. Plan Diet heart healthy Consider MR of the abdomen , nonemergent Monitor labs Solumedrol Protonix continue vancomycin and Flagyl for now Supportive care Patient was seen per myself and Dr. Mata, note was written on his behalf (Mechelle Lee) Plan Patient was seen and examined, agree with above note, questionable etiology for her diarrhea, the CT scan showed thickening of the bowel, could be gastroenteritis because it is accompanied with nausea vomiting if diarrhea persists we might need to do colonoscopy otherwise this can be done as an outpatient (Yesi Mata MD) Mechelle Lee August 14, 2017 14:03 Yesi Mata MD August 14, 2017 20:28
--- NOTE | 2017-08-14 15:02 | PD.ID.CON ---
History of Present Illness Service ID Consult Requested By Reason for Consult Evaluation and Mment of diarrhea in patient with recurrent Cdiff Primary Care Physician Unknown Diagnoses: History of Present Illness Ms. Christopher is an pleasant 87-year-old female with history of C. difficile colitis who presented to the emergency department on 08/13/2017 due to persistent diarrhea. Patient was discharged from the hospital on oral vancomycin after being treated for C. difficile colitis in early part of July probably on July 22, 2017. Patient reports having taken her vancomycin and completed the course. She has been experiencing watery bowel movement multiple times a day. Every time she eats or drinks, she ends up having bowel movements. She usually have some abdominal discomfort that goes away after bowel movement. She denies any blood in the stool. However she has noticed black stool. Patient reports she had a colonoscopy in the recent past. No fever or chills. She denies any chest pain, shortness of breath. She does report some weight loss and generalized weakness. Denies any changes in bladder habits. 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 Review of Systems Constitutional: DENIES: Diaphoretic episodes, Fatigue, Fever, Weight gain, Weight loss, Chills, Dizziness, Change in appetite, Night Sweats Endocrine: DENIES: Abnorml menstrual pattern, Heat/cold intolerance, Polydipsia , Polyuria, Polyphagia Eyes: DENIES: Blurred vision, Diplopia, Eye inflammation, Eye pain, Vision loss , Photosensitivity, Double Vision Ears, nose, mouth, throat: DENIES: Tinnitus, Hearing loss, Vertigo, Nasal discharge, Oral lesions, Throat pain, Hoarseness, Ear Pain, Running Nose, Epistaxis, Sinus Pain, Toothache, Odynophagia Respiratory: DENIES: Apneas, Cough, Snoring, Wheezing, Hemoptysis, Sputum production, Shortness of breath Cardiovascular: DENIES: Chest pain, Palpitations, Syncope, Dyspnea on Exertion , PND, Lower Extremity Edema, Orthopnea, Claudication Gastrointestinal: COMPLAINS OF: Diarrhea, DENIES: Abdominal pain, Black stools , Bloody stools, Constipation, Nausea, Vomiting, Difficulty Swallowing, Anorexia Genitourinary: DENIES: Abnormal vaginal bleeding, Dysmenorrhea, Dyspareunia, Sexual dysfunction, Urinary frequency, Urinary incontinence, Urgency, Hematuria , Dysuria, Nocturia, Vaginal discharge Musculoskeletal: DENIES: Joint pain, Muscle aches, Stiffness, Joint Swelling, Back pain, Neck pain Integumentary: DENIES: Abnormal pigmentation, Pruritus, Rash, Nail changes, Breast masses, Breast skin changes, Nipple discharge Hematologic/lymphatic: DENIES: Bruising, Lymphadenopathy Immunologic/allergic: DENIES: Eczema, Urticaria Neurologic: DENIES: Abnormal gait, Headache, Localized weakness, Paresthesias, Seizures, Speech Problems, Tremor, Poor Balance Psychiatric: DENIES: Anxiety, Confusion, Mood changes, Depression, Hallucinations, Agitation, Suicidal Ideation, Homicidal Ideation, Delusions Except as stated in HPI: all other systems reviewed are Neg Past Family Social History Allergies: Coded Allergies: ciprofloxacin (Verified Allergy, Intermediate, RASH, ITCHING, 07/19/17) codeine (Unverified Allergy, Intermediate, "VIOLENTLY SICK", 07/18/17) Past Medical History Rheumatoid arthritis Hypertension History of CVA C. difficile colitis Past Surgical History Appendectomy Hysterectomy Left lung surgery Carotid surgery Reported Medications Reported Meds & Active Scripts Active Vancomycin (Vancomycin HCl) 125 Mg Cap 125 Mg PO QID Pantoprazole (Pantoprazole Sodium) 40 Mg Tab 40 Mg PO BID Nifedipine ER 24 HR (Nifedipine) 30 Mg Tab 30 Mg PO DAILY 30 Days Atorvastatin (Atorvastatin Calcium) 40 Mg Tab 40 Mg PO HS 30 Days Reported Ibuprofen 800 Mg Tab 800 Mg PO Q8H Vitamin D3 (Cholecalciferol) Unknown Strength Tab 1 Tab PO DAILY Meclizine (Meclizine HCl) 25 Mg Tab 25 Mg PO DAILY PRN Gabapentin 300 Mg Cap 300 Mg PO HS Carbidopa-Levodopa 25-100 Mg Tab 1 Tab PO Q8HR Metoprolol Tartrate 50 Mg Tab 50 Mg PO DAILY Active Ordered Medications Current Medications Medications (Trade) Dose Ordered Sig/Ton Route Start Time Stop Time Status Last Admin (NS Flush) 2 ml UNSCH PRN IV FLUSH 08/13/17 17:45 (NS Flush) 2 ml UNSCH PRN IV FLUSH 08/14/17 03:00 (NS Flush) 2 ml BID IV FLUSH 08/14/17 09:00 08/14/17 10:18 (Tylenol) 650 mg Q4H PRN PO 08/14/17 03:00 (Lovenox Inj) 40 mg Q24H SQ 08/14/17 06:00 08/14/17 04:16 (Lipitor) 40 mg HS PO 08/14/17 21:00 (Sinemet 25-100 Mg) 1 tab Q8HR PO 08/14/17 06:00 08/14/17 13:44 (Neurontin) 300 mg HS PO 08/14/17 21:00 (Lopressor) 50 mg DAILY PO 08/14/17 09:00 08/14/17 13:44 (Procardia Xl) 30 mg DAILY PO 08/14/17 09:00 08/14/17 13:44 (Protonix) 40 mg BID PO 08/14/17 09:00 08/14/17 10:18 (SoluMEDROL INJ) 40 mg Q12H IV PUSH 08/14/17 15:00 08/14/17 16:10 Family History No family history of Alzheimer's or Parkinson's. Social History Denies using alcohol, illicit drugs or tobacco. Lives at home with daughter. Physical Exam Vital Signs Vital Signs Date Time Temp Pulse Resp B/P (MAP) Pulse Ox O2 Delivery O2 Flow Rate FiO2 08/14/17 11:39 97.7 86 18 118/56 (76) 95 08/14/17 08:01 97.6 88 18 108/56 (73) 94 08/14/17 04:01 97.8 87 16 134/64 (87) 94 08/14/17 03:51 08/14/17 03:00 88 16 122/65 (84) 97 Room Air 08/13/17 22:20 90 16 146/65 (92) 98 Room Air 08/13/17 17:26 98.5 92 17 130/62 (84) 99 Physical Exam GENERAL: This is a well-nourished, well-developed patient, in no apparent distress. SKIN: No rashes, ecchymoses or lesions. Cool and dry. HEAD: Atraumatic. Normocephalic. No temporal or scalp tenderness. EYES: Pupils equal round and reactive. Extraocular motions intact. No scleral icterus. No injection or drainage. ENT: Nose without bleeding, purulent drainage or septal hematoma. Throat without erythema, tonsillar hypertrophy or exudate. Uvula midline. Airway patent. NECK: Trachea midline. Supple, nontender, no meningeal signs. CARDIOVASCULAR: Heart sounds audible. No murmur appreciated. RESPIRATORY: Clear to auscultation. Breath sounds equal bilaterally. No wheezes , rales, or rhonchi. GASTROINTESTINAL: Abdomen soft, non-tender, nondistended. MUSCULOSKELETAL: Extremities with deformities s/o chronic arthritis. No joint tenderness, effusion, or edema noted. No calf tenderness. Negative Homans sign bilaterally. NEUROLOGICAL: Awake and alert. Non focal Psych cooperative IV line sites with no e.o infection Laboratory Laboratory Tests Test 08/13/17 17:46 08/13/17 22:30 08/14/17 04:10 White Blood Count 10.8 Red Blood Count 3.53 Hemoglobin 11.6 Hematocrit 34.4 Mean Corpuscular Volume 97.4 Mean Corpuscular Hemoglobin 32.7 Mean Corpuscular Hemoglobin Concent 33.6 Red Cell Distribution Width 15.3 Platelet Count 242 Mean Platelet Volume 9.5 Neutrophils (%) (Auto) 75.0 Lymphocytes (%) (Auto) 12.7 Monocytes (%) (Auto) 11.1 Eosinophils (%) (Auto) 0.8 Basophils (%) (Auto) 0.4 Neutrophils # (Auto) 8.1 Lymphocytes # (Auto) 1.4 Monocytes # (Auto) 1.2 Eosinophils # (Auto) 0.1 Basophils # (Auto) 0.0 CBC Comment DIFF FINAL Differential Comment Blood Urea Nitrogen 14 Creatinine 0.93 Random Glucose 115 Total Protein 7.1 Albumin 2.8 Calcium Level 8.2 Alkaline Phosphatase 117 Aspartate Amino Transf (AST/SGOT) 14 Alanine Aminotransferase (ALT/SGPT) 9 Total Bilirubin 0.3 Sodium Level 133 Potassium Level 3.9 Chloride Level 100 Carbon Dioxide Level 24.1 Anion Gap 9 Estimat Glomerular Filtration Rate 57 Lipase 248 Urine Color LIGHT-YELLOW Urine Turbidity HAZY Urine pH 6.0 Urine Specific [place] 1.009 Urine Protein TRACE Urine Glucose (UA) NEG Urine Ketones NEG Urine Occult Blood NEG Urine Nitrite NEG Urine Bilirubin NEG Urine Urobilinogen LESS THAN 2.0 Urine Leukocyte Esterase LARGE Urine RBC 1 Urine WBC 110 Urine Squamous Epithelial Cells 7 Urine Transitional Epithelial Cells <1 Urine Renal Epithelial Cells <1 Urine Bacteria RARE Urine Hyaline Casts 31 Urine Mucus MANY Microscopic Urinalysis Comment CULTURE INDICATED Stool C. difficile Toxin (PCR) NEGATIVE Stl C. difficile Toxin Epiderm 027 PRESUMPTIVE NEGATIVE Date/Time Source Procedure Growth Status 08/13/17 22:30 Urine Random Urine Urine Culture - Preliminary IMMATURE GROWTH - REINCUBATE Resulted Result Diagram: 4/30/18 1746 08/13/17 1746 Imaging Last Impressions Abdomen/Pelvis CT 08/13/17 1842 Signed Impressions: Service Date/Time: Sunday, August 13, 2017 23:09 - CONCLUSION: 1. Persistent bowel wall thickening in the mid and distal portions of the transverse colon suggesting a nonspecific colitis. Thickening in the cecum and ascending colon actually show some interval improvement. 2. Cysts in the pancreatic head and neck without evidence of biliary or pancreatic duct obstruction. Findings are encouraging for benignity. I would recommend MR of the abdomen on a nonemergent basis for further characterization, however. 3. Linear scarring/atelectasis in the left lingula Samy Juarez MD Assessment and Plan Assessment and Plan Persistent diarrhea in a patient with C. 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 History of C. difficile infection currently C. difficile PCR negative this admission Rheumatoid arthritis Recommendations: Discontinue vancomycin oral Discontinue Flagyl IV Start lactobacillus as probiotic Start Asacol for secretory diarrhea. If patient continues to do well on this regimen he would prove that this is a secretory diarrhea. If the diarrhea persists she may need further GI workup. Discussed with patient Discussed with Dr. Mccormick. Vera Castrejon MD August 14, 2017 15:02
[2017-08-14 16:00] VITALS: BP 108/54; PULSE 77; RESP 18; TEMP 97.6; O2SAT 95
[2017-08-14] MEDS: methylPREDNISolone SOD SUCC 40 MG/1 ML VIAL IV PUSH SCH (16:10)
[2017-08-14] MEDS: MESALAMINE 250 MG CAP PO SCH ×2 (18:58→21:40)
[2017-08-14 21:36] VITALS: BP 106/57; PULSE 86; RESP 18; TEMP 97.8; O2SAT 93
[2017-08-14] MEDS: GABAPENTIN 300 MG CAP PO SCH (21:40)
[2017-08-14] MEDS: LACTOBACILLUS ACIDOPHILUS TAB PO SCH (21:40)
[2017-08-14] MEDS: ATORVASTATIN 40 MG TAB PO SCH (21:40)
[2017-08-15] VITALS: BP 90/53; PULSE 73; RESP 18; TEMP 97.2; O2SAT 94
[2017-08-15] MEDS: methylPREDNISolone SOD SUCC 40 MG/1 ML VIAL IV PUSH SCH ×2 (03:47→14:14)
[2017-08-15 04:00] VITALS: BP 103/56; PULSE 71; RESP 18; TEMP 97.6; O2SAT 93
[2017-08-15] MEDS: CARBIDOPA/LEVODOPA 25 MG/100 MG TAB PO SCH ×3 (05:55→22:09)
[2017-08-15] MEDS: ENOXAPARIN SODIUM 40 MG/0.4 ML SYRINGE SQ SCH (05:55)
[2017-08-15 08:00] VITALS: BP 108/59; PULSE 71; RESP 17; TEMP 98.4; O2SAT 92
[2017-08-15 08:19] LABS: AUTOMATED NEUTROPHIL # 8.8 TH/MM3 (1.8-7.7); BASOPHIL % 0.1 % (0.0-2.0); HEMATOCRIT 32.4 % (35.0-46.0); HEMOGLOBIN 10.9 GM/DL (11.6-15.3); LYMPH % 7.4 % (9.0-44.0); LYMPHOCYTE # 0.7 TH/MM3 (1.0-4.8); MEAN CELL VOLUME 96.7 FL (80.0-100.0); MEAN CORPUSCULAR HEMOGLOBIN 32.7 PG (27.0-34.0); MEAN CORPUSCULAR HGB CONC 33.8 % (32.0-36.0); MEAN PLATELET VOLUME 9.2 FL (7.0-11.0); MONO % 0.8 % (0.0-8.0); MONOCYTE # 0.1 TH/MM3 (0-0.9); NEUT % 91.7 % (16.0-70.0); PLATELET COUNT 248 TH/MM3 (150-450); RED BLOOD COUNT 3.35 MIL/MM3 (4.00-5.30); RED CELL DISTRIBUTION WIDTH 14.8 % (11.6-17.2); WHITE BLOOD COUNT 9.5 TH/MM3 (4.0-11.0)
[2017-08-15 08:45] LABS: BICARBONATE 22.3 MEQ/L (21.0-32.0); CALCIUM 8.3 MG/DL (8.5-10.1); CREATININE 0.74 MG/DL (0.50-1.00)
[2017-08-15] MEDS: METOPROLOL TARTRATE 50 MG TAB PO SCH (09:27)
[2017-08-15] MEDS: LACTOBACILLUS ACIDOPHILUS TAB PO SCH ×2 (09:27→22:10)
[2017-08-15] MEDS: MESALAMINE 250 MG CAP PO SCH ×4 (09:27→22:09)
[2017-08-15] MEDS: SODIUM CHLORIDE 0.9% FLUSH 10 ML FLUSH IV FLUSH SCH ×2 (09:27→22:10)
[2017-08-15] MEDS: PANTOPRAZOLE SOD 40 MG DELAYED RELEASE TAB PO SCH ×2 (09:27→22:09)
[2017-08-15] MEDS: NIFEdipine 30 MG SUSTAINED RELEASE TAB PO SCH (09:27)
[2017-08-15 12:00] VITALS: BP 95/52; PULSE 70; RESP 18; TEMP 98.3; O2SAT 97
--- NOTE | 2017-08-15 14:42 | HHI.GIFU ---
Subjective Remarks Pt resting in bed. Eating lunch. Said she had 2 loose stools today. (Yesenia Mejia) Objective Vitals I&O Vital Signs Date Time Temp Pulse Resp B/P (MAP) Pulse Ox O2 Delivery O2 Flow Rate FiO2 08/15/17 12:00 98.3 70 18 95/52 (66) 97 08/15/17 08:00 Room Air 08/15/17 08:00 98.4 71 17 108/59 (75) 92 08/15/17 04:00 97.6 71 18 103/56 (72) 93 08/15/17 00:00 97.2 73 18 90/53 (65) 94 08/14/17 23:45 Room Air 08/14/17 21:36 97.8 86 18 106/57 (73) 93 08/14/17 16:00 97.6 77 18 108/54 (72) 95 I/O 08/14/17 08/14/17 08/14/17 08/15/17 08/15/17 08/15/17 06:59 14:59 22:59 06:59 14:59 22:59 Intake Total 100 ml 240 ml Balance 100 ml 240 ml Intake Oral 100 ml 240 ml # Voids 1 # Bowel Movements 2 Laboratory Laboratory Tests Test 08/15/17 07:31 White Blood Count 9.5 Red Blood Count 3.35 Hemoglobin 10.9 Hematocrit 32.4 Mean Corpuscular Volume 96.7 Mean Corpuscular Hemoglobin 32.7 Mean Corpuscular Hemoglobin Concent 33.8 Red Cell Distribution Width 14.8 Platelet Count 248 Mean Platelet Volume 9.2 Neutrophils (%) (Auto) 91.7 Lymphocytes (%) (Auto) 7.4 Monocytes (%) (Auto) 0.8 Eosinophils (%) (Auto) 0.0 Basophils (%) (Auto) 0.1 Neutrophils # (Auto) 8.8 Lymphocytes # (Auto) 0.7 Monocytes # (Auto) 0.1 Eosinophils # (Auto) 0.0 Basophils # (Auto) 0.0 CBC Comment DIFF FINAL Differential Comment Blood Urea Nitrogen 11 Creatinine 0.74 Random Glucose 147 Calcium Level 8.3 Sodium Level 135 Potassium Level 3.9 Chloride Level 102 Carbon Dioxide Level 22.3 Anion Gap 11 Estimat Glomerular Filtration Rate 74 Date/Time Source Procedure Growth Status 08/14/17 17:50 Stool Stool Stool Pus (ANUPAMA) - Final FEW WBC'S Resulted 08/14/17 17:50 Stool Stool Giardia Antigen (ANUPAMA) Pending Resulted 08/13/17 22:30 Urine Random Urine Urine Culture - Final 50-100,000 CFU/ML MIXED ISIDORO... Complete Imaging Last Impressions Abdomen/Pelvis CT 08/13/17 7922 Signed Impressions: Service Date/Time: Sunday, August 13, 2017 23:09 - CONCLUSION: 1. Persistent bowel wall thickening in the mid and distal portions of the transverse colon suggesting a nonspecific colitis. Thickening in the cecum and ascending colon actually show some interval improvement. 2. Cysts in the pancreatic head and neck without evidence of biliary or pancreatic duct obstruction. Findings are encouraging for benignity. I would recommend MR of the abdomen on a nonemergent basis for further characterization, however. 3. Linear scarring/atelectasis in the left lingula Samy Juarez MD Physical Exam HEENT: PERRL; normocephalic; atraumatic; no jaundice. CHEST: CTA CARDIAC: RRR ABDOMEN: Soft, nondistended, nontender; no hepatosplenomegaly; bowel sounds are present in all four quadrants. EXTREMITIES: No clubbing, cyanosis, or edema. SKIN: Normal; no rash; no jaundice. BECK TENDER: No focal deficits; alert and oriented times three. (Yesenia Mejia [facility]) Assessment and Plan Plan Colitis, as noted on CT scan that was done on 08/13/2017 persistent bowel wall thickening in the mid and distal portions of the transverse colon suggesting a nonspecific colitis. Thickening in the cecum and ascending colon actually show interval improvement. Cyst in the pancreatic head and neck without evidence of biliary or pancreatic duct obstruction. Findings are encouraging for being benign. Recommend MR of the abdomen on a nonemergency basis for further characteristics. Patient does note continued incontinent loose diarrhea stools anywhere from 2-5 times a day. Today early afternoon she has had 2 bowel movements today, C. difficile is negative, other stool studies including enterovirus, leukocytes, enteric pathogens, Angel, are pending. Patient does have some generalized weakness and fatigue probably related to her diarrhea. Patient's currently being managed on Protonix and denies any heartburn, but did note some nausea and vomiting for 3 or 4 days which seems to be resolved. 08/15/17 N/V improved, pt eating. stool studies still pending. pt has had loose stools after eating for 1 month, with incontinence 2 loose stools today. Plan Diet heart healthy continue asacol and probiotics await stool cs if stool cx neg, consider fiber & cholestyramine Monitor labs Supportive care Patient was seen per myself and Dr. Mata, note was written on his behalf (Yesenia Mejia) Plan Patient was seen and examined, agree with above note, she is tolerating her dinner tonight, await the results of the stool culture, may need colonoscopy if diarrhea persist and negative culture (Yesi Mata MD) Yesenia Mejia August 15, 2017 14:42 Yesi Mata MD August 15, 2017 21:58
[2017-08-15 16:00] VITALS: BP 110/55; PULSE 85; RESP 18; TEMP 97.9; O2SAT 97
--- NOTE | 2017-08-15 18:35 | HHI.PR ---
Subjective Remarks Follow-up for colitis Still having diarrhea, about 4 times a day, loose and watery, mild abdominal pain unchanged. Objective Vitals Vital Signs Date Time Temp Pulse Resp B/P (MAP) Pulse Ox O2 Delivery O2 Flow Rate FiO2 08/15/17 16:00 97.9 85 18 110/55 (73) 97 08/15/17 12:00 98.3 70 18 95/52 (66) 97 08/15/17 08:00 Room Air 08/15/17 08:00 98.4 71 17 108/59 (75) 92 08/15/17 04:00 97.6 71 18 103/56 (72) 93 08/15/17 00:00 97.2 73 18 90/53 (65) 94 08/14/17 23:45 Room Air 08/14/17 21:36 97.8 86 18 106/57 (73) 93 I/O 08/14/17 08/14/17 08/14/17 08/15/17 08/15/17 08/15/17 07:00 15:00 23:00 07:00 15:00 23:00 Intake Total 100 ml 240 ml 720 ml Output Total 55 ml Balance 100 ml 240 ml 665 ml Intake Oral 100 ml 240 ml 720 ml Drainage Total 55 ml # Voids 1 3 # Bowel Movements 2 3 Result Diagram: 08/15/1731 08/15/17 07 Objective Remarks GENERAL: This is a well-nourished, well-developed patient, in no apparent distress. CARDIOVASCULAR: Regular rate and rhythm without murmurs, gallops, or rubs. No JVD. RESPIRATORY: Clear to auscultation. Breath sounds equal bilaterally. No wheezes , rales, or rhonchi. GASTROINTESTINAL: Abdomen soft, non-tender except mild tenderness over right lower quadrant, nondistended. No guarding. MUSCULOSKELETAL: Extremities without clubbing, cyanosis, or edema. NEUROLOGICAL: Awake and alert. Cranial nerves II through XII intact. No focal neurological deficits. Normal speech. A/P Problem List: (1) Chronic diarrhea ICD Code: K52.9 - Noninfective gastroenteritis and colitis, unspecified (2) History of Clostridium difficile colitis ICD Code: Z86.19 - Personal history of other infectious and parasitic diseases Status: Acute Assessment and Plan Ms. Christopher is a pleasant 87-year-old female with a history of C. difficile colitis who presented to the emergency department on 08/13/2017 due to persistent diarrhea. She was recently discharged from the hospital on 07/22/2017 after being treated for C. difficile colitis. She was discharged on oral vancomycin. Chronic diarrhea Possible microscopic colitis -Patient is currently on oral vancomycin and IV Flagyl. Awaiting input from infectious disease and GI. Recently on Flagyl, stop by GI. Ruddy per GI -C. difficile is negative during this admission. -We will obtain stool studies to evaluate for any other infectious causes of diarrhea. -Patient underwent colonoscopy in June 2017 which shows nonspecific colitis. -Patient's symptoms are concerning for microscopic colitis. -Per ID recs, Mesalamine started. History of C. difficile colitis -Discussed with infectious disease. We will d/c all abx. Parkinson's disease - continue Carbidopa/Levadopa Hypertension - continue Nifedipine 30mg Qday. Full code. Lovenox. Shayan Camarena MD August 15, 2017 18:35
[2017-08-15 20:00] VITALS: BP 107/74; PULSE 82; RESP 16; TEMP 97; O2SAT 97
[2017-08-15] MEDS: GABAPENTIN 300 MG CAP PO SCH (22:09)
[2017-08-15] MEDS: ATORVASTATIN 40 MG TAB PO SCH (22:10)
[2017-08-16] VITALS: BP 118/66; PULSE 75; RESP 17; TEMP 97.7; O2SAT 97
[2017-08-16 04:00] VITALS: BP 129/72; PULSE 77; RESP 17; TEMP 97.7; O2SAT 98
[2017-08-16] MEDS: methylPREDNISolone SOD SUCC 40 MG/1 ML VIAL IV PUSH SCH ×2 (04:02→14:12)
[2017-08-16] MEDS: CARBIDOPA/LEVODOPA 25 MG/100 MG TAB PO SCH ×3 (06:00→21:28)
[2017-08-16] MEDS: ENOXAPARIN SODIUM 40 MG/0.4 ML SYRINGE SQ SCH (06:00)
[2017-08-16 08:00] VITALS: BP 119/74; PULSE 84; RESP 18; TEMP 98.1; O2SAT 96
[2017-08-16] MEDS: MESALAMINE 250 MG CAP PO SCH ×4 (08:35→21:28)
[2017-08-16] MEDS: LACTOBACILLUS ACIDOPHILUS TAB PO SCH ×2 (08:35→21:27)
[2017-08-16] MEDS: METOPROLOL TARTRATE 50 MG TAB PO SCH (08:35)
[2017-08-16] MEDS: PANTOPRAZOLE SOD 40 MG DELAYED RELEASE TAB PO SCH ×2 (08:35→21:27)
[2017-08-16] MEDS: SODIUM CHLORIDE 0.9% FLUSH 10 ML FLUSH IV FLUSH SCH ×2 (08:35→21:28)
[2017-08-16] MEDS: NIFEdipine 30 MG SUSTAINED RELEASE TAB PO SCH (08:35)
[2017-08-16 12:00] VITALS: BP 102/59; PULSE 76; RESP 16; TEMP 98; O2SAT 95
--- NOTE | 2017-08-16 12:37 | HHI.GIFU ---
Subjective Remarks Pt resting in bed. still c/o abd pain on left side, diarrhea and fecal incontinence. tolerating diet. (Yesenia Mejia) Objective Vitals I&O Vital Signs Date Time Temp Pulse Resp B/P (MAP) Pulse Ox O2 Delivery O2 Flow Rate FiO2 08/16/17 08:00 Room Air 08/16/17 04:00 97.7 77 17 129/72 (91) 98 08/16/17 00:00 97.7 75 17 118/66 (83) 97 08/15/17 20:00 97 Room Air 08/15/17 20:00 97.0 82 16 107/74 (85) 97 08/15/17 16:00 97.9 85 18 110/55 (73) 97 I/O 08/15/17 08/15/17 08/15/17 08/16/17 08/16/17 08/16/17 07:00 15:00 23:00 07:00 15:00 23:00 Intake Total 240 ml 720 ml 120 ml Output Total 55 ml Balance 240 ml 665 ml 120 ml Intake Oral 240 ml 720 ml 120 ml Drainage Total 55 ml # Voids 1 3 1 # Bowel Movements 3 Laboratory Date/Time Source Procedure Growth Status 08/14/17 17:50 Stool Stool Stool Pus (ANUPAMA) - Final FEW WBC'S Complete 08/14/17 17:50 Stool Stool Giardia Antigen (ANUPAMA) - Final NEGATIVE - NO GIARDIA ANTIGEN DETECTE... Complete 08/13/17 22:30 Urine Random Urine Urine Culture - Final 50-100,000 CFU/ML MIXED ISIDORO... Complete Imaging Last Impressions Abdomen/Pelvis CT 08/13/17 1842 Signed Impressions: Service Date/Time: Sunday, August 13, 2017 23:09 - CONCLUSION: 1. Persistent bowel wall thickening in the mid and distal portions of the transverse colon suggesting a nonspecific colitis. Thickening in the cecum and ascending colon actually show some interval improvement. 2. Cysts in the pancreatic head and neck without evidence of biliary or pancreatic duct obstruction. Findings are encouraging for benignity. I would recommend MR of the abdomen on a nonemergent basis for further characterization, however. 3. Linear scarring/atelectasis in the left lingula Samy Juarez MD Physical Exam HEENT: PERRL; normocephalic; atraumatic; no jaundice. CHEST: CTA CARDIAC: RRR ABDOMEN: Soft, mild TTP left quadrants; no hepatosplenomegaly; bowel sounds are present in all four quadrants. EXTREMITIES: No clubbing, cyanosis, or edema. SKIN: Normal; no rash; no jaundice. CURER ACID DRUM: No focal deficits; alert and oriented times three. (Yesenia Mejia) Assessment and Plan Plan Colitis, as noted on CT scan that was done on 08/13/2017 persistent bowel wall thickening in the mid and distal portions of the transverse colon suggesting a nonspecific colitis. Thickening in the cecum and ascending colon actually show interval improvement. Cyst in the pancreatic head and neck without evidence of biliary or pancreatic duct obstruction. Findings are encouraging for being benign. Recommend MR of the abdomen on a nonemergency basis for further characteristics. Patient does note continued incontinent loose diarrhea stools anywhere from 2-5 times a day. Today early afternoon she has had 2 bowel movements today, C. difficile is negative, other stool studies including enterovirus, leukocytes, enteric pathogens, Angel, are pending. Patient does have some generalized weakness and fatigue probably related to her diarrhea. Patient's currently being managed on Protonix and denies any heartburn, but did note some nausea and vomiting for 3 or 4 days which seems to be resolved. 08/15/17 N/V improved, pt eating. stool studies still pending. pt has had loose stools after eating for 1 month, with incontinence 2 loose stools today. 08/16/17 tolerating diet. stool studies neg. persistent loose stool, fecal incontinence, and left quadrant pain. Plan consider d/c solumedrol, does not seem to be helping colonoscopy in am obtain consent clears NPO after MN Golytely hold am lovenox continue asacol and probiotics consider fiber & cholestyramine to bulk stools Monitor labs Supportive care Patient was seen per myself and Dr. Mata, note was written on his behalf (Yesenia Mejia) Plan Patient was seen and examined, agree with above note, patient will have colonoscopy tomorrow for evaluation of her diarrhea and colitis patient is in agreement (Yesi Mata MD) Yesenia Mejia August 16, 2017 12:37 Yesi Mata MD August 16, 2017 20:21
--- NOTE | 2017-08-16 13:39 | HHI.PR ---
Subjective Remarks Patient reported having persistent diarrhea not resolving positive abdominal pain 9 out of 10 on the right side Afebrile no chest pain or short of breath Objective Vitals Vital Signs Date Time Temp Pulse Resp B/P (MAP) Pulse Ox O2 Delivery O2 Flow Rate FiO2 08/16/17 08:00 Room Air 08/16/17 04:00 97.7 77 17 129/72 (91) 98 08/16/17 00:00 97.7 75 17 118/66 (83) 97 08/15/17 20:00 97 Room Air 08/15/17 20:00 97.0 82 16 107/74 (85) 97 08/15/17 16:00 97.9 85 18 110/55 (73) 97 I/O 08/15/17 08/15/17 08/15/17 08/16/17 08/16/17 08/16/17 07:00 15:00 23:00 07:00 15:00 23:00 Intake Total 240 ml 720 ml 120 ml Output Total 55 ml Balance 240 ml 665 ml 120 ml Intake Oral 240 ml 720 ml 120 ml Drainage Total 55 ml # Voids 1 3 1 # Bowel Movements 3 Result Diagram: 08/15/17 0731 08/15/17 0731 Objective Remarks GENERAL: This is a well-nourished, well-developed patient, in no apparent distress. CARDIOVASCULAR: RRR, no gallops, or rubs. RESPIRATORY: Fair air entry bilaterally. No W, R, or R GASTROINTESTINAL: Abdomen soft, tender to palpation in the transverse colon on the right abdomen, nondistended. Positive bowel sounds MUSCULOSKELETAL: Extremities without clubbing, cyanosis, or edema. Pedal pulses appreciated NEUROLOGICAL: Awake and alert. Moves all extremity. Normal speech.no focal neurological deficit A/P Problem List: (1) Chronic diarrhea ICD Code: K52.9 - Noninfective gastroenteritis and colitis, unspecified (2) History of Clostridium difficile colitis ICD Code: Z86.19 - Personal history of other infectious and parasitic diseases Status: Acute Assessment and Plan Ms. Christopher is a pleasant 87-year-old female with a history of C. difficile colitis who presented to the emergency department on 08/13/2017 due to persistent diarrhea. She was recently discharged from the hospital on 07/22/2017 after being treated for C. difficile colitis. She was discharged on oral vancomycin. 08/16: Continue current care as below, appreciate GI follow-up, plan for colonoscopy tomorrow Chronic diarrhea Possible microscopic colitis -Patient is currently on oral vancomycin and IV Flagyl. Awaiting input from infectious disease and GI. Recently on Flagyl, stop by GI. Ruddy per GI -C. difficile is negative during this admission. -We will obtain stool studies to evaluate for any other infectious causes of diarrhea. -Patient underwent colonoscopy in June 2017 which shows nonspecific colitis. -Patient's symptoms are concerning for microscopic colitis. -Per ID recs, Mesalamine started. History of C. difficile colitis -Discussed with infectious disease. We will d/c all abx. Parkinson's disease - continue Carbidopa/Levadopa Hypertension - continue Nifedipine 30mg Qday. Full code. Lovenox. Devonte Reeder MD August 16, 2017 13:39
--- NOTE | 2017-08-16 14:06 | HHI.IDPN ---
Subjective Subjective Remarks Ms. Christopher is an pleasant 87-year-old female with history of C. difficile colitis who presented to the emergency department on 08/13/2017 due to persistent diarrhea. Patient was discharged from the hospital on oral vancomycin after being treated for C. difficile colitis in early part of July probably on July 22, 2017. Patient reports having taken her vancomycin and completed the course. She has been experiencing watery bowel movement multiple times a day. Every time she eats or drinks, she ends up having bowel movements. She usually have some abdominal discomfort that goes away after bowel movement. She denies any blood in the stool. However she has noticed black stool. Patient reports she had a colonoscopy in the recent past. No fever or chills. She denies any chest pain, shortness of breath. She does report some weight loss and generalized weakness. Denies any changes in bladder habits. 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 Overnight events reviewed No fevers No rash reports 3 episodes of diarrhea Dw GI plan for colonoscopy. Antibiotics Lactobacillus Asacol Lines Line sites with no e/o infection Past Medical History reviewed Allergies: Coded Allergies: ciprofloxacin (Verified Allergy, Intermediate, RASH, ITCHING, 07/19/17) codeine (Unverified Allergy, Intermediate, "VIOLENTLY SICK", 07/18/17) Objective . Vital Signs Date Time Temp Pulse Resp B/P (MAP) Pulse Ox O2 Delivery O2 Flow Rate FiO2 08/16/17 08:00 Room Air 08/16/17 04:00 97.7 77 17 129/72 (91) 98 08/16/17 00:00 97.7 75 17 118/66 (83) 97 08/15/17 20:00 97 Room Air 08/15/17 20:00 97.0 82 16 107/74 (85) 97 08/15/17 16:00 97.9 85 18 110/55 (73) 97 . Laboratory Tests Test 08/15/17 07:31 White Blood Count 9.5 TH/MM3 Red Blood Count 3.35 MIL/MM3 Hemoglobin 10.9 GM/DL Hematocrit 32.4 % Mean Corpuscular Volume 96.7 FL Mean Corpuscular Hemoglobin 32.7 PG Mean Corpuscular Hemoglobin Concent 33.8 % Red Cell Distribution Width 14.8 % Platelet Count 248 TH/MM3 Mean Platelet Volume 9.2 FL Neutrophils (%) (Auto) 91.7 % Lymphocytes (%) (Auto) 7.4 % Monocytes (%) (Auto) 0.8 % Eosinophils (%) (Auto) 0.0 % Basophils (%) (Auto) 0.1 % Neutrophils # (Auto) 8.8 TH/MM3 Lymphocytes # (Auto) 0.7 TH/MM3 Monocytes # (Auto) 0.1 TH/MM3 Eosinophils # (Auto) 0.0 TH/MM3 Basophils # (Auto) 0.0 TH/MM3 CBC Comment DIFF FINAL Differential Comment Laboratory Tests Test 08/15/17 07:31 Blood Urea Nitrogen 11 MG/DL Creatinine 0.74 MG/DL Random Glucose 147 MG/DL Calcium Level 8.3 MG/DL Sodium Level 135 MEQ/L Potassium Level 3.9 MEQ/L Chloride Level 102 MEQ/L Carbon Dioxide Level 22.3 MEQ/L Anion Gap 11 MEQ/L Estimat Glomerular Filtration Rate 74 ML/MIN Microbiology Date/Time Source Procedure Growth Status 08/14/17 17:50 Stool Stool Stool Pus (ANUPAMA) - Final FEW WBC'S Complete 08/14/17 17:50 Stool Stool Giardia Antigen (ANUPAMA) - Final NEGATIVE - NO GIARDIA ANTIGEN DETECTE... Complete 08/14/17 17:50 Stool Stool - Final NO ENTERIC PATHOGENS DETECTED BY PCR... Complete 08/13/17 22:30 Urine Random Urine Urine Culture - Final 50-100,000 CFU/ML MIXED ISIDORO... Complete Imaging Last Impressions Abdomen/Pelvis CT 08/13/17 1842 Signed Impressions: Service Date/Time: Sunday, August 13, 2017 23:09 - CONCLUSION: 1. Persistent bowel wall thickening in the mid and distal portions of the transverse colon suggesting a nonspecific colitis. Thickening in the cecum and ascending colon actually show some interval improvement. 2. Cysts in the pancreatic head and neck without evidence of biliary or pancreatic duct obstruction. Findings are encouraging for benignity. I would recommend MR of the abdomen on a nonemergent basis for further characterization, however. 3. Linear scarring/atelectasis in the left lingula Samy Juarez MD Physical Exam GENERAL: This is a well-nourished, well-developed patient, in no apparent distress. SKIN: No rashes, ecchymoses or lesions. Cool and dry. HEAD: Atraumatic. Normocephalic. No temporal or scalp tenderness. EYES: Pupils equal round and reactive. Extraocular motions intact. No scleral icterus. No injection or drainage. ENT: Nose without bleeding, purulent drainage or septal hematoma. Throat without erythema, tonsillar hypertrophy or exudate. Uvula midline. Airway patent. NECK: Trachea midline. Supple, nontender, no meningeal signs. CARDIOVASCULAR: Heart sounds audible. No murmur appreciated. RESPIRATORY: Clear to auscultation. Breath sounds equal bilaterally. No wheezes , rales, or rhonchi. GASTROINTESTINAL: Abdomen soft, non-tender, nondistended. MUSCULOSKELETAL: Extremities with deformities s/o chronic arthritis. No joint tenderness, effusion, or edema noted. No calf tenderness. Negative Homans sign bilaterally. NEUROLOGICAL: Awake and alert. Non focal Psych cooperative IV line sites with no e.o infection Assessment & Plan Remarks Persistent diarrhea in a patient with C. 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 History of C. difficile infection currently C. difficile PCR negative this admission Rheumatoid arthritis Recommendations: Continue lactobacillus as probiotic Continue Asacol for secretory diarrhea for now. If other etiology found will let GI decide if it needs to be continued. Please call ID back if any infectious etiology found on colonoscopy. Avoid systemic antibiotics as it can ppt prior Cdiff. Discussed with patient Will sign off please call back if any change in clinical condition or questions. Vera Castrejon MD August 16, 2017 14:06
[2017-08-16 16:00] VITALS: BP 133/60; PULSE 77; RESP 16; TEMP 98.5; O2SAT 95
[2017-08-16] MEDS ORDERED: PEG (High)/E-LYTE SOLN 4000 ML BTL PO ONE (16:00)
[2017-08-16 20:00] VITALS: BP 141/81; PULSE 93; RESP 16; TEMP 96.9; O2SAT 94
[2017-08-16] MEDS: GABAPENTIN 300 MG CAP PO SCH (21:27)
[2017-08-16] MEDS: ATORVASTATIN 40 MG TAB PO SCH (21:28)
[2017-08-17] VITALS: BP 112/67; PULSE 88; RESP 15; TEMP 97.8; O2SAT 93
[2017-08-17] MEDS: methylPREDNISolone SOD SUCC 40 MG/1 ML VIAL IV PUSH SCH ×2 (02:37→14:53)
[2017-08-17] MEDS ORDERED: POVIDONE IODINE 5% (ANTISEPSIS KIT) 4 APPLICATIONS EACH NARE PRN (06:30)
[2017-08-17] MEDS ORDERED: CHLORHEXIDINE GLUCONATE 2 % 1 PACK (2 CLOTHS) TOPICAL PRN (06:30)
[2017-08-17] MEDS ORDERED: METOPROLOL TARTRATE 25 MG TAB PO PRN (06:30)
[2017-08-17] MEDS ORDERED: LACTATED RINGER'S 1000 ML IV PRN (06:30)
[2017-08-17] MEDS ORDERED: SODIUM CHLORID 0.9% 500 ML IV PRN (06:30)
[2017-08-17] MEDS: CARBIDOPA/LEVODOPA 25 MG/100 MG TAB PO SCH ×3 (06:37→22:55)
[2017-08-17 08:00] VITALS: BP 133/65; PULSE 80; RESP 17; TEMP 97.4; O2SAT 94
[2017-08-17] MEDS: PANTOPRAZOLE SOD 40 MG DELAYED RELEASE TAB PO SCH ×2 (09:02→22:55)
[2017-08-17] MEDS: METOPROLOL TARTRATE 50 MG TAB PO SCH (09:03)
[2017-08-17] MEDS: MESALAMINE 250 MG CAP PO SCH ×4 (09:03→22:54)
[2017-08-17] MEDS: LACTOBACILLUS ACIDOPHILUS TAB PO SCH ×2 (09:09→22:55)
[2017-08-17] MEDS: NIFEdipine 30 MG SUSTAINED RELEASE TAB PO SCH (09:09)
[2017-08-17] MEDS: SODIUM CHLORIDE 0.9% FLUSH 10 ML FLUSH IV FLUSH SCH ×2 (09:10→22:54)
[2017-08-17 12:00] VITALS: BP 154/78; PULSE 68; RESP 17; TEMP 97.7; O2SAT 98
[2017-08-17] MEDS ORDERED: LIDOCAINE HCL 1% PF 5 ML SYRINGE OTHER ONE (12:00)
[2017-08-17] MEDS ORDERED: PROPOFOL 200 MG/20 ML AMP IV ONE (12:00)
[2017-08-17] MEDS ORDERED: LACT PO (13:51)
[2017-08-17] MEDS ORDERED: ASAC800T PO (14:11)
--- NOTE | 2017-08-17 14:16 | PD.PROCEDR ---
GI Procedure PROCEDURE PERFORMED Colonoscopy with biopsy INDICATION FOR PROCEDURE Abdominal pain and diarrhea PROCEDURE: The procedure, risks and benefits were discussed with Ms. Christopher and informed consent was obtained. Anesthesia sedated her with Diprivan. She was placed in the left lateral decubitus position. Colonoscopy: The Pentax videoscope was introduced through the rectum and advanced to see. Retroflexion was performed in the rectum. Colonic prep was suboptimal because of stool throughout the colon FINDINGS: Erythema in the ascending colon consistent with mild colitis biopsy was done Not able to see any large lesion or severe colitis This could be changes post C. difficile ESTIMATED BLOOD LOSS: None SPECIMENS REMOVED: Ascending COMPLICATIONS: None IMPRESSION: Erythema in the ascending colon consistent with mild colitis biopsy was done Not able to see any large lesion or severe colitis This could be changes post C. difficile PLAN: Follow-up biopsy Diet as tolerated Okay to discharge home from GI Follow-up as an outpatient in 2 weeks Consider colonoscopy again with longer prep Asacol 800 HD 3 times daily Yesi Mata MD August 17, 2017 14:16
--- NOTE | 2017-08-17 14:18 | HHI.GIFU ---
Subjective Remarks Patient still complaining of some abdominal discomfort and diarrhea, colonoscopy was done today Objective Vitals I&O Vital Signs Date Time Temp Pulse Resp B/P (MAP) Pulse Ox O2 Delivery O2 Flow Rate FiO2 08/17/17 12:00 97.7 68 17 154/78 (103) 98 08/17/17 09:13 Room Air 08/17/17 08:00 97.4 80 17 133/65 (87) 94 08/17/17 00:00 97.8 88 15 112/67 (82) 93 08/16/17 20:00 96.9 93 16 141/81 (101) 94 08/16/17 20:00 97 Room Air 08/16/17 16:00 98.5 77 16 133/60 (84) 95 I/O 08/16/17 08/16/17 08/16/17 08/17/17 08/17/17 08/17/17 07:00 15:00 23:00 07:00 15:00 23:00 Intake Total 120 ml 540 ml 0 ml Output Total 550 ml Balance 120 ml -10 ml 0 ml Intake Oral 120 ml 540 ml 0 ml Output Urine Total 550 ml # Voids 1 3 # Bowel Movements 3 6 Laboratory Date/Time Source Procedure Growth Status 08/14/17 17:50 Stool Stool Stool Pus (ANUPAMA) - Final FEW WBC'S Complete 08/14/17 17:50 Stool Stool Giardia Antigen (AUNPAMA) - Final NEGATIVE - NO GIARDIA ANTIGEN DETECTE... Complete 08/13/17 22:30 Urine Random Urine Urine Culture - Final 50-100,000 CFU/ML MIXED ISIDORO... Complete Physical Exam HEENT: PERRL; normocephalic; atraumatic; no jaundice. CHEST: CTA CARDIAC: RRR ABDOMEN: Soft, mild TTP left quadrants; no hepatosplenomegaly; bowel sounds are present in all four quadrants. EXTREMITIES: No clubbing, cyanosis, or edema. SKIN: Normal; no rash; no jaundice. MUD ANALYSIS OPERATOR: No focal deficits; alert and oriented times three. Assessment and Plan Plan Patient was seen and examined, patient still having some abdominal discomfort and diarrhea colonoscopy today for evaluation of her diarrhea and colitis IMPRESSION: Erythema in the ascending colon consistent with mild colitis biopsy was done Not able to see any large lesion or severe colitis This could be changes post C. difficile PLAN: Follow-up biopsy Diet as tolerated Okay to discharge home from GI Follow-up as an outpatient in 2 weeks Consider colonoscopy again with longer prep Asacol 800 HD 3 times daily Yesi Mata MD August 17, 2017 14:18
[2017-08-17 16:00] VITALS: BP 145/81; PULSE 77; RESP 17; TEMP 97.2; O2SAT 99
[2017-08-17 20:20] VITALS: BP 133/61; PULSE 84; RESP 18; TEMP 98.1; O2SAT 97
--- NOTE | 2017-08-17 20:21 | HHI.PR ---
Subjective Remarks Patient just came from colonoscopy I discussed with GI she had mild colitis GI cleared her for discharge on Asacol however patient is not happy about being discharged I discussed with her in length however she still think as long as she has a diarrhea she should stay in hospital, patient reported she talk to the insurance company and they told her she can stay 1 more day. eventually she refused to continue discussing with me and she asked me to leave the room. I think patient will appeal the discharge Objective Vitals Vital Signs Date Time Temp Pulse Resp B/P (MAP) Pulse Ox O2 Delivery O2 Flow Rate FiO2 08/17/17 16:00 97.2 77 17 145/81 (102) 99 08/17/17 14:15 97.6 68 20 121/59 (79) 99 08/17/17 14:10 97.6 70 16 129/62 (84) 99 08/17/17 12:00 97.7 68 17 154/78 (103) 98 08/17/17 09:13 Room Air 08/17/17 08:00 97.4 80 17 133/65 (87) 94 08/17/17 00:00 97.8 88 15 112/67 (82) 93 I/O 08/16/17 08/16/17 08/16/17 08/17/17 08/17/17 08/17/17 07:00 15:00 23:00 07:00 15:00 23:00 Intake Total 120 ml 540 ml 0 ml 200 ml 360 ml Output Total 550 ml Balance 120 ml -10 ml 0 ml 200 ml 360 ml Intake Oral 120 ml 540 ml 0 ml 360 ml IV Total 100 ml Other 100 ml Output Urine Total 550 ml # Voids 1 3 3 # Bowel Movements 3 6 3 Result Diagram: 08/15/1731 08/15/17730 Objective Remarks GENERAL: This is a well-nourished, well-developed patient, in no apparent distress. CARDIOVASCULAR: RRR, no gallops, or rubs. RESPIRATORY: Fair air entry bilaterally. No W, R, or R GASTROINTESTINAL: Abdomen soft, non-tender, nondistended. Positive bowel sounds MUSCULOSKELETAL: Extremities without clubbing, cyanosis, or edema. Pedal pulses appreciated NEUROLOGICAL: Awake and alert. Moves all extremity. Normal speech.no focal neurological deficit A/P Problem List: (1) Chronic diarrhea ICD Code: K52.9 - Noninfective gastroenteritis and colitis, unspecified (2) History of Clostridium difficile colitis ICD Code: Z86.19 - Personal history of other infectious and parasitic diseases Status: Acute Assessment and Plan Ms. Christopher is a pleasant 87-year-old female with a history of C. difficile colitis who presented to the emergency department on 08/13/2017 due to persistent diarrhea. She was recently discharged from the hospital on 07/22/2017 after being treated for C. difficile colitis. She was discharged on oral vancomycin. 08/16: Continue current care as below, appreciate GI follow-up, plan for colonoscopy tomorrow 08/17: Patient had colonoscopy today, I discussed with Dr. Mata, he reported mild colitis recommended Asacol 800 mg 3 times daily and to follow-up with him in 1-2 weeks, however patient refused discharge, I notified child welfare caseworker and charge nurse Chronic diarrhea Possible microscopic colitis -Patient is currently on oral vancomycin and IV Flagyl. Awaiting input from infectious disease and GI. Recently on Flagyl, stop by GI. Ruddy per GI -C. difficile is negative during this admission. -Follow stool studies to evaluate for any other infectious causes of diarrhea. -Patient underwent colonoscopy in June 2017 which shows nonspecific colitis. Status post another colonoscopy 08/17 -Per ID recs, Mesalamine started. History of C. difficile colitis -Discussed with infectious disease. We will d/c all abx. Parkinson's disease - continue Carbidopa/Levadopa Hypertension - continue Nifedipine 30mg Qday. Full code. Lovenox. Discharge Planning Patient cleared for discharge however she refused Devonte Reeder MD August 17, 2017 20:21
[2017-08-17] MEDS: GABAPENTIN 300 MG CAP PO SCH (22:55)
[2017-08-17] MEDS: ATORVASTATIN 40 MG TAB PO SCH (22:55)
[2017-08-17 23:30] VITALS: BP 115/55; PULSE 78; RESP 18; TEMP 98.1; O2SAT 94
[2017-08-18] MEDS: methylPREDNISolone SOD SUCC 40 MG/1 ML VIAL IV PUSH SCH (04:08)
[2017-08-18 04:35] VITALS: BP 121/59; PULSE 79; RESP 18; TEMP 98; O2SAT 95
[2017-08-18] MEDS: CARBIDOPA/LEVODOPA 25 MG/100 MG TAB PO SCH ×2 (05:13→12:21)
[2017-08-18] MEDS: ENOXAPARIN SODIUM 40 MG/0.4 ML SYRINGE SQ SCH (06:49)
[2017-08-18 08:00] VITALS: BP 110/57; PULSE 79; RESP 16; TEMP 97.1; O2SAT 96
[2017-08-18] MEDS: LACTOBACILLUS ACIDOPHILUS TAB PO SCH (09:00)
[2017-08-18] MEDS: METOPROLOL TARTRATE 50 MG TAB PO SCH (09:00)
[2017-08-18] MEDS: MESALAMINE 250 MG CAP PO SCH ×3 (09:00→17:22)
[2017-08-18] MEDS: SODIUM CHLORIDE 0.9% FLUSH 10 ML FLUSH IV FLUSH SCH (09:00)
[2017-08-18] MEDS: NIFEdipine 30 MG SUSTAINED RELEASE TAB PO SCH (09:00)
[2017-08-18] MEDS: PANTOPRAZOLE SOD 40 MG DELAYED RELEASE TAB PO SCH (09:00)
[2017-08-18 12:00] VITALS: BP 123/58; PULSE 67; RESP 16; TEMP 97.5; O2SAT 96
--- NOTE | 2017-08-18 12:17 | HHI.FF ---
Face to Face Verification Diagnosis: (1) Chronic diarrhea (2) History of Clostridium difficile colitis (3) Abdominal pain (4) Acute colitis (5) Generalized weakness Physical Therapy Order: Evaluate and Treat Occupational Therapy Order: Evaluate and Treat Home Health Nursing Order: Medical education Nursing assessment with vital signs I have seen patient Hannah Christopher on 08/18/17. My clinical findings support the need for the requested home health care services because: Med compliance is questionable Limited ability to care for self I certify that my clinical findings support that this patient is homebound because: Unsafe to leave home unassisted Devonte Reeder MD August 18, 2017 12:17
[2017-08-18 16:00] VITALS: BP 134/59; PULSE 71; RESP 18; TEMP 97.5; O2SAT 98
--- NOTE | 2017-08-19 18:05 | HHI.DS ---
Discharge Summary Admission Date August 14, 2017 at 03:27 Discharge Date: August 18, 2017 Admitting Diagnosis C. difficile diarrhea/dehydration/UTI (1) Chronic diarrhea ICD Code: K52.9 - Noninfective gastroenteritis and colitis, unspecified (2) History of Clostridium difficile colitis ICD Code: Z86.19 - Personal history of other infectious and parasitic diseases Status: Acute Procedures Colonoscopy Brief History - From Admission Ms. Christopher is a pleasant 87-year-old female with history of C. difficile colitis who presented to the emergency department on 08/13/2017 due to persistent diarrhea. Patient was discharged from the hospital on oral vancomycin after being treated for C. difficile colitis. She has been experiencing watery bowel movement multiple times a day. Every time she eats or drinks, she ends up having bowel movements. She usually have some abdominal discomfort that goes away after bowel movement. She denies any blood in the stool. However she has noticed black stool. No fever or chills. She has not tried any antidiarrheal medications. She denies any chest pain, shortness of breath. She does report some weight loss and generalized weakness. Denies any changes in bladder habits. CBC/BMP: 08/15/17 0731 08/15/17 0731 PE at Discharge GENERAL: This is a well-nourished, well-developed patient, in no apparent distress. CARDIOVASCULAR: RRR, no gallops, or rubs. RESPIRATORY: Fair air entry bilaterally. No W, R, or R GASTROINTESTINAL: Abdomen soft, non-tender, nondistended. Positive bowel sounds MUSCULOSKELETAL: Extremities without clubbing, cyanosis, or edema. Pedal pulses appreciated NEUROLOGICAL: Awake and alert. Moves all extremity. Normal speech.no focal neurological deficit Hospital Course 87 years old female with history of C. difficile colitis presented with recurrent chronic diarrhea C. difficile stool has been checked and came back negative, GI consulted patient had a colonoscopy which showed mild colitis started on Asacol per GI patient cleared to be discharged however initially she refused to be discharged before diarrhea improved, patient appeared to discharge , then later on she agreed to go home . And follow-up with GI [id number] encounter performed with the patient on discharge day, as well as physical exam, summary of hospitalization course and postdischarge plan has been D/W the patient. D/W nurse D/W bottle caser. Discharge medications reviewed and printed and signed, post discharge follow up visit with PCP and other specialist as well as Brief hospital course and discharge summary has been placed. Pt Condition on Discharge: Fair Discharge Disposition: Disch w/ Home Health Serv Discharge Time: > 30 minutes Discharge Instructions DIET: Follow Instructions for: Heart Healthy Diet Activities you can perform: Weight Bearing as Hue Follow up Referrals: Appointment for Follow Up @ GASTROENTEROLOGY Gastroenterology - 10 Days with Yesi Mata MD New Medications: Mesalamine DR (Asacol HD) 800 Mg Tab 800 MG PO TID for colitis for 30 Days, #90 TAB 0 Refills Swallow whole. Take on an empty stomach. Lactobacillus Acidophilus (Acidophilus/l-Sporogenes) 35 Million Cell-25 Million Cell Tab 1 TAB PO Q12HR for c diff proph, #60 TAB Continued Medications: Atorvastatin (Atorvastatin) 40 Mg Tab 40 MG PO HS for CEA for 30 Days, TAB Carbidopa-Levodopa (Carbidopa-Levodopa) 25-100 Mg Tab 1 TAB PO Q8HR for Parkinson Disease Mgmt, #90 TAB 0 Refills Cholecalciferol (Vitamin D3) Unknown Strength Tab 1 TAB PO DAILY for Nutritional Supplement, #1 BOTTLE 0 Refills Gabapentin (Gabapentin) 300 Mg Cap 300 MG PO HS, #30 CAP 0 Refills Meclizine (Meclizine) 25 Mg Tab 25 MG PO DAILY PRN for DIZZINESS, TAB 0 Refills Metoprolol Tartrate (Metoprolol Tartrate) 50 Mg Tab 50 MG PO DAILY, #60 TAB 0 Refills Nifedipine ER 24 HR (Nifedipine ER 24 HR) 30 Mg Tab 30 MG PO DAILY for HTN for 30 Days, TAB Pantoprazole (Pantoprazole) 40 Mg Tab 40 MG PO BID for Reflux, #60 TAB 0 Refills Devonte Reeder MD August 19, 2017 18:05
== END 2017-08-18 18:58 | disposition home or self-care (01) | DRG 392 ==
LOC: NEPC 17:13 → NEDA 08-14 01:00 → OBSVTOIN 08-14 03:27 → NEPGCP 08-14 03:43 → N04B 08-14 22:43
PROVIDERS: ADMIT Hospitalist; ATTEND Hospitalist
PROC: 0DBK8ZX Excision of Ascending Colon, Via Natural or Artificial Opening Endoscopic, Diagnostic (ICD-10-PCS; principal; 2017-08-17 13:40)
DX: K52.9 Noninfective gastroenteritis and colitis, unspecified (principal); G20 Parkinson's disease; E86.0 Dehydration; K86.2 Cyst of pancreas; I10 Essential (primary) hypertension; E78.00 Pure hypercholesterolemia, unspecified; R63.4 Abnormal weight loss; R15.9 Full incontinence of feces; M06.9 Rheumatoid arthritis, unspecified; Z85.828 Personal history of other malignant neoplasm of skin; Z86.73 Personal history of transient ischemic attack (TIA), and cerebral infarction without residual deficits; Z88.1 Allergy status to other antibiotic agents; Z88.5 Allergy status to narcotic agent
CPT/HCPCS: 74177; 80048; 80053; 81001; 83690; 85025; 87086; 87205; 87329; 87493; 87506; 88305; 96360; 96361; 96372; J0500; J1650; J2920; J7030; J7120; Q9963; Q9967

== ENCOUNTER 2017-09-12 14:19 | Inpatient (IN) | payer OTHER, MEDICARE ==
[~2017-09-12 14:19] MED LIST changes: +ASAC800T PO; +LACT PO
--- NOTE | 2017-09-12 14:41 | PD ---
HPI Chief Complaint: Abdominal Pain Time Seen by Provider: 14:31 Travel History International Travel<30 days: No Contact w/Intl Traveler<30days: No History of Present Illness HPI 87-year-old female brought in by ambulance with recurrent nausea, vomiting, and diarrhea. Patient was recently hospitalized on 13 August with Clostridium difficile. She was treated with oral Vancomycin, and then sent home on Asacol and acidophilus. Patient was also continued on pantoprazole 40 mg twice daily. The plan was for the patient to follow-up with her environmental conservation officer. Patient states she did get better but now her symptoms have returned over the past several days. Patient is eating and denies fever. She is nauseous however and threw up in the ambulance coming here. Patient has more nausea and vomiting than pain. Patient is allergic to Cipro and codeine. PFSH Past Medical History Hx Anticoagulant Therapy: No Arthritis: Yes Autoimmune Disease: Yes (RA) Blood Disorders: No Anxiety: Yes Heart Rhythm Problems: No Cancer: Yes (SKIN forehead 2015) Cardiovascular Problems: Yes (cartoidectomy/ htn) High Cholesterol: No Chemotherapy: No Chest Pain: No Congestive Heart Failure: No Cerebrovascular Accident: Yes (2016) Diabetes: No Diminished Hearing: No Endocrine: No Gastrointestinal Disorders: Yes (diarhea, vomitting) GERD: No Genitourinary: No Hiatal Hernia: Yes Hypertension: Yes Immune Disorder: Yes (RA) Kidney Stones: No Musculoskeletal: Yes (back problems, arthritis) Neurologic: Yes (cva 2015) Psychiatric: No (anxiety 2016 - not on meds currently) Reproductive: Yes ([id number]) Respiratory: No Migraines: No Radiation Therapy: No Renal Failure: No Seizures: No Thyroid Disease: No Ulcer: Yes (ulcer) Menopausal: Yes : 3 Para: 3 Miscarriage: 0 Past Surgical History AICD: No Appendectomy: Yes Arteriovenous Shunt: No Cardiac Surgery: Yes ([id number]) Ear Surgery: No Endocrine Surgery: No Eye Surgery: No Genitourinary Surgery: No Gynecologic Surgery: Yes ([id number]) Joint Replacement: Yes Oral Surgery: No Pacemaker: No Thoracic Surgery: No ([id number]) Other Surgery: Yes Social History Alcohol Use: No Tobacco Use: No Substance Use: No Allergies-Medications (Allergen,Severity, Reaction): Coded Allergies: ciprofloxacin (Verified Allergy, Intermediate, RASH, ITCHING, 07/19/17) codeine (Unverified Allergy, Intermediate, "VIOLENTLY SICK", 07/18/17) Reported Meds & Prescriptions Reported Meds & Active Scripts Active Asacol HD (Mesalamine) 800 Mg Tab 800 Mg PO TID 30 Days Swallow whole. Take on an empty stomach. Acidophilus/l-Sporogenes (Lactobacillus Acidophilus) 35 Million Cell-25 Million Cell Tab 1 Tab PO Q12HR Vancomycin (Vancomycin HCl) 125 Mg Cap 125 Mg PO QID Pantoprazole (Pantoprazole Sodium) 40 Mg Tab 40 Mg PO BID Nifedipine ER 24 HR (Nifedipine) 30 Mg Tab 30 Mg PO DAILY 30 Days Atorvastatin (Atorvastatin Calcium) 40 Mg Tab 40 Mg PO HS 30 Days Reported Ibuprofen 800 Mg Tab 800 Mg PO Q8H Vitamin D3 (Cholecalciferol) Unknown Strength Tab 1 Tab PO DAILY Meclizine (Meclizine HCl) 25 Mg Tab 25 Mg PO DAILY PRN Gabapentin 300 Mg Cap 300 Mg PO HS Carbidopa-Levodopa 25-100 Mg Tab 1 Tab PO Q8HR Metoprolol Tartrate 50 Mg Tab 50 Mg PO DAILY Review of Systems Except as stated in HPI: all other systems reviewed are Neg General / Constitutional: No: Fever, Chills Eyes: No: Visual changes HENT: No: Headaches Cardiovascular: No: Chest Pain or Discomfort Respiratory: No: Shortness of Breath Gastrointestinal: Positive: Nausea, Vomiting, Diarrhea, No: Abdominal Pain Genitourinary: Positive: Dysuria, No: Urgency, Frequency, Pelvic Pain, Flank Pain Musculoskeletal: No: Pain Skin: No Rash Neurologic: No: Weakness Psychiatric: No: Depression Endocrine: No: Polydipsia Hematologic/Lymphatic: No: Easy Bruising Physical Exam Narrative GENERAL: Patient appears medically stable at time of exam SKIN: Warm and dry. Normal color. Decreased turgor with tenting noted. No rash. HEAD: Atraumatic. Normocephalic. EYES: Pupils equal and round. No scleral icterus. No injection or drainage. ENT: No nasal bleeding or discharge. Mucous membranes pink and moist. Pharynx is clear. Airways patent NECK: Trachea midline. No JVD. CARDIOVASCULAR: Regular rate and rhythm. RESPIRATORY: No accessory muscle use. Clear to auscultation. Breath sounds equal bilaterally. GASTROINTESTINAL: Abdomen soft, diffuse discomfort without guarding or rebound, nondistended. Hepatic and splenic margins not palpable. MUSCULOSKELETAL: Extremities without clubbing, cyanosis, or edema. No obvious deformities. NEUROLOGICAL: Awake and alert. No obvious cranial nerve deficits. Motor grossly within normal limits. Five out of 5 muscle strength in the arms and legs. Normal speech. PSYCHIATRIC: Appropriate mood and affect; insight and judgment normal. Data Data Last Documented VS Vital Signs Date Time Temp Pulse Resp B/P (MAP) Pulse Ox O2 Delivery O2 Flow Rate FiO2 09/12/17 17:37 98 18 121/60 (80) 95 Room Air 09/12/17 14:55 98.1 Orders Orders Complete Blood Count With Diff (09/12/17 14:36) Comprehensive Metabolic Panel (09/12/17 14:36) Lipase (09/12/17 14:36) Lactic Acid (09/12/17 14:36) Prothrombin Time / Inr (Pt) (09/12/17 14:36) Act Partial Throm Time (Ptt) (09/12/17 14:36) Urinalysis - C+S If Indicated (09/12/17 14:36) Ct Abd/Pel W Iv Contrast(Rout) (09/12/17 14:36) Iv Access Insert/Monitor (09/12/17 14:36) Ecg Monitoring (09/12/17 14:36) Oximetry (09/12/17 14:36) Sodium Chloride 0.9% Flush (Ns Flush) (09/12/17 14:45) Electrocardiogram (09/12/17 14:36) Stool Afb Culture And Stain (09/12/17 14:36) Ondansetron Odt (Zofran Odt) (09/12/17 14:45) Sodium Chlor 0.9% 1000 Ml Inj (Ns 1000 M (09/12/17 14:45) Vancomycin For Oral Use Only (Vancomycin (09/12/17 14:45) C Diff Toxin Pcr (09/12/17 14:44) Urine Culture (09/12/17 16:05) Ceftriaxone Inj (Rocephin Inj) (09/12/17 16:45) Iohexol 350 Inj (Omnipaque 350 Inj) (09/12/17 17:51) Labs Laboratory Tests Test 09/12/17 15:25 09/12/17 16:05 09/12/17 16:51 White Blood Count 12.6 TH/MM3 Red Blood Count 3.37 MIL/MM3 Hemoglobin 10.7 GM/DL Hematocrit 32.5 % Mean Corpuscular Volume 96.5 FL Mean Corpuscular Hemoglobin 31.8 PG Mean Corpuscular Hemoglobin Concent 32.9 % Red Cell Distribution Width 15.4 % Platelet Count 427 TH/MM3 Mean Platelet Volume 7.1 FL Neutrophils (%) (Auto) 79.6 % Lymphocytes (%) (Auto) 12.2 % Monocytes (%) (Auto) 7.2 % Eosinophils (%) (Auto) 0.8 % Basophils (%) (Auto) 0.2 % Neutrophils # (Auto) 10.0 TH/MM3 Lymphocytes # (Auto) 1.5 TH/MM3 Monocytes # (Auto) 0.9 TH/MM3 Eosinophils # (Auto) 0.1 TH/MM3 Basophils # (Auto) 0.0 TH/MM3 CBC Comment DIFF FINAL Differential Comment Blood Urea Nitrogen 3 MG/DL Creatinine 0.46 MG/DL Random Glucose 87 MG/DL Total Protein 7.1 GM/DL Albumin 2.6 GM/DL Calcium Level 8.4 MG/DL Alkaline Phosphatase 230 U/L Aspartate Amino Transf (AST/SGOT) 20 U/L Alanine Aminotransferase (ALT/SGPT) 10 U/L Total Bilirubin 0.4 MG/DL Sodium Level 134 MEQ/L Potassium Level 3.8 MEQ/L Chloride Level 98 MEQ/L Carbon Dioxide Level 26.4 MEQ/L Anion Gap 10 MEQ/L Estimat Glomerular Filtration Rate 128 ML/MIN Lactic Acid Level 1.1 mmol/L Lipase 319 U/L Urine Color YELLOW Urine Turbidity CLEAR Urine pH 7.5 Urine Specific [place] 1.006 Urine Protein NEG mg/dL Urine Glucose (UA) NEG mg/dL Urine Ketones NEG mg/dL Urine Occult Blood NEG Urine Nitrite NEG Urine Bilirubin NEG Urine Urobilinogen LESS THAN 2.0 MG/DL Urine Leukocyte Esterase SMALL Urine RBC LESS THAN 1 /hpf Urine WBC 14 /hpf Urine Bacteria OCC /hpf Microscopic Urinalysis Comment CULTURE INDICATED Prothrombin Time 11.1 SEC Prothromb Time International Ratio 1.1 RATIO Activated Partial Thromboplast Time 21.2 SEC [facility] Medical Decision Making Medical Screen Exam Complete: Yes Emergency Medical Condition: Yes Medical Record Reviewed: Yes Differential Diagnosis Nausea and vomiting. Recurrent diarrhea. C. difficile. Colitis. Narrative Course Patient is medically stable at time of exam. EKG is ordered. Labs ordered including CBC, CMP, lactic acid, lipase, coagulation studies. Urinalysis is ordered as well as a C. difficile and stool culture. Patient is given a 500 mL of normal saline bolus. Patient was given Zofran ODT p.o. Patient started on vancomycin 125 mg [address] of the abdomen with IV contrast is ordered pending creatinine. CBC shows leukocytosis of 12.6, hemoglobin 10.7 which is stable for the patient. Coagulation studies are unremarkable. CMP shows a sodium 134, BUN is 3, creatinine 0.46, GFR is 128, random glucose is 87. Calcium is 8.4. Creatinine kinase is 230, albumin is 2.6 which is typical for the patient. Lipase is normal at 319. Lactic acid is normal at 1.[address] shows: CONCLUSION: 1. The previously noted thickening involving the transverse colon is mildly improved. Otherwise the bowel gas pattern is within normal limits without evidence of mechanical obstruction. 2. Mild prominence of the right collecting system without obstructing renal stone or ureteral stone. 3. Stable small cyst in the head of the pancreas. 4. The bladder appears to be distended. 5. Otherwise, no other new or significant changes are seen compared to the prior study. Patient is felt to warrant admission to observation for treatment of UTI as well as questionable ongoing C. difficile colitis. Call is placed to the hospitalist for admission. Diagnosis Primary Impression: Chronic diarrhea Additional Impressions: UTI (urinary tract infection) Qualified Codes: N30.00 - Acute cystitis without hematuria C. difficile colitis Admitting Information Admitting Physician Requests: Observation Condition: Stable Peng Treviño September 12, 2017 14:41
[2017-09-12 14:44] VITALS: BP 133/63; PULSE 98; RESP 18; TEMP 98.1; O2SAT 96
[2017-09-12] MEDS ORDERED: ONDANSETRON ODT 4 MG TAB PO ONE (14:45)
[2017-09-12] MEDS ORDERED: SODIUM CHLORIDE 0.9% FLUSH 10 ML FLUSH IV FLUSH PRN ×2 (14:45→19:30)
[2017-09-12] MEDS ORDERED: SODIUM CHLOR 0.9% 1000 ML INJ 1,000 ML IV ONE (14:45)
[2017-09-12 14:55] VITALS: BP 133/63; PULSE 98; RESP 20; TEMP 98.1; O2SAT 96
[2017-09-12 15:53] LABS: BASOPHIL % 0.2 % (0.0-2.0); EOSINOPHIL # 0.1 TH/MM3 (0-0.4); EOSINOPHIL % 0.8 % (0.0-4.0); HEMATOCRIT 32.5 % (35.0-46.0); HEMOGLOBIN 10.7 GM/DL (11.6-15.3); LYMPH % 12.2 % (9.0-44.0); LYMPHOCYTE # 1.5 TH/MM3 (1.0-4.8); MEAN CELL VOLUME 96.5 FL (80.0-100.0); MEAN CORPUSCULAR HEMOGLOBIN 31.8 PG (27.0-34.0); MEAN CORPUSCULAR HGB CONC 32.9 % (32.0-36.0); MEAN PLATELET VOLUME 7.1 FL (7.0-11.0); MONO % 7.2 % (0.0-8.0); MONOCYTE # 0.9 TH/MM3 (0-0.9); NEUT % 79.6 % (16.0-70.0); PLATELET COUNT 427 TH/MM3 (150-450); RED BLOOD COUNT 3.37 MIL/MM3 (4.00-5.30); RED CELL DISTRIBUTION WIDTH 15.4 % (11.6-17.2); WHITE BLOOD COUNT 12.6 TH/MM3 (4.0-11.0)
[2017-09-12 16:21] LABS: ALBUMIN 2.6 GM/DL (3.4-5.0); ALT (GPT) 10 U/L (10-53); AST (GOT) 20 U/L (15-37); BICARBONATE 26.4 MEQ/L (21.0-32.0); BLOOD UREA NITROGEN 3 MG/DL (7-18); CALCIUM 8.4 MG/DL (8.5-10.1); CHLORIDE 98 MEQ/L (98-107); CREATININE 0.46 MG/DL (0.50-1.00); GLOMERULAR FILTRATION RATE 128 ML/MIN (>89); GLUCOSE,RANDOM 87 MG/DL (74-106); SODIUM (NA) 134 MEQ/L (136-145)
[2017-09-12 16:23] LABS: ALKALINE PHOSPHATASE 230 U/L (45-117); TOTAL BILIRUBIN ADULT 0.4 MG/DL (0.2-1.0); TOTAL PROTEIN 7.1 GM/DL (6.4-8.2)
[2017-09-12 16:32] LABS: BACTERIA, URINE OCC /hpf; BILIRUBIN, URINE NEG (NEG); BLOOD, URINE NEG (NEG); GLUCOSE,URINE NEG (NEG); KETONE, URINE NEG (NEG); NITRITE,URINE NEG (NEG); PH, URINE 7.5 (5.0-8.5); URINE COLOR YELLOW (YELLW/STRAW); URINE LEUKOCYTE ESTERASE SMALL (NEG)
[2017-09-12] MEDS ORDERED: cefTRIAXone INJ 1,000 MG in SODIUM CHLORIDE 0.9% INJ 100 ML IV ONE (16:45)
[2017-09-12] MEDS: VANCOMYCIN 500 MG VIAL (FOR ORAL USE ONLY) PO SCH ×3 (16:54→21:58)
[2017-09-12 17:37] VITALS: BP 121/60; PULSE 98; RESP 18; O2SAT 95
[2017-09-12 17:39] LABS: INTERNATIONAL NORMALIZED RATIO 1.1 RATIO; PROTHROMBIN TIME - PATIENT 11.1 SEC (9.8-11.6)
[2017-09-12] MEDS ORDERED: IOHEXOL 350 MG/ML 10 ML VIAL (for RAD DIAG) IVCONTRAST ONE (17:51)
--- NOTE | 2017-09-12 18:15 | RADRPT ---
EXAM DATE: 09/12/2017 5:58 PM EDT AGE/SEX: 87 years / Female INDICATIONS: Abdominal pain, nausea. CLINICAL DATA: This is the patient's initial encounter. Patient reports that signs and symptoms have been present for 1 day and indicates a pain score of 2/10. MEDICAL/SURGICAL HISTORY: Cardiovascular disease. Hypertension. Hiatal hernia. Skin cancer. Appendectomy. Hysterectomy. ORAL CONTRAST: Prescribed oral contrast ingested. RADIATION DOSE: 5.73 CTDI (mGy) COMPARISON: [facility] [place], CT ABDOMEN & PELVIS W CONTRAST, 08/13/2017. . TECHNIQUE: Multiple contiguous axial images were obtained through the abdomen and pelvis following b olus infusion of 80 ml Omnipaque 350 (iohexol) nonionic water-soluble contrast as a single exam dos e. Prescribed oral contrast ingested. Using automated exposure control and adjustment of the mA and/ or kV according to patient size, the radiation dose was kept as low as reasonably achievable to obtai n optimal diagnostic quality images. FINDINGS: Lower Lungs: Small pleural effusions. Otherwise lung bases are grossly clear. Liver: The liver has a homogeneous density without space-occupying lesion. There is no dilation of th e biliary tree. The gallbladder is grossly unremarkable. Spleen: Homogeneous density without enlargement. Pancreas: The pancreas is stable in appearance with a few cysts in the head of the pancreas. No surr ounding inflammatory changes. Kidneys: There is mild prominence of the right collecting system. The left collecting system is unre markable and stable. No calcified renal stones are seen. There is some mild dilatation of the right u reter without evidence of a ureteral stone. Adrenal Glands: Unremarkable. Aorta: Atherosclerotic changes. No aneurysmal dilatation. Bowel/Mesentery: The previously noted thickening involving the transverse colon is mildly improved. Otherwise no significant changes with the bowel gas pattern is demonstrated. Abdominal Wall: Intact. Retroperitoneum: No evidence of adenopathy in the retrocrural, para-aortic, or deep pelvic regions. Bladder: The bladder appears to be distended. No definite bladder stones are demonstrated. Reproductive Organs: No abnormal masses or calcifications seen. Inguinal: The inguinal region is unremarkable without evidence of adenopathy. Bony Structures: Diffuse bony degenerative changes. No change compared to the prior study. CONCLUSION: 1. The previously noted thickening involving the transverse colon is mildly improved. Otherwise the bowel gas pattern is within normal limits without evidence of mechanical obstruction. 2. Mild prominence of the right collecting system without obstructing renal stone or ureteral stone. 3. Stable small cyst in the head of the pancreas. 4. The bladder appears to be distended. 5. Otherwise, no other new or significant changes are seen compared to the prior study. Electronically signed by: Cade Heart MD 09/12/2017 6:14 PM EDT
[2017-09-12] MEDS ORDERED: SODIUM CHLOR 0.9% 1000 ML INJ 1,000 ML IV SCH (18:45)
[2017-09-12 19:30] VITALS: BP 135/61
[2017-09-12] MEDS ORDERED: ACETAMINOPHEN 325 MG TAB PO PRN (19:30)
[2017-09-12] MEDS ORDERED: MECLIZINE HCL 25 MG TAB PO PRN (19:30)
[2017-09-12] MEDS ORDERED: BISACODYL 10 MG SUPP RECTAL PRN (19:30)
[2017-09-12] MEDS ORDERED: ONDANSETRON HCL 4 MG/2 ML VIAL IVP PRN (19:30)
[2017-09-12] MEDS ORDERED: MAGNESIUM HYDROXIDE SUSP 30 ML CUP PO PRN (19:30)
[2017-09-12] MEDS ORDERED: SENNOSIDES 8.6 MG TAB PO PRN (19:30)
[2017-09-12] MEDS ORDERED: NALOXONE HCL 0.4 MG/ML AMP IV PUSH PRN (19:30)
[2017-09-12] MEDS ORDERED: LACTULOSE SYRUP 20 GM/30 ML CUP PO PRN (19:30)
[2017-09-12] MEDS: SODIUM CHLOR 0.9% 1000 ML INJ 1,000 ML IV SCH (19:37)
[2017-09-12] MEDS: SODIUM CHLORIDE 0.9% FLUSH 10 ML FLUSH IV FLUSH SCH (21:00)
[2017-09-12 21:45] VITALS: BP 132/61; PULSE 99; RESP 16; TEMP 98.4; O2SAT 95
[2017-09-12] MEDS: LACTOBACILLUS ACIDOPHILUS TAB PO SCH (21:57)
[2017-09-12] MEDS: PANTOPRAZOLE SOD 40 MG DELAYED RELEASE TAB PO SCH (21:57)
[2017-09-12] MEDS: ATORVASTATIN 40 MG TAB PO SCH (21:58)
[2017-09-12] MEDS: GABAPENTIN 300 MG CAP PO SCH (21:58)
[2017-09-12] MEDS: ENOXAPARIN SODIUM 40 MG/0.4 ML SYRINGE SQ SCH (21:58)
[2017-09-12] MEDS: CARBIDOPA/LEVODOPA 25 MG/100 MG TAB PO SCH (21:58)
[2017-09-13] VITALS (9 sets, daily range): BP systolic 94–137; BP diastolic 54–62; PULSE 74–105; RESP 16–20; TEMP 95.6–98; O2SAT 93–96
[2017-09-13] MEDS: SODIUM CHLOR 0.9% 1000 ML INJ 1,000 ML IV SCH ×3 (02:05→22:04)
[2017-09-13] MEDS: CARBIDOPA/LEVODOPA 25 MG/100 MG TAB PO SCH ×3 (05:27→22:01)
[2017-09-13] MEDS: METOPROLOL TARTRATE 50 MG TAB PO SCH (09:00)
[2017-09-13] MEDS: SODIUM CHLORIDE 0.9% FLUSH 10 ML FLUSH IV FLUSH SCH ×2 (09:00→20:59)
[2017-09-13] MEDS: NIFEdipine 30 MG SUSTAINED RELEASE TAB PO SCH (09:00)
--- NOTE | 2017-09-13 09:13 | HHI.HP ---
[facility] Primary Care Physician Unknown Admission Diagnosis C.DIFF/DIARRHEA/UTI Diagnoses: (1) Nausea & vomiting (2) Diarrhea (3) Leukocytosis (4) Hypertension (5) Sepsis Chief Complaint: nausea, vomiting, diarrhea Travel History International Travel<30 Days: No Contact w/Intl Traveler <30 Da: No Traveled to Known Affected Are: No Sepsis Criteria SIRS Criteria (2 or more): Heart rate over 90, WBC > 40851, < 4000 or > 10% bands Sepsis Criteria (SIRS+source): Infect source susp/known Criteria Outcome: Meets sepsis criteria History of Present Illness The patient is an 87-year-old female with multiple recent admissions for nausea , vomiting, and diarrhea. She has recently been treated for C. difficile colitis with oral vancomycin. 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 She apparently was also hospitalized in [facility] recently for the same symptoms. She states that she was referred to [facility] by GI. She has continued to have diarrhea, nausea, and vomiting. The symptoms worsened over the last 1-2 days. Nausea and vomiting are somewhat better this morning. Only one loose stool overnight. No chest pain. She does report dyspnea. Review of Systems Constitutional: DENIES: Fever, Chills, Night Sweats Eyes: DENIES: Blurred vision, Vision loss Ears, nose, mouth, throat: DENIES: Hearing loss Respiratory: DENIES: Cough, Wheezing, Sputum production, Shortness of breath Cardiovascular: DENIES: Chest pain, Palpitations, Dyspnea on Exertion, Lower Extremity Edema Gastrointestinal: COMPLAINS OF: Abdominal pain, Diarrhea, Nausea, Vomiting, DENIES: Constipation Genitourinary: DENIES: Urinary frequency, Urinary incontinence, Urgency, Hematuria, Dysuria, Nocturia Musculoskeletal: DENIES: Joint pain, Muscle aches Integumentary: DENIES: Pruritus, Rash Hematologic/lymphatic: DENIES: Bruising Neurologic: DENIES: Headache Past Family Social History Past Medical History History of CVA Hypertension Rheumatoid arthritis History of C. difficile colitis History of CVA Past Surgical History Appendectomy Hysterectomy Left lung surgery Carotid surgery Reported Medications Asacol HD (Mesalamine) 800 Mg Tab 800 Mg PO TID 30 Days Swallow whole. Take on an empty stomach. Acidophilus/l-Sporogenes (Lactobacillus Acidophilus) 35 Million Cell-25 Million Cell Tab 1 Tab PO Q12HR Vancomycin (Vancomycin HCl) 125 Mg Cap 125 Mg PO QID Pantoprazole (Pantoprazole Sodium) 40 Mg Tab 40 Mg PO BID Nifedipine ER 24 HR (Nifedipine) 30 Mg Tab 30 Mg PO DAILY 30 Days Atorvastatin (Atorvastatin Calcium) 40 Mg Tab 40 Mg PO HS 30 Days Ibuprofen 800 Mg Tab 800 Mg PO Q8H Vitamin D3 (Cholecalciferol) Unknown Strength Tab 1 Tab PO DAILY Meclizine (Meclizine HCl) 25 Mg Tab 25 Mg PO DAILY PRN Gabapentin 300 Mg Cap 300 Mg PO HS Carbidopa-Levodopa 25-100 Mg Tab 1 Tab PO Q8HR Metoprolol Tartrate 50 Mg Tab 50 Mg PO DAILY Allergies: Coded Allergies: ciprofloxacin (Verified Allergy, Intermediate, RASH, ITCHING, 07/19/17) codeine (Unverified Allergy, Intermediate, "VIOLENTLY SICK", 07/18/17) Family History She states that her grandparents of cancer. Social History Quit smoking 50 years ago. Denies alcohol or illicit drug use. Physical Exam Vital Signs Vital Signs Date Time Temp Pulse Resp B/P (MAP) Pulse Ox O2 Delivery O2 Flow Rate FiO2 09/13/17 04:00 85 09/13/17 04:00 97.8 89 17 94/54 (67) 95 09/13/17 00:00 98.0 89 17 105/55 (72) 94 09/12/17 21:45 98.4 99 16 132/61 (84) 95 09/12/17 19:30 101 18 135/61 (85) 96 09/12/17 17:37 98 18 121/60 (80) 95 Room Air 09/12/17 14:55 98.1 98 20 133/63 (86) 96 Room Air 09/12/17 14:55 20 09/12/17 14:44 98.1 98 18 133/63 (86) 96 Physical Exam GENERAL: Elderly female in no acute distress. HEENT: Normocephalic, atraumatic. Pupils equal, round and reactive. Extraocular movements intact. No scleral icterus. No injection or drainage. Oropharynx is clear. Mucous membranes are moist. CARDIOVASCULAR: Regular rate and rhythm without murmurs, gallops, or rubs. RESPIRATORY: Clear to auscultation. No wheezes, rales, or rhonchi. Breathing is non-labored. GASTROINTESTINAL: Abdomen soft, non-tender, nondistended. EXTREMITIES: No lower extremity edema. No calf tenderness. PSYCH: Alert and oriented x 3. Laboratory Laboratory Tests Test 09/12/17 15:25 09/12/17 16:05 09/12/17 16:51 White Blood Count 12.6 Red Blood Count 3.37 Hemoglobin 10.7 Hematocrit 32.5 Mean Corpuscular Volume 96.5 Mean Corpuscular Hemoglobin 31.8 Mean Corpuscular Hemoglobin Concent 32.9 Red Cell Distribution Width 15.4 Platelet Count 427 Mean Platelet Volume 7.1 Neutrophils (%) (Auto) 79.6 Lymphocytes (%) (Auto) 12.2 Monocytes (%) (Auto) 7.2 Eosinophils (%) (Auto) 0.8 Basophils (%) (Auto) 0.2 Neutrophils # (Auto) 10.0 Lymphocytes # (Auto) 1.5 Monocytes # (Auto) 0.9 Eosinophils # (Auto) 0.1 Basophils # (Auto) 0.0 CBC Comment DIFF FINAL Differential Comment Blood Urea Nitrogen 3 Creatinine 0.46 Random Glucose 87 Total Protein 7.1 Albumin 2.6 Calcium Level 8.4 Alkaline Phosphatase 230 Aspartate Amino Transf (AST/SGOT) 20 Alanine Aminotransferase (ALT/SGPT) 10 Total Bilirubin 0.4 Sodium Level 134 Potassium Level 3.8 Chloride Level 98 Carbon Dioxide Level 26.4 Anion Gap 10 Estimat Glomerular Filtration Rate 128 Lactic Acid Level 1.1 Lipase 319 Urine Color YELLOW Urine Turbidity CLEAR Urine pH 7.5 Urine Specific [place] 1.006 Urine Protein NEG Urine Glucose (UA) NEG Urine Ketones NEG Urine Occult Blood NEG Urine Nitrite NEG Urine Bilirubin NEG Urine Urobilinogen LESS THAN 2.0 Urine Leukocyte Esterase SMALL Urine RBC LESS THAN 1 Urine WBC 14 Urine Bacteria OCC Microscopic Urinalysis Comment CULTURE INDICATED Prothrombin Time 11.1 Prothromb Time International Ratio 1.1 Activated Partial Thromboplast Time 21.2 Date/Time Source Procedure Growth Status 09/12/17 16:05 Urine Clean Catch Urine Culture Pending Received Result Diagram: 09/12/17 1525 09/12/17 1525 Imaging Last Impressions Abdomen/Pelvis CT 09/12/17 1436 Signed Impressions: CONCLUSION: 1. The previously noted thickening involving the transverse colon is mildly im proved. Otherwise the bowel gas pattern is within normal limits without evidenc e of mechanical obstruction. 2. Mild prominence of the right collecting system without obstructing renal st one or ureteral stone. 3. Stable small cyst in the head of the pancreas. 4. The bladder appears to be distended. 5. Otherwise, no other new or significant changes are seen compared to the dawn or study. Caprini VTE Risk Assessment Caprini VTE Risk Assessment: Mod/High Risk (score >= 2) Caprini Risk Assessment Model Point Value = 1 Point Value = 2 Point Value = 3 Point Value = 5 Age 41-60 Minor surgery BMI > 25 kg/m2 Swollen legs Varicose veins or History of unexplained or recurrent spontaneous Oral contraceptives or hormone replacement Sepsis (< 1 month) Serious lung disease, including pneumonia (< 1 month) Abnormal pulmonary function Acute myocardial infarction Congestive heart failure (< 1 month) History of inflammatory bowel disease Medical patient at bed rest Age 61-74 Arthroscopic surgery Major open surgery (> 45 min) Laparoscopic surgery (> 45 min) Malignancy Confined to bed (> 72 hours) Immobilizing plaster cast Central venous access Age >= 75 History of VTE Family history of VTE Factor V Leiden Prothrombin [id number] Lupus anticoagulant Anticardiolipin antibodies Elevated serum homocysteine Heparin-induced thrombocytopenia Other congenital or acquired thrombophilia Stroke (< 1 month) Elective arthroplasty Hip, pelvis, or leg fracture Acute spinal cord injury (< 1 month) Prophylaxis Regimen Total Risk Factor Score Risk Level Prophylaxis Regimen 0-1 Low Early ambulation 2 Moderate Order ONE of the following: *Sequential Compression Device (SCD) *Heparin 5000 units SQ BID 3-4 Higher Order ONE of the following medications: *Heparin 5000 units SQ TID *Enoxaparin/Lovenox 40 mg SQ daily (WT < 150 kg, CrCl > 30 mL/min) *Enoxaparin/Lovenox 30 mg SQ daily (WT < 150 kg, CrCl > 10-29 mL/min) *Enoxaparin/Lovenox 30 mg SQ BID (WT < 150 kg, CrCl > 30 mL/min) AND/OR *Sequential Compression Device (SCD) 5 or more Highest Order ONE of the following medications: *Heparin 5000 units SQ TID (Preferred with Epidurals) *Enoxaparin/Lovenox 40 mg SQ daily (WT < 150 kg, CrCl > 30 mL/min) *Enoxaparin/Lovenox 30 mg SQ daily (WT < 150 kg, CrCl > 10-29 mL/min) *Enoxaparin/Lovenox 30 mg SQ BID (WT < 150 kg, CrCl > 30 mL/min) AND *Sequential Compression Device (SCD) Assessment and Plan Assessment and Plan 1. Nausea, vomiting, diarrhea: Patient has recent diagnosis of C. difficile colitis. Consult gastroenterology. Continue oral vancomycin. One loose stool overnight. C. difficile PCR pending. Continue IV fluids. 2. Hypertension: Continue home medications. 3. Sepsis by criteria: Secondary to GI source. Patient presented with tachycardia, leukocytosis. Serum lactic acid level is within normal limits. 4. DVT prophylaxis: SCDs, KIN hose, Lovenox. 5. Possible UTI: Patient does report some dysuria. Urinalysis is slightly abnormal. Urine culture is pending. Given a dose of Rocephin in the ER. We will try to minimize antibiotics due to C. difficile history. Jorge Joseph MD September 13, 2017 09:13
[2017-09-13] MEDS: MESALAMINE HD 800 MG DELAYED RELEASE TAB PO SCH ×3 (09:22→17:40)
[2017-09-13] MEDS: PANTOPRAZOLE SOD 40 MG DELAYED RELEASE TAB PO SCH ×2 (09:22→22:02)
[2017-09-13] MEDS: VANCOMYCIN 500 MG VIAL (FOR ORAL USE ONLY) PO SCH ×4 (09:22→22:02)
[2017-09-13] MEDS: LACTOBACILLUS ACIDOPHILUS TAB PO SCH ×2 (09:22→22:01)
[2017-09-13 10:43] LABS: AUTOMATED NEUTROPHIL # 5.5 TH/MM3 (1.8-7.7); BASOPHIL # 0.1 TH/MM3 (0-0.2); BASOPHIL % 0.6 % (0.0-2.0); EOSINOPHIL # 0.1 TH/MM3 (0-0.4); EOSINOPHIL % 1.7 % (0.0-4.0); HEMOGLOBIN 10.4 GM/DL (11.6-15.3); LYMPH % 20.6 % (9.0-44.0); LYMPHOCYTE # 1.7 TH/MM3 (1.0-4.8); MEAN CORPUSCULAR HEMOGLOBIN 32.6 PG (27.0-34.0); MEAN CORPUSCULAR HGB CONC 33.6 % (32.0-36.0); MEAN PLATELET VOLUME 7.9 FL (7.0-11.0); MONO % 11.2 % (0.0-8.0); MONOCYTE # 0.9 TH/MM3 (0-0.9); NEUT % 65.9 % (16.0-70.0); PLATELET COUNT 373 TH/MM3 (150-450); RED CELL DISTRIBUTION WIDTH 15.7 % (11.6-17.2); WHITE BLOOD COUNT 8.4 TH/MM3 (4.0-11.0)
[2017-09-13 11:08] LABS: BICARBONATE 22.8 MEQ/L (21.0-32.0); CALCIUM 7.8 MG/DL (8.5-10.1); CREATININE 0.5 MG/DL (0.50-1.00)
--- NOTE | 2017-09-13 11:21 | PD.CONS ---
HPI History of Present Illness This is a 87 year old F who is a very poor historian, pt has had multiple hospital admissions over the last couple months for the same symptoms including abdominal pain, nausea, vomiting, and diarrhea. Pt was previously diagnosed with C. Diff colitis in June, at that time she had an EGD and colonoscopy. Colonoscopy revealed colitis consistent with C. Diff and EGD revealed erosive gastritis, duodenal ulcers, and pancolitis. Patient presented again in August and had repeat colonoscopy which showed mild colitis, at that time repeat C. Diff testing was negative. Pts most previous hospital admission was at [facility] where she was followed by infectious disease and she also reports following up with infectious disease. Dr. Harp in [facility], in the office after discharge. Pt is unsure if they changed or added any medication at the office visit. Pt was discharged home from [facility] on Cholestyramine, Vanco, and Flagyl. She presents to the ER yesterday with continued complaints of nausea, vomiting, abdominal pain and diarrhea. States nausea and vomiting did resolve for some time and began again two days ago, reports black vomit. Abdominal pain is diffuse, constant, unable to describe it. Reports diarrhea slowed down some but never completely went away. Associated fecal urgency and incontinence. Denies hematochezia and melena. Also reports a 20 pound weight loss over the last 3 months. (Nica Potter) [facility] Past Medical History History of CVA Hypertension Rheumatoid arthritis History of C. difficile colitis History of CVA Past Surgical History Appendectomy Hysterectomy Left lung surgery Carotid surgery Colonoscopy EGD (Nica Potter) Coded Allergies: ciprofloxacin (Verified Allergy, Intermediate, RASH, ITCHING, 07/19/17) codeine (Unverified Allergy, Intermediate, "VIOLENTLY SICK", 07/18/17) Family History She states that her grandparents of cancer. Social History Quit smoking 50 years ago. Denies alcohol or illicit drug use. (Nica Potter) Review of Systems Gastrointestinal: COMPLAINS OF: Abdominal pain, Diarrhea, Nausea, Vomiting, DENIES: Black stools, Bloody stools, Constipation, Difficulty Swallowing, Odynophagia, Swelling of Abdomen, Heartburn, Hematemesis (Nica Potter) GI Exam Vitals I&O Vital Signs Date Time Temp Pulse Resp B/P (MAP) Pulse Ox O2 Delivery O2 Flow Rate FiO2 09/13/17 08:00 95.6 78 20 110/58 (75) 94 09/13/17 04:00 85 09/13/17 04:00 97.8 89 17 94/54 (67) 95 09/13/17 00:00 98.0 89 17 105/55 (72) 94 09/12/17 21:45 98.4 99 16 132/61 (84) 95 09/12/17 19:30 101 18 135/61 (85) 96 09/12/17 17:37 98 18 121/60 (80) 95 Room Air 09/12/17 14:55 98.1 98 20 133/63 (86) 96 Room Air 09/12/17 14:55 20 09/12/17 14:44 98.1 98 18 133/63 (86) 96 I/O 09/12/17 09/12/17 09/12/17 09/13/17 09/13/17 09/13/17 07:00 15:00 23:00 07:00 15:00 23:00 Intake Total 1100 ml Balance 1100 ml Intake IV Total 1100 ml # Voids 3 1 # Bowel Movements 1 Imaging Last Impressions Abdomen/Pelvis CT 09/12/17 1436 Signed Impressions: CONCLUSION: 1. The previously noted thickening involving the transverse colon is mildly im proved. Otherwise the bowel gas pattern is within normal limits without evidenc e of mechanical obstruction. 2. Mild prominence of the right collecting system without obstructing renal st one or ureteral stone. 3. Stable small cyst in the head of the pancreas. 4. The bladder appears to be distended. 5. Otherwise, no other new or significant changes are seen compared to the dawn or study. Laboratory Test 09/12/17 15:25 09/12/17 16:05 09/12/17 16:51 09/13/17 09:41 White Blood Count 12.6 TH/MM3 8.4 TH/MM3 Red Blood Count 3.37 MIL/MM3 3.20 MIL/MM3 Hemoglobin 10.7 GM/DL 10.4 GM/DL Hematocrit 32.5 % 31.0 % Mean Corpuscular Volume 96.5 FL 97.0 FL Mean Corpuscular Hemoglobin 31.8 PG 32.6 PG Mean Corpuscular Hemoglobin Concent 32.9 % 33.6 % Red Cell Distribution Width 15.4 % 15.7 % Platelet Count 427 TH/MM3 373 TH/MM3 Mean Platelet Volume 7.1 FL 7.9 FL Neutrophils (%) (Auto) 79.6 % 65.9 % Lymphocytes (%) (Auto) 12.2 % 20.6 % Monocytes (%) (Auto) 7.2 % 11.2 % Eosinophils (%) (Auto) 0.8 % 1.7 % Basophils (%) (Auto) 0.2 % 0.6 % Neutrophils # (Auto) 10.0 TH/MM3 5.5 TH/MM3 Lymphocytes # (Auto) 1.5 TH/MM3 1.7 TH/MM3 Monocytes # (Auto) 0.9 TH/MM3 0.9 TH/MM3 Eosinophils # (Auto) 0.1 TH/MM3 0.1 TH/MM3 Basophils # (Auto) 0.0 TH/MM3 0.1 TH/MM3 CBC Comment DIFF FINAL DIFF FINAL Differential Comment Blood Urea Nitrogen 3 MG/DL Creatinine 0.46 MG/DL Random Glucose 87 MG/DL Total Protein 7.1 GM/DL Albumin 2.6 GM/DL Calcium Level 8.4 MG/DL Alkaline Phosphatase 230 U/L Aspartate Amino Transf (AST/SGOT) 20 U/L Alanine Aminotransferase (ALT/SGPT) 10 U/L Total Bilirubin 0.4 MG/DL Sodium Level 134 MEQ/L Potassium Level 3.8 MEQ/L Chloride Level 98 MEQ/L Carbon Dioxide Level 26.4 MEQ/L Anion Gap 10 MEQ/L Estimat Glomerular Filtration Rate 128 ML/MIN Lactic Acid Level 1.1 mmol/L Lipase 319 U/L Urine Color YELLOW Urine Turbidity CLEAR Urine pH 7.5 Urine Specific [place] 1.006 Urine Protein NEG mg/dL Urine Glucose (UA) NEG mg/dL Urine Ketones NEG mg/dL Urine Occult Blood NEG Urine Nitrite NEG Urine Bilirubin NEG Urine Urobilinogen LESS THAN 2.0 MG/DL Urine Leukocyte Esterase SMALL Urine RBC LESS THAN 1 /hpf Urine WBC 14 /hpf Urine Bacteria OCC /hpf Microscopic Urinalysis Comment CULTURE INDICATED Prothrombin Time 11.1 SEC Prothromb Time International Ratio 1.1 RATIO Activated Partial Thromboplast Time 21.2 SEC Date/Time Source Procedure Growth Status 09/12/17 16:05 Urine Clean Catch Urine Culture Pending Received Physical Examination HEENT: Normocephalic; atraumatic CHEST: Even/unlabored CARDIAC: RRR ABDOMEN: Soft, nondistended, diffuse TTP, bowel sounds active EXTREMITIES: No clubbing, cyanosis, or edema. SKIN: Pale WIRE MESH FILTER FABRICATOR: Alert, poor historian (Nica Potter) Assessment and Plan Plan Assessment: - Nausea and vomiting- multiple recent hospital admission with same complaints including nausea, vomiting, diarrhea, abdominal pain. Reports nausea and vomiting did improve at some point and began again two days ago. Reports black emesis, denies BRB. EGD June 2016 --> Erosive gastritis, duodenal ulcers - History of C. Diff Colitis in June, colonoscopy done at that time consistent with severe pancolitis. Repeat colonoscopy in August revealed mild colitis and C. Diff testing done at that time was negative. Most recent hospital admission at [facility] earlier this month, saw ID who discharged her on Flagyl, Vancomycin, and Cholestyramine. Pt reports following up in her office but is unsure of any medication changes at that time. Complaining of: diarrhea with fecal urgency and incontinence, denies hematochezia and melena - Abdominal pain, diffuse, constant, unable to describe CT abdomen and pelvis W IV contrast (09/12) -->The previously noted thickening involving the transverse colon is mildly improved. Otherwise the bowel gas pattern is within normal limits without evidence of mechanical obstruction. Mild prominence of the right collecting system without obstructing renal stone or ureteral stone. Stable small cyst in the head of the pancreas.The bladder appears to be distended. Otherwise, no other new or significant changes are seen compared to the prior study. Plan: EGD tomorrow (history of duodenal ulcers and complaining of black emesis) Obtain consent NPO after MN Repeat C Diff testing Stool studies (previous have been negative) Cholestyramine Mesalamine Vanco Protonix Probiotics Further recommendations based on clinical course and results of above Pt has been seen and examined by myself and Dr. Wyatt and this note is written on his behalf (Nica Potter) Physician Comments Seen and examined with COURIER< stool for c. diff. Egd planned for tomorrow. Dr Escalona to follow. Thank you (Bertha Wyatt MD) Nica Potter September 13, 2017 11:21 Bertha Wyatt MD September 13, 2017 13:54
[2017-09-13] MEDS ORDERED: cefTRIAXone INJ 1,000 MG in SODIUM CHLORIDE 0.9% INJ 100 ML IV SCH (17:00)
[2017-09-13] MEDS ORDERED: ARTIFICIAL TEARS OPTH SOLN 15 ML BTL EACH EYE PRN (18:00)
[2017-09-13] MEDS: CHOLESTYRAMINE 4 GM PACKET PO SCH (20:59)
[2017-09-13] MEDS: ENOXAPARIN SODIUM 40 MG/0.4 ML SYRINGE SQ SCH (20:59)
[2017-09-13] MEDS: ATORVASTATIN 40 MG TAB PO SCH (21:00)
[2017-09-13] MEDS: GABAPENTIN 300 MG CAP PO SCH (22:01)
[2017-09-14] VITALS (8 sets, daily range): BP systolic 110–158; BP diastolic 55–72; PULSE 62–105; RESP 16–20; TEMP 97.7–99.1; O2SAT 96–97
[2017-09-14] MEDS ORDERED: LACTATED RINGER'S 1000 ML IV PRN (05:45)
[2017-09-14] MEDS ORDERED: SODIUM CHLORID 0.9% 500 ML IV PRN (05:45)
[2017-09-14] MEDS ORDERED: POVIDONE IODINE 5% (ANTISEPSIS KIT) 4 APPLICATIONS EACH NARE PRN (05:45)
[2017-09-14] MEDS ORDERED: CHLORHEXIDINE GLUCONATE 2 % 1 PACK (2 CLOTHS) TOPICAL PRN (05:45)
[2017-09-14] MEDS: CARBIDOPA/LEVODOPA 25 MG/100 MG TAB PO SCH ×3 (06:17→21:40)
[2017-09-14] MEDS: SODIUM CHLOR 0.9% 1000 ML INJ 1,000 ML IV SCH (06:19)
--- NOTE | 2017-09-14 08:33 | EKG ---
Date Performed: 09/12/2017 Time Performed: 15:15:42 PTAGE: 87 years EKG: Sinus rhythm Consider inferior KS, age indeterminate ABNORMAL ECG PREVIOUS TRACING : 07/08/17 DOCTOR: Tramaine Darnell Interpretating Date/Time 09/14/2017 08:41:56
[2017-09-14] MEDS: METOPROLOL TARTRATE 50 MG TAB PO SCH (08:49)
[2017-09-14] MEDS: MESALAMINE HD 800 MG DELAYED RELEASE TAB PO SCH ×3 (08:49→18:34)
[2017-09-14] MEDS: VANCOMYCIN 500 MG VIAL (FOR ORAL USE ONLY) PO SCH ×4 (08:49→21:40)
[2017-09-14] MEDS: LACTOBACILLUS ACIDOPHILUS TAB PO SCH ×2 (08:49→21:40)
[2017-09-14] MEDS: SODIUM CHLORIDE 0.9% FLUSH 10 ML FLUSH IV FLUSH SCH ×2 (08:50→21:00)
[2017-09-14] MEDS: NIFEdipine 30 MG SUSTAINED RELEASE TAB PO SCH (08:50)
[2017-09-14] MEDS: PANTOPRAZOLE SOD 40 MG DELAYED RELEASE TAB PO SCH ×2 (08:50→21:40)
[2017-09-14] MEDS: CHOLESTYRAMINE 4 GM PACKET PO SCH ×2 (09:00→21:00)
[2017-09-14 10:05] LABS: AUTOMATED NEUTROPHIL # 14.6 TH/MM3 (1.8-7.7); BASOPHIL % 0.2 % (0.0-2.0); EOSINOPHIL # 0.1 TH/MM3 (0-0.4); EOSINOPHIL % 0.5 % (0.0-4.0); HEMATOCRIT 30.5 % (35.0-46.0); HEMOGLOBIN 9.8 GM/DL (11.6-15.3); LYMPH % 6.3 % (9.0-44.0); LYMPHOCYTE # 1.1 TH/MM3 (1.0-4.8); MEAN CELL VOLUME 98.3 FL (80.0-100.0); MEAN CORPUSCULAR HEMOGLOBIN 31.8 PG (27.0-34.0); MEAN CORPUSCULAR HGB CONC 32.3 % (32.0-36.0); MEAN PLATELET VOLUME 8.4 FL (7.0-11.0); MONO % 7.6 % (0.0-8.0); MONOCYTE # 1.3 TH/MM3 (0-0.9); NEUT % 85.4 % (16.0-70.0); PLATELET COUNT 308 TH/MM3 (150-450); RED CELL DISTRIBUTION WIDTH 16.1 % (11.6-17.2); WHITE BLOOD COUNT 17.1 TH/MM3 (4.0-11.0)
--- NOTE | 2017-09-14 10:08 | GIPROC ---
[facility] [address] [facility]. [facility], [address] EGD PROCEDURE REPORT EXAM DATE: 09/14/2017 PATIENT NAME: Hannah Christopher MR #: [id number] BIRTHDATE: 1930 ATTENDING: Luis Manuel Escalona MD ORDER #: [id number] MANAGER RESIDENTIAL: Mirza Salamanca and Tracey Mccurdy STATUS: inpatient INDICATIONS: The patient is a 87 yr old female here for an EGD due to nausea and vomiting PROCEDURE PERFORMED: EGD, diagnostic MEDICATIONS: None and Per Anesthesia. TOPICAL ANESTHETIC: none CONSENT: The patient understands the risks and benefits of the procedure and understands that these risks include, but are not limited to: sedation, allergic reaction, infection, perforation and/or bleeding. Alternative means of evaluation and treatment include, among others: physical exam, x-rays, and/or surgical intervention. The patient elects to proceed with this endoscopic procedure. medical equipment was checked for proper function. Hand hygiene and appropriate measures for infection prevention was taken. After the risks, benefits and alternatives of the procedure were thoroughly explained, Informed consent was verified, confirmed and timeout was successfully executed by the treatment team. The patient was anesthetized with topical anesthesia and the Pentax [id number] endoscope was introduced through the mouth and advanced to the second portion of the duodenum. Retroflexion was performed and was normal The gastroscope was then slowly withdrawn and removed. ESOPHAGUS: A Schatzki ring was found and was widely open. STOMACH: The mucosa of the stomach appeared normal. DUODENUM: The duodenal mucosa appeared normal in the bulb and second portion of the duodenum. ADVERSE EVENTS: There were no complications. IMPRESSIONS: 1. Schatzki ring was found 2. The mucosa of the stomach appeared normal 3. Normal duodenal mucosa in the bulb and second portion of the duodenum 4. Retroflexion was performed and was normal RECOMMENDATIONS: No treatment PATIENT CONDITION: stable DISPOSITION: Observation REPEAT EXAM: NONE Luis Manuel Escalona MD eSigned: Luis Manuel Escalona MD 09/14/2017 10:08 AM cc: PATIENT NAME: Hannah Christopher MR#: [id number]
[2017-09-14 10:28] LABS: BICARBONATE 25.1 MEQ/L (21.0-32.0); CALCIUM 7.7 MG/DL (8.5-10.1); CREATININE 0.48 MG/DL (0.50-1.00)
--- NOTE | 2017-09-14 11:14 | HHI.PR ---
Subjective Remarks Follow-up for nausea/vomiting/diarrhea, C. difficile. Patient is seen shortly after returning from EGD. She is still drowsy, but does awaken to answer questions. Seen with nurse and CERTIFIED PHLEBOTOMY TECHNICIAN at bedside. Patient reports she had 2 loose nonbloody bowel movements yesterday. She reports continued nausea but no vomiting. Denies fevers or chills. Discussed results of urine culture, patient does endorse dysuria. She reports mild diffuse lower abdominal pain. She has no other medical complaints at this time. Objective Vitals Vital Signs Date Time Temp Pulse Resp B/P (MAP) Pulse Ox O2 Delivery O2 Flow Rate FiO2 09/14/17 10:20 69 20 130/62 (84) 94 09/14/17 10:05 67 20 140/70 (93) 100 09/14/17 08:08 98.2 72 20 148/62 (90) 96 09/14/17 03:36 97.7 103 17 158/72 (100) 96 09/13/17 23:36 97.7 105 16 137/62 (87) 93 09/13/17 16:00 96.0 97 20 128/60 (82) 95 09/13/17 15:55 74 09/13/17 12:20 103 09/13/17 12:00 96.7 101 20 128/58 (81) 96 I/O 09/13/17 09/13/17 09/13/17 09/14/17 09/14/17 09/14/17 07:00 15:00 23:00 07:00 15:00 23:00 Intake Total 1430 ml 600 ml 150 ml Balance 1430 ml 600 ml 150 ml Intake Oral 480 ml 600 ml IV Total 950 ml Other 150 ml # Voids 3 1 3 3 # Bowel Movements 3 Result Diagram: 09/14/17 0926 09/14/17 0926 Imaging Last Impressions Abdomen/Pelvis CT 09/12/17 1436 Signed Impressions: CONCLUSION: 1. The previously noted thickening involving the transverse colon is mildly im proved. Otherwise the bowel gas pattern is within normal limits without evidenc e of mechanical obstruction. 2. Mild prominence of the right collecting system without obstructing renal st one or ureteral stone. 3. Stable small cyst in the head of the pancreas. 4. The bladder appears to be distended. 5. Otherwise, no other new or significant changes are seen compared to the dawn or study. Objective Remarks GENERAL: Well-nourished, well-developed pleasant elderly female patient in NAD. SKIN: Warm and dry. No rash. HEENT: Normocephalic. Atraumatic. Pupils equal and round. Mucous membranes pink and moist. CARDIOVASCULAR: Regular rate and rhythm. No murmur appreciated. RESPIRATORY: No accessory muscle use. Clear to auscultation. Breath sounds equal bilaterally. GASTROINTESTINAL: Abdomen soft, non-tender, nondistended. Normoactive bowel sounds x4. MUSCULOSKELETAL: No obvious deformities. Extremities without clubbing, cyanosis , or edema. NEUROLOGICAL: Awake and alert. No obvious cranial nerve deficits. Motor grossly within normal limits. Moving all extremities spontaneously. Normal speech. Procedures 09/14/17 -EGD by Dr. Escalona showed Schatzki's ring, otherwise normal Medications and IVs Current Medications Medications (Trade) Dose Ordered Sig/Ton Route Start Time Stop Time Status Last Admin (VANCOMYCIN for oral use only) 125 mg QID PO 09/12/17 14:45 09/14/17 08:49 Sodium Chloride 1,000 ml @ 100 mls/hr Q10H IV 09/12/17 19:30 09/14/17 06:19 (NS Flush) 2 ml UNSCH PRN IV FLUSH 09/12/17 19:30 (NS Flush) 2 ml BID IV FLUSH 09/12/17 21:00 (Tylenol) 650 mg Q4H PRN PO 09/12/17 19:30 (Zofran Inj) 4 mg Q6H PRN IVP 09/12/17 19:30 (Lovenox Inj) 40 mg Q24H SQ 09/12/17 20:00 09/13/17 20:59 (Narcan Inj) 0.4 mg UNSCH PRN IV PUSH 09/12/17 19:30 (Milk Of Magnesia Liq) 30 ml Q12H PRN PO 09/12/17 19:30 (Senokot) 17.2 mg Q12H PRN PO 09/12/17 19:30 (Dulcolax Supp) 10 mg DAILY PRN RECTAL 09/12/17 19:30 (Lactulose Liq) 30 ml DAILY PRN PO 09/12/17 19:30 (Lipitor) 40 mg HS PO 09/12/17 21:00 09/13/17 21:00 (Sinemet 25-100 Mg) 1 tab Q8HR PO 09/12/17 22:00 09/14/17 06:17 (Neurontin) 300 mg HS PO 09/12/17 21:00 09/13/17 22:01 (Lactinex) 1 tab Q12HR PO 09/12/17 21:00 09/14/17 08:49 (Antivert) 25 mg DAILY PRN PO 09/12/17 19:30 (As[address] Hd [address]) 800 mg TID PO 09/13/17 09:00 09/14/17 08:49 (Lopressor) 50 mg DAILY PO 09/13/17 09:00 09/14/17 08:49 (Procardia Xl) 30 mg DAILY PO 09/13/17 09:00 09/14/17 08:50 (Protonix) 40 mg BID PO 09/12/17 21:00 09/14/17 08:50 (Questran 4 Gm Pkt) 4 gm Q12HR PO 09/13/17 21:00 09/13/17 20:59 (Tears Naturale Opth Soln) 1 drop Q6H PRN EACH EYE 09/13/17 18:00 Lactated Ringer's 1,000 ml @ 30 mls/hr Q24H PRN IV 09/14/17 05:45 09/17/17 05:44 Sodium Chloride 500 ml @ 30 mls/hr [id number] PRN IV 09/14/17 05:45 09/17/17 05:44 (Betadine 5% Antisepsis Kit) 1 applic HAUL DRIVER PRN EACH NARE 09/14/17 05:45 09/17/17 05:44 (Chlorhexidine 2% Cloth) 3 pack HAUL DRIVER PRN TOPICAL 09/14/17 05:45 09/17/17 05:44 Ceftriaxone Sodium 1000 mg/ Sodium Chloride 100 ml @ 200 mls/hr Q24H IV 09/14/17 10:45 UNV A/P Problem List: (1) Nausea & vomiting ICD Code: R11.2 - Nausea with vomiting, unspecified (2) Diarrhea ICD Code: R19.7 - Diarrhea, unspecified (3) Leukocytosis ICD Code: D72.829 - Elevated white blood cell count, unspecified (4) Hypertension ICD Code: I10 - Essential (primary) hypertension (5) Sepsis ICD Code: A41.9 - Sepsis, unspecified organism Assessment and Plan 87-year-old female with history of C. difficile colitis on oral Vanco, CVA, HTN , rheumatoid arthritis, presents with nausea/vomiting/diarrhea. Nausea/vomiting/diarrhea: Acute. -CT abd/pelvis reviewed, shows mildly improved thickening of the transverse colon, otherwise normal bowel gas pattern without obstruction; mild prominence of right collecting system without stone, distended bladder -Supportive treatment with IV fluid hydration, antiemetics as needed, pain control as needed -Stool cultures negative so far -Continue Protonix -Consult GI -S/p EGD 09/14, showed Schatzki's ring otherwise unremarkable -Symptoms slowly improving, diet advanced to heart healthy, monitor for improvement C. difficile colitis: Subacute. S/p recent hospitalization in [facility]. -Continue patient's oral vancomycin 125 mg po qid -Check C. difficile PCR -Monitor BMs UTI: UA with small leuks, WBCs, and bacteria. Patient endorses dysuria. -Continue on IV Rocephin -Monitor urine culture, preliminary with Group D Enterococcus -Monitor CBC -Await final culture, adjust antibiotics as needed Sepsis: Meets sepsis criteria with WBC increased to 17.1K and mild tachycardia HR 103, and suspect source- UTI and/or C.diff, as above. -continue IVF hydration -monitor CBC -treat infections as above Anemia: Chronic, baseline around 10, decreased to 9.8 overnight likely dilutional secondary to IVF. -Continue to monitor CBC -No active signs of bleeding Hypertension/hyperlipidemia: Chronic, BP fairly well controlled -Continue patient's home medications including Nifedipine, Metoprolol, statin -Monitor BP, adjust antihypertensives as needed DVT Prophylaxis: Lovenox sq Discharge Planning 1100hrs: Patient with sepsis and increased WBC today. Continue to treat infections. Await urine culture and further clinical improvement prior to discharge. 1615hrs: Urine culture positive for VRE, will d/c rocephin, and consult infectious disease. Contacted the patient's daughter Loida Sandra at [phone] per her request. Thoroughly discussed the patient's findings and plan. Patient's daughter is very concerned about the ongoing C. difficile. She is questioning if the fecal transplant procedure can be done locally. She was told a physician in [place] does this procedure. She would like to discuss this further with Dr. Castrejon at her convenience. Loida is currently in [place], but plans to return in 1 week. Sylwia Wood PA-C Sep 14, 2017 11:14
[2017-09-14] MEDS ORDERED: PROPOFOL 200 MG/20 ML AMP IV ONE (12:00)
[2017-09-14] MEDS ORDERED: LACTATED RINGER'S 1000 ML INJ 1,000 ML IV ONE (12:00)
[2017-09-14] MEDS ORDERED: LIDOCAINE HCL 1% PF 5 ML SYRINGE OTHER ONE (12:00)
[2017-09-14] MEDS ORDERED: cefTRIAXone INJ 1,000 MG in SODIUM CHLORIDE 0.9% INJ 100 ML IV SCH (12:00)
[2017-09-14 17:44] LABS: BILIRUBIN, URINE NEG (NEG); BLOOD, URINE NEG (NEG); GLUCOSE,URINE NEG (NEG); HYALINE CAST, URINE 3 /lpf (RARE); KETONE, URINE NEG (NEG); NITRITE,URINE NEG (NEG); URINE COLOR YELLOW (YELLW/STRAW); URINE LEUKOCYTE ESTERASE SMALL (NEG)
[2017-09-14] MEDS: ENOXAPARIN SODIUM 40 MG/0.4 ML SYRINGE SQ SCH (21:39)
[2017-09-14] MEDS: GABAPENTIN 300 MG CAP PO SCH (21:40)
[2017-09-14] MEDS: ATORVASTATIN 40 MG TAB PO SCH (21:40)
[2017-09-15] VITALS (7 sets, daily range): BP systolic 97–124; BP diastolic 52–60; PULSE 87–107; RESP 16–18; TEMP 98.1–98.7; O2SAT 93–96
[2017-09-15] MEDS: ONDANSETRON ODT 4 MG TAB SL PRN ×2 (00:45→14:29)
[2017-09-15] MEDS: SODIUM CHLOR 0.9% 1000 ML INJ 1,000 ML IV SCH ×2 (06:25→21:17)
[2017-09-15] MEDS: CARBIDOPA/LEVODOPA 25 MG/100 MG TAB PO SCH ×3 (06:25→21:14)
[2017-09-15 08:14] LABS: AUTOMATED NEUTROPHIL # 10.9 TH/MM3 (1.8-7.7); BASOPHIL # 0.1 TH/MM3 (0-0.2); BASOPHIL % 0.4 % (0.0-2.0); EOSINOPHIL # 0.1 TH/MM3 (0-0.4); EOSINOPHIL % 0.9 % (0.0-4.0); HEMATOCRIT 22.2 % (35.0-46.0); LYMPH % 9.1 % (9.0-44.0); LYMPHOCYTE # 1.2 TH/MM3 (1.0-4.8); MEAN CELL VOLUME 96.2 FL (80.0-100.0); MEAN CORPUSCULAR HEMOGLOBIN 34.7 PG (27.0-34.0); MONO % 8.4 % (0.0-8.0); MONOCYTE # 1.1 TH/MM3 (0-0.9); NEUT % 81.2 % (16.0-70.0); PLATELET COUNT 279 TH/MM3 (150-450); RED BLOOD COUNT 2.31 MIL/MM3 (4.00-5.30); WHITE BLOOD COUNT 13.4 TH/MM3 (4.0-11.0)
[2017-09-15 08:18] LABS: MEAN CORPUSCULAR HGB CONC 36.1 % (32.0-36.0)
[2017-09-15 08:43] LABS: CALCIUM 7.3 MG/DL (8.5-10.1); CREATININE 0.51 MG/DL (0.50-1.00)
[2017-09-15 08:59] LABS: CALCIUM-PROTEIN CORRECTED 8.3 MG/DL (8.5-10.1); TOTAL PROTEIN 5.3 GM/DL (6.4-8.2)
[2017-09-15] MEDS ORDERED: POTASSIUM CHLORIDE 20 MEQ CONTROLLED RELEASE TAB PO ONE (10:15)
[2017-09-15 10:23] LABS: ROULEAUX PRESENT (NORMAL); STOMATOCYTES 1+ (NORMAL)
--- NOTE | 2017-09-15 10:30 | HHI.PR ---
Subjective Remarks Follow up for C.difficile, UTI. The patient reports feeling a little better today. She reports multiple episodes of nonbloody diarrhea yesterday, but none so far today. She reports her entire abdomen just feels sore. She denies any nausea or vomiting. She is tolerating oral intake. She continues to endorse dysuria. Denies fevers or chills. Denies any other medical complaints at this time. Objective Vitals Vital Signs Date Time Temp Pulse Resp B/P (MAP) Pulse Ox O2 Delivery O2 Flow Rate FiO2 09/15/17 08:45 98.1 95 18 97/52 (67) 95 09/15/17 03:43 98.7 96 16 100/57 (71) 93 09/14/17 23:23 99.1 98 16 110/55 (73) 97 09/14/17 23:15 95 09/14/17 19:45 98.5 105 16 125/65 (85) 09/14/17 17:45 86 09/14/17 16:37 09/14/17 16:37 98.2 62 20 142/60 (87) 96 I/O 09/14/17 09/14/17 09/14/17 09/15/17 09/15/17 09/15/17 07:00 15:00 23:00 07:00 15:00 23:00 Intake Total 600 ml 150 ml Output Total 950 ml Balance 600 ml 150 ml -950 ml Intake Oral 600 ml Other 150 ml Output Urine Total 950 ml # Voids 3 # Bowel Movements 6 Result Diagram: 09/15/17 0740 09/15/17 0740 Imaging Last Impressions Abdomen/Pelvis CT 09/12/17 1436 Signed Impressions: CONCLUSION: 1. The previously noted thickening involving the transverse colon is mildly im proved. Otherwise the bowel gas pattern is within normal limits without evidenc e of mechanical obstruction. 2. Mild prominence of the right collecting system without obstructing renal st one or ureteral stone. 3. Stable small cyst in the head of the pancreas. 4. The bladder appears to be distended. 5. Otherwise, no other new or significant changes are seen compared to the dawn or study. Objective Remarks GENERAL: Well-nourished, well-developed pleasant elderly female patient in NAD. SKIN: Warm and dry. No rash. HEENT: Normocephalic. Atraumatic. Pupils equal and round. Mucous membranes pink and moist. CARDIOVASCULAR: Regular rate and rhythm. No murmur appreciated. RESPIRATORY: No accessory muscle use. Clear to auscultation. Breath sounds equal bilaterally. GASTROINTESTINAL: Abdomen soft, nondistended, mild diffuse TTP. Normoactive bowel sounds x4. MUSCULOSKELETAL: No obvious deformities. Extremities without clubbing, cyanosis , or edema. NEUROLOGICAL: Awake and alert. No obvious cranial nerve deficits. Motor grossly within normal limits. Moving all extremities spontaneously. Normal speech. Procedures 09/14/17 -EGD by Dr. Escalona showed Schatzki's ring, otherwise normal Medications and IVs Current Medications Medications (Trade) Dose Ordered Sig/Ton Route Start Time Stop Time Status Last Admin (VANCOMYCIN for oral use only) 125 mg QID PO 09/12/17 14:45 09/14/17 21:40 Sodium Chloride 1,000 ml @ 70 mls/hr [id number] IV 09/12/17 19:30 09/15/17 06:25 (NS Flush) 2 ml UNSCH PRN IV FLUSH 09/12/17 19:30 (NS Flush) 2 ml BID IV FLUSH 09/12/17 21:00 (Tylenol) 650 mg Q4H PRN PO 09/12/17 19:30 (Lovenox Inj) 40 mg Q24H SQ 09/12/17 20:00 09/14/17 21:39 (Narcan Inj) 0.4 mg UNSCH PRN IV PUSH 09/12/17 19:30 (Milk Of Magnesia Liq) 30 ml Q12H PRN PO 09/12/17 19:30 (Senokot) 17.2 mg Q12H PRN PO 09/12/17 19:30 (Dulcolax Supp) 10 mg DAILY PRN RECTAL 09/12/17 19:30 (Lactulose Liq) 30 ml DAILY PRN PO 09/12/17 19:30 (Lipitor) 40 mg HS PO 09/12/17 21:00 09/14/17 21:40 (Sinemet 25-100 Mg) 1 tab Q8HR PO 09/12/17 22:00 09/15/17 06:25 (Neurontin) 300 mg HS PO 09/12/17 21:00 09/14/17 21:40 (Lactinex) 1 tab Q12HR PO 09/12/17 21:00 09/14/17 21:40 (Antivert) 25 mg DAILY PRN PO 09/12/17 19:30 (Asacol Hd Dr) 800 mg TID PO 09/13/17 09:00 09/14/17 18:34 (Lopressor) 50 mg DAILY PO 09/13/17 09:00 09/14/17 08:49 (Procardia Xl) 30 mg DAILY PO 09/13/17 09:00 09/14/17 08:50 (Protonix) 40 mg BID PO 09/12/17 21:00 09/14/17 21:40 (Questran 4 Gm Pkt) 4 gm Q12HR PO 09/13/17 21:00 09/13/17 20:59 (Tears Naturale Opth Soln) 1 drop Q6H PRN EACH EYE 09/13/17 18:00 Lactated Ringer's 1,000 ml @ 30 mls/hr Q24H PRN IV 09/14/17 05:45 09/17/17 05:44 Sodium Chloride 500 ml @ 30 mls/hr [id number] PRN IV 09/14/17 05:45 09/17/17 05:44 (Betadine 5% Antisepsis Kit) 1 applic FEDERAL AGENT PRN EACH NARE 09/14/17 05:45 09/17/17 05:44 (Chlorhexidine 2% Cloth) 3 pack FEDERAL AGENT PRN TOPICAL 09/14/17 05:45 09/17/17 05:44 (Zofran Odt) 4 mg Q6H PRN SL 09/15/17 00:15 09/15/17 00:45 (Dificid) 200 mg BID PO 09/15/17 10:15 09/25/17 10:14 UNV (Asacol Hd Dr) 1,600 mg Q8HR PO 09/15/17 14:00 UNV (KCl) 40 meq ONCE ONCE PO 09/15/17 10:15 09/15/17 10:16 UNV (Tums Chew) 500 mg Q12HR CHEW 09/15/17 10:15 UNV A/P Problem List: (1) Nausea & vomiting ICD Code: R11.2 - Nausea with vomiting, unspecified (2) Diarrhea ICD Code: R19.7 - Diarrhea, unspecified (3) Leukocytosis ICD Code: D72.829 - Elevated white blood cell count, unspecified (4) Hypertension ICD Code: I10 - Essential (primary) hypertension (5) Sepsis ICD Code: A41.9 - Sepsis, unspecified organism Assessment and Plan 87-year-old female with history of C. difficile colitis on oral Vanco, CVA, HTN , rheumatoid arthritis, presents with nausea/vomiting/diarrhea. Nausea/vomiting/diarrhea: Acute. -CT abd/pelvis reviewed, shows mildly improved thickening of the transverse colon, otherwise normal bowel gas pattern without obstruction; mild prominence of right collecting system without stone, distended bladder -Supportive treatment with IV fluid hydration, antiemetics as needed, pain control as needed -Stool cultures negative so far -Continue Protonix -Consult GI, s/p EGD 09/14, showed Schatzki's ring otherwise unremarkable -N/V resolved, diet advanced to heart healthy, tolerating oral intake C. difficile colitis: Subacute. S/p recent hospitalization in [facility]. -Continue patient's oral vancomycin 125 mg po qid -Repeat C. difficile PCR negative -Consulted infectious disease, discussed with Dr. Castrejon, started on Asacol and Dificid -Monitor BMs VRE UTI: UA with small leuks, WBCs, and bacteria. Patient endorses dysuria. --Urine Culture with Enterococcus Durans/Hirae VRE -S/p IV Rocephin, now discontinued -Infectious disease consulted, appreciate assistance Sepsis: Meets sepsis criteria with WBC increased to 17.1K and mild tachycardia HR 103, and suspect source- UTI and/or C.diff, as above. -continue IVF hydration -monitor CBC, leukocytosis improving -treat infections as above Anemia: Chronic, baseline around 10, decreased to 9.8 overnight likely dilutional secondary to IVF. -Continue to monitor CBC -No active signs of bleeding -Hgb dropped to 8.0 today, check stool hemoccult Hypertension/hyperlipidemia: Chronic, BP fairly well controlled -Continue patient's home medications including Nifedipine, Metoprolol, statin -Monitor BP, adjust antihypertensives as needed Hypocalcemia: likely secondary to GI losses with diarrhea -start on calcium carbonate replacement DVT Prophylaxis: Lovenox sq Sylwia Wood PA-C Sep 15, 2017 10:30 am
[2017-09-15] MEDS: LACTOBACILLUS ACIDOPHILUS TAB PO SCH ×2 (10:47→21:13)
[2017-09-15] MEDS: PANTOPRAZOLE SOD 40 MG DELAYED RELEASE TAB PO SCH ×2 (10:48→21:15)
[2017-09-15] MEDS: CALCIUM CARBONATE 500 MG CHEWABLE TAB CHEW SCH ×2 (10:48→21:13)
[2017-09-15] MEDS: METOPROLOL TARTRATE 50 MG TAB PO SCH (10:48)
[2017-09-15] MEDS: CHOLESTYRAMINE 4 GM PACKET PO SCH ×3 (10:49→21:15)
[2017-09-15] MEDS: FIDAXOMICIN 200 MG TAB PO SCH ×2 (10:49→21:13)
[2017-09-15] MEDS: SODIUM CHLORIDE 0.9% FLUSH 10 ML FLUSH IV FLUSH SCH ×2 (10:49→21:15)
[2017-09-15] MEDS: VANCOMYCIN 500 MG VIAL (FOR ORAL USE ONLY) PO SCH ×4 (10:50→21:15)
--- NOTE | 2017-09-15 11:03 | PD.ID.CON ---
History of Present Illness Service ID Consult Requested By Dr. 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 Christopher is an pleasant 87-year-old female with history of C. 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 Patient was discharged on oral vancomycin extended course along with Asacol. Patient is now admitted with history of nausea vomiting and diarrhea. Patient was seen by a crap shooter in the office. Patient was recently also admitted at [facility] for the same symptoms. She reportedly was referred to [facility] by a crap shooter. Despite being on treatment she continues to have diarrhea nausea and vomiting. Symptoms worsened over the last 1-2 days prior to admission. She was brought into the emergency department because of persistent symptoms described as above. At the time of my evaluation patient is in the clinical decision unit area and reports no nausea vomiting or diarrhea. She denies any fevers or chills. She denies any chest pain, shortness of breath. She does report some weight loss and generalized weakness. Denies any changes in bladder habits. 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 Review of Systems ROS Limitations: Poor Historian Gastrointestinal: COMPLAINS OF: Abdominal pain, Diarrhea, Nausea, Vomiting Past Family Social History Allergies: Coded Allergies: ciprofloxacin (Verified Allergy, Intermediate, RASH, ITCHING, 07/19/17) codeine (Unverified Allergy, Intermediate, "VIOLENTLY SICK", 07/18/17) Past Medical History Rheumatoid arthritis Hypertension History of CVA C. difficile colitis Past Surgical History Appendectomy Hysterectomy Left lung surgery Carotid surgery Reported Medications Reported Meds & Active Scripts Active Asacol HD (Mesalamine) 800 Mg Tab 800 Mg PO TID 30 Days Swallow whole. Take on an empty stomach. Acidophilus/l-Sporogenes (Lactobacillus Acidophilus) 35 Million Cell-25 Million Cell Tab 1 Tab PO Q12HR Vancomycin (Vancomycin HCl) 125 Mg Cap 125 Mg PO QID Pantoprazole (Pantoprazole Sodium) 40 Mg Tab 40 Mg PO BID Nifedipine ER 24 HR (Nifedipine) 30 Mg Tab 30 Mg PO DAILY 30 Days Atorvastatin (Atorvastatin Calcium) 40 Mg Tab 40 Mg PO HS 30 Days Reported Ibuprofen 800 Mg Tab 800 Mg PO Q8H Vitamin D3 (Cholecalciferol) Unknown Strength Tab 1 Tab PO DAILY Meclizine (Meclizine HCl) 25 Mg Tab 25 Mg PO DAILY PRN Gabapentin 300 Mg Cap 300 Mg PO HS Carbidopa-Levodopa 25-100 Mg Tab 1 Tab PO Q8HR Metoprolol Tartrate 50 Mg Tab 50 Mg PO DAILY Active Ordered Medications Current Medications Medications (Trade) Dose Ordered Sig/Ton Route Start Time Stop Time Status Last Admin (VANCOMYCIN for oral use only) 125 mg QID PO 09/12/17 14:45 09/15/17 10:50 Sodium Chloride 1,000 ml @ 70 mls/hr [id number] IV 09/12/17 19:30 09/15/17 06:25 (NS Flush) 2 ml UNSCH PRN IV FLUSH 09/12/17 19:30 (NS Flush) 2 ml BID IV FLUSH 09/12/17 21:00 (Tylenol) 650 mg Q4H PRN PO 09/12/17 19:30 (Lovenox Inj) 40 mg Q24H SQ 09/12/17 20:00 09/14/17 21:39 (Narcan Inj) 0.4 mg UNSCH PRN IV PUSH 09/12/17 19:30 (Milk Of Magnesia Liq) 30 ml Q12H PRN PO 09/12/17 19:30 (Senokot) 17.2 mg Q12H PRN PO 09/12/17 19:30 (Dulcolax Supp) 10 mg DAILY PRN RECTAL 09/12/17 19:30 (Lactulose Liq) 30 ml DAILY PRN PO 09/12/17 19:30 (Lipitor) 40 mg HS PO 09/12/17 21:00 09/14/17 21:40 (Sinemet 25-100 Mg) 1 tab Q8HR PO 09/12/17 22:00 09/15/17 06:25 (Neurontin) 300 mg HS PO 09/12/17 21:00 09/14/17 21:40 (Lactinex) 1 tab Q12HR PO 09/12/17 21:00 09/15/17 10:47 (Antivert) 25 mg DAILY PRN PO 09/12/17 19:30 (Lopressor) 50 mg DAILY PO 09/13/17 09:00 09/15/17 10:48 (Procardia Xl) 30 mg DAILY PO 09/13/17 09:00 09/14/17 08:50 (Protonix) 40 mg BID PO 09/12/17 21:00 09/15/17 10:48 (Questran 4 Gm Pkt) 4 gm Q12HR PO 09/13/17 21:00 09/13/17 20:59 (Tears Naturale Opth Soln) 1 drop Q6H PRN EACH EYE 09/13/17 18:00 Lactated Ringer's 1,000 ml @ 30 mls/hr Q24H PRN IV 09/14/17 05:45 09/17/17 05:44 Sodium Chloride 500 ml @ 30 mls/hr [id number] PRN IV 09/14/17 05:45 09/17/17 05:44 (Betadine 5% Antisepsis Kit) 1 applic DEVELOPMENT GEOLOGIST PRN EACH NARE 09/14/17 05:45 09/17/17 05:44 (Chlorhexidine 2% Cloth) 3 pack DEVELOPMENT GEOLOGIST PRN TOPICAL 09/14/17 05:45 09/17/17 05:44 (Zofran Odt) 4 mg Q6H PRN SL 09/15/17 00:15 09/15/17 00:45 (Dificid) 200 mg BID PO 09/15/17 10:15 09/24/17 21:01 09/15/17 10:49 (Asacol Hd Dr) 1,600 mg Q8HR PO 09/15/17 14:00 (Tums Chew) 500 mg Q12HR CHEW 09/15/17 10:15 09/15/17 10:48 Family History No family history of Alzheimer's or Parkinson's. Social History Denies using alcohol, illicit drugs or tobacco. Lives at home with daughter. Physical Exam Vital Signs Vital Signs Date Time Temp Pulse Resp B/P (MAP) Pulse Ox O2 Delivery O2 Flow Rate FiO2 09/15/17 08:45 98.1 95 18 97/52 (67) 95 09/15/17 03:43 98.7 96 16 100/57 (71) 93 09/14/17 23:23 99.1 98 16 110/55 (73) 97 09/14/17 23:15 95 09/14/17 19:45 98.5 105 16 125/65 (85) 09/14/17 17:45 86 09/14/17 16:37 09/14/17 16:37 98.2 62 20 142/60 (61) 96 Physical Exam GENERAL: This is a well-nourished, well-developed patient, in no apparent distress. SKIN: No rashes, ecchymoses or lesions. Cool and dry. HEAD: Atraumatic. Normocephalic. No temporal or scalp tenderness. EYES: Pupils equal round and reactive. Extraocular motions intact. No scleral icterus. No injection or drainage. ENT: Nose without bleeding, purulent drainage or septal hematoma. Throat without erythema, tonsillar hypertrophy or exudate. Uvula midline. Airway patent. NECK: Trachea midline. Supple, nontender, no meningeal signs. CARDIOVASCULAR: Heart sounds audible. RESPIRATORY: Clear to auscultation. Breath sounds equal bilaterally. No wheezes , rales, or rhonchi. GASTROINTESTINAL: Abdomen soft, non-tender, nondistended. MUSCULOSKELETAL: Extremities without clubbing, cyanosis, or edema. No joint tenderness, effusion, or edema noted. No calf tenderness. Negative Homans sign bilaterally. NEUROLOGICAL: Awake and alert. Nonfocal exam Psych cooperative IV line sites with no evidence of infection. Laboratory Laboratory Tests Test 09/14/17 17:00 09/15/17 07:40 Urine Color YELLOW Urine Turbidity CLEAR Urine pH 7.0 Urine Specific [place] 1.006 Urine Protein NEG Urine Glucose (UA) NEG Urine Ketones NEG Urine Occult Blood NEG Urine Nitrite NEG Urine Bilirubin NEG Urine Urobilinogen LESS THAN 2.0 Urine Leukocyte Esterase SMALL Urine WBC 5 Urine Hyaline Casts 3 Microscopic Urinalysis Comment CULT NOT INDICATED White Blood Count 13.4 Red Blood Count 2.31 Hemoglobin 8.0 Hematocrit 22.2 Mean Corpuscular Volume 96.2 Mean Corpuscular Hemoglobin 34.7 Mean Corpuscular Hemoglobin Concent 36.1 Red Cell Distribution Width 15.0 Platelet Count 279 Mean Platelet Volume 8.0 Neutrophils (%) (Auto) 81.2 Lymphocytes (%) (Auto) 9.1 Monocytes (%) (Auto) 8.4 Eosinophils (%) (Auto) 0.9 Basophils (%) (Auto) 0.4 Neutrophils # (Auto) 10.9 Lymphocytes # (Auto) 1.2 Monocytes # (Auto) 1.1 Eosinophils # (Auto) 0.1 Basophils # (Auto) 0.1 CBC Comment AUTO DIFF Differential Comment AUTO DIFF CONFIRMED Platelet Estimate NORMAL Platelet Morphology Comment NORMAL Stomatocytes 1+ Rouleau PRESENT Blood Urea Nitrogen 6 Creatinine 0.51 Random Glucose 79 Total Protein 5.3 Calcium Level 7.3 Sodium Level 133 Potassium Level 3.1 Chloride Level 101 Carbon Dioxide Level 22.0 Anion Gap 10 Estimat Glomerular Filtration Rate 114 Protein Corrected Calcium 8.3 Date/Time Source Procedure Growth Status 09/14/17 10:50 Stool Stool Acid Fast Stain Pending Received 09/14/17 10:50 Stool Stool Mycobacterial Culture Pending Received 09/12/17 16:05 Urine Clean Catch Urine Culture - Final Enterococcus Durans/Hirae Vre Complete Result Diagram: 09/15/17 0740 09/15/17 0740 Imaging Last Impressions Abdomen/Pelvis CT 09/12/17 1436 Signed Impressions: CONCLUSION: 1. The previously noted thickening involving the transverse colon is mildly im proved. Otherwise the bowel gas pattern is within normal limits without evidenc e of mechanical obstruction. 2. Mild prominence of the right collecting system without obstructing renal st one or ureteral stone. 3. Stable small cyst in the head of the pancreas. 4. The bladder appears to be distended. 5. Otherwise, no other new or significant changes are seen compared to the dawn or study. Assessment and Plan Assessment and Plan Recurrent Cdiff ? reinfection vs recurrence. VRE in the urine. Reports dysuria that is chronic. ? has been receiving antibiotics that could be precipitating bouts of diarrhea Cdiff. Possible this is a recurrent UTI and recurrent Cdiff cycle. Recs Avoid systemic antibiotics as WBC improved despite antibiotic that was not susceptible based on culture. Continue oral vanco Avoid PPIs Avoid any promotility agents Start Difficid Start Asacol Follow clinically to assess need for antibiotics for UTI. dw patient dw RN Vera Harris MD Sep 15, 2017 11:03
[2017-09-15] MEDS: NIFEdipine 30 MG SUSTAINED RELEASE TAB PO SCH (13:19)
--- NOTE | 2017-09-15 13:36 | HHI.GIFU ---
Subjective Remarks Pt states some improvement in her abdominal pain today Reports BMs slowing down some Reports some nausea but denies emesis (Nica Potter) Objective Vitals I&O Vital Signs Date Time Temp Pulse Resp B/P (MAP) Pulse Ox O2 Delivery O2 Flow Rate FiO2 09/15/17 11:48 98.4 107 18 102/53 (69) 95 09/15/17 08:45 98.1 95 18 97/52 (67) 95 09/15/17 03:43 98.7 96 16 100/57 (71) 93 09/14/17 23:23 99.1 98 16 110/55 (73) 97 09/14/17 23:15 95 09/14/17 19:45 98.5 105 16 125/65 (85) 09/14/17 17:45 86 09/14/17 16:37 09/14/17 16:37 98.2 62 20 142/60 (87) 96 I/O 09/14/17 09/14/17 09/14/17 09/15/17 09/15/17 09/15/17 07:00 15:00 23:00 07:00 15:00 23:00 Intake Total 600 ml 150 ml Output Total 950 ml Balance 600 ml 150 ml -950 ml Intake Oral 600 ml Other 150 ml Output Urine Total 950 ml # Voids 3 # Bowel Movements 6 Laboratory Laboratory Tests Test 09/14/17 17:00 09/15/17 07:40 Urine Color YELLOW Urine Turbidity CLEAR Urine pH 7.0 Urine Specific [place] 1.006 Urine Protein NEG Urine Glucose (UA) NEG Urine Ketones NEG Urine Occult Blood NEG Urine Nitrite NEG Urine Bilirubin NEG Urine Urobilinogen LESS THAN 2.0 Urine Leukocyte Esterase SMALL Urine WBC 5 Urine Hyaline Casts 3 Microscopic Urinalysis Comment CULT NOT INDICATED White Blood Count 13.4 Red Blood Count 2.31 Hemoglobin 8.0 Hematocrit 22.2 Mean Corpuscular Volume 96.2 Mean Corpuscular Hemoglobin 34.7 Mean Corpuscular Hemoglobin Concent 36.1 Red Cell Distribution Width 15.0 Platelet Count 279 Mean Platelet Volume 8.0 Neutrophils (%) (Auto) 81.2 Lymphocytes (%) (Auto) 9.1 Monocytes (%) (Auto) 8.4 Eosinophils (%) (Auto) 0.9 Basophils (%) (Auto) 0.4 Neutrophils # (Auto) 10.9 Lymphocytes # (Auto) 1.2 Monocytes # (Auto) 1.1 Eosinophils # (Auto) 0.1 Basophils # (Auto) 0.1 CBC Comment AUTO DIFF Differential Comment AUTO DIFF CONFIRMED Platelet Estimate NORMAL Platelet Morphology Comment NORMAL Stomatocytes 1+ Rouleau PRESENT Blood Urea Nitrogen 6 Creatinine 0.51 Random Glucose 79 Total Protein 5.3 Calcium Level 7.3 Sodium Level 133 Potassium Level 3.1 Chloride Level 101 Carbon Dioxide Level 22.0 Anion Gap 10 Estimat Glomerular Filtration Rate 114 Protein Corrected Calcium 8.3 Date/Time Source Procedure Growth Status 09/13/17 12:05 Stool Stool Cryptosporidium Exam Pending Received 09/13/17 12:05 Stool Stool Giardia Antigen (ANUPAMA) Pending Received 09/12/17 16:05 Urine Clean Catch Urine Culture - Final Enterococcus Durans/Hirae Vre Complete Imaging Last Impressions Abdomen/Pelvis CT 09/12/17 1436 Signed Impressions: CONCLUSION: 1. The previously noted thickening involving the transverse colon is mildly im proved. Otherwise the bowel gas pattern is within normal limits without evidenc e of mechanical obstruction. 2. Mild prominence of the right collecting system without obstructing renal st one or ureteral stone. 3. Stable small cyst in the head of the pancreas. 4. The bladder appears to be distended. 5. Otherwise, no other new or significant changes are seen compared to the dawn or study. Physical Exam HEENT: Normocephalic; atraumatic CHEST: Even/unlabored CARDIAC: RRR ABDOMEN: Distended, soft, mild diffuse tenderness, bowel sounds active EXTREMITIES: No clubbing, cyanosis, or edema. SKIN: Normal; no rash; no jaundice. SEPTIC TANK INSTALLER: Alert (BonnetteJohnieNica METHODS ENGINEER) Assessment and Plan Plan Assessment: - Nausea and vomiting- multiple recent hospital admission with same complaints including nausea, vomiting, diarrhea, abdominal pain. Reports nausea and vomiting did improve at some point and began again two days ago. Reports black emesis, denies BRB. EGD June 2016 --> Erosive gastritis, duodenal ulcers - History of C. Diff Colitis in June, colonoscopy done at that time consistent with severe pancolitis. Repeat colonoscopy in August revealed mild colitis and C. Diff testing done at that time was negative. Most recent hospital admission at [facility] earlier this month, saw ID who discharged her on Flagyl, Vancomycin, and Cholestyramine. Pt reports following up in her office but is unsure of any medication changes at that time. Complaining of: diarrhea with fecal urgency and incontinence, denies hematochezia and melena - Abdominal pain, diffuse, constant, unable to describe CT abdomen and pelvis W IV contrast (09/12) -->The previously noted thickening involving the transverse colon is mildly improved. Otherwise the bowel gas pattern is within normal limits without evidence of mechanical obstruction. Mild prominence of the right collecting system without obstructing renal stone or ureteral stone. Stable small cyst in the head of the pancreas.The bladder appears to be distended. Otherwise, no other new or significant changes are seen compared to the prior study. EGD (09/14) --> Schatzki ring was found. Mucosa of the stomach appeared normal. Normal duodenal mucosa in the bulb and second portion of the duodenum. (09/15) Pt reports continued abdominal pain with some improvement. Also reports nausea but denies emesis. Continued diarrhea but seems to be slowing down some. As previously noted pt with chronic symptoms, ID is following for recurrent C Diff and VRE in urine. Recommend continuing with current treatment including Asacol and Cholestryramine, our service will sign off, have pt follow up with GI after DC. Plan: Cholestyramine Mesalamine Dificid per ID Probiotics Pt has chronic symptoms, can follow up in the office Our service will sign off, please reconsult as needed Have pt follow up in the office after DC Pt has been seen and examined by myself and Dr. Escalona and this note is written on his behalf (Nica Potter) Physician Comments As above, finding of the EGD discussed, stable from GI point of view. Please notify us if needed again. (Luis Manuel Escalona MD) Nica Potter Sep 15, 2017 13:36 Luis Manuel Escalona MD Sep 15, 2017 16:48
[2017-09-15] MEDS: MESALAMINE HD 800 MG DELAYED RELEASE TAB PO SCH ×2 (14:30→21:14)
[2017-09-15] MEDS: ENOXAPARIN SODIUM 40 MG/0.4 ML SYRINGE SQ SCH (21:11)
[2017-09-15] MEDS: ATORVASTATIN 40 MG TAB PO SCH (21:12)
[2017-09-15] MEDS: GABAPENTIN 300 MG CAP PO SCH (21:14)
[2017-09-16] VITALS (9 sets, daily range): BP systolic 102–159; BP diastolic 53–72; PULSE 78–100; RESP 15–18; TEMP 97.8–98.3; O2SAT 92–96
[2017-09-16] MEDS: SODIUM CHLOR 0.9% 1000 ML INJ 1,000 ML IV SCH (03:43)
[2017-09-16] MEDS: MESALAMINE HD 800 MG DELAYED RELEASE TAB PO SCH ×3 (05:24→20:52)
[2017-09-16] MEDS: CARBIDOPA/LEVODOPA 25 MG/100 MG TAB PO SCH ×3 (05:25→20:52)
[2017-09-16 06:13] LABS: AUTOMATED NEUTROPHIL # 8.1 TH/MM3 (1.8-7.7); BASOPHIL # 0.1 TH/MM3 (0-0.2); BASOPHIL % 0.8 % (0.0-2.0); EOSINOPHIL # 0.2 TH/MM3 (0-0.4); EOSINOPHIL % 1.7 % (0.0-4.0); HEMATOCRIT 25.6 % (35.0-46.0); HEMOGLOBIN 8.7 GM/DL (11.6-15.3); LYMPH % 13.6 % (9.0-44.0); LYMPHOCYTE # 1.5 TH/MM3 (1.0-4.8); MEAN CELL VOLUME 97.8 FL (80.0-100.0); MEAN CORPUSCULAR HEMOGLOBIN 33.4 PG (27.0-34.0); MEAN CORPUSCULAR HGB CONC 34.2 % (32.0-36.0); MEAN PLATELET VOLUME 8.1 FL (7.0-11.0); MONOCYTE # 1.4 TH/MM3 (0-0.9); NEUT % 71.9 % (16.0-70.0); PLATELET COUNT 288 TH/MM3 (150-450); RED BLOOD COUNT 2.61 MIL/MM3 (4.00-5.30); RED CELL DISTRIBUTION WIDTH 15.1 % (11.6-17.2); WHITE BLOOD COUNT 11.3 TH/MM3 (4.0-11.0)
[2017-09-16 06:14] LABS: BICARBONATE 21.9 MEQ/L (21.0-32.0); BLOOD UREA NITROGEN 6 MG/DL (7-18); CALCIUM 7.4 MG/DL (8.5-10.1); CHLORIDE 104 MEQ/L (98-107); CREATININE 0.46 MG/DL (0.50-1.00); GLOMERULAR FILTRATION RATE 128 ML/MIN (>89); GLUCOSE,RANDOM 76 MG/DL (74-106); IRON (FE) 20 MCG/DL (50-170); SODIUM (NA) 137 MEQ/L (136-145)
[2017-09-16 06:21] LABS: MAGNESIUM 1.5 MG/DL (1.5-2.5)
[2017-09-16 06:24] LABS: TROPONIN I LESS THAN 0.02 NG/ML (0.02-0.05)
[2017-09-16 06:25] LABS: % SATURATION IRON PROFILE 15.4 % (20-50); FERRITIN 152 NG/ML (8-252); FOLATE 5.9 NG/ML (3.1-17.5); TOTAL IRON BINDING CAPACITY 130 MCG/DL (250-450)
[2017-09-16 06:32] LABS: CALCIUM-PROTEIN CORRECTED 8.3 MG/DL (8.5-10.1); TOTAL PROTEIN 5.5 GM/DL (6.4-8.2)
[2017-09-16] MEDS: MAGNESIUM SULFATE 1 GM PREMIX 100 ML IV SCH ×2 (08:37→09:34)
[2017-09-16] MEDS: NIFEdipine 30 MG SUSTAINED RELEASE TAB PO SCH (09:00)
[2017-09-16] MEDS: VANCOMYCIN 500 MG VIAL (FOR ORAL USE ONLY) PO SCH ×4 (09:00→20:47)
[2017-09-16] MEDS ORDERED: POTASSIUM CHLORIDE 20 MEQ CONTROLLED RELEASE TAB PO ONE (09:00)
--- NOTE | 2017-09-16 09:16 | HHI.PR ---
Subjective Remarks Follow-up for C. difficile, UTI. The patient reports feeling better again today. She states she did not really have any bowel movements yesterday until last night when she started having ongoing diarrhea. She states it is hard to quantify her BMs because she just kept going. She continues to report diffuse abdominal aches and cramps. Denies any fevers or chills. Denies any nausea or vomiting. Tolerating oral intake. Continues to report dysuria. She has no other medical complaints at this time. Objective Vitals Vital Signs Date Time Temp Pulse Resp B/P (MAP) Pulse Ox O2 Delivery O2 Flow Rate FiO2 09/16/17 04:20 98.0 82 16 102/53 (69) 95 09/16/17 04:01 81 09/16/17 04:00 83 09/16/17 00:00 85 09/15/17 23:28 98.6 88 16 114/59 (77) 94 09/15/17 20:00 96 09/15/17 19:56 98.6 92 16 124/60 (81) 96 09/15/17 16:24 98.3 87 18 117/58 (77) 96 09/15/17 11:48 98.4 107 18 102/53 (69) 95 I/O 09/15/17 09/15/17 09/15/17 09/16/17 09/16/17 09/16/17 06:59 14:59 22:59 06:59 14:59 22:59 Output Total 950 ml Balance -950 ml Output Urine Total 950 ml # Bowel Movements 1 Result Diagram: 09/16/17 0521 09/16/17 0521 Imaging Last Impressions Abdomen/Pelvis CT 09/12/17 1436 Signed Impressions: CONCLUSION: 1. The previously noted thickening involving the transverse colon is mildly im proved. Otherwise the bowel gas pattern is within normal limits without evidenc e of mechanical obstruction. 2. Mild prominence of the right collecting system without obstructing renal st one or ureteral stone. 3. Stable small cyst in the head of the pancreas. 4. The bladder appears to be distended. 5. Otherwise, no other new or significant changes are seen compared to the dawn or study. Objective Remarks GENERAL: Well-nourished, well-developed pleasant elderly female patient in [facility]. SKIN: Warm and dry. No rash. HEENT: Normocephalic. Atraumatic. Pupils equal and round. Mucous membranes pink and moist. CARDIOVASCULAR: Regular rate and rhythm. No murmur appreciated. RESPIRATORY: No accessory muscle use. Clear to auscultation. Breath sounds equal bilaterally. GASTROINTESTINAL: Abdomen soft, nondistended, mild diffuse TTP. Normoactive bowel sounds x4. MUSCULOSKELETAL: No obvious deformities. Extremities without clubbing, cyanosis , or edema. NEUROLOGICAL: Awake and alert. No obvious cranial nerve deficits. Motor grossly within normal limits. Moving all extremities spontaneously. Normal speech. Procedures 09/14/17 -EGD by Dr. Escalona showed Schatzki's ring, otherwise normal Medications and IVs Current Medications Medications (Trade) Dose Ordered Sig/Ton Route Start Time Stop Time Status Last Admin (VANCOMYCIN for oral use only) 125 mg QID PO 09/12/17 14:45 09/15/17 21:15 Sodium Chloride 1,000 ml @ 70 mls/hr [id number] IV 09/12/17 19:30 09/16/17 03:43 (NS Flush) 2 ml UNSCH PRN IV FLUSH 09/12/17 19:30 (NS Flush) 2 ml BID IV FLUSH 09/12/17 21:00 09/15/17 21:15 (Tylenol) 650 mg Q4H PRN PO 09/12/17 19:30 (Lovenox Inj) 40 mg Q24H SQ 09/12/17 20:00 09/15/17 21:11 (Narcan Inj) 0.4 mg UNSCH PRN IV PUSH 09/12/17 19:30 (Milk Of Magnesia Liq) 30 ml Q12H PRN PO 09/12/17 19:30 (Senokot) 17.2 mg Q12H PRN PO 09/12/17 19:30 (Dulcolax Supp) 10 mg DAILY PRN RECTAL 09/12/17 19:30 (Lactulose Liq) 30 ml DAILY PRN PO 09/12/17 19:30 (Lipitor) 40 mg HS PO 09/12/17 21:00 09/15/17 21:12 (Sinemet 25-100 Mg) 1 tab Q8HR PO 09/12/17 22:00 09/16/17 05:25 (Neurontin) 300 mg HS PO 09/12/17 21:00 09/15/17 21:14 (Lactinex) 1 tab Q12HR PO 09/12/17 21:00 09/16/17 09:34 (Antivert) 25 mg DAILY PRN PO 09/12/17 19:30 (Lopressor) 50 mg DAILY PO 09/13/17 09:00 09/16/17 09:34 (Procardia Xl) 30 mg DAILY PO 09/13/17 09:00 09/14/17 08:50 (Protonix) 40 mg BID PO 09/12/17 21:00 09/16/17 09:34 (Questran 4 Gm Pkt) 4 gm Q12HR PO 09/13/17 21:00 09/13/17 20:59 (Tears Naturale Opth Soln) 1 drop Q6H PRN EACH EYE 09/13/17 18:00 Lactated Ringer's 1,000 ml @ 30 mls/hr Q24H PRN IV 09/14/17 05:45 09/17/17 05:44 Sodium Chloride 500 ml @ 30 mls/hr [id number] PRN IV 09/14/17 05:45 09/17/17 05:44 (Betadine 5% Antisepsis Kit) 1 applic THEATER TECHNICIAN PRN EACH NARE 09/14/17 05:45 09/17/17 05:44 (Chlorhexidine 2% Cloth) 3 pack THEATER TECHNICIAN PRN TOPICAL 09/14/17 05:45 09/17/17 05:44 (Zofran Odt) 4 mg Q6H PRN SL 09/15/17 00:15 09/15/17 14:29 (Dificid) 200 mg BID PO 09/15/17 10:15 09/24/17 21:01 09/16/17 09:34 (Asacol Hd Dr) 1,600 mg Q8HR PO 09/15/17 14:00 09/16/17 05:24 (Tums Chew) 500 mg Q12HR CHEW 09/15/17 10:15 09/16/17 09:33 A/P Problem List: (1) Nausea & vomiting ICD Code: R11.2 - Nausea with vomiting, unspecified (2) Diarrhea ICD Code: R19.7 - Diarrhea, unspecified (3) Leukocytosis ICD Code: D72.829 - Elevated white blood cell count, unspecified (4) Hypertension ICD Code: I10 - Essential (primary) hypertension (5) Sepsis ICD Code: A41.9 - Sepsis, unspecified organism Assessment and Plan 87-year-old female with history of C. difficile colitis on oral Vanco, CVA, HTN , rheumatoid arthritis, presents with nausea/vomiting/diarrhea. Nausea/vomiting/diarrhea: Acute. -CT abd/pelvis reviewed, shows mildly improved thickening of the transverse colon, otherwise normal bowel gas pattern without obstruction; mild prominence of right collecting system without stone, distended bladder -Supportive treatment with IV fluid hydration, antiemetics as needed, pain control as needed -Stool cultures negative so far -Continue Protonix -Consult GI, s/p EGD 09/14, showed Schatzki's ring otherwise unremarkable -N/V resolved, diet advanced to heart healthy, tolerating oral intake C. difficile colitis: Subacute. S/p recent hospitalization in [facility]. -Continue patient's oral vancomycin 125 mg po qid -Repeat C. difficile PCR negative -Consulted infectious disease, discussed with Dr. Castrejon, started on Asacol and Dificid -Monitor BMs, improving VRE UTI: UA with small leuks, WBCs, and bacteria. Patient endorses dysuria. -Urine Culture with Enterococcus Durans/Hirae VRE -S/p IV Rocephin, now discontinued -Infectious disease consulted, appreciate assistance Sepsis: Meets sepsis criteria with WBC increased to 17.1K and mild tachycardia HR 103, and suspect source- UTI and/or C.diff, as above. -continue IVF hydration -treat infections as above -monitor CBC, leukocytosis improving, WBC 11 K today. Anemia: Chronic, baseline around 10, decreased to 9.8 overnight likely dilutional secondary to IVF. -No active signs of bleeding -Hgb dropped to 8.0, stool hemoccult negative, likely dilutional -Iron studies consistent with anemia of chronic disease -Repeat hemoglobin improved to 8.7, continue to monitor Hypertension/hyperlipidemia: Chronic, BP fairly well controlled -Continue patient's home medications including Nifedipine, Metoprolol, statin -Monitor BP, adjust antihypertensives as needed Hypokalemia/hypomagnesemia/hypocalcemia: likely secondary to GI losses with diarrhea -give po KCl replacement and IV mag sulfate -started on calcium carbonate replacement -monitor electrolytes, replace as needed DVT Prophylaxis: Lovenox sq Discharge Planning Discharge pending further clinical improvement and ID clearance. Sylwia Wood PA-C Sep 16, 2017 9:16 am
[2017-09-16] MEDS: CHOLESTYRAMINE 4 GM PACKET PO SCH ×2 (09:30→20:58)
[2017-09-16] MEDS: CALCIUM CARBONATE 500 MG CHEWABLE TAB CHEW SCH ×2 (09:33→20:47)
[2017-09-16] MEDS: LACTOBACILLUS ACIDOPHILUS TAB PO SCH ×2 (09:34→20:47)
[2017-09-16] MEDS: FIDAXOMICIN 200 MG TAB PO SCH (09:34)
[2017-09-16] MEDS: METOPROLOL TARTRATE 50 MG TAB PO SCH (09:34)
[2017-09-16] MEDS: PANTOPRAZOLE SOD 40 MG DELAYED RELEASE TAB PO SCH ×2 (09:34→20:47)
[2017-09-16] MEDS: SODIUM CHLORIDE 0.9% FLUSH 10 ML FLUSH IV FLUSH SCH ×2 (09:35→20:48)
--- NOTE | 2017-09-16 13:50 | HHI.IDPN ---
Subjective Subjective Remarks Ms. Christopher is an pleasant 87-year-old female with history of C. 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 Patient was discharged on oral vancomycin extended course along with Asacol. Patient is now admitted with history of nausea vomiting and diarrhea. Patient was seen by a principal research economist in the office. Patient was recently also admitted at [facility] for the same symptoms. She reportedly was referred to [facility] by a principal research economist. Despite being on treatment she continues to have diarrhea nausea and vomiting. Symptoms worsened over the last 1-2 days prior to admission. She was brought into the emergency department because of persistent symptoms described as above. At the time of my evaluation patient is in the clinical decision unit area and reports no nausea vomiting or diarrhea. She denies any fevers or chills. She denies any chest pain, shortness of breath. She does report some weight loss and generalized weakness. Denies any changes in bladder habits. 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 Overnight events reviewed No fevers No rash No diarrhea reports left UE infiltrated IV line related swelling and pain. Only 1 loose BM but better formed than days before. No abd pain Antibiotics vanco oral Asacol Difficid Lines LUE IV site infiltrated but no e.o infection Allergies: Coded Allergies: ciprofloxacin (Verified Allergy, Intermediate, RASH, ITCHING, 07/19/17) codeine (Unverified Allergy, Intermediate, "VIOLENTLY SICK", 07/18/17) Objective . Vital Signs Date Time Temp Pulse Resp B/P (MAP) Pulse Ox O2 Delivery O2 Flow Rate FiO2 09/16/17 12:00 98.0 78 15 138/62 (87) 96 09/16/17 08:00 97.8 86 15 114/55 (74) 92 09/16/17 04:20 98.0 82 16 102/53 (69) 95 09/16/17 04:01 81 09/16/17 04:00 83 09/16/17 00:00 85 09/15/17 23:28 98.6 88 16 114/59 (77) 94 09/15/17 20:00 96 09/15/17 19:56 98.6 92 16 124/60 (81) 96 09/15/17 16:24 98.3 87 18 117/58 (77) 96 . Laboratory Tests Test 09/15/17 07:40 09/16/17 05:21 White Blood Count 13.4 TH/MM3 11.3 TH/MM3 Red Blood Count 2.31 MIL/MM3 2.61 MIL/MM3 Hemoglobin 8.0 GM/DL 8.7 GM/DL Hematocrit 22.2 % 25.6 % Mean Corpuscular Volume 96.2 FL 97.8 FL Mean Corpuscular Hemoglobin 34.7 PG 33.4 PG Mean Corpuscular Hemoglobin Concent 36.1 % 34.2 % Red Cell Distribution Width 15.0 % 15.1 % Platelet Count 279 TH/MM3 288 TH/MM3 Mean Platelet Volume 8.0 FL 8.1 FL Neutrophils (%) (Auto) 81.2 % 71.9 % Lymphocytes (%) (Auto) 9.1 % 13.6 % Monocytes (%) (Auto) 8.4 % 12.0 % Eosinophils (%) (Auto) 0.9 % 1.7 % Basophils (%) (Auto) 0.4 % 0.8 % Neutrophils # (Auto) 10.9 TH/MM3 8.1 TH/MM3 Lymphocytes # (Auto) 1.2 TH/MM3 1.5 TH/MM3 Monocytes # (Auto) 1.1 TH/MM3 1.4 TH/MM3 Eosinophils # (Auto) 0.1 TH/MM3 0.2 TH/MM3 Basophils # (Auto) 0.1 TH/MM3 0.1 TH/MM3 CBC Comment AUTO DIFF DIFF FINAL Differential Comment AUTO DIFF CONFIRMED Platelet Estimate NORMAL Platelet Morphology Comment NORMAL Stomatocytes 1+ Rouleau PRESENT Laboratory Tests Test 09/15/17 07:40 09/16/17 05:21 Blood Urea Nitrogen 6 MG/DL 6 MG/DL Creatinine 0.51 MG/DL 0.46 MG/DL Random Glucose 79 MG/DL 76 MG/DL Total Protein 5.3 GM/DL 5.5 GM/DL Calcium Level 7.3 MG/DL 7.4 MG/DL Sodium Level 133 MEQ/L 137 MEQ/L Potassium Level 3.1 MEQ/L 3.4 MEQ/L Chloride Level 101 MEQ/L 104 MEQ/L Carbon Dioxide Level 22.0 MEQ/L 21.9 MEQ/L Anion Gap 10 MEQ/L 11 MEQ/L Estimat Glomerular Filtration Rate 114 ML/MIN 128 ML/MIN Protein Corrected Calcium 8.3 MG/DL 8.3 MG/DL Magnesium Level 1.5 MG/DL Iron Level 20 MCG/DL Total Iron Binding Capacity 130 MCG/DL Percent Iron Saturation 15.4 % Ferritin 152 NG/ML Troponin I LESS THAN 0.02 NG/ML Vitamin B12 Level 572 PG/ML Folate 5.9 NG/ML Microbiology Date/Time Source Procedure Growth Status 09/15/17 16:30 Stool Stool Stool Occult Blood (ANUPAMA) - Final HEMOCCULT NEGATIVE Complete Imaging Last Impressions Abdomen/Pelvis CT 09/12/17 1436 Signed Impressions: CONCLUSION: 1. The previously noted thickening involving the transverse colon is mildly im proved. Otherwise the bowel gas pattern is within normal limits without evidenc e of mechanical obstruction. 2. Mild prominence of the right collecting system without obstructing renal st one or ureteral stone. 3. Stable small cyst in the head of the pancreas. 4. The bladder appears to be distended. 5. Otherwise, no other new or significant changes are seen compared to the dawn or study. Physical Exam GENERAL: This is a well-nourished, well-developed patient, in no apparent distress. SKIN: No rashes, ecchymoses or lesions. Cool and dry. HEAD: Atraumatic. Normocephalic. No temporal or scalp tenderness. EYES: Pupils equal round and reactive. Extraocular motions intact. No scleral icterus. No injection or drainage. ENT: Nose without bleeding, purulent drainage or septal hematoma. Throat without erythema, tonsillar hypertrophy or exudate. Uvula midline. Airway patent. NECK: Trachea midline. Supple, nontender, no meningeal signs. CARDIOVASCULAR: Heart sounds audible. RESPIRATORY: Clear to auscultation. Breath sounds equal bilaterally. No wheezes , rales, or rhonchi. GASTROINTESTINAL: Abdomen soft, diffuse minimal tenderness, nondistended. MUSCULOSKELETAL: LUE with swelling but no e.o infection NEUROLOGICAL: Awake and alert. Nonfocal exam Psych cooperative IV line sites with no evidence of infection. Assessment & Plan Remarks Recurrent Cdiff ? reinfection vs recurrence. VRE in the urine. Reports dysuria that is chronic. ? has been receiving antibiotics that could be precipitating bouts of diarrhea Cdiff. Possible this is a recurrent UTI and recurrent Cdiff cycle. Recs Avoid systemic antibiotics as WBC improved despite antibiotic that was not susceptible based on culture. It is of utmost importance that the patients nail be trimmed and hands be cleaned. Hand hygiene and environmental decontamination equally important in preventing Cdiff. On the last pathology report patient had acute colitis with ulceration. Patient will benefit from Asacol for few weeks or months. Needs GI follow up. I would not recommend fecal transplant given these ulcerations as patient could develop bacteremia from translocation of bacteria. Instead the focus should be on GI follow up, Asacol continuation, trimming of nails, hand hygiene and environmental hygiene. Discussed with patients RN. Stop Difficid Continue oral vanco Continue Asacol Avoid PPIs Avoid any promotility agents dw patient dw RN dw Hepas Discharge medications from ID standpoint: 1. Vanco 125 mg po q6hrs for 4 weeks, then vanco 125 mg po tid for 2 weeks, then vanco 125 mg po bid for 2 weeks, then vanco 125 mg daily for 2 weeks 2. Continue Asacol as in [facility] for 1 month atleast then decide with GI followup. Will sign off please call back if any change in clinical condition or questions. Vera Castrejon MD Sep 16, 2017 13:50
--- NOTE | 2017-09-16 17:31 | RADRPT ---
EXAM DATE: 09/16/2017 5:23 PM EDT AGE/SEX: 87 years / Female INDICATIONS: Left arm swelling. CLINICAL DATA: This is the patient's initial encounter. Patient reports that signs and symptoms have been present for 1 day and indicates a pain score of 0/10. MEDICAL/SURGICAL HISTORY: Hypercholesterolemia. Hypertension. Osteoporosis. Cerebrovascular accident. Hyperlipidemia. Ulcers. Hernia. Arthritis. Skin cancer. Clostridium difficile. Appendecto my. Hysterectomy. Carotid endarterectomy . Left lung surgery. COMPARISON: No prior [facility] exams available for comparison. FINDINGS: There is spontaneous flow documented in the brachial, basilic, cephalic, axillary, and subclavian vei ns. The vessels are compressible and augmentation response is documented. No filling defects are se en. The flow is phasic with respiration. Direction of flow in the jugular vein is caudal. CONCLUSION: 1. No evidence of deep venous thrombosis within the left upper extremity. Electronically signed by: Manuel Oswald MD 09/16/2017 5:30 PM EDT
[2017-09-16] MEDS: ATORVASTATIN 40 MG TAB PO SCH (20:47)
[2017-09-16] MEDS: GABAPENTIN 300 MG CAP PO SCH (20:47)
[2017-09-16] MEDS: ENOXAPARIN SODIUM 40 MG/0.4 ML SYRINGE SQ SCH (20:47)
[2017-09-17] VITALS: BP 129/94; PULSE 95; RESP 18; TEMP 98.3; O2SAT 94
[2017-09-17 03:43] VITALS: PULSE 90
[2017-09-17 04:00] VITALS: BP 125/62; PULSE 104; RESP 20; TEMP 99.4; O2SAT 93
[2017-09-17] MEDS: CARBIDOPA/LEVODOPA 25 MG/100 MG TAB PO SCH ×2 (04:20→17:25)
[2017-09-17] MEDS: MESALAMINE HD 800 MG DELAYED RELEASE TAB PO SCH ×2 (04:20→17:26)
[2017-09-17 08:00] VITALS: BP 135/60; PULSE 97; RESP 18; TEMP 98.3; O2SAT 93
[2017-09-17] MEDS: CHOLESTYRAMINE 4 GM PACKET PO SCH (09:00)
[2017-09-17] MEDS ORDERED: VANC500I3 PO (09:16)
[2017-09-17] MEDS ORDERED: ASAC800T PO (09:16)
[2017-09-17] MEDS ORDERED: CHOL4POW4 PO (09:16)
--- NOTE | 2017-09-17 09:19 | HHI.DS ---
Discharge Summary Admission Date Sep 15, 2017 at 10:17 Discharge Date: Sep 17, 2017 Admitting Diagnosis C.DIFF/DIARRHEA/UTI (1) Nausea & vomiting ICD Code: R11.2 - Nausea with vomiting, unspecified (2) Diarrhea ICD Code: R19.7 - Diarrhea, unspecified (3) Leukocytosis ICD Code: D72.829 - Elevated white blood cell count, unspecified (4) Hypertension ICD Code: I10 - Essential (primary) hypertension (5) Sepsis ICD Code: A41.9 - Sepsis, unspecified organism Procedures 09/14/17 -EGD by Dr. Iqra Swartz's ring, otherwise normal Brief History - From Admission The patient is an 87-year-old female with multiple recent admissions for nausea , vomiting, and diarrhea. She has recently been treated for C. difficile colitis with oral vancomycin. 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 She apparently was also hospitalized in [facility] recently for the same symptoms. She states that she was referred to [facility] by GI. She has continued to have diarrhea, nausea, and vomiting. The symptoms worsened over the last 1-2 days. Nausea and vomiting are somewhat better this morning. Only one loose stool overnight. No chest pain. She does report dyspnea. CBC/BMP: 09/16/17 0521 09/16/17 0521 Significant Findings Laboratory Tests Test 09/14/17 09:26 09/14/17 10:50 09/14/17 17:00 09/15/17 07:40 White Blood Count 17.1 TH/MM3 (4.0-11.0) 13.4 TH/MM3 (4.0-11.0) Red Blood Count 3.10 MIL/MM3 (4.00-5.30) 2.31 MIL/MM3 (4.00-5.30) Hemoglobin 9.8 GM/DL (11.6-15.3) 8.0 GM/DL (11.6-15.3) Hematocrit 30.5 % (35.0-46.0) 22.2 % (35.0-46.0) Neutrophils (%) (Auto) 85.4 % (16.0-70.0) 81.2 % (16.0-70.0) Lymphocytes (%) (Auto) 6.3 % (9.0-44.0) Neutrophils # (Auto) 14.6 TH/MM3 (1.8-7.7) 10.9 TH/MM3 (1.8-7.7) Monocytes # (Auto) 1.3 TH/MM3 (0-0.9) 1.1 TH/MM3 (0-0.9) Blood Urea Nitrogen 3 MG/DL (7-18) 6 MG/DL (7-18) Creatinine 0.48 MG/DL (0.50-1.00) Calcium Level 7.7 MG/DL (8.5-10.1) 7.3 MG/DL (8.5-10.1) Urine Leukocyte Esterase SMALL (NEG) Mean Corpuscular Hemoglobin 34.7 PG (27.0-34.0) Mean Corpuscular Hemoglobin Concent 36.1 % (32.0-36.0) Monocytes (%) (Auto) 8.4 % (0.0-8.0) Stomatocytes 1+ (NORMAL) Rouleau PRESENT (NORMAL) Total Protein 5.3 GM/DL (6.4-8.2) Sodium Level 133 MEQ/L (136-145) Potassium Level 3.1 MEQ/L (3.5-5.1) Protein Corrected Calcium 8.3 MG/DL (8.5-10.1) Test 09/16/17 05:21 White Blood Count 11.3 TH/MM3 (4.0-11.0) Red Blood Count 2.61 MIL/MM3 (4.00-5.30) Hemoglobin 8.7 GM/DL (11.6-15.3) Hematocrit 25.6 % (35.0-46.0) Neutrophils (%) (Auto) 71.9 % (16.0-70.0) Monocytes (%) (Auto) 12.0 % (0.0-8.0) Neutrophils # (Auto) 8.1 TH/MM3 (1.8-7.7) Monocytes # (Auto) 1.4 TH/MM3 (0-0.9) Blood Urea Nitrogen 6 MG/DL (7-18) Creatinine 0.46 MG/DL (0.50-1.00) Total Protein 5.5 GM/DL (6.4-8.2) Calcium Level 7.4 MG/DL (8.5-10.1) Potassium Level 3.4 MEQ/L (3.5-5.1) Protein Corrected Calcium 8.3 MG/DL (8.5-10.1) Iron Level 20 MCG/DL (50-170) Total Iron Binding Capacity 130 MCG/DL (250-450) Percent Iron Saturation 15.4 % (20-50) Troponin I LESS THAN 0.02 NG/ML Imaging Last Impressions Upper Extremity Ultrasound 09/16/17 0000 Signed Impressions: CONCLUSION: 1. No evidence of deep venous thrombosis within the left upper extremity. Abdomen/Pelvis CT 09/12/17 1436 Signed Impressions: CONCLUSION: 1. The previously noted thickening involving the transverse colon is mildly im proved. Otherwise the bowel gas pattern is within normal limits without evidenc e of mechanical obstruction. 2. Mild prominence of the right collecting system without obstructing renal st one or ureteral stone. 3. Stable small cyst in the head of the pancreas. 4. The bladder appears to be distended. 5. Otherwise, no other new or significant changes are seen compared to the dawn or study. PE at Discharge GENERAL: Well-nourished, well-developed pleasant elderly female patient in [facility]. SKIN: Warm and dry. No rash. HEENT: Normocephalic. Atraumatic. Pupils equal and round. Mucous membranes pink and moist. CARDIOVASCULAR: Regular rate and rhythm. No murmur appreciated. RESPIRATORY: No accessory muscle use. Clear to auscultation. Breath sounds equal bilaterally. GASTROINTESTINAL: Abdomen soft, nondistended, mild diffuse TTP. Normoactive bowel sounds x4. MUSCULOSKELETAL: No obvious deformities. Extremities without clubbing, cyanosis , or edema. NEUROLOGICAL: Awake and alert. No obvious cranial nerve deficits. Motor grossly within normal limits. Moving all extremities spontaneously. Normal speech. Pt update on day of discharge Had a forming BM in the morning No more diarrhea No abd pain No fever or chills Hospital Course 87-year-old female with history of C. difficile colitis on oral Vanco, CVA, HTN , rheumatoid arthritis, presents with nausea/vomiting/diarrhea. Nausea/vomiting/diarrhea: Acute. -CT abd/pelvis reviewed, shows mildly improved thickening of the transverse colon, otherwise normal bowel gas pattern without obstruction; mild prominence of right collecting system without stone, distended bladder -Supportive treatment with IV fluid hydration, antiemetics as needed, pain control as needed -Stool cultures negative so far -Continue Protonix -Consult GI, s/p EGD 09/14, showed Schatzki's ring otherwise unremarkable -N/V resolved, diet advanced to heart healthy, tolerating oral intake C. difficile colitis: Subacute. S/p recent hospitalization in [facility]. -Continue patient's oral vancomycin 125 mg po qid -Repeat C. difficile PCR negative -Consulted infectious disease, discussed with Dr. Castrejon, started on Asacol and Dificid -Monitor BMs, improving VRE UTI: UA with small leuks, WBCs, and bacteria. Patient endorses dysuria. -Urine Culture with Enterococcus Durans/Hirae VRE -S/p IV Rocephin, now discontinued -Infectious disease consulted, appreciate assistance Sepsis: Meets sepsis criteria with WBC increased to 17.1K and mild tachycardia HR 103, and suspect source- UTI and/or C.diff, as above. -continue IVF hydration -treat infections as above -monitor CBC, leukocytosis improving, WBC 11 K today. Anemia: Chronic, baseline around 10, decreased to 9.8 overnight likely dilutional secondary to IVF. -No active signs of bleeding -Hgb dropped to 8.0, stool hemoccult negative, likely dilutional -Iron studies consistent with anemia of chronic disease -Repeat hemoglobin improved to 8.7, continue to monitor Hypertension/hyperlipidemia: Chronic, BP fairly well controlled -Continue patient's home medications including Nifedipine, Metoprolol, statin -Monitor BP, adjust antihypertensives as needed Hypokalemia/hypomagnesemia/hypocalcemia: likely secondary to GI losses with diarrhea -give po KCl replacement and IV mag sulfate -started on calcium carbonate replacement -monitor electrolytes, replace as needed DVT Prophylaxis: Lovenox sq Has forming BM. Improving. DC to SNF in stable condition to follow up as OP with PCP and consultants. Taper vancomycin dose at dC. Doscussed with the patient at length. Also discussed with the patient that is CI fecal transplant at [facility] time as high risk of bacteremia. She expressed understanding. Pt Condition on Discharge: Stable Discharge Disposition: Discharge to SNF Discharge Time: > 30 minutes Discharge Instructions DIET: Follow Instructions for: Heart Healthy Diet Activities you can perform: Regular-No Restrictions Follow up Referrals: Infectious Disease - 2 Weeks with Ernestine Harp MD PCP Follow-up - 2-3 Days New Medications: Cholestyramine (Cholestyramine) 4 Gm/Pkt Powd 4 GM PO Q12HR for diarrhea for 30 Days, PACKET 1 packet contains 4 grams of cholestyramine. Vancomycin Inj (Vancomycin Inj) 500 Mg Inj 125 MG PO QID for c diff colitis , #196 INJECTION Administer injectable form of vancomycin by mouth: take vancomycin 125 mg po q6hrs for 4 weeks then vanco 125 mg po tid for 2 weeks, then vanco 125 mg po bid for 2 weeks, then vanco 125 mg daily for 2 weeks. Changed Medications: Mesalamine DR (Asacol HD) 800 Mg Tab 1600 MG PO TID for colitis for 30 Days, #90 TAB 0 Refills (Changed from: 800 MG) Swallow whole. Take on an empty stomach. Continued Medications: Atorvastatin (Atorvastatin) 40 Mg Tab 40 MG PO HS for CEA for 30 Days, TAB Carbidopa-Levodopa (Carbidopa-Levodopa) 25-100 Mg Tab 1 TAB PO Q8HR for Parkinson Disease Mgmt, #90 TAB 0 Refills Cholecalciferol (Vitamin D3) Unknown Strength Tab 1 TAB PO DAILY for Nutritional Supplement, #1 BOTTLE 0 Refills Gabapentin (Gabapentin) 300 Mg Cap 300 MG PO HS, #30 CAP 0 Refills Lactobacillus Acidophilus (Acidophilus/l-Sporogenes) 35 Million Cell-25 Million Cell Tab 1 TAB PO Q12HR for c diff proph, #60 TAB Meclizine (Meclizine) 25 Mg Tab 25 MG PO DAILY PRN for DIZZINESS, TAB 0 Refills Metoprolol Tartrate (Metoprolol Tartrate) 50 Mg Tab 50 MG PO DAILY, #60 TAB 0 Refills Nifedipine ER 24 HR (Nifedipine ER 24 HR) 30 Mg Tab 30 MG PO DAILY for HTN for 30 Days, TAB Pantoprazole (Pantoprazole) 40 Mg Tab 40 MG PO BID for Reflux, #60 TAB 0 Refills Discontinued Medications: Ibuprofen (Ibuprofen) 800 Mg Tab 800 MG PO Q8H for Pain, #60 TAB 0 Refills Vancomycin (Vancomycin) 125 Mg Cap 125 MG PO QID for Infection, #40 CAP 0 Refills Ronda Gaines MD Sep 17, 2017 09:18
[2017-09-17] MEDS: NIFEdipine 30 MG SUSTAINED RELEASE TAB PO SCH (10:32)
[2017-09-17] MEDS: LACTOBACILLUS ACIDOPHILUS TAB PO SCH (10:32)
[2017-09-17] MEDS: PANTOPRAZOLE SOD 40 MG DELAYED RELEASE TAB PO SCH (10:32)
[2017-09-17] MEDS: VANCOMYCIN 500 MG VIAL (FOR ORAL USE ONLY) PO SCH ×3 (10:32→17:26)
[2017-09-17] MEDS: METOPROLOL TARTRATE 50 MG TAB PO SCH (10:32)
[2017-09-17] MEDS: CALCIUM CARBONATE 500 MG CHEWABLE TAB CHEW SCH (10:32)
[2017-09-17] MEDS: SODIUM CHLORIDE 0.9% FLUSH 10 ML FLUSH IV FLUSH SCH (10:33)
[2017-09-17 12:00] VITALS: BP 136/65; PULSE 80; RESP 16; TEMP 98.2; O2SAT 96
[2017-09-17 12:44] LABS: AUTOMATED NEUTROPHIL # 9.6 TH/MM3 (1.8-7.7); BASOPHIL % 0.2 % (0.0-2.0); EOSINOPHIL # 0.2 TH/MM3 (0-0.4); EOSINOPHIL % 1.3 % (0.0-4.0); HEMATOCRIT 25.9 % (35.0-46.0); HEMOGLOBIN 8.7 GM/DL (11.6-15.3); LYMPH % 7.6 % (9.0-44.0); LYMPHOCYTE # 0.9 TH/MM3 (1.0-4.8); MEAN CELL VOLUME 96.8 FL (80.0-100.0); MEAN CORPUSCULAR HEMOGLOBIN 32.4 PG (27.0-34.0); MEAN CORPUSCULAR HGB CONC 33.4 % (32.0-36.0); MEAN PLATELET VOLUME 8.2 FL (7.0-11.0); MONO % 13.3 % (0.0-8.0); MONOCYTE # 1.7 TH/MM3 (0-0.9); NEUT % 77.6 % (16.0-70.0); PLATELET COUNT 347 TH/MM3 (150-450); RED BLOOD COUNT 2.68 MIL/MM3 (4.00-5.30); RED CELL DISTRIBUTION WIDTH 15.5 % (11.6-17.2); WHITE BLOOD COUNT 12.4 TH/MM3 (4.0-11.0)
[2017-09-17 13:10] LABS: BICARBONATE 20.8 MEQ/L (21.0-32.0); CALCIUM 7.7 MG/DL (8.5-10.1); CREATININE 0.61 MG/DL (0.50-1.00); MAGNESIUM 1.8 MG/DL (1.5-2.5)
[2017-09-17 16:00] VITALS: BP 119/56; PULSE 84; RESP 16; TEMP 98.2; O2SAT 97
== END 2017-09-17 18:35 | DRG 872 ==
LOC: NEPC 14:19 → NEDA 18:37 → NEPHCDU 19:51 → OBSVTOIN 09-15 10:17 → N07B 09-16 18:48
PROVIDERS: ADMIT Hospitalist; ATTEND Hospitalist
PROC: 0DJ08ZZ Inspection of Upper Intestinal Tract, Via Natural or Artificial Opening Endoscopic (ICD-10-PCS; principal; 2017-09-14 09:40)
DX: A41.9 Sepsis, unspecified organism (principal); A04.71 Enterocolitis due to Clostridium difficile, recurrent; N30.00 Acute cystitis without hematuria; R06.00 Dyspnea, unspecified; E83.51 Hypocalcemia; E83.42 Hypomagnesemia; D63.8 Anemia in other chronic diseases classified elsewhere; E87.6 Hypokalemia; I10 Essential (primary) hypertension; E78.5 Hyperlipidemia, unspecified; F41.9 Anxiety disorder, unspecified; Z16.21 Resistance to vancomycin; B95.2 Enterococcus as the cause of diseases classified elsewhere; K22.2 Esophageal obstruction; R63.4 Abnormal weight loss; M06.9 Rheumatoid arthritis, unspecified; M19.90 Unspecified osteoarthritis, unspecified site; Z86.73 Personal history of transient ischemic attack (TIA), and cerebral infarction without residual deficits; Z90.710 Acquired absence of both cervix and uterus; Z87.891 Personal history of nicotine dependence; Z88.1 Allergy status to other antibiotic agents; Z87.11 Personal history of peptic ulcer disease; Z79.899 Other long term (current) drug therapy
CPT/HCPCS: 74177; 80048; 80053; 81001; 82272; 82607; 82728; 82746; 83540; 83550; 83605; 83690; 83735; 84155; 84484; 85025; 85610; 85730; 87015; 87077; 87086; 87116; 87186; 87206; 87328; 87329; 87493; 87506; 93005; 93971; G8987-GP; G8988-GP; J0696; J1650; J3475; J7030; J7120; Q9967